=== PATIENT | female | born 1975 | race Caucasian/White ===

== ENCOUNTER → 2017-08-24 09:34 | Outpatient (REF) | payer MEDICARE, MEDICAID, SELFPAY ==
[2017-08-24 09:46] LABS: Add Manual Diff / Slide Review NO; Basophils Percent Auto 0.9 % (0-2); Eosinophils Percent Auto 2.1 % (2-4); Hematocrit 42.5 % (36-46); Lymphocytes Percent Auto 25.3 % (25-40); Mean Corpuscular HGB Conc 32.9 % (30-36); Mean Corpuscular Hemoglobin 27.2 PG (26-34); Mean Corpuscular Volume 82.6 fL (80-100); Monocytes Percent Auto 6.8 % (3-14); Neutrophils Absolute Auto 6900 /uL (3000-5900); Neutrophils Percent Auto 64.9 % (50-75); Platelet Count 290 X10^3/uL (150-400); Red Blood Cell Count 5.14 X10^6/uL (4.0-5.2); Red Cell Distribution Width 17.4 % (11.6-14.8); White Blood Cell Count 10.7 X10^3/uL (4.5-11.0)
[2017-08-24 10:01] LABS: Potassium 3.6 mmol/L (3.4-5.1)
[2017-08-24 10:02] LABS: Alanine Aminotransferase 43 IU/L (9-52); Albumin 4.2 g/dL (3.5-5.0); Albumin Globulin Ratio 1.2 (1.0-2.8); Alkaline Phosphatase 94 U/L (38-126); Aspartate Aminotransferase 28 IU/L (14-36); Bilirubin Total 0.7 mg/dL (0.2-1.3); Calcium 8.9 mg/dL (8.4-10.2); Estimated Glomerular Filt Rate > 60.0 mL/min (>60); Globulin 3.6 g/dL (1.7-4.1); Glucose 125 mg/dL (70-100); HEMOLYSIS 49 (0-50); Sodium 140 mmol/L (137-145); Total Protein 7.8 g/dL (6.3-8.2)
== END ==
LOC: LAB 09:34
PROVIDERS: PCP Family Medicine; Visit Provider Family Medicine
DX: R60.9 Edema, unspecified (principal)
CPT/HCPCS: 80053; 85025

== ENCOUNTER 2017-09-15 20:42 | Inpatient (IN) | payer MEDICARE, MEDICAID, SELFPAY ==
[2017-09-15 21:00] VITALS: BP 214/90; PULSE 98; RESP 34; TEMP 36.6; O2SAT 94
[2017-09-15 21:08] VITALS: BP 166/73; PULSE 98; RESP 34
--- NOTE | 2017-09-15 22:21 | DI.CT.S_ITS ---
PROCEDURE: CT ANGIO CHEST PE PROTOCOL INDICATIONS: shortness of breath TECHNIQUE: After the administration of intravenous contrast, 2 mm thick sections acquired from the pulmonary apices to the posterior costophrenic angles. 3-dimensional maximum intensity projection (MIP) coronal and sagittal reformats were then acquired through the thorax. For radiation dose reduction, the following was used: automated exposure control, adjustment of mA and/or kV according to patient size. COMPARISON: [facility], CT, PE STUDY (CTA CHEST), 01/12/2017, 20:01. [facility], CT, PE STUDY (CTA CHEST), 06/02/2016, 13:25. FINDINGS: Image quality: Suboptimal related to moderate motion artifact from breathing. There is also suboptimal opacification of the pulmonary arteries. Pulmonary arteries: Pulmonary arteries are normal in size, and demonstrate no large intraluminal filling defects to suggest central pulmonary embolism. The pulmonary arteries are only adequately opacified to the lobar branches. Lungs and pleura: Patchy areas of groundglass attenuation are identified diffusely throughout the lungs with areas of sparing. Mild consolidation is evident within the region of the lingula, likely representing atelectasis. No lobar consolidation or pleural effusion, or pneumothorax is identified. Mediastinum: Heart size is normal, without pericardial effusion. No mediastinal or hilar adenopathy. However, there are numerous subcentimeter mediastinal lymph nodes identified which are similar to the previous exam. Thoracic aorta is normal in caliber and enhancement. Esophagus is normal in caliber, without hiatal hernia. Bones and chest wall: No suspicious bony lesions. Ribs and thoracic spine appear intact throughout. Thyroid gland appears to be slightly prominent in size and contains inferior thyroid nodules. No axillary or supraclavicular adenopathy. Abdomen: The liver is hypodense when compared to the spleen and may be mildly enlarged. Otherwise, the included portions of the upper abdomen are unremarkable. IMPRESSION: 1. Suboptimal evaluation for pulmonary emboli. No large pulmonary emboli are evident. 2. Patchy areas of groundglass attenuation likely is exaggerated by expiratory technique. However, pulmonary edema, hypersensitivity pneumonitis or atypical infection may also have this appearance and clinical correlation is recommended. 3. Numerous small mediastinal lymph nodes are similar to the prior examination. 4. Probable hepatic steatosis. Note: The preliminary report provided by [facility] is concordant with the final report. Dictated by: Sebastian Silveira M.D. on 09/16/2017 at 8:06 Approved by: Sebastian Silveira M.D. on 09/16/2017 at 8:10
[2017-09-15 22:30] VITALS: BP 156/89; PULSE 94; RESP 23; O2SAT 98
[2017-09-15 22:31] LABS: Add Manual Diff / Slide Review NO; Basophils Percent Auto 0.9 % (0-2); Eosinophils Percent Auto 1.3 % (2-4); Hematocrit 39.7 % (36-46); Hemoglobin 12.6 g/dL (12.0-16.0); Lymphocytes Percent Auto 12.8 % (25-40); Mean Corpuscular HGB Conc 31.6 % (30-36); Mean Corpuscular Hemoglobin 26.7 PG (26-34); Mean Corpuscular Volume 84.4 fL (80-100); Monocytes Percent Auto 5.4 % (3-14); Neutrophils Absolute Auto 10800 /uL (3000-5900); Neutrophils Percent Auto 79.6 % (50-75); Platelet Count 369 X10^3/uL (150-400); Red Blood Cell Count 4.71 X10^6/uL (4.0-5.2); Red Cell Distribution Width 17.1 % (11.6-14.8); White Blood Cell Count 13.6 X10^3/uL (4.5-11.0)
[2017-09-15 22:32] LABS: Blood Urea Nitrogen 14 mg/dL (7-17); Calcium 9.3 mg/dL (8.4-10.2); Carbon Dioxide 36 mmol/L (22-32); Chloride 95 mmol/L (98-107); Estimated Glomerular Filt Rate > 60.0 mL/min (>60); Glucose 206 mg/dL (70-100); HEMOLYSIS < 15 (0-50); Potassium 4.6 mmol/L (3.4-5.1); Sodium 140 mmol/L (137-145)
[2017-09-15 22:44] LABS: Troponin I 0.045 ng/mL (0.01-0.034)
[2017-09-15] MEDS: LORazepam 2 MG/ML SYRINGE 1 MG IV (22:45)
[2017-09-15 23:10] VITALS: BP 156/78; PULSE 91; RESP 26; O2SAT 96
[2017-09-15 23:20] LABS: Procalcitonin < 0.05 ng/mL (<0.5)
[2017-09-15] MEDS: HALOPERIDOL 5 MG/ML VIAL 2 MG IV (23:31)
--- NOTE | 2017-09-15 23:57 | PC.NURSE ---
Pt went for CT angio via wheelchair. [address] scanner. Premedicated with 1mg lorazepam IV per provider order. Pt unable to lie flat without extreme shortness of breath and anxiety related to inability to breath, per pt. Medicated pt with 2mg Haldol per provider order and NRB on 12L. Respiratory therapist at pt's side to assist with breathing. Continuous pulse ox was used. Pt was at 99% throughout entire procedure and tolerated well. Back in room now and comfortable sitting up on 6L nasal cannula.
[2017-09-16] VITALS (15 sets, daily range): BP systolic 141–184; BP diastolic 68–109; PULSE 85–117; RESP 15–22; TEMP 36.4–37.4; O2SAT 90–96; BMI 62.8
[2017-09-16 01:23] LABS: Troponin I 0.043 ng/mL (0.01-0.034)
--- NOTE | 2017-09-16 01:25 | PC.NURSE ---
Turned O2 flow rate from 6L to 3L to see how pt tolerated. Desatted from 99% down to 92% at rest. Got her up to bedside commode and she became short of breath and desatted to 79%. Turned pt back up to 6L nasal cannula and after approx 4-5 min, she was at 90%. Encouraged pt to deep breath thru nose and blow out through mouth. Pt states 6L feels much better. She does say that at home, she will usually get short of breath with exertion, but not as bad as this. She monitors her oxygen at home and is usually about 96-98% on 3L.
[2017-09-16] MEDS: DEXAMETHASONE 10 MG/ML VIAL 12 MG IV (03:08)
[2017-09-16] MEDS: levoFLOXacin 750 MG/150 ML PIGGYBACK 100 MG IV (03:13)
--- NOTE | 2017-09-16 03:35 | PC.NURSE ---
Meds administered per order. Pt. sleeping in chair with IV infusing without evidence of infiltration. responds appropriately to verbal stimuli, remaind on monitor
[2017-09-16] MEDS: ACETAMINOPHEN 325 MG TABLET 975 MG PO (04:35)
--- NOTE | 2017-09-16 04:46 | ED.SOB ---
HPI - SOB/Dyspnea General Chief Complaint: Shortness of Breath/Dyspnea Stated Complaint: SOB WITH MOVEMENT History of Present Illness HPI 42-year-old morbidly obese female with history of recurrent pneumonia is now with 2-3 LPM home O2 requirement via NC presents with new hypoxemia (SaO2 low to mid 80s on 5 LPM). Symptoms have been apparently developing over 1-2 days. Patient denies chest pain, fevers, chills, or cough. Patient denies a history of PE, DVT, or smoking. M/S/F/SocHx notable for: please see HPI; remainder reviewed with patient and in chart. ROS: Negative constitutional, eye, cardiovascular, pulmonary, GI, , MSK, skin, neurologic, psychiatric, endocrine unless noted in the HPI. Exam Gen: Pleasant, non-toxic appearing, resting comfortably. HEENT: NC, AT, PEERL, EOMI, trachea midline. Resp: Clear to auscultation bilaterally, normal work of breathing. However exam is limited by habitus. Card: RRR with no M/R/G, no crackles in lung bases, no pedal edema, no JVD appreciated. GI: NT/ND Vascular: Both ankles, calves, and thighs of equal size, no calf tenderness to palpation bilaterally. MSK: No chest wall TTP. No visible deformities, strength and tone WNL. Skin: Normal color with no visible lesions. Neuro: AO x 3, no facial asymmetry, vision and hearing WNL. Psych: Mood and affect appropriate. Labs / Imaging (pertinent): WBC 13.6, HB 12.6 sodium 140, potassium 4.6, troponin 0.045, Procalcitonin <0.05, troponin (repeat) 0.043 EKG: SR at 92 bpm, no IA segment depressions, no new ST segment changes, new LBBB, or T-wave changes that would suggest acute ischemia. CTA Chest: limited study. No evidence of large central pulmonary emboli. Smaller pulmonary emboli cannot be excluded. Bilateral ground glass opacities nonspecific may be due to ulnar edema, infiltrates. Or focal left basilar atelectasis versus infiltrate. Cardiomegaly. Small thyroid nodule. MDM Previous chart, nursing note, and vitals reviewed. A: 42-year-old morbidly obese female with history of recurrent pneumonia is now with 2-3 LPM home O2 requirement via NC presents with new hypoxemia (SaO2 low to mid 80s on 5 LPM). DDx: pneumonia, reactive airway disease / COPD / Asthma, bronchitis, pneumothorax, anxiety, PE, CHF, pleural effusion, pericardial effusion, ACS. Evaluation: * Pneumonia - doubt but cannot fully exclude a bacterial pneumonia given the absence of Pro calcitonin elevation, absence of cough, or fevers, as well as an absence of a focal infiltrate and the patient's CTA. * Reactive airway disease / COPD / Asthma - patient with good air movement and an absence of wheezing. * Bronchitis - doubt given the lack of productive cough or systemic symptoms. * Pneumothorax - no evidence by CT. * Anxiety - patient clinically without evidence of appreciable anxiety on exam. * PE - patient felt to be moderate to high risk by clinical Gestalt, given the recognition that the chest x-ray would have sub optimal imaging with respect to pneumonia or pneumonitis a CTA was ordered to evaluate for both PE and pneumonia. CT without evidence of large pulmonary emboli. Given the patient's overall tenuous respiratory function it is possible that small pulmonary emboli could be causing the patient's symptoms. * CHF - no evidence by auscultation, CT, and absence of pedal edema. * Pleural effusion - CT without evidence of effusions. * Pericardial effusion - no evidence by imaging. * ACS - doubt ACS given a non-ischemic EKG and effectively negative serial troponins. ED Course: on 3 L per minute (home oxygen level) patient desaturates to 79% when attempting to urinate. 12 mg Decadron and 750 mg Levaquin given for treatment of possible pneumonia and/or pneumonitis. Blood cultures drawn. Disposition: patient admitted for observation supportive care. Impression: hypoxemia (please reference below for remainder of encounter information) Related Data Home Medications Medication Instructions Recorded Confirmed lorazepam 1 - 2 mg PO Q8HP PRN #0 06/02/16 etanercept [Enbrel] 50 mg SQ QWEEK #0 08/12/16 hydrocodone-acetaminophen 0 tab PO Q4HP PRN #0 01/12/17 metoprolol tartrate 50 mg PO BID #0 01/12/17 ondansetron HCl [Zofran] 4 mg PO Q8HP PRN #0 01/12/17 Previous Rx's Medication Instructions Recorded levofloxacin [Levaquin] 750 mg PO 2100 #10 01/19/17 prednisone 40 mg PO AMCC #20 tab 01/19/17 Allergies Allergy/AdvReac Type Severity Reaction Status Date / Time infliximab Allergy Unknown Verified 09/15/17 21:40 PFS Social History Smoking Status: Former smoker Exam Initial Vital Signs Initial Vital Signs: Vital Signs Temperature 97.8 F 09/15/17 21:00 Pulse Rate 98 H 09/15/17 21:00 Respiratory Rate 34 H 09/15/17 21:00 Blood Pressure 214/90 H 09/15/17 21:00 Pulse Oximetry 94 09/15/17 21:00 Course Orders Ordered: ED Orders 09/15/17 21:15 Basic Metabolic Panel Stat Complete Blood Count AUTO DIFF Stat Procalcitonin Stat Troponin I Stat 09/15/17 22:21 CT angio chest PE protocol Stat 09/15/17 23:25 BiPAP Ventilatory Support Asse RT PROTOCOL 09/16/17 00:37 Troponin I Stat 09/16/17 02:24 Blood Culture Stat 09/16/17 03:48 Consult to Physician Routine Lorazepam (Ativan) 1 mg IV NOW PRN PRN Reason: anxiety Last Admin: 09/15/17 22:45 Dose: 1 mg Discontinued Medications Acetaminophen (Tylenol) 975 mg PO NOW ONE Stop: 09/16/17 04:17 Last Admin: 09/16/17 04:35 Dose: 975 mg Dexamethasone (Decadron) 12 mg IV NOW ONE Stop: 09/16/17 01:55 Last Admin: 09/16/17 03:08 Dose: 12 mg Haloperidol (Haldol) 2 mg IV NOW ONE Stop: 09/15/17 23:26 Last Admin: 09/15/17 23:31 Dose: 2 mg Levofloxacin (Levaquin) 750 mg in 150 mls @ 100 mls/hr IV NOW ONE Stop: 09/16/17 03:23 Last Admin: 09/16/17 03:13 Dose: 100 mls/hr Vital Signs - 8 hr 09/15/17 21:00 09/15/17 21:08 09/15/17 22:30 Temperature 97.8 F Pulse Rate 98 H 98 H 94 H Respiratory Rate 34 H 34 H 23 Blood Pressure 214/90 H Blood Pressure [Left Wrist] 166/73 H 156/89 H Pulse Oximetry 94 98 09/15/17 23:10 Temperature Pulse Rate 91 H Respiratory Rate 26 H Blood Pressure Blood Pressure [Left Wrist] 156/78 H Pulse Oximetry 96 MDM - SOB/Dyspnea Lab Data Result diagrams: 09/15/17 21:15 09/15/17 21:15 Lab Results 09/15/17 09/15/17 09/15/17 Range/Units 21:15 21:15 21:15 WBC 13.6 H (4.5-11.0) X10^3/uL RBC 4.71 (4.0-5.2) X10^6/uL Hgb 12.6 (12.0-16.0) g/dL Hct 39.7 (36-46) % MCV 84.4 (80-100) fL MCH 26.7 (26-34) PG MCHC 31.6 (30-36) % RDW 17.1 H (11.6-14.8) % Plt Count 369 (150-400) X10^3/uL Neut % (Auto) 79.6 H (50-75) % Lymph % (Auto) 12.8 L (25-40) % [place] % (Auto) 5.4 (3-14) % Eos % (Auto) 1.3 L (2-4) % Baso % (Auto) 0.9 (0-2) % Neut # (Auto) 75188 H (1181-3371) /uL Sodium 140 (137-145) mmol/L Potassium 4.6 (3.4-5.1) mmol/L Chloride 95 L (98-107) mmol/L Carbon Dioxide 36 H (22-32) mmol/L BUN 14 (7-17) mg/dL Creatinine 0.40 L (0.52-1.04) mg/dL Estimated GFR > 60.0 (>60) mL/min BUN/Creatinine Ratio 35.0 H (6-22) Glucose 206 H (70-100) mg/dL Calcium 9.3 (8.4-10.2) mg/dL Troponin I 0.045 H (0.01-0.034) ng/mL Procalcitonin < 0.05 (<0.5) ng/mL 09/16/17 Range/Units 00:37 WBC (4.5-11.0) X10^3/uL RBC (4.0-5.2) X10^6/uL Hgb (12.0-16.0) g/dL Hct (36-46) % MCV (80-100) fL MCH (26-34) PG MCHC (30-36) % RDW (11.6-14.8) % Plt Count (150-400) X10^3/uL Neut % (Auto) (50-75) % Lymph % (Auto) (25-40) % [place] % (Auto) (3-14) % Eos % (Auto) (2-4) % Baso % (Auto) (0-2) % Neut # (Auto) (1213-7717) /uL Sodium (137-145) mmol/L Potassium (3.4-5.1) mmol/L Chloride (98-107) mmol/L Carbon Dioxide (22-32) mmol/L BUN (7-17) mg/dL Creatinine (0.52-1.04) mg/dL Estimated GFR (>60) mL/min BUN/Creatinine Ratio (6-22) Glucose (70-100) mg/dL Calcium (8.4-10.2) mg/dL Troponin I 0.043 H (0.01-0.034) ng/mL Procalcitonin (<0.5) ng/mL Discharge Plan Departure Patient Disposition: Admitted As Inpatient Clinical Impression: Hypoxia Admit Date/Time: 09/16/17 04:04 Admit Provider: Jesus Manuel
--- NOTE | 2017-09-16 05:02 | PC.NURSE ---
attempted to call patient report (held for at least 30 minutes due to last patient going upstairs to same RN) patient report attempted nurse still not available.
--- NOTE | 2017-09-16 07:52 | PC.NURSE ---
Received report from VALENTIN Sales in ED at 0535. Pt arrived to unit at 0600 via wheelchair into room 211. Pt assisted to sitting in bed using walker. Then helped to BSC, pt voided qs, small clot noted , pt stated she is starting her menses. Assisted back to bed to perform a bed dangle. Pt needs frequent and long rest periods after movement. On 4L NC O2. BP and HR elevated on admit, O2 sat 68% on 4L. RT paged at 0705 to assess. Pt placed in high fowlers position , bed alarm on. Call light within reach. Pt placed on Telemetry monitoring per order. Denies chest pain. Pt very anxious, no available orders, was unable to leave bedside for 1 hour. PIV S/L'd to left upper arm.
[2017-09-16] MEDS: LISINOPRIL 10 MG TABLET PO (10:16)
[2017-09-16] MEDS: AMLODIPINE 5 MG TABLET 10 MG PO (10:16)
[2017-09-16] MEDS: FOLIC ACID 0.4 MG TABLET PO (10:16)
[2017-09-16] MEDS: FUROSEMIDE 20 MG/2 ML VIAL IV (10:16)
[2017-09-16] MEDS: predniSONE 5 MG TABLET 15 MG PO (10:17)
[2017-09-16] MEDS: METFORMIN HCL 500 MG TABLET 1000 MG PO ×2 (10:17→21:27)
[2017-09-16] MEDS: METOPROLOL 50 MG TABLET 100 MG PO ×2 (10:17→21:27)
--- NOTE | 2017-09-16 11:49 | PC.NURSE ---
PT DECLINES TO HAVE HOME MEDICATIONS STORED IN PHARMACY. PT STATES SHE WILL HAVE HER FAMILY TAKE MEDICATIONS HOME. STEPHANIE USED TO TRANS TO BSC FOR FREQUENT VOIDS THIS AM. PT C/O DISCOMFORT WITH STEPHANIE SLING. MARIN INSERTED PER VVO BY DR. PAULSON. PT TOLERATED WELL.
--- NOTE | 2017-09-16 12:55 | PM.HP.1 ---
History of Present Illness Date Patient Seen: 09/16/17 Time Patient Seen: 09:01 Chief complaint: SOB WITH MOVEMENT,o2 dependency Patient History Medical History Anxiety (Acute) Asthma (Acute) CHF (congestive heart failure) (Acute) COPD (chronic obstructive pulmonary disease) (Acute) Diabetes mellitus type 2 in obese (Acute) Morbid obesity (Acute) Pericardial effusion (Acute) Pleural effusion (Acute) Reactive airway disease (Acute) Recurrent pneumonia (Acute) Requires continuous at home supplemental oxygen (Acute) Family & Social History Social History: household members family Prior Living Arrangements Apartment/Condo Safety & Behavioral: Feels Safe in Current Yes Environment Been Physically Hurt or No Threatened By a Person Suicidal Ideation Description None Suicide Plan Description No Plan Tobacco & Substance use: Smoking Status Former smoker alcohol intake never Substance Use Type does not use Meds Home Medications Medication Instructions Recorded Confirmed Type lorazepam 1 - 2 mg PO Q8HP PRN #0 06/02/16 09/16/17 History etanercept [Enbrel] 50 mg SQ QWEEK #0 08/12/16 09/16/17 History hydrocodone-acetaminophen 1 tab PO Q4HP PRN #0 01/12/17 09/16/17 History metoprolol tartrate 100 mg PO BID #0 01/12/17 09/16/17 History ondansetron HCl [Zofran] 4 mg PO Q8HP PRN #0 01/12/17 09/16/17 History amlodipine 10 mg PO DAILY 09/16/17 09/16/17 History folic acid 400 mcg PO DAILY 09/16/17 09/16/17 History lisinopril 10 mg PO DAILY 09/16/17 09/16/17 History metformin 1,000 mg PO BID 09/16/17 09/16/17 History multivitamin with minerals 1 tab PO DAILY 09/16/17 09/16/17 History prednisone 15 mg PO AMCC 09/16/17 09/16/17 History Allergies Allergy/AdvReac Type Severity Reaction Status Date / Time infliximab Allergy Unknown Verified 09/15/17 21:40 Review of Systems Review of Systems Patient with severe dyspnea requiring increased oxygen supplementation. His on certain if she has had fever. Denies chest pain. Some skin outbreak. PERRLA EOMs intact Cardiovascular no chest pain palpitations sounds. Slight increased edema which is difficult for patient to tell Gastrointestinal some mild abdominal discomfort but not severe nausea or diarrhea or CVA area pain Musculoskeletal patient has complaints of chronic discomfort and pain positional and that is not significantly changed Skin related redness could be mechanical irritation over fungal but also is a part of her underlying autoimmune syndrome. Neurologic intact patient is alert oriented and neuro is symmetrical to sensory and motor. Psychiatric: Patient mood seems good although she battles depression chronically Hematologic no bleeding if her a and large lymph nodes. Exam Vital Signs (past 8 hours): Vital Signs - 8 hr 09/16/17 06:53 09/16/17 07:16 09/16/17 07:28 Temperature 97.9 F Pulse Rate 88 117 H Respiratory Rate 15 17 Blood Pressure 184/105 H Blood Pressure [Left Wrist] 146/88 H Pulse Oximetry 96 93 09/16/17 07:30 09/16/17 07:40 Temperature 97.6 F Pulse Rate 116 H 116 H Respiratory Rate 22 22 Blood Pressure 164/109 H Blood Pressure [Left Wrist] Pulse Oximetry 95 Pulse Oximetry 95 Fraction of Inspired Oxygen 40 Oxygen Delivery Method Venturi Mask Oxygen Flow Rate 12 Narrative Exam Narrative: Patient sitting in bed oxygen mask on with adequate saturations speaking comfortably and clear cognition PERRLA EOMs intact Neck without thyromegaly or mass Chest godinez in the back up to mid back Cardiac there is 1+ edema diffusely Abdomen is slightly distended and mildly tender and no rebound or guarding or hepatosplenomegaly appreciable Back shows no CVA area pain spinal or pelvic pain Skin shows evidence of inflammation and the hip and low back area and behind the left knee. Will try nystatin Neuro motor Natalie is symmetrical and speech is clear extremities with Objective Labs Result Diagrams: 09/15/17 21:15 09/15/17 21:15 Labs: Laboratory Results - last 24 hr 09/15/17 09/15/17 09/15/17 21:15 21:15 21:15 WBC 13.6 H RBC 4.71 Hgb 12.6 Hct 39.7 MCV 84.4 MCH 26.7 MCHC 31.6 RDW 17.1 H Plt Count 369 Neut % (Auto) 79.6 H Lymph % (Auto) 12.8 L [place] % (Auto) 5.4 Eos % (Auto) 1.3 L Baso % (Auto) 0.9 Neut # (Auto) 89745 H Sodium 140 Potassium 4.6 Chloride 95 L Carbon Dioxide 36 H BUN 14 Creatinine 0.40 L Estimated GFR > 60.0 BUN/Creatinine Ratio 35.0 H Glucose 206 H Calcium 9.3 Troponin I 0.045 H Procalcitonin < 0.05 09/16/17 00:37 WBC RBC Hgb Hct MCV MCH MCHC RDW Plt Count Neut % (Auto) Lymph % (Auto) [place] % (Auto) Eos % (Auto) Baso % (Auto) Neut # (Auto) Sodium Potassium Chloride Carbon Dioxide BUN Creatinine Estimated GFR BUN/Creatinine Ratio Glucose Calcium Troponin I 0.043 H Procalcitonin Assessment & Plan Plan: Assessment/Plan Narrative: Assessment 1. Severe hypoxia. Patient has a variety of factors that could contribute to this recently she has been having recurrent pneumonias over the last 2-3 years secondary to immune suppression from her Enbrel. I suspect that this will worsen again . Patient has history of recurrent pneumonias over the last several years. The we think this is secondary to immune suppression from Enbrel for her autoimmune disorder. Patient has been trying to treat this with combination of prednisone and diuretics at home and failed outpatient therapy. Assessment 2. 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 Patient requires immune modulation with Enbrel due to the severity of this and and had will probably require that permanently. This immune modulation is making her susceptible to other issues and may have some primary pulmonary toxicity. Assessment 3. Morbid obesity. Patient with severe limitations on care mobility access to health care secondary to size. I think that this also may be exerting a restrictive component to her respiratory function. Assessment 4. Hypertension currently appropriate will monitor. Will continue patient's current antihypertensive medications here Assessment 5 diabetes this is course aggravated by her weight and also aggravated by her steroid use for pulmonary issues. Will have patient admitted to ADA diet insulin on regular basis and continue her oral medication which is metformin. Assessment 6. Anxiety and depression this is been difficult for this patient and will continue with her current medication regimen. Quality VTE Deep Vein Thrombosis/Pulmonary Embolism Present on Admission: No
--- NOTE | 2017-09-16 14:20 | CM.DANOTE ---
DCP Assessment: Pt is a 42 yo female, resident of [place]. Pt admitted for SOB. Pt's PCP is Dr Chavez; Insurance is Medicare/Medicaid. 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 Pt has been on disability benefits sec to her autoimmune disorder,she is on BRYAN, CM Lida De La Cruz. Pt is approx 5'7 weighs 401 pounds and requires full care from her mom. 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 RODOLFO Sawyer
[2017-09-16] MEDS: predniSONE 20 MG TABLET 40 MG PO (14:55)
[2017-09-16] MEDS: ENOXAPARIN 40 MG/0.4 ML SYRINGE SUBCUT (14:55)
[2017-09-16] MEDS: NYSTATIN CREAM 30 GM 1 APPLIC TOP (17:01)
[2017-09-16] MEDS: INSULIN 70-30 KwikPen 100 UNIT/ML INSULN.PEN 10 UNIT SUBCUT (17:03)
[2017-09-16] MEDS: SODIUM CHLORIDE 0.9% FLUSH 10 ML IV (21:28)
[2017-09-17] VITALS (12 sets, daily range): BP systolic 138–173; BP diastolic 66–105; PULSE 71–92; RESP 16–20; TEMP 36.3–37.1; O2SAT 88–99
[2017-09-17] MEDS: levoFLOXacin 750 MG/150 ML PIGGYBACK 100 MG IV (03:38)
[2017-09-17] MEDS: SODIUM CHLORIDE 0.9% 250 ML 21 ML IV (03:39)
[2017-09-17 06:13] LABS: Add Manual Diff / Slide Review NO; Basophils Percent Auto 1.2 % (0-2); Eosinophils Percent Auto 0.1 % (2-4); Hematocrit 37.8 % (36-46); Hemoglobin 11.9 g/dL (12.0-16.0); Lymphocytes Percent Auto 10.9 % (25-40); Mean Corpuscular HGB Conc 31.5 % (30-36); Mean Corpuscular Hemoglobin 26.5 PG (26-34); Monocytes Percent Auto 6.9 % (3-14); Neutrophils Absolute Auto 9800 /uL (3000-5900); Neutrophils Percent Auto 80.9 % (50-75); Platelet Count 331 X10^3/uL (150-400); Red Cell Distribution Width 17.4 % (11.6-14.8); White Blood Cell Count 12.1 X10^3/uL (4.5-11.0)
[2017-09-17 06:23] LABS: Alanine Aminotransferase 34 IU/L (9-52); Albumin 3.6 g/dL (3.5-5.0); Albumin Globulin Ratio 1.1 (1.0-2.8); Alkaline Phosphatase 90 U/L (38-126); Aspartate Aminotransferase 18 IU/L (14-36); Bilirubin Total 0.5 mg/dL (0.2-1.3); Blood Urea Nitrogen 16 mg/dL (7-17); Carbon Dioxide 37 mmol/L (22-32); Chloride 94 mmol/L (98-107); Estimated Glomerular Filt Rate > 60.0 mL/min (>60); Globulin 3.4 g/dL (1.7-4.1); Glucose 258 mg/dL (70-100); HEMOLYSIS < 15 (0-50); Potassium 4.1 mmol/L (3.4-5.1); Sodium 136 mmol/L (137-145)
--- NOTE | 2017-09-17 06:43 | PC.NURSE ---
SOB when we transferred her to the [facility] [place] via jodie lift. She had 1 med soft BM last night. no complaint of pain or n/v. 94-96% 12L, 40%FiO2 venti mask. call light in reach.
[2017-09-17] MEDS: INSULIN 70-30 KwikPen 100 UNIT/ML INSULN.PEN 10 UNIT SUBCUT (08:09)
[2017-09-17] MEDS: NYSTATIN CREAM 30 GM 1 APPLIC TOP ×2 (08:10→20:46)
[2017-09-17] MEDS: SODIUM CHLORIDE 0.9% FLUSH 10 ML IV ×2 (08:10→20:56)
[2017-09-17] MEDS: AMLODIPINE 5 MG TABLET 10 MG PO (08:10)
[2017-09-17] MEDS: ENOXAPARIN 40 MG/0.4 ML SYRINGE SUBCUT (08:11)
[2017-09-17] MEDS: FOLIC ACID 0.4 MG TABLET PO (08:11)
[2017-09-17] MEDS: LISINOPRIL 10 MG TABLET PO (08:11)
[2017-09-17] MEDS: predniSONE 20 MG TABLET 40 MG PO (08:12)
[2017-09-17] MEDS: METFORMIN HCL 500 MG TABLET 1000 MG PO ×2 (08:12→20:46)
[2017-09-17] MEDS: METOPROLOL 50 MG TABLET 100 MG PO ×2 (08:12→20:47)
--- NOTE | 2017-09-17 08:16 | PM.PN.1 ---
Subjective Date Patient Seen: 09/17/17 Time Patient Seen: 07:27 Interval history: Patient continues dyspneic and which has been a issue periodically secondary to pneumonias. Her Enbrel will hold at this time during this she is in on shins supplementation and IV antibiotics along with high-dose steroids. She is doing little bit better today white count is down just touch vital signs are good blood pressure is tolerable glucose is elevated but be managed with insulin along with her metformin. All-in-all progress today. Exam Vital Signs (past 8 hours): Vital Signs - 8 hr 09/17/17 00:22 09/17/17 06:47 Temperature 97.9 F 97.9 F Pulse Rate 87 89 Respiratory Rate 16 16 Blood Pressure 161/98 H 156/96 H Pulse Oximetry 96 94 Pulse Oximetry 94 Fraction of Inspired Oxygen 40 Oxygen Delivery Method Venturi Mask Oxygen Flow Rate 12 Narrative Exam Narrative: Obese female sitting in bed breathing a little briskly with stable O2 sats and mildly elevated blood pressure. PERRLA EOMs intact. Neck without mass or thyromegaly. Lungs rales in bases without dullness or wheeze. Cardiovascular exam shows regular rate and rhythm without murmur there is dependent edema. Abdomen nontender no hepatosplenomegaly bowel sounds present. Neuro intact symmetrical nonfocal speech clear. Objective Labs Result Diagrams: 09/17/17 05:39 09/17/17 05:39 Labs: Laboratory Results - last 24 hr 09/17/17 09/17/17 05:39 05:39 WBC 12.1 H RBC 4.50 Hgb 11.9 L Hct 37.8 MCV 84.0 MCH 26.5 MCHC 31.5 RDW 17.4 H Plt Count 331 Neut % (Auto) 80.9 H Lymph % (Auto) 10.9 L [place] % (Auto) 6.9 Eos % (Auto) 0.1 L Baso % (Auto) 1.2 Neut # (Auto) 9800 H Sodium 136 L Potassium 4.1 Chloride 94 L Carbon Dioxide 37 H BUN 16 Creatinine 0.40 L Estimated GFR > 60.0 BUN/Creatinine Ratio 40.0 H Glucose 258 H Calcium 9.0 Total Bilirubin 0.5 AST 18 ALT 34 Alkaline Phosphatase 90 Total Protein 7.0 Albumin 3.6 Globulin 3.4 Albumin/Globulin Ratio 1.1 Assessment & Plan Plan: Assessment/Plan Narrative: Assessment 1. Pneumonia. Will continue antibiotics. Think this is patient is recurring problem been aggravated in part by her Enbrel as an immune suppression. Seems like this been caught in time and is stabilizing a little bit earlier any more easily than other episodes. Chest 2. Autoimmune disorder. 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 Assessment 3. Diabetes patient's sugars up probably in response to infection also in response to increased steroids which she also requires for her immune disorder. Is on insulin b.i.d. as well as her metformin and will monitor closely. Assessment for hypertension will continue patient's usual antihypertensive medicines of that but would prefer not settling down her little bit over the course of today I might increase but her antihypertensive therapy. We will get the serial labs to monitor as well Assessment 5 depression will continue with her regular medication for that at this point her spirits seem pretty good Assessment 6 significant and quite morbid obesity. Difficult for patient because of size to work and outdoor exercise anyway very limited essentially almost a prisoner in her home secondary to this. Will continue with proper appropriate diet as she is here may consider PT consult. Quality VTE Deep Vein Thrombosis/Pulmonary Embolism Present on Admission: No
[2017-09-17] MEDS: INSULIN 70-30 KwikPen 100 UNIT/ML INSULN.PEN 15 UNIT SUBCUT ×2 (08:55→16:59)
--- NOTE | 2017-09-17 09:25 | PT.IIE ---
Current Diagnoses Pneumonia, unspecified organism (09/16/17) Medical History (Last Updated 09/16/17 @ 07:51 by Radha Pham RN) Anxiety (Acute) Asthma (Acute) CHF (congestive heart failure) (Acute) COPD (chronic obstructive pulmonary disease) (Acute) Diabetes mellitus type 2 in obese (Acute) Morbid obesity (Acute) Pericardial effusion (Acute) Pleural effusion (Acute) Reactive airway disease (Acute) Recurrent pneumonia (Acute) Requires continuous at home supplemental oxygen (Acute) Physical Therapy Inpatient Evaluation/Re-Eval M1 PT/OT-IP Prior Functional Status Start: 09/17/17 13:57 Freq: NEEDED Status: Active Protocol: Document 09/17/17 11:50 AB (Rec: 09/17/17 14:05 AB [id number]) Medical Review Prior Functional Status Diet/Fluid Consistency Regular Mobility and Gait pt stated that she is modified independent with all mobilities and ambulation using FWW Activities of Daily Living and IADL's does sponge bathing only and her mom assists her with washing her hair Social History Household Members family Living Arrangements Apartment/Condo Number of Floors (Floors) Two Floors Number of Stairs To Enter/Railing? no steps to enter pt stays on 1st level of the house. Home Equipment Front Wheel Walker Raised Toilet Seat w/Armrests Additional Social History Comment pt sleeps on her recliner at home M2 PT-IP Current Condition Start: 09/17/17 13:57 Freq: NEEDED Status: Active Protocol: Document 09/17/17 11:50 AB (Rec: 09/17/17 14:05 AB [id number]) Physical Therapy Current Condition Current Condition Evaluation Date 09/17/17 Treatment Diagnosis hypoxia; difficulty in walking Onset Date 09/16/17 Precautions Other Precautions O2 sat M3 PT-IP Subjective Start: 09/17/17 13:57 Freq: NEEDED Status: Active Protocol: Document 09/17/17 11:50 AB (Rec: 09/17/17 14:05 AB [id number]) Subjective Physical Therapy Visit Type Type Initial Evaluation Visit Start Time 11:50 Visit Stop Time 14:00 Total Visit Minutes 30 Notes pt seen this morning and f/u in afternoon for PT eval Number of [employer] SUPERVISOR Visits 0 Physical Therapy Visit Comments Patient Comments pt agreed to do therapy; can get anxious easily M4 PT-IP Mobility and Gait Start: 09/17/17 13:57 Freq: NEEDED Status: Active Protocol: Document 09/17/17 11:50 AB (Rec: 09/17/17 14:05 AB [id number]) PT-Bed Mobility Assessment Sit to Supine Sit to Supine Maximum Assistance 1 Person Assistance PT-Transfer Assessment Sit to and From Stand Sit to and from Stand Contact Guard Assistance Equipment Transfer Assistive Device Gait Belt Front Wheeled Walker Orthotic/Prosthetic Devices or Brace: No Transfers Transfer Destination Bed Gait Assessment Gait Gait Assistance Required: Contact Guard Assist Distance (Feet) (feet) 10 Able to Maintain Weight Bearing Status Yes During Gait Assistive Devices Assistive Device Gait Belt Front Wheeled Walker Orthotic/Prosthetic Devices or Brace: No Gait Deviations General Gait Pattern Decreased Stride Length Decreased Feet Clearance Factors Limiting Gait Function Factors Limiting Gait Function Decreased Activity Tolerance Decreased Strength Respiratory Distress Comments Gait Comments (+) SOB after ambulation: O2 sat 89% but not initial reading since oximeter did not register any reading and has to be changed; pt has rested ~ 2 min already when reading was obtained. PT-Balance Assessment Sitting Balance and Reactions Static Sitting Balance Ability Good Dynamic Sitting Balance Ability Good Standing Balance and Reactions Static Standing Balance Ability Fair Dynamic Standing Balance Ability Fair M5 PT-IP Objective Assessments Start: 09/17/17 13:57 Freq: NEEDED Status: Active Protocol: Document 09/17/17 11:50 AB (Rec: 09/17/17 14:05 AB [id number]) Orientation Orientation/Cognition Level of Alertness Alert Orientation Name Age Birthday Month Date Year Day of Week Place Situation Strength Lower Extremity Strength Assessment Within Functional Limits M6 PT-IP Treatment Start: 09/17/17 13:57 Freq: NEEDED Status: Active Protocol: Document 09/17/17 11:50 AB (Rec: 09/17/17 14:05 AB [id number]) Physical Therapy Treatment Education Education Provided Safety M7 PT-IP Assessment and Plan Start: 09/17/17 13:57 Freq: NEEDED Status: Active Protocol: Document 09/17/17 11:50 AB (Rec: 09/17/17 14:05 AB [id number]) PT Summary Assessment and Plan Potential Rehabilitation Potential Fair Status of Condition at Evaluation Evolving Summary Impairments Balance Bed Mobility Transfers Gait Activity Tolerance Assessment Summary pt requiring CGA with mobility and presnts with decrease activity tolerance affecting function. Goals Bed Mobility Goal Minimal Assistance Transfer Goal Independent Gait Goal Independent Gait Distance 150 Days to Meet Goals 3 Frequency of Treatment Frequency Of Treatment Once a Day Treatment Plan Physical Therapy Treatment Plan Bed Mobility Training Transfer Training Gait Training Therapeutic Exercise Balance Retraining Discharge Planning Neuromuscular Re-ed Coordination Retraining Manual Therapy Other Recommendations and Next Treatment ambulation Focus Recommendations To Nursing Amount of Assist Needed 1 Person Assist Discharge Recommendations PT Discharge Recommendations Home with Assistance Home Health Provider Visit Care Team Role Provider Type Raman Chavez MD Family Provider Physician Primary Care Provider Specialty: Family Practice Lux Gibson MD Emergency Provider Physician Specialty: Emergency Medicine Jesus Manuel MD Admit Provider Physician Attending Provider Other Providers Specialty: Family Practice
--- NOTE | 2017-09-17 10:27 | CM.DPC ---
Addendum entered by RODOLFO Sawyer 09/17/17 10:42: Placed order for PT eval/assess Original Note: DCP Cont: Spoke w/Dr Chavez this morning; he expects that pt will remain here at least another 48-72 hours. Asked about PT eval ? Dr Chavez feels this would be beneficial. F2F signed in case pt needs a new order for [facility] PT/OT etc. Met w/pt this morning, she has improved and looks well today, sitting up in bed. Pt confirms she lives at home w/her mom and 21 yo son Fara. Fara is not working at this time. Mom Tori provides full care and is reimbursed for some of her time by the [employer] program, BRYAN CM is Lida Johnson (Clinicals faxed to Lida by admin [facility] today). Pt would like her [facility] to be resumed; she would also like PT here in the hospital. She explains her HH PT was recently DC because she was doing very well; pt concerned that since a michaud has been placed here, she will decondition. Asked pt how she has been doing in regards to her h/o depression/anxiety and panic attacks? Pt does not see a counselor, although, she is able to cope w/medication and the assist of her family when a panic attack strikes. Pt denies the need for further MH f/u or resources. Pt explains transportation has been an issue since she has a hard time getting in and out of her mother's car. She wants to discuss this barrier closer to her DC. Following along for coordination of safe DCP. This BRAILLE TRANSCRIBER will plan to f/u w/[facility] Thursday. RODOLFO Sawyer
[2017-09-17] MEDS: ACIDOPHILUS/L.BULG/BIF.B/S.THERMOP TABLET 1 EACH PO ×2 (12:35→16:58)
[2017-09-17] MEDS: LOPERAMIDE 2 MG CAPSULE 4 MG PO (13:52)
--- NOTE | 2017-09-17 14:30 | PC.NURSE ---
PT NOTED TO HAVE OPEN BLEEDING AREA TO SUPERIOR GLUTEAL CLEFT DURING CLEANING AFTER BM. ENC PT TO TURN SIDE TO SIDE TO OFF-LOAD PRESSURE. PT DECLINED OFFER OF BED BATH OR FULL SHOWER. PT STATES SHE WILL NOTIFY STAFF IF SHE FEEL LIKE HAVING ONE THIS EVENING.
[2017-09-17] MEDS: INSULIN ASPART 100 UNIT/ML INSULN PEN SUBCUT ×2 (16:59→20:47)
--- NOTE | 2017-09-17 21:18 | PC.NURSE ---
Addendum entered by Janiya Mott R.N. 09/17/17 21:54: Original Note: Elsie shift note: Patient awake and alert, continue on O2 via Venturi Mask at 41% FIO2, sat 94-97%. Sob noted with mild exertion. Sitting up in bed, shifting positions. Limited ROM to LE due to edema L > R. 4+ strength to BUE, performs basic ADLs. No new active bleeding to gluteal folds. No loose stools this shift. States breathing effort is improved. Mother at bedside providing supportive care.
[2017-09-18] VITALS (12 sets, daily range): BP systolic 157–173; BP diastolic 89–101; PULSE 71–100; RESP 18–20; TEMP 36.1–36.8; O2SAT 95–99
[2017-09-18] MEDS: levoFLOXacin 750 MG/150 ML PIGGYBACK 100 MG IV (03:49)
[2017-09-18] MEDS: SODIUM CHLORIDE 0.9% FLUSH 10 ML IV ×4 (03:49→21:29)
[2017-09-18 06:33] LABS: Add Manual Diff / Slide Review NO; Basophils Percent Auto 0.7 % (0-2); Eosinophils Percent Auto 2.2 % (2-4); Hematocrit 37.8 % (36-46); Hemoglobin 12.2 g/dL (12.0-16.0); Lymphocytes Percent Auto 24.9 % (25-40); Mean Corpuscular HGB Conc 32.2 % (30-36); Mean Corpuscular Hemoglobin 26.8 PG (26-34); Mean Corpuscular Volume 83.2 fL (80-100); Monocytes Percent Auto 5.6 % (3-14); Neutrophils Absolute Auto 7100 /uL (3000-5900); Neutrophils Percent Auto 66.6 % (50-75); Platelet Count 342 X10^3/uL (150-400); Red Blood Cell Count 4.54 X10^6/uL (4.0-5.2); Red Cell Distribution Width 17.2 % (11.6-14.8); White Blood Cell Count 10.7 X10^3/uL (4.5-11.0)
[2017-09-18 06:36] LABS: Alanine Aminotransferase 38 IU/L (9-52); Albumin 3.7 g/dL (3.5-5.0); Albumin Globulin Ratio 1.1 (1.0-2.8); Alkaline Phosphatase 86 U/L (38-126); Aspartate Aminotransferase 23 IU/L (14-36); Bilirubin Total 0.6 mg/dL (0.2-1.3); Blood Urea Nitrogen 16 mg/dL (7-17); Calcium 8.8 mg/dL (8.4-10.2); Carbon Dioxide 38 mmol/L (22-32); Chloride 94 mmol/L (98-107); Estimated Glomerular Filt Rate > 60.0 mL/min (>60); Globulin 3.5 g/dL (1.7-4.1); Glucose 121 mg/dL (70-100); HEMOLYSIS 16 (0-50); Potassium 3.5 mmol/L (3.4-5.1); Sodium 141 mmol/L (137-145); Total Protein 7.2 g/dL (6.3-8.2)
--- NOTE | 2017-09-18 08:26 | P.PN_ITS ---
Subjective Date Patient Seen: 09/18/17 Time Patient Seen: 08:00 Interval history: Patient improving today. Less short of breath requiring less oxygen definite improvement in speech speaking comfortably sats improved. Also seen improvement in her blood pressure with regulation of her medications. I have added insulin to her regimen yesterday and no definite improvement in blood sugars today running in the 120 range. She has anticipate that she will need continued steroid use an antibiotic use may be able to switch to oral in a day or 2. Exam Vital Signs (past 8 hours): Vital Signs - 8 hr 3 09/18/17 01:00 09/18/17 04:20 Temperature 98.2 F 97.7 F Pulse Rate 100 H 71 Respiratory Rate 18 18 Blood Pressure 158/101 H 157/93 H Pulse Oximetry 95 95 Pulse Oximetry 95 Fraction of Inspired Oxygen 40 Oxygen Delivery Method Venturi Mask Oxygen Flow Rate 15 Narrative Exam Narrative: Patient is sitting comfortably in bed much better mood today speaking comfortably. PERRLA EOMs intact. Neck without mass. Lungs improved today better breath sounds decreased crackles and decreased wheezing. Heart shows regular rate and rhythm without murmur. Abdomen very obese but nontender bowel sounds present no pedal splenomegaly. Legs were extremely obese but there is definite component of edema there as well. Skin shows some areas of break out inflammatory change which have been historically a part of her immune problem. This could also be used for fungal infected areas being treated currently Objective Labs Result Diagrams: 09/18/17 06:00 09/18/17 06:00 Labs: Laboratory Results - last 24 hr 09/18/17 09/18/17 06:00 06:00 WBC 10.7 RBC 4.54 Hgb 12.2 Hct 37.8 MCV 83.2 MCH 26.8 MCHC 32.2 RDW 17.2 H Plt Count 342 Neut % (Auto) 66.6 Lymph % (Auto) 24.9 L [place] % (Auto) 5.6 Eos % (Auto) 2.2 Baso % (Auto) 0.7 Neut # (Auto) 7100 H Sodium 141 Potassium 3.5 Chloride 94 L Carbon Dioxide 38 H BUN 16 Creatinine 0.40 L Estimated GFR > 60.0 BUN/Creatinine Ratio 40.0 H Glucose 121 H D Calcium 8.8 Total Bilirubin 0.6 AST 23 ALT 38 Alkaline Phosphatase 86 Total Protein 7.2 Albumin 3.7 Globulin 3.5 Albumin/Globulin Ratio 1.1 Assessment & Plan Plan: Assessment/Plan Narrative: Assessment 1. Pneumonia definitely improving. Will continue on high-dose steroids and IV antibiotics at this point because of the severity of her underlying health issues and prior history of this being a slow process to resolve. Assessment 2. Autoimmune disorder staff O syndrome. This requiring long-term utilization of immune suppression with Enbrel and I think that is a major causative factor for this recurrence of her pneumonia is. Hold Enbrel at this time and continue with other current steroid and monitor for outbreaks. Assessment 3. Diabetes patient's sugars elevated well into the mid 200s with the utilization of steroids down in the 100 now with combination of her usual oral meds plus baseline insulin and sliding scale. Will continue Assessment 4. Hypertension patient's blood pressure little bit high this morning but overall is improving as her respiratory symptoms improve. I think her blood pressure also been aggravated in part by steroids. Assessment 5. Depression looks stable and her mood is pretty good with her improvement in symptoms. Quality VTE Deep Vein Thrombosis/Pulmonary Embolism Present on Admission: No
[2017-09-18] MEDS: INSULIN 70-30 KwikPen 100 UNIT/ML INSULN.PEN 15 UNIT SUBCUT ×2 (08:35→17:08)
[2017-09-18] MEDS: ACIDOPHILUS/L.BULG/BIF.B/S.THERMOP TABLET 1 EACH PO ×3 (08:37→17:07)
[2017-09-18] MEDS: ENOXAPARIN 40 MG/0.4 ML SYRINGE SUBCUT (08:37)
[2017-09-18] MEDS: AMLODIPINE 5 MG TABLET 10 MG PO (08:37)
[2017-09-18] MEDS: METOPROLOL 50 MG TABLET 100 MG PO ×2 (08:38→21:28)
[2017-09-18] MEDS: METFORMIN HCL 500 MG TABLET 1000 MG PO ×2 (08:38→17:07)
[2017-09-18] MEDS: FOLIC ACID 0.4 MG TABLET PO (08:38)
[2017-09-18] MEDS: LISINOPRIL 10 MG TABLET PO (08:38)
[2017-09-18] MEDS: predniSONE 20 MG TABLET 40 MG PO (08:39)
[2017-09-18] MEDS: NYSTATIN CREAM 30 GM 1 APPLIC TOP ×2 (08:40→21:28)
--- NOTE | 2017-09-18 11:31 | PT.IPTN ---
Current Diagnoses Pneumonia, unspecified organism (09/16/17) Physical Therapy Treatment Note M2 PT-IP Current Condition Start: 09/17/17 13:57 Freq: NEEDED Status: Active Protocol: Document 09/17/17 11:50 AB (Rec: 09/17/17 14:05 AB [id number]) Physical Therapy Current Condition Current Condition Evaluation Date 09/17/17 Treatment Diagnosis hypoxia; difficulty in walking Onset Date 09/16/17 Precautions Other Precautions O2 sat M3 PT-IP Subjective Start: 09/17/17 13:57 Freq: NEEDED Status: Active Protocol: Document 09/18/17 11:30 DLM (Rec: 09/18/17 11:31 DLM [id number]) Subjective Physical Therapy Visit Type Type Patient Unavailable Notes Pt is on bedside commode and in the middle of bed bath with nursing. Planned PT visit for after lunch with ptDory M
[2017-09-18] MEDS: INSULIN ASPART 100 UNIT/ML INSULN PEN SUBCUT ×2 (12:11→17:08)
[2017-09-18] MEDS: ACETAMINOPHEN 325 MG TABLET 650 MG PO (12:12)
--- NOTE | 2017-09-18 12:14 | CM.DPNOTE ---
Faxed signed F2F and resume HH order for RN/PT/OT to [facility] per their request. They will need notification when pt is DC and DC summary faxed. JARED
[2017-09-18] MEDS: LORazepam 2 MG/ML SYRINGE 1 MG IV (12:20)
--- NOTE | 2017-09-18 14:26 | PC.NURSE ---
AT APPROX 1230 PT REPORTS ANXIETY AND HEADACHE. MEDICATED PER EMAR. UP TO BSC 1-2 PA W/FWW. STEPHANIE NOT USED TODAY.
--- NOTE | 2017-09-18 15:11 | PT.IPTN ---
Current Diagnoses Pneumonia, unspecified organism (09/16/17) Physical Therapy Treatment Note M2 PT-IP Current Condition Start: 09/17/17 13:57 Freq: NEEDED Status: Active Protocol: Document 09/17/17 11:50 AB (Rec: 09/17/17 14:05 AB [id number]) Physical Therapy Current Condition Current Condition Evaluation Date 09/17/17 Treatment Diagnosis hypoxia; difficulty in walking Onset Date 09/16/17 Precautions Other Precautions O2 sat M3 PT-IP Subjective Start: 09/17/17 13:57 Freq: NEEDED Status: Active Protocol: Document 09/18/17 15:02 DLM (Rec: 09/18/17 15:11 DLM [id number]) Subjective Physical Therapy Visit Type Type Treatment Note Visit Start Time 14:35 Visit Stop Time 15:02 Total Visit Minutes 27 Physical Therapy Visit Comments Patient Comments She agrees to try the recliner after walking Therapy Pain Assessment Location Back Intensity 0 M4 PT-IP Mobility and Gait Start: 09/17/17 13:57 Freq: NEEDED Status: Active Protocol: Document 09/18/17 15:02 DLM (Rec: 09/18/17 15:11 DLM [id number]) PT-Bed Mobility Assessment Supine to Sit Supine to Sit Independent Sit to Supine Sit to Supine Independent Scooting Scooting to Edge of Bed Independent PT-Transfer Assessment Sit to and From Stand Sit to and from Stand Independent Equipment Transfer Assistive Device Front Wheeled Walker Gait Assessment Gait Gait Assistance Required: Standby Assistance Distance (Feet) (feet) 20 Assistive Devices Assistive Device Front Wheeled Walker Factors Limiting Gait Function Factors Limiting Gait Function Decreased Activity Tolerance Respiratory Distress Comments Gait Comments she gets short of breath with gait, needs seated resting break to recover, additional trial of gait performed x 10 feet with fWW and SBA. Pt left up in bariatric recliner and positioned for comfort. Call light is close. Pt using 12 LPM O2 at 40% with mask. M5 PT-IP Objective Assessments Start: 09/17/17 13:57 Freq: NEEDED Status: Active Protocol: Document 09/17/17 11:50 AB (Rec: 09/17/17 14:05 AB [id number]) Orientation Orientation/Cognition Level of Alertness Alert Orientation Name Age Birthday Month Date Year Day of Week Place Situation Strength Lower Extremity Strength Assessment Within Functional Limits M6 PT-IP Treatment Start: 09/17/17 13:57 Freq: NEEDED Status: Active Protocol: Document 09/17/17 11:50 AB (Rec: 09/17/17 14:05 AB [id number]) Physical Therapy Treatment Education Education Provided Safety M7 PT-IP Assessment and Plan Start: 09/17/17 13:57 Freq: NEEDED Status: Active Protocol: Document 09/18/17 15:02 DLM (Rec: 09/18/17 15:11 DLM [id number]) PT Summary Assessment and Plan Potential Rehabilitation Potential Good Summary Impairments Strength Gait Activity Tolerance Progress Towards Goals Progressing Toward Goals Assessment Summary She continues to progress today. She has been up doing transfers to bedside commode with nursing. She tolerated short distances of gait in the room with fWW and SBA. She needs seated rest breaks to manage her shortness of breath but recovered well. She continues to need more supplemental oxygen than baseline. Pt left sitting up in recliner with good tolerance. Goals Gait Goal Independent Front Wheel Walker Gait Distance 150 Days to Meet Goals 2 Frequency of Treatment Frequency Of Treatment Once a Day Treatment Plan Physical Therapy Treatment Plan Gait Training Therapeutic Exercise Other Recommendations and Next Treatment progress distance of gait as Focus tolerated Recommendations To Nursing Amount of Assist Needed 1 Person Assist Discharge Recommendations PT Discharge Recommendations Home with Assistance Home Health
[2017-09-19] VITALS (11 sets, daily range): BP systolic 151–158; BP diastolic 80–92; PULSE 71–86; RESP 16–20; TEMP 35.8–36.8; O2SAT 87–99
[2017-09-19] MEDS: levoFLOXacin 750 MG/150 ML PIGGYBACK 100 MG IV (04:16)
[2017-09-19] MEDS: SODIUM CHLORIDE 0.9% 250 ML 21 ML IV (04:16)
[2017-09-19 05:37] LABS: Add Manual Diff / Slide Review NO; Eosinophils Percent Auto 1.5 % (2-4); Hematocrit 39.1 % (36-46); Hemoglobin 12.5 g/dL (12.0-16.0); Lymphocytes Percent Auto 22.2 % (25-40); Mean Corpuscular HGB Conc 31.9 % (30-36); Mean Corpuscular Hemoglobin 26.9 PG (26-34); Mean Corpuscular Volume 84.2 fL (80-100); Monocytes Percent Auto 6.8 % (3-14); Neutrophils Absolute Auto 7400 /uL (3000-5900); Neutrophils Percent Auto 68.5 % (50-75); Platelet Count 327 X10^3/uL (150-400); Red Blood Cell Count 4.65 X10^6/uL (4.0-5.2); Red Cell Distribution Width 17.2 % (11.6-14.8); White Blood Cell Count 10.9 X10^3/uL (4.5-11.0)
[2017-09-19 05:41] LABS: Alanine Aminotransferase 39 IU/L (9-52); Albumin 3.5 g/dL (3.5-5.0); Alkaline Phosphatase 80 U/L (38-126); Aspartate Aminotransferase 22 IU/L (14-36); BUN Creatinine Ratio 37.5 (6-22); Bilirubin Total 0.5 mg/dL (0.2-1.3); Blood Urea Nitrogen 15 mg/dL (7-17); Calcium 8.9 mg/dL (8.4-10.2); Carbon Dioxide 37 mmol/L (22-32); Chloride 95 mmol/L (98-107); Estimated Glomerular Filt Rate > 60.0 mL/min (>60); Globulin 3.4 g/dL (1.7-4.1); Glucose 136 mg/dL (70-100); HEMOLYSIS 16 (0-50); Potassium 3.7 mmol/L (3.4-5.1); Sodium 140 mmol/L (137-145); Total Protein 6.9 g/dL (6.3-8.2)
[2017-09-19] MEDS: INSULIN ASPART 100 UNIT/ML INSULN PEN SUBCUT ×4 (08:47→21:13)
[2017-09-19] MEDS: INSULIN 70-30 KwikPen 100 UNIT/ML INSULN.PEN 15 UNIT SUBCUT ×2 (08:48→17:27)
[2017-09-19] MEDS: ACETAMINOPHEN 325 MG TABLET 650 MG PO (08:51)
[2017-09-19] MEDS: predniSONE 20 MG TABLET 40 MG PO (08:52)
[2017-09-19] MEDS: METFORMIN HCL 500 MG TABLET 1000 MG PO ×2 (08:52→21:13)
[2017-09-19] MEDS: LOPERAMIDE 2 MG CAPSULE PO ×2 (08:52→19:01)
[2017-09-19] MEDS: ENOXAPARIN 40 MG/0.4 ML SYRINGE SUBCUT (08:52)
[2017-09-19] MEDS: FOLIC ACID 0.4 MG TABLET PO (08:53)
[2017-09-19] MEDS: ACIDOPHILUS/L.BULG/BIF.B/S.THERMOP TABLET 1 EACH PO ×3 (08:53→17:29)
[2017-09-19] MEDS: METOPROLOL 50 MG TABLET 100 MG PO ×2 (08:53→21:13)
[2017-09-19] MEDS: LISINOPRIL 10 MG TABLET PO (08:53)
[2017-09-19] MEDS: AMLODIPINE 5 MG TABLET 10 MG PO (08:53)
[2017-09-19] MEDS: SODIUM CHLORIDE 0.9% FLUSH 10 ML IV ×2 (08:54→21:14)
[2017-09-19] MEDS: NYSTATIN CREAM 30 GM 1 APPLIC TOP ×2 (08:54→21:13)
--- NOTE | 2017-09-19 09:35 | PM.PN.1 ---
Subjective Date Patient Seen: 09/19/17 Time Patient Seen: 09:36 Interval history: Patient feeling a little bit stronger today. She did not have her pulse ox on when she was ambulating yesterday but felt stronger. Did need to use the Aarti lift once. Less short of breath. No chest pain. Skin is been good. No other changes. Blood sugars have been significantly elevated. No other changes. Exam Vital Signs (past 8 hours): 09/19/17 04:15 Temperature 97.4 F L Pulse Rate 75 Respiratory Rate 19 Pulse Oximetry 94 Narrative Exam Narrative: Alert obese female no acute distress. HEENT exam mucous membranes moist. Neck supple without adenopathy. Lungs are clear. Heart regular rate rhythm without murmurs clicks rubs or gallops. Abdomen is soft positive bowel sounds obese extremities without cyanosis clubbing edema. Skin shows no lesions or rashes. Objective Labs Result Diagrams: 09/19/17 05:20 09/19/17 05:20 Labs: Laboratory Results - last 24 hr 09/19/17 09/19/17 05:20 05:20 WBC 10.9 RBC 4.65 Hgb 12.5 Hct 39.1 MCV 84.2 MCH 26.9 MCHC 31.9 RDW 17.2 H Plt Count 327 Neut % (Auto) 68.5 Lymph % (Auto) 22.2 L [place] % (Auto) 6.8 Eos % (Auto) 1.5 L Baso % (Auto) 1.0 Neut # (Auto) 7400 H Sodium 140 Potassium 3.7 Chloride 95 L Carbon Dioxide 37 H BUN 15 Creatinine 0.40 L Estimated GFR > 60.0 BUN/Creatinine Ratio 37.5 H Glucose 136 H Calcium 8.9 Total Bilirubin 0.5 AST 22 ALT 39 Alkaline Phosphatase 80 Total Protein 6.9 Albumin 3.5 Globulin 3.4 Albumin/Globulin Ratio 1.0 Assessment & Plan Plan: Assessment/Plan Narrative: Respiratory failure acute on chronic. Combination of hypoventilation and pneumonia. Some reactive airway disease. Responding to steroids and respiratory interventions. No other changes. Slow improvement. Continue current medicines. Pneumonia. Probable bilateral from CT scan. Chronic recurrent issue secondary to her immune modulation for her skin disease. Will switch to p.o. medications today. Cultures are negative to date. Hopefully will be improved in the next 48 hr. Type 2 diabetes. Poorly controlled. History is not been good with last hemoglobin A1c in the 10s. Expecting her to go home so adjustments and likely going to make a difference right now. Will need to be adjusted by Dr. Chavez as an outpatient. High risk for multiple problems Hypertension. Continues to be elevated. Will look at medications and make some adjustments. Re-evaluate a.m.. Depression. Stable. Weakness. Multifactorial. Secondary to illness obesity and lack of movement on a daily basis long-term. We will see if we get her mobilized a little better today and tomorrow expect hopefully back to baseline on Thursday DVT prophylaxis. On Lovenox. Disposition. Hoping will be able to go home in the next 48 hr. Probably Mondays realistic with decreased strength and need for physical therapy. We will see how things go. Quality VTE Deep Vein Thrombosis/Pulmonary Embolism Present on Admission: No
--- NOTE | 2017-09-19 09:56 | CM.DPNOTE ---
Medicare Message SW met bedside with pt and mom and provided Medicare Rights and they acknowledged understanding and pt signed her Medicare Message. RODOLFO Hutchinson
--- NOTE | 2017-09-19 10:08 | CM.DPC ---
DCP Cont: Per MD, reducing pt's oxygen and eventual switch to see how pt tolerates P.O. meds before d/c in possibly 1-2 days. SW met bedside with pt and mother and both confirmed that they are still agreeable with d/c home with [facility]. Pt inquired about transportation home and to/from appointments due to the difficulty in getting into her mother's vehicle and SW discussed the possibility of Medicaid transportation or private pay taxi/wheelchair van. Pt unsure if she qualifies for Medicaid transportation and unfortunately Medicaid is closed today and tomorrow for the weekend and pt aware that she can follow up with Medicaid after d/c if she goes home tomorrow. Otherwise SW can help to contact Medicaid on Thursday to determine if pt has transportation benefits (pt did arrive via stretcher this admit). Pt and mom also agreeable to calling [employer] if needed to utilize their minivan at d/c if Medicaid is not an option and private paying. Plan: SW to follow for pt d/c home with [facility] (F2F and Resume orders already faxed) and faxing d/c summary to [facility] when available. SW to follow up with Medicaid Transport on Thursday if pt is still here, otherwise pt will follow up on her own for future Medicaid transport to medical appointments. RODOLFO Hutchinson
--- NOTE | 2017-09-19 10:45 | PT.IPTN ---
Current Diagnoses Pneumonia, unspecified organism (09/16/17) Physical Therapy Treatment Note M2 PT-IP Current Condition Start: 09/17/17 13:57 Freq: NEEDED Status: Active Protocol: Document 09/17/17 11:50 AB (Rec: 09/17/17 14:05 AB [id number]) Physical Therapy Current Condition Current Condition Evaluation Date 09/17/17 Treatment Diagnosis hypoxia; difficulty in walking Onset Date 09/16/17 Precautions Other Precautions O2 sat M3 PT-IP Subjective Start: 09/17/17 13:57 Freq: NEEDED Status: Active Protocol: Document 09/19/17 10:45 AB (Rec: 09/19/17 11:28 AB [email or web address]) Subjective Physical Therapy Visit Type Type Treatment Note Visit Start Time 10:45 Visit Stop Time 11:11 Total Visit Minutes 26 Number of ORDER DESK CALLER Visits 0 Physical Therapy Visit Comments Patient Comments pt agreeable to do therapy M4 PT-IP Mobility and Gait Start: 09/17/17 13:57 Freq: NEEDED Status: Active Protocol: Document 09/19/17 10:45 AB (Rec: 09/19/17 11:28 AB [email or web address]) PT-Bed Mobility Assessment Supine to Sit Supine to Sit Standby Assistance Head of Bed Elevated Sit to Supine Sit to Supine Standby Assistance Head of Bed Elevated PT-Transfer Assessment Sit to and From Stand Sit to and from Stand Standby Assistance Gait Assessment Gait Gait Assistance Required: Standby Assistance Distance (Feet) (feet) 15 Able to Maintain Weight Bearing Status Yes During Gait Assistive Devices Assistive Device Gait Belt Front Wheeled Walker Gait Deviations General Gait Pattern Decreased Stride Length Decreased Feet Clearance Factors Limiting Gait Function Factors Limiting Gait Function Decreased Activity Tolerance Decreased Strength Comments Gait Comments pt on 3L/min O2 sat. O2 sat prior to tx: 96%. completed supine to sit. O2 sat 88%. asked nurse Katey if O2 can be increased during ambulation and stated that it can be increase to 4-5L/min. Pt with 4L/min of O2 with ambulation using FWW ~15 ft SBA. O2 sat decreased to 81%. pt doing deep breathing and O2 increased to 5L/min. O2 sat increased to 95% in ~ 1min. pt completed another walk with 5L/min O2 ~ 12 ft using FWW SBA. O2 sat decreased to 86%. O2 sat increased to 92% in ~ 30 sec of rest. informed nurse. M5 PT-IP Objective Assessments Start: 09/17/17 13:57 Freq: NEEDED Status: Active Protocol: Document 09/17/17 11:50 AB (Rec: 09/17/17 14:05 AB [id number]) Orientation Orientation/Cognition Level of Alertness Alert Orientation Name Age Birthday Month Date Year Day of Week Place Situation Strength Lower Extremity Strength Assessment Within Functional Limits M6 PT-IP Treatment Start: 09/17/17 13:57 Freq: NEEDED Status: Active Protocol: Document 09/17/17 11:50 AB (Rec: 09/17/17 14:05 AB [id number]) Physical Therapy Treatment Education Education Provided Safety M7 PT-IP Assessment and Plan Start: 09/17/17 13:57 Freq: NEEDED Status: Active Protocol: Document 09/19/17 10:45 AB (Rec: 09/19/17 11:28 AB [email or web address]) PT Summary Assessment and Plan Potential Rehabilitation Potential Fair Summary Impairments Strength Balance Bed Mobility Transfers Gait Activity Tolerance Progress Towards Goals Slow Progress due to Medical Issues Assessment Summary pt continues to have decrease activity tolerance with decrease in O2 sat with ambulation. pt will have her mom and son assist her at home . Goals Gait Goal Independent Front Wheel Walker Gait Distance 150 Days to Meet Goals 2 Frequency of Treatment Frequency Of Treatment Once a Day Treatment Plan Physical Therapy Treatment Plan Gait Training Therapeutic Exercise Other Recommendations and Next Treatment progress distance of gait as Focus tolerated Recommendations To Nursing Amount of Assist Needed 1 Person Assist Discharge Recommendations PT Discharge Recommendations Home with Assistance Home Health
[2017-09-19] MEDS: LISINOPRIL 20 MG TABLET PO (13:46)
--- NOTE | 2017-09-19 16:49 | PC.NURSE ---
Resp: Pt on a venti mask this am. Weaned to O2 by cannula per RT. They placed pt on O2 at 2L NC. However pt trialed at rest and in bed, amb sats dropped to 81% on 3L and then 86% on 4-5L, at rest 3L 90%, 4L 91-92% and then increased to 5L and has been on 5L consistently since she was unable to maintain sats at rest or walking on a lower setting. Pt has also reported this off and on chest tightness when O2 has been at the lower setting. Pt denies it is chest pain. Reports she has been congested in the morning and has felt all stuffed up, later she has some nasal drainage and thinks she has been starting to get a cold. Lungs still seemed diminished at bases but clear in the [place]. Visiting with her family now. Cont w/poc.
[2017-09-19] MEDS: levoFLOXacin 250 MG TABLET 750 MG PO (17:29)
[2017-09-19] MEDS: LORazepam 2 MG/ML SYRINGE 1 MG IV (21:21)
[2017-09-20] VITALS (13 sets, daily range): BP systolic 142–161; BP diastolic 83–93; PULSE 73–96; RESP 16–18; TEMP 36.1–36.8; O2SAT 88–99
[2017-09-20] MEDS: levoFLOXacin 250 MG TABLET 750 MG PO (05:41)
[2017-09-20] MEDS: ACETAMINOPHEN 325 MG TABLET 650 MG PO ×2 (05:43→18:47)
[2017-09-20] MEDS: ENOXAPARIN 40 MG/0.4 ML SYRINGE SUBCUT (08:23)
[2017-09-20] MEDS: SODIUM CHLORIDE 0.9% FLUSH 10 ML IV ×2 (08:24→21:07)
[2017-09-20] MEDS: NYSTATIN CREAM 30 GM 1 APPLIC TOP ×2 (08:24→21:08)
[2017-09-20] MEDS: predniSONE 20 MG TABLET 40 MG PO (08:24)
[2017-09-20] MEDS: INSULIN 70-30 KwikPen 100 UNIT/ML INSULN.PEN 15 UNIT SUBCUT ×2 (08:24→17:15)
[2017-09-20] MEDS: METFORMIN HCL 500 MG TABLET 1000 MG PO ×2 (08:24→21:07)
[2017-09-20] MEDS: METOPROLOL 50 MG TABLET 100 MG PO ×2 (08:24→21:07)
[2017-09-20] MEDS: FOLIC ACID 0.4 MG TABLET PO (08:24)
[2017-09-20] MEDS: ACIDOPHILUS/L.BULG/BIF.B/S.THERMOP TABLET 1 EACH PO ×3 (08:24→17:16)
[2017-09-20] MEDS: AMLODIPINE 5 MG TABLET 10 MG PO (08:24)
--- NOTE | 2017-09-20 10:04 | RT ---
Addendum entered by Kailee Licona, RT 09/20/17 15:59: Original Note: INCENTIVE SPIROMETRY INSTRUCTED. REMINDED PT. TO USE BREATH HOLD. PT. USES IS REGULARLY AT HOME
--- NOTE | 2017-09-20 11:09 | PM.PN.1 ---
Subjective Date Patient Seen: 09/20/17 Time Patient Seen: 11:10 Interval history: Overall feeling well. Has noted that her O2 status has declined a little bit. Drops off when she is up moving around. No chest pain. No other changes. Mildly fatigued. Otherwise feeling well. No new complaints or problems. Exam Vital Signs (past 8 hours): - 09/20/17 03:26 09/20/17 06:28 09/20/17 07:12 Temperature 97.4 F L Pulse Rate 73 Respiratory Rate 18 Blood Pressure 155/88 H Pulse Oximetry 94 94 09/20/17 08:15 09/20/17 08:20 Temperature 97.9 F Pulse Rate 77 Respiratory Rate 17 Blood Pressure 142/86 H Pulse Oximetry 99 99 Fraction of Inspired Oxygen 40 Oxygen Delivery Method Nasal Cannula Oxygen Flow Rate 5 Narrative Exam Narrative: Alert female no acute distress. Lungs are clear. Heart regular rate and rhythm. Abdomen is obese. Extremities without cyanosis clubbing edema. Objective Labs Result Diagrams: 09/19/17 05:20 09/19/17 05:20 Assessment & Plan Plan: Assessment/Plan Narrative: Respiratory failure acute on chronic. Difficult patient secondary to body habitus. May need to have junior engineer evaluate her although will be difficult since she has a hard time getting out of the home. I think the biggest issue was her hypoventilation syndrome. Although it is certainly worse we need to mobilize more and see how he can get her going. At this point we are going to see if we can figure out on O2 status that works with her ambulating. Hopefully will send her home tomorrow depending on how things go. Pneumonia. Afebrile. Recheck labs in the morning to make sure stable. Cultures are negative to date. Follow up with me in a.m.. Type 2 diabetes. Poorly controlled with limited ability to control it. Really probably as an outpatient should be on insulin. Dr. Chavez will adjust this as outpatient. Patient overall numbers look better this morning. But tends to be worse in the afternoon. Hypertension. Blood pressure is improving not quite at goal but 1st dose of increased medicine yesterday. Will follow. Weakness. Multifactorial. Seems to be slowly improving certainly mobilize better yesterday. Will need home health but will follow. DVT prophylaxis on Lovenox. Disposition. Hoping for discharge home tomorrow. If not able to will need to work toward residential. She understands questions answered. Quality VTE Deep Vein Thrombosis/Pulmonary Embolism Present on Admission: No
--- NOTE | 2017-09-20 11:14 | P.PN_ITS ---
Subjective Date Patient Seen: 09/20/17 Time Patient Seen: 11:10 Interval history: Overall feeling well. Has noted that her O2 status has declined a little bit. Drops off when she is up moving around. No chest pain. No other changes. Mildly fatigued. Otherwise feeling well. No new complaints or problems. Exam Vital Signs (past 8 hours): - 09/20/17 03:26 09/20/17 06:28 09/20/17 07:12 Temperature 97.4 F L Pulse Rate 73 Respiratory Rate 18 Blood Pressure 155/88 H Pulse Oximetry 94 94 09/20/17 08:15 09/20/17 08:20 Temperature 97.9 F Pulse Rate 77 Respiratory Rate 17 Blood Pressure 142/86 H Pulse Oximetry 99 99 Fraction of Inspired Oxygen 40 Oxygen Delivery Method Nasal Cannula Oxygen Flow Rate 5 Narrative Exam Narrative: Alert female no acute distress. Lungs are clear. Heart regular rate and rhythm. Abdomen is obese. Extremities without cyanosis clubbing edema. Objective Labs Result Diagrams: 09/19/17 05:20 09/19/17 05:20 Assessment & Plan Plan: Assessment/Plan Narrative: Respiratory failure acute on chronic. Difficult patient secondary to body habitus. May need to have cause analyst evaluate her although will be difficult since she has a hard time getting out of the home. I think the biggest issue was her hypoventilation syndrome. Although it is certainly worse we need to mobilize more and see how he can get her going. At this point we are going to see if we can figure out on O2 status that works with her ambulating. Hopefully will send her home tomorrow depending on how things go. Pneumonia. Afebrile. Recheck labs in the morning to make sure stable. Cultures are negative to date. Follow up with me in a.m.. Type 2 diabetes. Poorly controlled with limited ability to control it. Really probably as an outpatient should be on insulin. Dr. Chavez will adjust this as outpatient. Patient overall numbers look better this morning. But tends to be worse in the afternoon. Hypertension. Blood pressure is improving not quite at goal but 1st dose of increased medicine yesterday. Will follow. Weakness. Multifactorial. Seems to be slowly improving certainly mobilize better yesterday. Will need home health but will follow. DVT prophylaxis on Lovenox. Disposition. Hoping for discharge home tomorrow. If not able to will need to work toward half-way. She understands questions answered. Quality VTE Deep Vein Thrombosis/Pulmonary Embolism Present on Admission: No
--- NOTE | 2017-09-20 13:02 | CM.DPNOTE ---
DCP/continued: Reviewed chart. Received verbal referral from Dr. Manuel that patient may need SNF at time of d/c. Current plan is for patient to d/c home with resume HH through [facility]. Met with patient and Mom/Tori at bedside explained CM/SW role. Patient reports that she would like to go home at time of d/c. Dr. Manuel and patient briefly discussed short SNF stay if patient shows no improvement over the night. Patient feels that she will show improvement and prefers to go home. Patient provided with contracted SNF list just in case. Patient's first SNF choice is [facility]. Patient agreeable for [facility] to provide referral to [facility] for review. Placed call to [facility] and requested that they review. Patient and Mother also inquiring about transport when patient medically stable. Patient requesting that CM team check to see if Medicaid can provide w/c van transport vs. private transport from her Mother. Patient weighs approximately 400lbs. and it is difficult for her to get in/out of private vehicle. [facility] notified patient and Mother that once d/c plan determined will assist with coordination of transport through Medicaid. Other options include patient's Mother arranging [facility] [employer]'s Van and they pay privately. P: Pending. Patient hopeful she will be able to d/c home with HH resumed through [facility]. [facility] reviewing in case home not an safe option. RODOLFO Chavez
[2017-09-20] MEDS: INSULIN ASPART 100 UNIT/ML INSULN PEN SUBCUT ×3 (13:11→21:04)
--- NOTE | 2017-09-20 14:19 | PT.IPTN ---
Current Diagnoses Pneumonia, unspecified organism (09/16/17) Physical Therapy Treatment Note M2 PT-IP Current Condition Start: 09/17/17 13:57 Freq: NEEDED Status: Active Protocol: Document 09/17/17 11:50 AB (Rec: 09/17/17 14:05 AB [id number]) Physical Therapy Current Condition Current Condition Evaluation Date 09/17/17 Treatment Diagnosis hypoxia; difficulty in walking Onset Date 09/16/17 Precautions Other Precautions O2 sat M3 PT-IP Subjective Start: 09/17/17 13:57 Freq: NEEDED Status: Active Protocol: Document 09/20/17 12:57 CLB (Rec: 09/20/17 14:19 CLB [id number]) Subjective Physical Therapy Visit Type Type Treatment Note Visit Start Time 12:57 Visit Stop Time 13:20 Total Visit Minutes 23 Number of INFRASTRUCTURE TECH Visits 1 Physical Therapy Visit Comments Patient Comments Pt had refused therapy this morning but pt agreeable to do therapy this afternoon. M4 PT-IP Mobility and Gait Start: 09/17/17 13:57 Freq: NEEDED Status: Active Protocol: Document 09/20/17 12:57 CLB (Rec: 09/20/17 14:19 CLB [id number]) PT-Bed Mobility Assessment Supine to Sit Supine to Sit Standby Assistance Head of Bed Elevated Sit to Supine Sit to Supine Standby Assistance Head of Bed Elevated Scooting Scooting to Edge of Bed Standby Assistance PT-Transfer Assessment Sit to and From Stand Sit to and from Stand Standby Assistance Equipment Transfer Assistive Device Front Wheeled Walker Transfer Ability Level of Assist Standby Assistance Gait Assessment Gait Gait Assistance Required: Standby Assistance Distance (Feet) (feet) 80 Able to Maintain Weight Bearing Status Yes During Gait Assistive Devices Assistive Device Front Wheeled Walker Gait Deviations General Gait Pattern Decreased Stride Length Decreased Feet Clearance Factors Limiting Gait Function Factors Limiting Gait Function Decreased Activity Tolerance Decreased Strength Comments Gait Comments Pt on 5L/min O2, O2 sat after first 40ft 88%, pt sat and performed pursed lip breathing , O2 sat john to 92%, after second time ambulating 40ft O2 sat was 89% and john to 93% within 1 minute with pursed lip breathing. M5 PT-IP Objective Assessments Start: 09/17/17 13:57 Freq: NEEDED Status: Active Protocol: Document 09/17/17 11:50 AB (Rec: 09/17/17 14:05 AB [id number]) Orientation Orientation/Cognition Level of Alertness Alert Orientation Name Age Birthday Month Date Year Day of Week Place Situation Strength Lower Extremity Strength Assessment Within Functional Limits M6 PT-IP Treatment Start: 09/17/17 13:57 Freq: NEEDED Status: Active Protocol: Document 09/17/17 11:50 AB (Rec: 09/17/17 14:05 AB [id number]) Physical Therapy Treatment Education Education Provided Safety M7 PT-IP Assessment and Plan Start: 09/17/17 13:57 Freq: NEEDED Status: Active Protocol: Document 09/20/17 12:57 CLB (Rec: 09/20/17 14:19 CLB [id number]) PT Summary Assessment and Plan Potential Rehabilitation Potential Fair Summary Impairments Strength Balance Bed Mobility Transfers Gait Activity Tolerance Progress Towards Goals Slow Progress due to Medical Issues Assessment Summary Pt has decrease in O2 sat during ambulation in room on 5L O2. Pt able to recover well with seated break between laps and pursed lip breathing. Pt doing well with bed mobility and transfers. Goals Gait Goal Independent Front Wheel Walker Gait Distance 150 Days to Meet Goals 2 Frequency of Treatment Frequency Of Treatment Once a Day Treatment Plan Physical Therapy Treatment Plan Gait Training Therapeutic Exercise Other Recommendations and Next Treatment progress distance of gait as Focus tolerated Recommendations To Nursing Amount of Assist Needed 1 Person Assist Discharge Recommendations PT Discharge Recommendations Home with Assistance Home Health
--- NOTE | 2017-09-20 15:33 | PC.NURSE ---
day shift. pt sats on 3L O2 at rest 92-94%. with any activity down to low 80's on 3L. bumped O2 up to 5L for activity and she maintains sats around 92-94% then able to turn O2 back down to 3L. She is SOB with exertion. Pt conitnues to have her menses. hourly rounding provided, call light within reach.
[2017-09-20] MEDS: LOPERAMIDE 2 MG CAPSULE PO (18:48)
[2017-09-21] VITALS (9 sets, daily range): BP systolic 157–175; BP diastolic 91–97; PULSE 73–82; RESP 16; TEMP 36.2–36.6; O2SAT 88–97
--- NOTE | 2017-09-21 02:29 | PC.NURSE ---
Addendum entered by Amarilis Macario R.N. 09/21/17 04:09: O2 monitor alarming and found patient sats down to 84%. States she believes she is a mouth breather and fell asleep. Switched out to mask for sleep and currently sat at 95% Original Note: Patient is alert and oriented. Breath sounds diminished but CTA with RA sat of 94%. Does state she still is SOB with activity and evening RN reports patient requires 5L oxygen with activity. HRR; on telemetry and was SR at 0000 reading. Denies nausea. BT present and abdomen is soft. Currently has indwelling catheter which is patent and urine is clear, dark, yahir. Moisture/pink skin under breasts, abdominal folds and behind left knee. Also some redness noted at coccyx area. Bilateral LE non-pitting edema noted; patient states chronic and unchanged. Able to turn self and is out of bed with 1 assist. Fall risk score is high and bed alarm is activated. Denies pain.
[2017-09-21 06:07] LABS: Add Manual Diff / Slide Review NO; Basophils Percent Auto 0.7 % (0-2); Eosinophils Percent Auto 2.4 % (2-4); Hematocrit 42.4 % (36-46); Hemoglobin 13.6 g/dL (12.0-16.0); Lymphocytes Percent Auto 23.7 % (25-40); Mean Corpuscular Hemoglobin 26.8 PG (26-34); Mean Corpuscular Volume 83.8 fL (80-100); Monocytes Percent Auto 6.7 % (3-14); Neutrophils Absolute Auto 8000 /uL (3000-5900); Neutrophils Percent Auto 66.5 % (50-75); Platelet Count 364 X10^3/uL (150-400); Red Blood Cell Count 5.06 X10^6/uL (4.0-5.2); Red Cell Distribution Width 16.9 % (11.6-14.8); White Blood Cell Count 12.1 X10^3/uL (4.5-11.0)
[2017-09-21 06:41] LABS: Blood Urea Nitrogen 18 mg/dL (7-17); Calcium 9.2 mg/dL (8.4-10.2); Carbon Dioxide 33 mmol/L (22-32); Chloride 96 mmol/L (98-107); Estimated Glomerular Filt Rate > 60.0 mL/min (>60); Glucose 113 mg/dL (70-100); Sodium 140 mmol/L (137-145)
[2017-09-21 06:43] LABS: HEMOLYSIS 100 (0-50); Potassium 3.8 mmol/L (3.4-5.1)
--- NOTE | 2017-09-21 08:43 | PM.PN.1 ---
Exam Vital Signs (past 8 hours): - 09/21/17 02:20 09/21/17 05:08 09/21/17 06:53 Temperature 97.9 F 97.7 F Pulse Rate 74 73 Respiratory Rate 16 16 Blood Pressure 157/95 H 161/97 H Pulse Oximetry 94 92 94 Fraction of Inspired Oxygen 40 Oxygen Delivery Method Simple Mask Oxygen Flow Rate 3 Objective Labs Result Diagrams: 09/21/17 05:42 09/21/17 05:42 Labs: Laboratory Results - last 24 hr 09/21/17 09/21/17 05:42 05:42 WBC 12.1 H RBC 5.06 Hgb 13.6 Hct 42.4 MCV 83.8 MCH 26.8 MCHC 32.0 RDW 16.9 H Plt Count 364 Neut % (Auto) 66.5 Lymph % (Auto) 23.7 L [place] % (Auto) 6.7 Eos % (Auto) 2.4 Baso % (Auto) 0.7 Neut # (Auto) 8000 H Sodium 140 Potassium 3.8 Chloride 96 L Carbon Dioxide 33 H BUN 18 H Creatinine 0.50 L Estimated GFR > 60.0 BUN/Creatinine Ratio 36.0 H Glucose 113 H Calcium 9.2 Assessment & Plan (1) Acute and chronic respiratory failure with hypoxia: Current visit: No Status: Acute (2) Hypoxia: Current visit: No Status: Acute (3) Pneumonia: Current visit: No Status: Acute (4) Obesities, morbid: Current visit: Yes Status: Acute (5) SAPHO syndrome: Current visit: Yes Status: Acute (6) COPD (chronic obstructive pulmonary disease): Current visit: Yes Status: Acute (7) CHF (congestive heart failure): Current visit: Yes Status: Acute (8) Hx: recurrent pneumonia: Current visit: Yes Status: Acute (9) Diabetes mellitus type 2 in obese: Current visit: Yes Status: Acute Quality VTE Deep Vein Thrombosis/Pulmonary Embolism Present on Admission: No
--- NOTE | 2017-09-21 09:12 | P.DS_ITS ---
History of Present Illness Date Patient Seen: 09/21/17 Time Patient Seen: 09:11 Chief complaint: SOB WITH MOVEMENT,o2 dependency Narrative: See H&P Discharge Providers Date of admission: 09/16/17 04:04 Primary care physician: Raman Chavez MD Consults: 09/16/17 03:48 Consult to Physician Routine Comment: Consulting Provider: Jesus Manuel Reason for consultation: hypoxia Has provider been notified: Yes 09/16/17 07:38 Consult to Dietitian, Adult Routine Comment: Reason For Exam: diabetes, morbid obesity 09/17/17 08:45 Consult to Physical Therapy Evaluate & Treat Comment: Physician Instructions: Evaluate and Treat 09/18/17 12:11 Consult to Home Health Routine Comment: Reason For Exam: Resume Home Health Services RN/PT/OT Upon DC Discharge provider: William Felipe MD Summary Discharge Diagnosis: Pneumonia Hypoxia Diabetes 2 History of COPD History of CHF Obesity Hospital Course: Admitted after failed home therapy with persistent hypoxia evidence of pneumonia with history of recurrence. Placed on IV antibiotics or aggressive pulmonary therapy and other measures as needed improved steadily with time by the time of discharge patient felt that she was at baseline. Status at Discharge Functional status at discharge: uses cane/walker Time Spent with Patient Greater than 30 minutes Exam Vital Signs (past 8 hours): - 09/21/17 02:20 09/21/17 05:08 09/21/17 06:53 Temperature 97.9 F 97.7 F Pulse Rate 74 73 Respiratory Rate 16 16 Blood Pressure 157/95 H 161/97 H Pulse Oximetry 94 92 94 Fraction of Inspired Oxygen 40 Oxygen Delivery Method Simple Mask Oxygen Flow Rate 3 Narrative Exam Narrative: Morbidly obese alert awake appropriate. HEENT unremarkable chest is clear heart regular without murmur abdomen soft nontender nondistended normoactive bowel tones extremities benign neurologically benign Objective Labs Result Diagrams: 09/21/17 05:42 09/21/17 05:42 Labs: Laboratory Results - last 24 hr 09/21/17 09/21/17 05:42 05:42 WBC 12.1 H RBC 5.06 Hgb 13.6 Hct 42.4 MCV 83.8 MCH 26.8 MCHC 32.0 RDW 16.9 H Plt Count 364 Neut % (Auto) 66.5 Lymph % (Auto) 23.7 L [place] % (Auto) 6.7 Eos % (Auto) 2.4 Baso % (Auto) 0.7 Neut # (Auto) 8000 H Sodium 140 Potassium 3.8 Chloride 96 L Carbon Dioxide 33 H BUN 18 H Creatinine 0.50 L Estimated GFR > 60.0 BUN/Creatinine Ratio 36.0 H Glucose 113 H Calcium 9.2 Discharge Plan Discharge Plan Patient Disposition: Home, Self-Care Discharge comment: roughly to [facility] Provider Discharge Instructions Diet: Diet as Tolerated Activity: aS tolerated Oxygen: 3 L at rest 5 L and activity Discharge Data Primary Care Provider: Raman Chavez Attending Provider: Jesus Manuel Admit Date/Time: 09/16/17 04:04 Quality VTE Deep Vein Thrombosis/Pulmonary Embolism Present on Admission: No
[2017-09-21] MEDS: FOLIC ACID 0.4 MG TABLET PO (09:44)
[2017-09-21] MEDS: METOPROLOL 50 MG TABLET 100 MG PO (09:44)
[2017-09-21] MEDS: AMLODIPINE 5 MG TABLET 10 MG PO (09:44)
[2017-09-21] MEDS: METFORMIN HCL 500 MG TABLET 1000 MG PO (09:44)
[2017-09-21] MEDS: predniSONE 20 MG TABLET 40 MG PO (09:44)
[2017-09-21] MEDS: ENOXAPARIN 40 MG/0.4 ML SYRINGE SUBCUT (09:45)
[2017-09-21] MEDS: LOPERAMIDE 2 MG CAPSULE PO (09:45)
[2017-09-21] MEDS: NYSTATIN CREAM 30 GM 1 APPLIC TOP (09:46)
[2017-09-21] MEDS: SODIUM CHLORIDE 0.9% FLUSH 10 ML IV (09:46)
[2017-09-21] MEDS: INSULIN 70-30 KwikPen 100 UNIT/ML INSULN.PEN 15 UNIT SUBCUT (09:46)
[2017-09-21] MEDS: ACIDOPHILUS/L.BULG/BIF.B/S.THERMOP TABLET 1 EACH PO ×2 (09:53→12:19)
--- NOTE | 2017-09-21 10:21 | CM.DPC ---
DCP/continued: Reviewed chart. Received notification that patient most likely will discharge home today. Met with patient and she confirms that she would like to go home. Placed call to [facility] and confirmed that they will be resuming services. They are requesting that d/c summary be faxed to them when it becomes available. Spoke with RN whom reports that patient most likely will not d/c till after lunch. Patient still needs michaud removed and to void. Patient requesting transport be arranged through Medicaid transport. Patient requiring bariatric wheelchair, patient weighs approximately 400lbs. [employer] spoke with end trimmer/Александр and he reports that [facility] can lend patient w/c to return home. Patient reports that her Mother will return. Patient also requiring 02 and has portable tanks. P: Home today. Will coordinate d/c time with nursing. Medicaid form will need to be completed and faxed to [facility] for bean picker machine operator. RODOLFO Chavez
[2017-09-21] MEDS: LORazepam 1 MG TABLET 2 MG PO (10:36)
[2017-09-21] MEDS: INSULIN ASPART 100 UNIT/ML INSULN PEN SUBCUT (12:19)
--- NOTE | 2017-09-21 14:44 | PC.NURSE ---
day shift pt denied pain. on 3L O2 at rest and up to 5L with activity. michaud removed this AM. able to urinate without issue. d/c instructions provided to pt. notified to contact MD on thursday for f/u. Per conversation with Dr Felipe, pt to take 30 mg prednisone at home until thursday, 09/28, when she discusses her status with Dr Chavez. pt states she took all belongings with her. hourly rounding provided, call light within reach.
--- NOTE | 2017-09-21 14:45 | CM.DPC ---
DCP/continued: Received notification patient okay to d/c home today. Met with patient and she is aware and agreeable. Placed call to [facility] and spoke with Julia. They have all needed information and will plan to see patient in the home tomorrow 09-22-17. Faxed d/c summary to [facility] per Julia's request. COMMERCIAL MARKETING SPECIALIST requested CARITO/Denise complete Medicaid transportation request and faxto [facility]. COMMERCIAL MARKETING SPECIALIST received call from Medicaid transport and patient scheduled to be picked up at approximately 3:30pm by [facility] transport # [phone]. P: Home today. Transport to be provided by Medicaid. Patient has 02 and [facility] will lend w/c for transport. Patient's Mother plans to return. RN/Charge authorized. RODOLFO Chavez
--- NOTE | 2017-09-21 15:25 | PT.IPTN ---
Current Diagnoses Pneumonia, unspecified organism (09/16/17) Physical Therapy Treatment Note M2 PT-IP Current Condition Start: 09/17/17 13:57 Freq: NEEDED Status: Active Protocol: Document 09/17/17 11:50 AB (Rec: 09/17/17 14:05 AB [id number]) Physical Therapy Current Condition Current Condition Evaluation Date 09/17/17 Treatment Diagnosis hypoxia; difficulty in walking Onset Date 09/16/17 Precautions Other Precautions O2 sat M3 PT-IP Subjective Start: 09/17/17 13:57 Freq: NEEDED Status: Active Protocol: Document 09/21/17 10:00 DLM (Rec: 09/21/17 15:25 DLM [id number]) Subjective Physical Therapy Visit Type Type Cancellation Physical Therapy Visit Comments Patient Comments Pt plans to go home today, feels she is doing well, prefers not to do therapy today and save energy for getting home
--- NOTE | 2017-09-21 17:26 | PC.NURSE ---
[facility] came to apple picker patient at 1600, but said the patient would not be able to get in the van that they brought. Patient's Mother then came to apple picker Radha. @ 1620 assisted out to private car via wheelchair, using her own portable O2 tank. All belongings & paperwork sent with patient.
== END 2017-09-21 04:20 | disposition home or self-care (01) | DRG 193 ==
LOC: ED 09-16 03:52 → AC 09-16 04:05
PROVIDERS: Admitting Provider Family Medicine; Emergency Provider Emergency Medicine; Family Provider Family Medicine; PCP Family Medicine; Visit Provider Family Medicine
DX: J18.9 Pneumonia, unspecified organism (principal); J96.20 Acute and chronic respiratory failure, unspecified whether with hypoxia or hypercapnia; Z68.44 Body mass index [BMI] 60.0-69.9, adult; J44.9 Chronic obstructive pulmonary disease, unspecified; Z99.81 Dependence on supplemental oxygen; E66.01 Morbid (severe) obesity due to excess calories; D89.89 Other specified disorders involving the immune mechanism, not elsewhere classified; I10 Essential (primary) hypertension; Z79.84 Long term (current) use of oral hypoglycemic drugs; F41.9 Anxiety disorder, unspecified; F32.9 Major depressive disorder, single episode, unspecified; E11.65 Type 2 diabetes mellitus with hyperglycemia; Z79.52 Long term (current) use of systemic steroids
CPT/HCPCS: 36415; 36592; 71275; 80048; 80053; 82962; 84145; 84484; 85025; 87040; 93005; 93010; 94760; 96365; 96366; 96375; 97116; 97162; 97530; 99283; 99285; 99291; J1100; J1630; J1650; J1815; J1940; J1956; J2060; Q9967

== ENCOUNTER 2017-11-25 15:08 | Inpatient (IN) | payer MEDICARE, MEDICAID, SELFPAY ==
[2017-09-16 06:30] VITALS: BMI 62.8
[2017-11-25] VITALS (8 sets, daily range): BP systolic 112–142; BP diastolic 41–80; PULSE 72–105; RESP 16–23; TEMP 36.7–37; O2SAT 91–98; BMI 66.5
[2017-11-25] MEDS: ALBUTEROL/IPRATROPIUM 3 ML AMPUL INH (15:20)
--- NOTE | 2017-11-25 15:25 | DI.RAD.S_ITS ---
PROCEDURE: XR CHEST 1V INDICATIONS: short of breath TECHNIQUE: One view of the chest was acquired. COMPARISON: [facility], , CHEST 1 VIEW, 06/19/2017, 9:11. FINDINGS: Surgical changes and devices: None. Lungs and pleura: Mixed interstitial and alveolar markings are predominantly centered within the perihilar regions and are grossly similar to the previous study. No large effusion or pneumothorax is evident. Mediastinum: Mediastinal contours appear normal. The heart is enlarged. Bones and chest wall: No suspicious bony lesions. Overlying soft tissues appear unremarkable. IMPRESSION: Cardiomegaly and prominent perihilar lung markings this raises suspicion for developing pulmonary edema/congestive heart failure and clinical correlation is recommended. Dictated by: Sebastian Silveira M.D. on 11/25/2017 at 14:52 Approved by: Sebastian Silveira M.D. on 11/25/2017 at 14:52
[2017-11-25 16:49] LABS: HCO3 ABG 33 mmol/L (23-27); Oxygen Saturation ABG 86 % (95-100); PCO2 ABG 62.8 mmHg (35-45); PO2 ABG 57 mmHg (80-105); TCO2 ABG 35 mmol/L (23-27); pH ABG 7.33 (7.35-7.45)
[2017-11-25 16:50] LABS: Fractionated Inspired Oxygen 0.42
[2017-11-25 17:27] LABS: Alanine Aminotransferase 32 IU/L (9-52); Albumin Globulin Ratio 1.3 (1.0-2.8); Alkaline Phosphatase 87 U/L (38-126); Aspartate Aminotransferase 22 IU/L (14-36); BUN Creatinine Ratio 25.7 (6-22); Bilirubin Total 0.7 mg/dL (0.2-1.3); Blood Urea Nitrogen 18 mg/dL (7-17); Calcium 9.6 mg/dL (8.4-10.2); Carbon Dioxide 34 mmol/L (22-32); Chloride 97 mmol/L (98-107); Creatine Kinase < 20 U/L (30-135); Estimated Glomerular Filt Rate > 60.0 mL/min (>60); Globulin 3.2 g/dL (1.7-4.1); Glucose 294 mg/dL (70-100); HEMOLYSIS < 15 (0-50); Potassium 4.5 mmol/L (3.4-5.1); Sodium 144 mmol/L (137-145); Total Protein 7.2 g/dL (6.3-8.2)
[2017-11-25 17:28] LABS: Lactate (Lactic Acid) 2.6 mmol/L (0.7-2.1)
[2017-11-25 17:35] LABS: Add Manual Diff / Slide Review YES; Hematocrit 37.2 % (36-46); Hemoglobin 11.6 g/dL (12.0-16.0); Mean Corpuscular HGB Conc 31.3 % (30-36); Mean Corpuscular Hemoglobin 26.5 PG (26-34); Mean Corpuscular Volume 84.8 fL (80-100); Platelet Count 335 X10^3/uL (150-400); Red Blood Cell Count 4.39 X10^6/uL (4.0-5.2); Red Cell Distribution Width 16.3 % (11.6-14.8)
[2017-11-25 17:38] LABS: Troponin I 0.042 ng/mL (0.01-0.034)
[2017-11-25 17:39] LABS: B Type Natriuretic Peptide 60.3 (<100)
[2017-11-25 17:44] LABS: Procalcitonin 1.15 ng/mL (<0.5)
[2017-11-25 17:48] LABS: Neutrophils Absolute Manual 24300 /uL (3000-5900); Total Cells Counted 100
--- NOTE | 2017-11-25 17:48 | ED_ITS ---
HPI - SOB/Dyspnea General Chief Complaint: Shortness of Breath/Dyspnea Stated Complaint: SOB/General weakness Time Seen by Provider: 11/25/17 15:16 Source: patient and EMS Mode of arrival: EMS Limitations: no limitations History of Present Illness Patient is a 42-year-old female who has chronic respiratory failure and on home oxygen. She has needed increased oxygen up to 5 and 6 L today. She said she had a low-grade temperature of 98.8? 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 She has a history of recurrent pneumonia she is actually discharged 09/21/2017 for something similar. She denies any cough but she says this is how it starts. She has no painful or frequent urination. She notices dyspnea on exertion especially today. She always has orthopnea MD Complaint: shortness of breath Related Data Home Medications Medication Instructions Recorded Confirmed lorazepam 1 - 2 mg PO Q8HP PRN #0 06/02/16 09/16/17 etanercept [Enbrel] 50 mg SQ QWEEK #0 08/12/16 09/16/17 hydrocodone-acetaminophen 1 tab PO Q4HP PRN #0 01/12/17 09/16/17 metoprolol tartrate 100 mg PO BID #0 01/12/17 09/16/17 ondansetron HCl [Zofran] 4 mg PO Q8HP PRN #0 01/12/17 09/16/17 amlodipine 10 mg PO DAILY 09/16/17 09/16/17 folic acid 400 mcg PO DAILY 09/16/17 09/16/17 lisinopril 10 mg PO DAILY 09/16/17 09/16/17 metformin 1,000 mg PO BID 09/16/17 09/16/17 multivitamin with minerals 1 tab PO DAILY 09/16/17 09/16/17 prednisone 15 mg PO AMCC 09/16/17 09/16/17 Allergies Allergy/AdvReac Type Severity Reaction Status Date / Time infliximab Allergy Unknown Verified 09/15/17 21:40 Review of Systems Review of Systems GENERAL: Subjective fever, denies all travel or immobilization HEENT: Denies sinus pain, ear pain, sore throat, difficulty swallowing, neck pain RESPIRATORY: See HPI CARDIOVASCULAR: Denies chest pain, palpitations, orthopnea, edema GASTROINTESTINAL: Denies nausea, vomiting, abdominal pain, diarrhea, constipation, melena. : Denies dysuria, frequency, incontinence, hematuria, urinary retention, flank pain. MUSCULOSKELETAL: Denies weakness, joint pain, or bony pain SKIN: No rash, no erythema, no pruritus NEUROLOGIC: Denies weakness, dizziness, headache, numbness, change in speech, confusion PSYCHIATRIC: No concerning psychosocial issues. 12 point review of systems is negative except for those stated above and HPI [facility] Medical History Anxiety (Acute) Asthma (Acute) CHF (congestive heart failure) (Acute) COPD (chronic obstructive pulmonary disease) (Acute) Diabetes mellitus type 2 in obese (Acute) Morbid obesity (Acute) Pericardial effusion (Acute) Pleural effusion (Acute) Reactive airway disease (Acute) Recurrent pneumonia (Acute) Requires continuous at home supplemental oxygen (Acute) Social History household members: family Smoking Status: Former smoker alcohol intake: never Exam Initial Vital Signs Initial Vital Signs: Vital Signs Pulse Rate 97 H 11/25/17 15:22 Respiratory Rate 20 11/25/17 15:22 Pulse Oximetry 94 11/25/17 15:22 GENERAL: Morbidly obese female in no acute respiratory distress HEENT: Head atraumatic,EOMI, pupils reactive NECK: Supple, no JVD CARDIOVASCULAR: Regular rate and rhythm without murmurs, rubs or gallops. RESPIRATORY: Breath sounds equal bilaterally, no wheezes rales or rhonchi. ABDOMEN: Soft, nontender. Normoactive bowel sounds all 4 quadrants. No guarding or rebound. EXTREMITIES: Normal range of motion, no clubbing or edema. Neurovascularly intact NEUROLOGICAL: Alert and oriented x4.Normal gait and speech. Cranial nerves II through XII grossly intact. SKIN: Warm, dry, no laceration, no petechiae, no rashes or lesions. Course Orders Ordered: ED Orders 11/25/17 15:24 Consult to Respiratory Therapy Evaluate & Treat Comprehensive Metabolic Panel Stat Troponin & CK Cardiac Panel Stat EKG-12 Lead Stat 11/25/17 15:25 XR chest 1V Stat 11/25/17 16:11 Arterial Blood Gas Stat 11/25/17 16:57 B Type Natriuretic Peptide Stat Blood Culture Stat Complete Blood Count AUTO DIFF Stat Lactate (Lactic Acid) Stat Procalcitonin Stat Sodium Chloride (Normal Saline 0.9%) 1,000 mls @ 150 mls/hr IV CONT SERGO Discontinued Medications Albuterol/Ipratropium (Duoneb) 3 ml INH NOW ONE Stop: 11/25/17 15:19 Last Admin: 11/25/17 15:20 Dose: 3 ml Albuterol/Ipratropium (Duoneb) 3 ml INH NOW ONE Stop: 11/25/17 15:25 Vital Signs - 8 hr 11/25/17 15:22 11/25/17 15:23 11/25/17 16:30 Temperature 98.1 F Pulse Rate 97 H 105 H 96 H Respiratory Rate 20 23 21 Blood Pressure 141/80 H Blood Pressure [Left Wrist] 119/68 Pulse Oximetry 94 91 94 11/25/17 16:51 Temperature Pulse Rate Respiratory Rate Blood Pressure Blood Pressure [Left Wrist] Pulse Oximetry 94 MDM - SOB/Dyspnea Medical Records Attestation: I reviewed the patient's medical records. Lab Data Attestation: I reviewed the patient's lab results. Result diagrams: 11/25/17 16:57 11/25/17 16:57 Lab Results 11/25/17 11/25/17 11/25/17 Range/Units 15:24 16:11 16:57 WBC 27.0 H (4.5-11.0) X10^3/uL RBC 4.39 (4.0-5.2) X10^6/uL Hgb 11.6 L (12.0-16.0) g/dL Hct 37.2 (36-46) % MCV 84.8 (80-100) fL MCH 26.5 (26-34) PG MCHC 31.3 (30-36) % RDW 16.3 H (11.6-14.8) % Plt Count 335 (150-400) X10^3/uL Neut % (Auto) Not Reportable Lymph % (Auto) Not Reportable [place] % (Auto) Not Reportable Eos % (Auto) Not Reportable Baso % (Auto) Not Reportable Total Counted 100 Seg Neutrophils % 74.0 H (38-70) % Band Neutrophils % 16.0 H (3-7) % Lymphocytes % (Manual) 6.0 L (25-45) % Monocytes % (Manual) 2.0 (2-11) % Eosinophils % (Manual) 2.0 (2-4) % Neutrophils # (Manual) 19050 H (8211-5244) /uL RBC Morphology Not Reportable Anisocytosis 1+ H ABG pH 7.33 L (7.35-7.45) ABG pCO2 62.8 H* (35-45) mmHg ABG pO2 57 L (80-105) mmHg ABG HCO3 33 H (23-27) mmol/L ABG Total CO2 35 H (23-27) mmol/L ABG O2 Saturation 86 L (95-100) % ABG Base Excess 7.0 H (-2-3) mmol/L FiO2 0.42 Sodium 144 (137-145) mmol/L Potassium 4.5 (3.4-5.1) mmol/L Chloride 97 L (98-107) mmol/L Carbon Dioxide 34 H (22-32) mmol/L BUN 18 H (7-17) mg/dL Creatinine 0.70 (0.52-1.04) mg/dL Estimated GFR > 60.0 (>60) mL/min BUN/Creatinine Ratio 25.7 H (6-22) Glucose 294 H (70-100) mg/dL Lactate (0.7-2.1) mmol/L Calcium 9.6 (8.4-10.2) mg/dL Total Bilirubin 0.7 (0.2-1.3) mg/dL AST 22 (14-36) IU/L ALT 32 (9-52) IU/L Alkaline Phosphatase 87 (38-126) U/L Total Creatine Kinase < 20 L (30-135) U/L CK-MB (CK-2) TNP Troponin I 0.042 H (0.01-0.034) ng/mL B-Natriuretic Peptide 60.3 (<100) Total Protein 7.2 (6.3-8.2) g/dL Albumin 4.0 (3.5-5.0) g/dL Globulin 3.2 (1.7-4.1) g/dL Albumin/Globulin Ratio 1.3 (1.0-2.8) Procalcitonin (<0.5) ng/mL Specimen Hemolysis 11/25/17 11/25/17 11/25/17 Range/Units 16:57 16:57 16:57 WBC (4.5-11.0) X10^3/uL RBC (4.0-5.2) X10^6/uL Hgb (12.0-16.0) g/dL Hct (36-46) % MCV (80-100) fL MCH (26-34) PG MCHC (30-36) % RDW (11.6-14.8) % Plt Count (150-400) X10^3/uL Neut % (Auto) Lymph % (Auto) [place] % (Auto) Eos % (Auto) Baso % (Auto) Total Counted Seg Neutrophils % (38-70) % Band Neutrophils % (3-7) % Lymphocytes % (Manual) (25-45) % Monocytes % (Manual) (2-11) % Eosinophils % (Manual) (2-4) % Neutrophils # (Manual) (2910-2046) /uL RBC Morphology Anisocytosis ABG pH (7.35-7.45) ABG pCO2 (35-45) mmHg ABG pO2 (80-105) mmHg ABG HCO3 (23-27) mmol/L ABG Total CO2 (23-27) mmol/L ABG O2 Saturation (95-100) % ABG Base Excess (-2-3) mmol/L FiO2 Sodium Cancelled (137-145) mmol/L Potassium Cancelled (3.4-5.1) mmol/L Chloride Cancelled (98-107) mmol/L Carbon Dioxide Cancelled (22-32) mmol/L BUN Cancelled (7-17) mg/dL Creatinine Cancelled (0.52-1.04) mg/dL Estimated GFR Cancelled (>60) mL/min BUN/Creatinine Ratio Cancelled (6-22) Glucose Cancelled (70-100) mg/dL Lactate 2.6 H (0.7-2.1) mmol/L Calcium Cancelled (8.4-10.2) mg/dL Total Bilirubin Cancelled (0.2-1.3) mg/dL AST Cancelled (14-36) IU/L ALT Cancelled (9-52) IU/L Alkaline Phosphatase Cancelled (38-126) U/L Total Creatine Kinase (30-135) U/L CK-MB (CK-2) Troponin I (0.01-0.034) ng/mL B-Natriuretic Peptide (<100) Total Protein Cancelled (6.3-8.2) g/dL Albumin Cancelled (3.5-5.0) g/dL Globulin Cancelled (1.7-4.1) g/dL Albumin/Globulin Ratio Cancelled (1.0-2.8) Procalcitonin 1.15 H (<0.5) ng/mL Specimen Hemolysis Cancelled Imaging Data Chest x-ray: Radiologist's impression: PROCEDURE: XR CHEST 1V INDICATIONS: short of breath TECHNIQUE: One view of the chest was acquired. COMPARISON: [facility], CHEST 1 VIEW, 06/19/2017, 9:11. FINDINGS: Surgical changes and devices: None. Lungs and pleura: Mixed interstitial and alveolar markings are predominantly centered within the perihilar regions and are grossly similar to the previous study. No large effusion or pneumothorax is evident. Mediastinum: Mediastinal contours appear normal. The heart is enlarged. Bones and chest wall: No suspicious bony lesions. Overlying soft tissues appear unremarkable. IMPRESSION: Cardiomegaly and prominent perihilar lung markings this raises suspicion for developing pulmonary edema/congestive heart failure and clinical correlation is recommended. Dictated by: Sebatsian Silveira M.D. on 11/25/2017 at 14:52 ECG Data Attestation: I personally reviewed and interpreted this ECG as follows: Interpretation: Sinus tachycardia rate [address] changes, similar to previous EKG no changes MDM Narrative Medical decision making narrative: Patient has of a significant leukocytosis of 27,000. Previous it was 12,000. She does admit to taking prednisone daily she has been on a prednisone taper since the end of August currently on 10 mg. She is also noted to have elevated procalcitonin. She has congestion on x-ray and low-grade fevers and weakness. At this time clinical presentation consistent with recurrent pneumonia likely healthcare pneumonia. Although PE is a consideration. She is placed on high-flow nasal cannula on. Which she seems to be tolerating well. I have discussed case with Dr. Manuel who agrees at this time no PE study. Treated for pneumonia. Discharge Plan Departure Patient Disposition: Admitted As Inpatient Clinical Impression: Pneumonia Interventions: ED Discharge Assessment Last Done: 11/25/17 18:44 Admit Date/Time: 11/25/17 19:16 Admit Provider: Jesus Manuel
[2017-11-25 17:49] LABS: Anisocytosis 1+
--- NOTE | 2017-11-25 20:36 | PC.NURSE ---
PT with difficult IV start. DI nurse tried to get midline started without success. DI Nurse had transferred patient via jodie to a floor bed. And tried any time to get midline. Precision called to start picc line will be here at 2300. 22 gauge officially started in left hand. This process took approximately 2 hrs.
[2017-11-25] MEDS: PIPERACILLIN-TAZO 3.375 GM/50 ML FROZ.PIGGY IV (20:52)
[2017-11-25] MEDS: SODIUM CHLORIDE 0.9% 1,000 ML 125 ML IV (20:52)
[2017-11-25] MEDS: ACETAMINOPHEN 325 MG TABLET 650 MG PO (21:00)
[2017-11-25 21:11] LABS: Reflexed Lactate in 2 Hours Y
[2017-11-25 21:44] LABS: Lactate 2HR (Lactic Acid Rflx) 1.8 mmol/L (0.7-2.1)
--- NOTE | 2017-11-25 22:53 | DI.RAD.S_ITS ---
PROCEDURE: XR CHEST FOR PICC 1V INDICATIONS: check PICC placement. COMPARISON: [facility], CR, XR CHEST 1V, 11/25/2017, 15:29. FINDINGS: There is a left upper extremity PICC line with the tip at the junction of the left innominate vein and superior vena cava. There is persistent pulmonary edema which appears similar to slightly increased compared to the prior study. Left perihilar retrocardiac opacities are also noted suggestive of consolidation. No definite pleural effusions, with the left costophrenic angle incompletely included on the current study. No pneumothorax. Mediastinal contours appear unchanged. There is cardiomegaly. Visualized osseous structures demonstrate no suspicious lesions. IMPRESSION: 1. New left PICC line extends to the junction of the left innominate vein and superior vena cava. 2. Slightly increased pulmonary edema. 3. Left retrocardiac perihilar opacities suggestive of consolidation. Dictated by: Marco Sanders M.D. on 11/26/2017 at 9:09 Approved by: Marco Sanders M.D. on 11/26/2017 at 9:26
[2017-11-26] VITALS (11 sets, daily range): BP systolic 135–146; BP diastolic 75–82; PULSE 85–115; RESP 14–24; TEMP 36.7–37.3; O2SAT 91–98
--- NOTE | 2017-11-26 00:12 | PC.NURSE ---
Addendum entered by Amarilis Macario R.N. 11/26/17 06:26: Assisted to BSC with walker and 1 SBA; gets SOB with exertion and needs lots of time for transfer and assistance to get legs back into bed. Has menses resulting in hematuria; did void 250cc. Original Note: Addendum entered by Amarilis Macario R.N. 11/26/17 05:23: Complains of generalized stiffness/discomfort; medicated with Tylenol per her request. Feels as though she would be able to urinate but wants to wait until Tylenol working to reduce pain. Original Note: Patient is alert and oriented. Breath sounds diminished but CTA with sat of 93% on HHFNC; denies SOB. HRR. Denies nausea. BT present and abdomen is soft. Has not voided since prior to admit to floor but denies feeling need to void but will try in short while; believes she was dehydrated on admission. Is able to sit up in bed and at home was walking around with walker but states she has been feeling weaker. Redness under abdominal folds and behind left knee with scar like appearance around medial left knee. Lesions present on right LE. Denies pain. Fall risk score is high and bed alarm activated. PICC placed at end of previous shift so IVF not infusing through PICC. Noted to have dx of DM so CBG checked and was 203.
[2017-11-26] MEDS: PIPERACILLIN-TAZO 3.375 GM/50 ML FROZ.PIGGY IV ×3 (04:33→20:51)
[2017-11-26] MEDS: ACETAMINOPHEN 325 MG TABLET 650 MG PO (05:20)
[2017-11-26] MEDS: SODIUM CHLORIDE 0.9% 1,000 ML 125 ML IV ×2 (05:23→13:09)
[2017-11-26] MEDS: ALBUTEROL 2.5 MG/3 ML NEB (ADULT) INH ×2 (05:54→17:41)
--- NOTE | 2017-11-26 10:55 | ST.IPSCREEN ---
Swallow screening performed to identify risk for aspiration as possible cause of patient's recurrent pneumonia. Patient reports she had an episode of coughing/choking on lemonade ~1 month ago. She denied any other difficulty with swallowing or history of dysphagia. Patient passed 3 oz water swallow test with no signs of aspiration. Education provided to patient regarding options for further assessment in the future. She expressed understanding and politely declined.
[2017-11-26] MEDS: INSULIN ASPART 100 UNIT/ML INSULN PEN SUBCUT ×3 (14:40→20:51)
--- NOTE | 2017-11-26 15:03 | PC.NURSE ---
Pt is on her mense's. Up to bathroom with 1 person sba. Pt has some skin issues that can be seen under body image under pts physical assessment. Blood sugars 170s and 223, 3u of insulin given. Pt is resting comfortably. On heated hf oxygen at 10l and FI02 is at 50%
--- NOTE | 2017-11-26 15:15 | PT.IPTN ---
Physical Therapy Treatment Note M3 PT-IP Subjective Start: 11/26/17 16:18 Freq: NEEDED Status: Active Protocol: Document 11/26/17 15:15 MDD (Rec: 11/26/17 16:19 MDD [id number]) Subjective Physical Therapy Visit Type Type Patient Refusal Visit Start Time 15:15 Notes Pt refused PT evaluation this day. Reports she is very fatigued and did not sleep very well last night. She requests to wait for tomorrow. Will f/u tomorrow am.
--- NOTE | 2017-11-26 15:38 | CM.IDA ---
Discharge Planning/Care Management CM Discharge Assessment Start: 11/26/17 15:28 Freq: Status: Active Protocol: Document 11/26/17 15:28 NIHARIKA (Rec: 11/26/17 15:38 NIHARIKA [id number]) Discharge Planning Assessment Assigned Racebook Writer Rhoda Diamond, [employer] DPOA/Assigned Designee Name Tori Peter mom Contact Information [phone] or [phone] Advance Directives? Yes History Provided By Patient Medical Record Comment Last admit; August 2017, pt familiar to this [employer] Prior Living Arrangements Apartment/Condo Household Members family Comment Lives w/mom Tori and 21 yo son Fara Type of transportation used prior to Relies on Others admit Comment H/o Medicaid transport, bariatric w/c Independent with ADL's No: 5'7 425 pounds Is patient alert and oriented? Yes Needs Assistance With Bathing Grooming Meal Prep Toileting Managing Medications Home Chores / Shopping Comment Bariatric DME Name of Agency [facility] Clinicals Faxed No Comment [facility] Lida De La [facility] Comment Pending medical POC, pt hopes to return home w/family and resumption of [facility] Barriers to Discharge Yes Comment Pt is compromised medically and is very large making self care difficult. Pt hopes to return home, family in agreement.Pt asks if [facility] offers something other than face mask? Face mask gave pt anxiety, could not get the correct fit or setting for sustained use. Discharge Plan Home Transportation Arrangement Family Additional Comment Resume [facility] and [facility] PT /OT/RN If patient plan is home with home health No : Has signed face to face form been completed? Inpatient Status as of 11/25/17 SNF/HH Preference [facility] Whiteboard Updated in Patient Room with Yes name and ext. # of Racebook Writer Review Status In Process Please Provide Date Initial DC 11/26/17 Assessment Was Performed
[2017-11-26] MEDS: ENOXAPARIN 30 MG/0.3 ML SYRINGE SUBCUT (17:43)
[2017-11-26] MEDS: METOPROLOL 50 MG TABLET 100 MG PO (20:50)
[2017-11-26] MEDS: METFORMIN HCL 500 MG TABLET 1000 MG PO (20:50)
[2017-11-27] VITALS (12 sets, daily range): BP systolic 147–160; BP diastolic 83–109; PULSE 87–106; RESP 18–22; TEMP 36.3–36.9; O2SAT 85–99
[2017-11-27] MEDS: ACETAMINOPHEN 325 MG TABLET 650 MG PO ×2 (01:02→21:57)
[2017-11-27] MEDS: LORazepam 1 MG TABLET PO (01:02)
--- NOTE | 2017-11-27 01:19 | PC.NURSE ---
Addendum entered by Amarilis Macario R.N. 11/27/17 06:36: O2 sat this morning is 96% on 8L/min. Slept at intervals after receiving Ativan for anxiety/sleep. Original Note: Patient is alert and oriented. Breath sounds diminished with inspiratory crackles at bases. On oxygen at 7L/min per NC with sat of 88% so increased to 8L/min and sat now at 92%. States she is still SOB with exertion but not at rest; cannot lie flat. Has begun coughing but has been non productive. HRR. Denies nausea. BT present and abdomen is soft. Denies dysuria, frequency, urgency or incontinence; does have her menses so urine is blood tinged. Able to move self in bed. Can transfer to BSC with walker and SBA but does need staff assist to get legs back into bed. Complains of generalized pain; medicated with Tylenol. Fall risk score is high so bed alarm is activated.
[2017-11-27] MEDS: PIPERACILLIN-TAZO 3.375 GM/50 ML FROZ.PIGGY IV ×2 (04:23→13:03)
[2017-11-27] MEDS: SODIUM CHLORIDE 0.9% 1,000 ML 125 ML IV ×2 (05:49→15:20)
[2017-11-27 06:21] LABS: Alanine Aminotransferase 36 IU/L (9-52); Albumin 3.5 g/dL (3.5-5.0); Albumin Globulin Ratio 1.1 (1.0-2.8); Alkaline Phosphatase 91 U/L (38-126); Aspartate Aminotransferase 25 IU/L (14-36); Bilirubin Total 0.7 mg/dL (0.2-1.3); Blood Urea Nitrogen 13 mg/dL (7-17); Calcium 8.7 mg/dL (8.4-10.2); Carbon Dioxide 38 mmol/L (22-32); Chloride 101 mmol/L (98-107); Estimated Glomerular Filt Rate > 60.0 mL/min (>60); Globulin 3.3 g/dL (1.7-4.1); Glucose 189 mg/dL (70-100); HEMOLYSIS < 15 (0-50); Sodium 145 mmol/L (137-145); Total Protein 6.8 g/dL (6.3-8.2)
[2017-11-27 06:26] LABS: Add Manual Diff / Slide Review NO; Basophils Percent Auto 0.4 % (0-2); Eosinophils Percent Auto 2.2 % (2-4); Hematocrit 34.5 % (36-46); Hemoglobin 10.7 g/dL (12.0-16.0); Lymphocytes Percent Auto 11.3 % (25-40); Mean Corpuscular HGB Conc 31.1 % (30-36); Mean Corpuscular Hemoglobin 26.3 PG (26-34); Mean Corpuscular Volume 84.4 fL (80-100); Monocytes Percent Auto 5.5 % (3-14); Neutrophils Absolute Auto 9800 /uL (3000-5900); Neutrophils Percent Auto 80.6 % (50-75); Platelet Count 283 X10^3/uL (150-400); Red Blood Cell Count 4.08 X10^6/uL (4.0-5.2); Red Cell Distribution Width 16.3 % (11.6-14.8); White Blood Cell Count 12.2 X10^3/uL (4.5-11.0)
[2017-11-27 06:30] LABS: Troponin I 0.036 ng/mL (0.01-0.034)
[2017-11-27] MEDS: predniSONE 10 MG TABLET PO (08:08)
[2017-11-27] MEDS: INSULIN ASPART 100 UNIT/ML INSULN PEN SUBCUT ×3 (08:08→16:48)
[2017-11-27] MEDS: ALBUTEROL 2.5 MG/3 ML NEB (ADULT) INH (08:13)
[2017-11-27] MEDS: AMLODIPINE 5 MG TABLET 10 MG PO (09:20)
[2017-11-27] MEDS: LISINOPRIL 10 MG TABLET PO (09:21)
[2017-11-27] MEDS: METOPROLOL 50 MG TABLET 100 MG PO ×2 (09:22→21:56)
[2017-11-27] MEDS: METFORMIN HCL 500 MG TABLET 1000 MG PO ×2 (09:22→21:56)
[2017-11-27 10:18] LABS: pH ABG 7.38 (7.35-7.45)
[2017-11-27 10:19] LABS: PCO2 ABG 59.3 mmHg (35-45); PO2 ABG 68 mmHg (80-105)
[2017-11-27 10:20] LABS: HCO3 ABG 35 mmol/L (23-27); Oxygen Saturation ABG 92 % (95-100); TCO2 ABG 37 mmol/L (23-27)
[2017-11-27 10:21] LABS: Fractionated Inspired Oxygen 0.21
[2017-11-27] MEDS: ENOXAPARIN 30 MG/0.3 ML SYRINGE SUBCUT ×2 (11:45→21:55)
--- NOTE | 2017-11-27 13:28 | P.HP_ITS ---
History of Present Illness Date Patient Seen: 11/26/17 Time Patient Seen: 08:20 Chief complaint: SOB/General weakness Narrative: Patient is a 42-year-old female with long chronic history of autoimmune disorder and severe obesity. She is on immune suppression and gluteus steroids and has history of diabetes presents acutely with worsening shortness of breath feeling feverish and has had a history of recurrent pneumonia which we have felt most likely represents her immune suppression with Enbrel seems like about every 3-6 months she gets an acute worsening. Presented to the emergency room had hypoxic this make not having chest pain no nausea or vomiting but quite hypoxic required a treatments without much improvement and high levels of oxygen. Evaluation felt primarily to be most consistent with pneumonia which fits her overall clinical picture. Her BNP was only 60. Troponin was borderline but had CKs negative and she had no symptoms of chest pain as a part of this and no EKG changes. Determined in the night to require admission and was admitted placed on respiratory therapy and IV antibiotics. Will continue her steroids antihypertensives and respiratory treatment Patient History Medical History Anxiety (Acute) Asthma (Acute) CHF (congestive heart failure) (Acute) COPD (chronic obstructive pulmonary disease) (Acute) Diabetes mellitus type 2 in obese (Acute) Morbid obesity (Acute) Pericardial effusion (Acute) Pleural effusion (Acute) Reactive airway disease (Acute) Recurrent pneumonia (Acute) Requires continuous at home supplemental oxygen (Acute) Family & Social History Social History: household members family Prior Living Arrangements Apartment/Condo Safety & Behavioral: Feels Safe in Current Yes Environment Been Physically Hurt or No Threatened By a Person Suicidal Ideation Description None Suicide Plan Description No Plan Tobacco & Substance use: Smoking Status Former smoker alcohol intake never Substance Use Type does not use Meds Home Medications Medication Instructions Recorded Confirmed Type lorazepam 1 - 2 mg PO Q8HP PRN #0 06/02/16 11/26/17 History etanercept [Enbrel] 50 mg SQ QWEEK #0 08/12/16 11/25/17 History hydrocodone-acetaminophen 1 tab PO Q4HP PRN #0 01/12/17 11/26/17 History metoprolol tartrate 100 mg PO BID #0 01/12/17 11/26/17 History ondansetron HCl [Zofran] 4 mg PO Q8HP PRN #0 01/12/17 11/26/17 History amlodipine 10 mg PO DAILY 09/16/17 11/26/17 History folic acid 400 mcg PO DAILY 09/16/17 11/26/17 History lisinopril 10 mg PO DAILY 09/16/17 11/26/17 History metformin 1,000 mg PO BID 09/16/17 11/26/17 History multivitamin with minerals 1 tab PO DAILY 09/16/17 11/25/17 History prednisone 10 mg PO AMCC 09/16/17 11/26/17 History Allergies Allergy/AdvReac Type Severity Reaction Status Date / Time infliximab Allergy Unknown Verified 09/15/17 21:40 Review of Systems Review of Systems All systems reviewed & are unremarkable except as noted in HPI and below Constitutional Constitutional: Reports as per HPI, Reports excessive sweating, Reports fatigue , Reports fever(s), Reports headache(s), Reports night sweats, Reports snoring and Reports weight gain Eyes Eyes: Reports as per HPI ENT Ears, Nose, Mouth, and Throat: Yes headache(s) Cardiovascular Cardiovascular: Reports as per HPI, Reports fast heart rate, Reports generalize swelling, Reports shortness of breath, Reports shortness of breath with activity and Reports shortness of breath when lying down Respiratory Respiratory: Reports as per HPI, Reports chest congestion, Reports cough, Reports dyspnea, Reports dyspnea on exertion and Reports snoring Gastrointestinal Gastrointestinal: Reports as per HPI and Reports system reviewed and no additional complaints, except as documented Musculoskeletal Musculoskeletal: Reports as per HPI, Reports system reviewed; no additional complaints, except as documented, Reports back pain, Reports limited range of motion and Reports muscle weakness Neurologic Neurologic: Reports as per HPI, Reports system reviewed and no additional complaints, except as documented, Reports headache(s) and Reports restless legs Psychiatric Psychiatric: Reports anxiety, Reports depression, Reports mood swings and Reports panic attacks Endocrine Endocrine: Reports as per HPI, Reports excessive sweating and Reports fatigue Hematologic/Lymphatic Hematologic/Lymphatic: Reports as per HPI and Reports system reviewed and no additional complaints, except as documented Exam Vital Signs (past 8 hours): - 11/27/17 05:40 11/27/17 06:00 11/27/17 07:15 Temperature 97.6 F Pulse Rate 94 H Respiratory Rate 18 Blood Pressure 160/85 H Pulse Oximetry 94 96 92 11/27/17 08:00 11/27/17 09:21 11/27/17 09:24 Temperature 97.3 F L Pulse Rate 91 H 91 H Respiratory Rate 20 Blood Pressure 150/87 H 150/87 H Pulse Oximetry 99 96 Fraction of Inspired Oxygen 50 Oxygen Delivery Method Room Air Oxygen Flow Rate 6 Narrative Exam Narrative: Patient severely obese and distress Respiratory early breathing rapidly no pain clear cognition. PRLA 80 0 mCi intact Neck obese but no discernible mass Pulmonary is shows crackles and decreased breath sounds throughout although difficult exam because of patient's size Cardiovascular shows regular rate rhythm without murmur S3 patient does have a significant dependent edema chronically because of her size GI shows abdomen obese but no rigidity guarding or rebound no hepatosplenomegaly or mass noted Back nontender she has some chronic discomfort at the low back area which I think is mechanical B skin shows no acute inflammatory changes, as a part of her underlying autoimmune disorder Neuro patient is alert oriented sensory motor are intact and symmetrical speech is clear Psych shows patient to do not have significant complaints of depression Objective Labs Result Diagrams: 11/27/17 05:40 11/27/17 05:40 Labs: Laboratory Results - last 24 hr 11/27/17 11/27/17 11/27/17 05:40 05:40 09:55 WBC 12.2 H D RBC 4.08 Hgb 10.7 L Hct 34.5 L MCV 84.4 MCH 26.3 MCHC 31.1 RDW 16.3 H Plt Count 283 Neut % (Auto) 80.6 H Lymph % (Auto) 11.3 L [place] % (Auto) 5.5 Eos % (Auto) 2.2 Baso % (Auto) 0.4 Neut # (Auto) 9800 H ABG pH 7.38 ABG pCO2 59.3 H ABG pO2 68 L ABG HCO3 35 H ABG Total CO2 37 H ABG O2 Saturation 92 L ABG Base Excess 10.0 H FiO2 0.21 Sodium 145 Potassium 4.0 Chloride 101 Carbon Dioxide 38 H BUN 13 Creatinine 0.50 L Estimated GFR > 60.0 BUN/Creatinine Ratio 26.0 H Glucose 189 H D Calcium 8.7 Total Bilirubin 0.7 AST 25 ALT 36 Alkaline Phosphatase 91 Troponin I 0.036 H Total Protein 6.8 Albumin 3.5 Globulin 3.3 Albumin/Globulin Ratio 1.1 Assessment & Plan Plan: Assessment/Plan Narrative: Assessment 1. Pneumonia and think this is multifactorial and including patient' s immune suppression from Enbrel. Also her size and hypoventilation. Chronic respiratory issues which could be a component of her autoimmune disorder or the medicine she takes for it or significant restrictive respiratory function. Patient is on IV therapy for selling cultures pending x-ray showed some fluid could be pulmonary edema initiating or early pneumonia but BNP was negative. Assessment 2. Chronic pulmonary disease based on the above factors will continue respiratory therapy evaluation follow-up blood gas titrate oxygenation and appropriate hydration. Diuresis if needed will continue steroid anti- inflammatory 3. Diabetes patient with obesity type 2 diabetes recent steroid requirements for pulmonary function all conspiring to have her in fairly poor control of her diabetes. A1c is at 10. Will initiate a high level at and swollen sliding scale and titrate doses as required for sugar control. Place patient on ADA diet as well Assessment 4. Hypertension will continue patient's usual medications for hypertension starting tomorrow after we see improvement in her hydration. Assessment 5. Component of dehydration. IV fluids administered will monitor to make sure we do not over hydrate Assessment 6. Obesity. This is fairly morbid patient currently over 400 lb severe limitations on activity and ability to move I think it is compromising her respiratory function as well and may be playing a component in her repeated pneumonias Assessment number 7 anxiety and depression O we will keep patient on current medication regimen for that and monitor closely. Patient not suicidal
--- NOTE | 2017-11-27 13:37 | P.PN_ITS ---
Subjective Date Patient Seen: 11/27/17 Time Patient Seen: 08:29 Interval history: Patient rested poorly last night tired this morning. Feels better than she did on admission yesterday. Oxygen levels down a little bit. Will recheck blood gases and see if she is still retaining. Was unable to tolerate higher pressure mask or adverse to increase ventilation rate. Inc she has a significant component of restriction because of size of the chest wall. No chest pain had did have some appetite today feels a little better overall. Labs this morning show white count down from 20 7-12 hematocrit is okay metabolic function stable glucose down to 180 from well up into the 200s yesterday get the majority of her medications from home going with respect to depression anxiety of hypertension. Diabetes be managed by insulin currently along with her home metformin. Patient's care home utilization requirement of prednisone for respiratory function will continue as she is here. Also have patient on DVT prophylaxis with enoxaparin Exam Vital Signs (past 8 hours): - 11/27/17 05:40 11/27/17 06:00 11/27/17 07:15 Temperature 97.6 F Pulse Rate 94 H Respiratory Rate 18 Blood Pressure 160/85 H Pulse Oximetry 94 96 92 11/27/17 08:00 11/27/17 09:21 11/27/17 09:24 Temperature 97.3 F L Pulse Rate 91 H 91 H Respiratory Rate 20 Blood Pressure 150/87 H 150/87 H Pulse Oximetry 99 96 Fraction of Inspired Oxygen 50 Oxygen Delivery Method Room Air Oxygen Flow Rate 6 Narrative Exam Narrative: Patient is sitting comfortably although looks fatigued nasal cannula in place answering questions clearly comfortably in complete sentences. Poor sleep last night reason she can have something for that for tonight no fevers no chest pain and improved shortness of breath eyes show PERRLA EOMs intact HEENT shows throat without evidence of inflammation no nodes Neck shows no mass Chest a quite obese Pulmonary decreased breath sounds with some slight crackles and spots Cardio shows regular rate and rhythm without murmur S3 At the GI shows extremely obese abdomen with a difficult exam but no discernible hepatosplenomegaly or mass rebound or guarding bowel sounds are noted Back without any significant tenderness except right at the very lumbar lower area which is chronic low back pain that she always has Skin shows no inflammatory outbreaks with her autoimmune disorder Neuro shows patient to be alert oriented speech clear intact sensory and motor Extremities quite edematous but symmetrical Psych shows patient to be in fairly good mood chronic depression anxiety adequately managed at this point Objective Labs Result Diagrams: 11/27/17 05:40 11/27/17 05:40 Labs: Laboratory Results - last 24 hr 11/27/17 11/27/17 11/27/17 05:40 05:40 09:55 WBC 12.2 H D RBC 4.08 Hgb 10.7 L Hct 34.5 L MCV 84.4 MCH 26.3 MCHC 31.1 RDW 16.3 H Plt Count 283 Neut % (Auto) 80.6 H Lymph % (Auto) 11.3 L [place] % (Auto) 5.5 Eos % (Auto) 2.2 Baso % (Auto) 0.4 Neut # (Auto) 9800 H ABG pH 7.38 ABG pCO2 59.3 H ABG pO2 68 L ABG HCO3 35 H ABG Total CO2 37 H ABG O2 Saturation 92 L ABG Base Excess 10.0 H FiO2 0.21 Sodium 145 Potassium 4.0 Chloride 101 Carbon Dioxide 38 H BUN 13 Creatinine 0.50 L Estimated GFR > 60.0 BUN/Creatinine Ratio 26.0 H Glucose 189 H D Calcium 8.7 Total Bilirubin 0.7 AST 25 ALT 36 Alkaline Phosphatase 91 Troponin I 0.036 H Total Protein 6.8 Albumin 3.5 Globulin 3.3 Albumin/Globulin Ratio 1.1 Assessment & Plan Plan: Assessment/Plan Narrative: Assessment 1. Pneumonia will continue patient on respiratory care oxygen supplementation and IV antibiotics and her prednisone. We will get blood gas again today to see if she continues to retain CO2 S 2. SA pH 0 syndrome autoimmune disorder which patient takes Enbrel for as well as some component of her prednisone as well. Will hold Enbrel for now continue her prednisone Assessment 3. Diabetes patient on high protocol level for diabetes management with insulin sliding scales as sugars significantly improved today Assessment 4. Hypertension the patient on current medications and IV hydration at this point. Assessment 5. Insomnia will have Ambien available for patient for tonight. Is assessment 6. Anxiety and depression. Will continue current medications for this patient's spirits seem to be tolerable at this point.
--- NOTE | 2017-11-27 15:03 | PT.IIE ---
Medical History (Last Reviewed 11/25/17 @ 19:17 by Jaquelin Armijo DO) Anxiety (Acute) Asthma (Acute) CHF (congestive heart failure) (Acute) COPD (chronic obstructive pulmonary disease) (Acute) Diabetes mellitus type 2 in obese (Acute) Morbid obesity (Acute) Pericardial effusion (Acute) Pleural effusion (Acute) Reactive airway disease (Acute) Recurrent pneumonia (Acute) Requires continuous at home supplemental oxygen (Acute) Physical Therapy Inpatient Evaluation/Re-Eval M1 PT/OT-IP Prior Functional Status Start: 11/26/17 16:18 Freq: NEEDED Status: Active Protocol: Document 11/27/17 15:03 MDD (Rec: 11/27/17 16:43 MDD [email or web address]) Medical Review Prior Functional Status Medical History Reviewed Yes Communication normal Mobility and Gait Independent for short distances in the home with FWW . Activities of Daily Living and IADL's Needs assist for LE dressing, showering, toileting Social History Household Members family Living Arrangements Apartment/Condo Number of Floors (Floors) Two Floors Number of Stairs To Enter/Railing? No stairs to enter. Pt lives on main floor so does not need to go down steps. Home Environment Standard Height Toilet Walk in Shower Home Equipment Front Wheel Walker Four Wheel Walker Employment Status Unemployed Additional Social History Comment Pt lives with her mother, Tori and her 21 year old son , Fara. M2 PT-IP Current Condition Start: 11/26/17 16:18 Freq: NEEDED Status: Active Protocol: Document 11/27/17 15:03 MDD (Rec: 11/27/17 16:43 MDD [email or web address]) Physical Therapy Current Condition Current Condition Evaluation Date 11/27/17 Treatment Diagnosis SOB Onset Date 11/26/17 Precautions Other Precautions O2 sat Pt on 6 L/min at rest, increased to 8 L/min with activity today (desatted to 86 %). M3 PT-IP Subjective Start: 11/26/17 16:18 Freq: NEEDED Status: Active Protocol: Document 11/27/17 15:03 MDD (Rec: 11/27/17 16:43 MDD [email or web address]) Subjective Physical Therapy Visit Type Type Initial Evaluation Visit Start Time 14:30 Visit Stop Time 15:03 Total Visit Minutes 33 Number of LEGAL CONSULTANT Visits 0 Physical Therapy Visit Comments Patient Comments Pt agreeable to participate in PT evaluation this day. Reports she did not get much sleep last night. Therapy Pain Assessment Pain Present Pain Present Denied Pain M4 PT-IP Mobility and Gait Start: 11/26/17 16:18 Freq: NEEDED Status: Active Protocol: Document 11/27/17 15:03 MDD (Rec: 11/27/17 16:43 MDD [email or web address]) PT-Bed Mobility Assessment Rolling Type of Rolling Roll to Left Level of Assist Independent Supine to Sit Supine to Sit Independent Sit to Supine Sit to Supine Minimal Assistance 1 Person Assistance Scooting Scooting to Edge of Bed Independent Scooting Up and Down in Bed Independent PT-Transfer Assessment Sit to and From Stand Sit to and from Stand Contact Guard Assistance Equipment Transfer Assistive Device Gait Belt Front Wheeled Walker Gait Assessment Gait Gait Assistance Required: Contact Guard Assist Distance (Feet) (feet) 20 Able to Maintain Weight Bearing Status Yes During Gait Assistive Devices Assistive Device Gait Belt Front Wheeled Walker Gait Deviations General Gait Pattern Flexed Trunk Factors Limiting Gait Function Factors Limiting Gait Function Decreased Strength Comments Gait Comments Pt very slow with gait, but steady using FWW. O2 sats dropped to 86% on 6L/min and did not immediately return with rest. Bumped up to 8L/ min for recovery (~1 minute) and returned back to 6L/min at rest. PT-Balance Assessment Sitting Balance and Reactions Static Sitting Balance Ability Normal Dynamic Sitting Balance Ability Normal Standing Balance and Reactions Static Standing Balance Ability Good Dynamic Standing Balance Ability Good M5 PT-IP Objective Assessments Start: 11/26/17 16:18 Freq: NEEDED Status: Active Protocol: Document 11/27/17 15:03 MDD (Rec: 11/27/17 16:43 MDD [email or web address]) Orientation Orientation/Cognition Level of Alertness Alert Orientation Name Age Birthday Month Date Year Day of Week Place Situation Language Function Ability No Deficits Noted Safety Awareness Understands Safety Issues Memory Description No Deficits Noted Gross Range of Motion Lower Extremity ROM Impairments LE ROM limited B due to body habitus. B knee and hip flexion limited. Strength Lower Extremity Strength Assessment Within Functional Limits Sensation Assessment Sensation Gross Sensation WNL Light Touch Intact M6 PT-IP Treatment Start: 11/26/17 16:18 Freq: NEEDED Status: Active Protocol: Document 11/27/17 15:03 MDD (Rec: 11/27/17 16:43 MDD [email or web address]) Physical Therapy Treatment Education Education Provided Precautions Safety M7 PT-IP Assessment and Plan Start: 11/26/17 16:18 Freq: NEEDED Status: Active Protocol: Document 11/27/17 15:03 MDD (Rec: 11/27/17 16:43 MDD [email or web address]) PT Summary Assessment and Plan Potential Rehabilitation Potential Good Status of Condition at Evaluation Evolving Summary Impairments ROM Transfers Gait Activity Tolerance Progress Towards Goals Progressing Toward Goals Assessment Summary Pt demonstrates independent bed mobility today but does require assist for moving L LE from sit to supine. She is able to ambulate with CGA to SBA, but demonstrates decreased activity tolerance. She presents well below her previous functional baseline, but should be able to return home safely when medically appropriate as she has good support in the home. Goals Bed Mobility Goal Independent Transfer Goal Independent Gait Goal Independent Front Wheel Walker Gait Distance 30 Days to Meet Goals 3 Frequency of Treatment Frequency Of Treatment Once a Day Treatment Plan Physical Therapy Treatment Plan Bed Mobility Training Transfer Training Gait Training Therapeutic Exercise Other Recommendations and Next Treatment Improve activity tolerance and Focus endurance. Recommendations To Nursing Amount of Assist Needed 1 Person Assist Discharge Recommendations PT Discharge Recommendations Home with Assistance
[2017-11-27] MEDS: PIPERACILLIN-TAZO 4.5 GM/100 ML FROZ.PIGGY IV (21:57)
[2017-11-28] VITALS (11 sets, daily range): BP systolic 134–155; BP diastolic 82–97; PULSE 75–96; RESP 16–20; TEMP 36.4–37; O2SAT 90–94
[2017-11-28] MEDS: SODIUM CHLORIDE 0.9% 1,000 ML 125 ML IV ×2 (00:03→08:24)
--- NOTE | 2017-11-28 02:15 | PC.NURSE ---
Addendum entered by Jai Grijalva R.N. 11/28/17 04:54: 0455: Having a severe headache. Medicated with Hydrocodone and Tylenol. Original Note: [employer] Service Technician Note: 0015: Awake, sitting up in bed. Alert, oriented X3. Remains on O2 at 6L/HFNC. PICC intact in lt upper arm. Pt states she is having her period. Supplies provided for her. Pt denies pain or discomfort at this time.
[2017-11-28] MEDS: ACETAMINOPHEN 325 MG TABLET 650 MG PO (04:50)
[2017-11-28] MEDS: HYDROCODONE/ACET 5/325 TABLET 1 TAB PO ×2 (04:50→14:27)
[2017-11-28] MEDS: PIPERACILLIN-TAZO 4.5 GM/100 ML FROZ.PIGGY IV ×3 (04:58→20:46)
[2017-11-28] MEDS: ONDANSETRON 4 MG/2 ML INJ IV ×2 (06:50→11:11)
[2017-11-28 07:49] LABS: Add Manual Diff / Slide Review NO; Basophils Percent Auto 0.5 % (0-2); Eosinophils Percent Auto 2.8 % (2-4); Hematocrit 33.4 % (36-46); Hemoglobin 10.5 g/dL (12.0-16.0); Lymphocytes Percent Auto 12.2 % (25-40); Mean Corpuscular HGB Conc 31.4 % (30-36); Mean Corpuscular Hemoglobin 26.6 PG (26-34); Mean Corpuscular Volume 84.8 fL (80-100); Monocytes Percent Auto 6.5 % (3-14); Neutrophils Absolute Auto 9000 /uL (3000-5900); Platelet Count 284 X10^3/uL (150-400); Red Blood Cell Count 3.94 X10^6/uL (4.0-5.2); Red Cell Distribution Width 16.4 % (11.6-14.8); White Blood Cell Count 11.6 X10^3/uL (4.5-11.0)
[2017-11-28 08:01] LABS: Alanine Aminotransferase 40 IU/L (9-52); Albumin 3.6 g/dL (3.5-5.0); Albumin Globulin Ratio 1.1 (1.0-2.8); Alkaline Phosphatase 94 U/L (38-126); Aspartate Aminotransferase 21 IU/L (14-36); Bilirubin Total 0.6 mg/dL (0.2-1.3); Blood Urea Nitrogen 8 mg/dL (7-17); Calcium 8.4 mg/dL (8.4-10.2); Carbon Dioxide 38 mmol/L (22-32); Chloride 99 mmol/L (98-107); Estimated Glomerular Filt Rate > 60.0 mL/min (>60); Globulin 3.2 g/dL (1.7-4.1); Glucose 215 mg/dL (70-100); HEMOLYSIS < 15 (0-50); Potassium 3.9 mmol/L (3.4-5.1); Sodium 143 mmol/L (137-145); Total Protein 6.8 g/dL (6.3-8.2)
[2017-11-28] MEDS: ENOXAPARIN 30 MG/0.3 ML SYRINGE SUBCUT ×2 (08:21→21:34)
[2017-11-28] MEDS: METOPROLOL 50 MG TABLET 100 MG PO ×2 (08:21→20:43)
[2017-11-28] MEDS: AMLODIPINE 5 MG TABLET 10 MG PO (08:21)
[2017-11-28] MEDS: predniSONE 10 MG TABLET PO ×2 (08:23→14:28)
[2017-11-28] MEDS: LISINOPRIL 10 MG TABLET PO (08:23)
[2017-11-28] MEDS: INSULIN ASPART 100 UNIT/ML INSULN PEN SUBCUT ×4 (08:28→20:45)
[2017-11-28] MEDS: ALBUTEROL 2.5 MG/3 ML NEB (ADULT) INH ×2 (09:50→19:58)
--- NOTE | 2017-11-28 10:20 | PC.NURSE ---
Pt alert, tearful, having had headache throughout the night. some nausea and dry heaves. Meds of some help. will readminister per prn schedule. Pt up to [facility] with assistance. held metformin as Pt didn't want to eat.
--- NOTE | 2017-11-28 11:27 | PC.NURSE ---
Pt up to [facility] with 2person assistance. ilene for nausea. resting in bed.
--- NOTE | 2017-11-28 13:49 | PM.PN.1 ---
Subjective Date Patient Seen: 11/28/17 Time Patient Seen: 13:49 Interval history: Patient states that she is feeling better in terms of her breathing however has been dealing with a migraine headache since last night. Usually she is able to treat these with Tylenol and sleeping and a cold compress. However she did this last night but had persistent pain and nausea and was treated with Zofran and then subsequently treated with Vicodin. She describes her pain as being a 4/10 and now rising to 8/10. She has a history of migraine headaches and they have been better controlled of recent. Her blood sugars have been in the 200s. She did not take her metformin this morning because she did not eat and she did eat some lunch and was able to keep this down. She denies any chest pain. Twelve point review of systems is negative No blood in her stool or diarrhea. No constipation No chest pain No current skin lesions Exam Vital Signs (past 8 hours): - 11/28/17 07:55 11/28/17 08:23 11/28/17 10:00 Temperature 97.7 F Pulse Rate 87 87 Respiratory Rate 20 Blood Pressure 143/96 H 143/96 H Pulse Oximetry 91 91 11/28/17 10:25 11/28/17 12:00 Temperature 98.0 F Pulse Rate 75 Respiratory Rate 18 Blood Pressure 139/92 H Pulse Oximetry 91 92 Fraction of Inspired Oxygen 50 Oxygen Delivery Method High Flow Nasal Cannula Oxygen Flow Rate 6 Narrative Exam Narrative: Alert and oriented x3 in no apparent distress resting comfortably in hospital bed with nasal cannula oxygen at 6 L. This is decreased from 8 L HEENT: Mucous membranes moist and pink Neck: Supple without adenopathy or thyromegaly Chest: Clear to auscultation without significant wheezing but she does have decreased breath sounds in the bases and crackles. No egophony. No increased work of breathing Cor: Regular rate and rhythm without murmur Abdomen: Positive bowel sounds, soft, nontender, nondistended Extremities: No edema, pulses intact Skin: Scarring no acute ulcerations or evidence of cellulitis Neurologic exam nonfocal Objective Labs Result Diagrams: 11/28/17 06:45 11/28/17 06:45 Labs: Laboratory Results - last 24 hr 11/28/17 11/28/17 06:45 06:45 WBC 11.6 H RBC 3.94 L Hgb 10.5 L Hct 33.4 L MCV 84.8 MCH 26.6 MCHC 31.4 RDW 16.4 H Plt Count 284 Neut % (Auto) 78.0 H Lymph % (Auto) 12.2 L [place] % (Auto) 6.5 Eos % (Auto) 2.8 Baso % (Auto) 0.5 Neut # (Auto) 9000 H Sodium 143 Potassium 3.9 Chloride 99 Carbon Dioxide 38 H BUN 8 Creatinine 0.50 L Estimated GFR > 60.0 BUN/Creatinine Ratio 16.0 Glucose 215 H Calcium 8.4 Total Bilirubin 0.6 AST 21 ALT 40 Alkaline Phosphatase 94 Total Protein 6.8 Albumin 3.6 Globulin 3.2 Albumin/Globulin Ratio 1.1 Assessment & Plan Plan: Assessment/Plan Narrative: 42-year-old female Assessment 1. Acute respiratory failure on chronic respiratory failure improving with treatment of pneumonia but still requiring higher level of nasal cannula oxygen. Plan: Will increase prednisone from 10 mg to 20 mg in part for stress dosing and secondarily because patient's respiratory condition declined 1 day after she decreased her prednisone from 15 mg to 10 mg. We will watch her blood sugars closely. We will continue IV Zosyn. We will continue with supplemental oxygen. We will stop IV fluids. Assessment 2. Migraine headache disorder Plan: Will continue Zofran, Tylenol and Vicodin as needed Assessment 3. Autoimmune disorder. No acute issues but certainly increasing risk for infection Plan: Will hold Enbrel on Thursday. Assessment 4. Type 2 diabetes Plan: Continue metformin and sliding scale insulin. Assessment 5. Hypertension stable Plan: Continue on lisinopril and amlodipine and metoprolol
--- NOTE | 2017-11-28 14:15 | PT.IPTN ---
Current Diagnoses Pneumonia, unspecified organism (11/25/17) Physical Therapy Treatment Note M2 PT-IP Current Condition Start: 11/26/17 16:18 Freq: NEEDED Status: Active Protocol: Document 11/27/17 15:03 MDD (Rec: 11/27/17 16:43 MDD [email or web address]) Physical Therapy Current Condition Current Condition Evaluation Date 11/27/17 Treatment Diagnosis SOB Onset Date 11/26/17 Precautions Other Precautions O2 sat Pt on 6 L/min at rest, increased to 8 L/min with activity today (desatted to 86 %). M3 PT-IP Subjective Start: 11/26/17 16:18 Freq: NEEDED Status: Active Protocol: Document 11/28/17 14:15 GGD (Rec: 11/28/17 15:30 GGD [id number]) Subjective Physical Therapy Visit Type Type Patient Refusal Notes Pt refused x 2 states that she has a migraine and nauseous. Will see in AM. Frequency of Treatment Frequency Of Treatment Once a Day Treatment Plan Physical Therapy Treatment Plan Bed Mobility Training Transfer Training Gait Training Therapeutic Exercise Other Recommendations and Next Treatment Improve activity tolerance and Focus endurance. Recommendations To Nursing Amount of Assist Needed 1 Person Assist Discharge Recommendations PT Discharge Recommendations Home with Assistance
[2017-11-28] MEDS: predniSONE 20 MG TABLET 10 MG PO (14:50)
[2017-11-28] MEDS: NYSTATIN CREAM 30 GM 1 APPLIC TOP ×2 (16:30→20:44)
--- NOTE | 2017-11-28 17:17 | PC.NURSE ---
Addendum entered by Virgen Aparicio R.N. 11/28/17 22:16: Patient oxygen increased to humidified high-flow due to patient oxygen saturation on 6L NC. Patient states some relief with this. Will continue to monitor. Original Note: SUYAPA SHIFT NOTE: Care assumed of patient. Patient sitting up in bed upon this health assessment and treatment teacher. Patient reports that headache is much better and pain is 2/10. Some irritation and breakdown on skin under abdominal folds, donten reports she normally uses nystatin cream, Dr. Weathers called and new orders received and implemented. No acute distress, will continue to monitor.
[2017-11-28] MEDS: NYSTATIN POWDER 30 GM 1 APPLIC TOP (20:42)
[2017-11-28] MEDS: METFORMIN HCL 500 MG TABLET 1000 MG PO (20:43)
[2017-11-28] MEDS: LORazepam 1 MG TABLET PO (21:35)
[2017-11-29] VITALS (15 sets, daily range): BP systolic 133–165; BP diastolic 74–96; PULSE 73–92; RESP 16–22; TEMP 36–37; O2SAT 84–98
--- NOTE | 2017-11-29 01:08 | PC.NURSE ---
Pt. requested to wear a mask while she's sleeping, instead of a high flow cannula. RT notified RT. changed mj flow cannula to a mask 50 % & SPO2 @ 98%. Will monitor.
[2017-11-29] MEDS: SODIUM CHLORIDE 0.9% FLUSH 10 ML IV ×2 (05:15→08:48)
[2017-11-29] MEDS: PIPERACILLIN-TAZO 4.5 GM/100 ML FROZ.PIGGY IV ×3 (05:15→20:48)
[2017-11-29 05:30] LABS: Add Manual Diff / Slide Review NO; Basophils Percent Auto 0.8 % (0-2); Eosinophils Percent Auto 1.9 % (2-4); Hematocrit 32.7 % (36-46); Hemoglobin 10.4 g/dL (12.0-16.0); Lymphocytes Percent Auto 15.9 % (25-40); Mean Corpuscular HGB Conc 31.7 % (30-36); Mean Corpuscular Hemoglobin 26.8 PG (26-34); Mean Corpuscular Volume 84.6 fL (80-100); Monocytes Percent Auto 5.8 % (3-14); Neutrophils Absolute Auto 8200 /uL (3000-5900); Neutrophils Percent Auto 75.6 % (50-75); Platelet Count 292 X10^3/uL (150-400); Red Blood Cell Count 3.87 X10^6/uL (4.0-5.2); Red Cell Distribution Width 15.7 % (11.6-14.8); White Blood Cell Count 10.9 X10^3/uL (4.5-11.0)
[2017-11-29 05:45] LABS: Alanine Aminotransferase 34 IU/L (9-52); Albumin 3.6 g/dL (3.5-5.0); Albumin Globulin Ratio 1.1 (1.0-2.8); Alkaline Phosphatase 93 U/L (38-126); Aspartate Aminotransferase 19 IU/L (14-36); BUN Creatinine Ratio 13.3 (6-22); Bilirubin Total 0.4 mg/dL (0.2-1.3); Blood Urea Nitrogen 8 mg/dL (7-17); Calcium 8.3 mg/dL (8.4-10.2); Chloride 98 mmol/L (98-107); Estimated Glomerular Filt Rate > 60.0 mL/min (>60); Globulin 3.4 g/dL (1.7-4.1); Glucose 171 mg/dL (70-100); HEMOLYSIS < 15 (0-50); Potassium 3.9 mmol/L (3.4-5.1); Sodium 143 mmol/L (137-145)
[2017-11-29] MEDS: ALBUTEROL 2.5 MG/3 ML NEB (ADULT) INH ×2 (05:50→16:53)
[2017-11-29] MEDS: HYDROCODONE/ACET 5/325 TABLET 1 TAB PO (06:04)
[2017-11-29 06:05] LABS: Carbon Dioxide 38 mmol/L (22-32)
[2017-11-29] MEDS: INSULIN ASPART 100 UNIT/ML INSULN PEN SUBCUT ×4 (08:42→20:47)
[2017-11-29] MEDS: METFORMIN HCL 500 MG TABLET 1000 MG PO ×2 (08:42→20:49)
[2017-11-29] MEDS: LISINOPRIL 10 MG TABLET PO (08:43)
[2017-11-29] MEDS: METOPROLOL 50 MG TABLET 100 MG PO ×2 (08:43→20:49)
[2017-11-29] MEDS: ENOXAPARIN 30 MG/0.3 ML SYRINGE SUBCUT ×2 (08:43→20:48)
[2017-11-29] MEDS: AMLODIPINE 5 MG TABLET 10 MG PO (08:43)
[2017-11-29] MEDS: ACETAMINOPHEN 325 MG TABLET 650 MG PO ×2 (08:43→16:43)
[2017-11-29] MEDS: predniSONE 20 MG TABLET PO (08:47)
[2017-11-29] MEDS: NYSTATIN CREAM 30 GM 1 APPLIC TOP ×3 (08:48→20:51)
[2017-11-29] MEDS: ONDANSETRON 4 MG/2 ML INJ IV (10:55)
--- NOTE | 2017-11-29 14:29 | P.PN_ITS ---
Subjective Date Patient Seen: 11/29/17 Time Patient Seen: 14:28 Interval history: Patient feeling better today. Primarily feeling better because she is not having a migraine. She was able to eat a little bit more both breakfast and lunch today. She slept well last night. They did have to increase her oxygen last night and she is now on 10 L. she uses 3 L nasal cannula oxygen on a regular basis at home and increases it to 5 L when she does PT and OT and increases it to 4 L at night. She has obstructive sleep apnea though she is not currently treating it. This is 1 reason that she increases her oxygen at night. She feels that her swelling is less in the hospital than it is at home. She feels that her breathing is about the same. She is very short of breath with exertion. Twelve point review of systems is negative Specifically no migraine headache No depression Non productive cough No chest pain No urine symptoms Exam Vital Signs (past 8 hours): - 11/29/17 07:00 11/29/17 08:00 11/29/17 12:15 Temperature 97.9 F Pulse Rate 92 H Respiratory Rate 18 Blood Pressure 133/74 Pulse Oximetry 94 91 94 Fraction of Inspired Oxygen 0.50 Oxygen Delivery Method High Flow Nasal Cannula Oxygen Flow Rate 10 Narrative Exam Narrative: Alert and oriented in no apparent distress O2 sat 91% on 6 L so she has increased back up to 8 L and O2 sat 93-94% Vital signs stable, afebrile HEENT: No pharyngeal or mucosal abnormalities Neck: Supple without adenopathy or thyromegaly or bruits Chest: Clear to auscultation with no significant wheeze but poor air exchange and bibasilar crackles and decreased breath sounds at bases Cor: Regular rate and rhythm with distant S1 and S2 Abdomen: Positive bowel sounds, soft, nontender, nondistended Extremity: Improved nonpitting edema Skin: No acute lesions and white discharge in folds and under pannus Objective Labs Result Diagrams: 11/29/17 04:50 11/29/17 04:50 Labs: Laboratory Results - last 24 hr 11/29/17 11/29/17 04:50 04:50 WBC 10.9 RBC 3.87 L Hgb 10.4 L Hct 32.7 L MCV 84.6 MCH 26.8 MCHC 31.7 RDW 15.7 H Plt Count 292 Neut % (Auto) 75.6 H Lymph % (Auto) 15.9 L [place] % (Auto) 5.8 Eos % (Auto) 1.9 L Baso % (Auto) 0.8 Neut # (Auto) 8200 H Sodium 143 Potassium 3.9 Chloride 98 Carbon Dioxide 38 H BUN 8 Creatinine 0.60 Estimated GFR > 60.0 BUN/Creatinine Ratio 13.3 Glucose 171 H Calcium 8.3 L Total Bilirubin 0.4 AST 19 ALT 34 Alkaline Phosphatase 93 Total Protein 7.0 Albumin 3.6 Globulin 3.4 Albumin/Globulin Ratio 1.1 Assessment & Plan Plan: Assessment/Plan Narrative: 42-year-old female Assessment 1. Acute on chronic respiratory failure stable, improved since hospitalization Plan: Continue on higher dose of prednisone at 20 mg. Continue with supplemental oxygen. Continue with respiratory therapy. Continue with IV antibiotics to treat pneumonia. Discussed the importance of seeing a hat forming machine operator and treating sleep apnea as outpatient. Assessment 2. Pneumonia in immunosuppressed patient due to immune modulator that she takes for her autoimmune disorder. Improved but slow improvement due to underlying chronic lung problem which is in part restrictive lung disease. Plan: Will continue IV and a is Zosyn for 1 more day and then will switch to oral antibiotics if she maintains with a normal white blood cell count and afebrile. Will repeat chest x-ray in the morning. Will continue with respiratory therapy and supplemental oxygen and prednisone at 20 mg daily. Assessment 3. Type 2 diabetes with slight increases in blood sugars due to not receiving metformin yesterday and being on prednisone. Plan: Continue metformin. Increase sliding scale to high algorithm. Continue to monitor Assessment 4. Intertrigo Plan: Probiotics and nystatin Assessment 5. Anemia suspect of chronic disease and dilutional Plan: Continue to monitor Assessment 6. Migraine headache disorder Improved plan: Continue symptomatic treatment Assessment 7. DVT prophylaxis Plan: Continue Lovenox Assessment 8. GI prophylaxis Plan: Continue pantoprazole Assessment 9. Hypertension stable Plan: Continue on same medications Assessment 10. Autoimmune disorder currently stable Plan: Hold Enbrel tomorrow. Continue to monitor. Continue on higher dose of prednisone at 20 mg daily
--- NOTE | 2017-11-29 14:31 | PC.NURSE ---
PICC LINE; RED PORT DOES NOT FLUSH OR DRAW. CLEAR PORT FLUSHES BUT IS POSITIONAL. PICC LINE DRSG CHANGED. ASYMPTOMATIC, SITE CLEAR. SUTURE IN PLACE. TOLERATED WELL. ATTEMPT TO TITRATE O2 DOWN PER DR. PERAZA. 6L HFNC 91%. C/O MILD SOB SEMI-RECUMBANT AND W/ EXERTION.
--- NOTE | 2017-11-29 16:22 | PT.IPTN ---
Current Diagnoses Pneumonia, unspecified organism (11/25/17) Physical Therapy Treatment Note M2 PT-IP Current Condition Start: 11/26/17 16:18 Freq: NEEDED Status: Active Protocol: Document 11/27/17 15:03 MDD (Rec: 11/27/17 16:43 MDD [email or web address]) Physical Therapy Current Condition Current Condition Evaluation Date 11/27/17 Treatment Diagnosis SOB Onset Date 11/26/17 Precautions Other Precautions O2 sat Pt on 6 L/min at rest, increased to 8 L/min with activity today (desatted to 86 %). M3 PT-IP Subjective Start: 11/26/17 16:18 Freq: NEEDED Status: Active Protocol: Document 11/29/17 15:37 CLB (Rec: 11/29/17 16:22 CLB [id number]) Subjective Physical Therapy Visit Type Type Treatment Note Visit Start Time 15:37 Visit Stop Time 16:00 Total Visit Minutes 23 Number of MANAGER TRANSIT Visits 1 Physical Therapy Visit Comments Patient Comments Pt agreeable to do therapy. M4 PT-IP Mobility and Gait Start: 11/26/17 16:18 Freq: NEEDED Status: Active Protocol: Document 11/29/17 15:37 CLB (Rec: 11/29/17 16:22 CLB [id number]) PT-Bed Mobility Assessment Rolling Type of Rolling Roll to Left Level of Assist Independent Supine to Sit Supine to Sit Independent Sit to Supine Sit to Supine Minimal Assistance Scooting Scooting to Edge of Bed Independent Scooting Up and Down in Bed Independent PT-Transfer Assessment Sit to and From Stand Sit to and from Stand Standby Assistance Equipment Transfer Assistive Device Front Wheeled Walker Transfers Transfer Destination Bed Transfer Technique after ambulation Transfer Ability Level of Assist Contact Guard Assistance Comments Mobility Comments Pt O2 dropped to 77% on 8L with effert of getting into bed. O2 was increased to 10L until O2 sats increased to 90% . Gait Assessment Gait Gait Assistance Required: Standby Assistance Distance (Feet) (feet) 20 Able to Maintain Weight Bearing Status Yes During Gait Assistive Devices Assistive Device Front Wheeled Walker Gait Deviations General Gait Pattern Flexed Trunk Factors Limiting Gait Function Factors Limiting Gait Function Decreased Strength Comments Gait Comments Pt ambulated ~20ft in room. O2 sats dropped to 77% on 8L but did not increase with pursed lip breathing , O2 was increased to 10L until pt O2 sats returned to 90. M5 PT-IP Objective Assessments Start: 11/26/17 16:18 Freq: NEEDED Status: Active Protocol: Document 11/27/17 15:03 MDD (Rec: 11/27/17 16:43 MDD [email or web address]) Orientation Orientation/Cognition Level of Alertness Alert Orientation Name Age Birthday Month Date Year Day of Week Place Situation Language Function Ability No Deficits Noted Safety Awareness Understands Safety Issues Memory Description No Deficits Noted Gross Range of Motion Lower Extremity ROM Impairments LE ROM limited B due to body habitus. B knee and hip flexion limited. Strength Lower Extremity Strength Assessment Within Functional Limits Sensation Assessment Sensation Gross Sensation WNL Light Touch Intact M6 PT-IP Treatment Start: 11/26/17 16:18 Freq: NEEDED Status: Active Protocol: Document 11/27/17 15:03 MDD (Rec: 11/27/17 16:43 MDD [email or web address]) Physical Therapy Treatment Education Education Provided Precautions Safety M7 PT-IP Assessment and Plan Start: 11/26/17 16:18 Freq: NEEDED Status: Active Protocol: Document 11/29/17 15:37 CLB (Rec: 11/29/17 16:22 CLB [id number]) PT Summary Assessment and Plan Summary Impairments ROM Transfers Gait Activity Tolerance Progress Towards Goals Progressing Toward Goals Assessment Summary Pt continues to have O2 drop with activity. Pt requires Min A of LE into bed but is SBA for sit-stand and gait. Goals Bed Mobility Goal Independent Transfer Goal Independent Gait Goal Independent Front Wheel Walker Gait Distance 30 Days to Meet Goals 3 Frequency of Treatment Frequency Of Treatment Once a Day Treatment Plan Physical Therapy Treatment Plan Bed Mobility Training Transfer Training Gait Training Therapeutic Exercise Other Recommendations and Next Treatment Improve activity tolerance and Focus endurance. Recommendations To Nursing Amount of Assist Needed 1 Person Assist Discharge Recommendations PT Discharge Recommendations Home with Assistance
[2017-11-30] VITALS (14 sets, daily range): BP systolic 138–178; BP diastolic 75–96; PULSE 70–99; RESP 20–24; TEMP 35.8–36.8; O2SAT 86–96
--- NOTE | 2017-11-30 00:36 | PC.NURSE ---
Addendum entered by Amarilis Macario R.N. 11/30/17 06:37: Again states her headache is back up to 8/10 and has been fluctuating up/down. Also feeling nauseated again but is too early for either Vicodin or Zofran so medicated with Tylenol + Ativan. Original Note: Addendum entered by Amarilis Macario R.N. 11/30/17 03:31: Complains of nausea and 7/10 headache; medicated with Zofran + Vicodin and ice pack provided for additional comfort. Original Note: Patient is alert and oriented. Breath sounds diminished throughout with sat of 92% on 8L/min oxygen per HFNC. States she is still SOB with exertion and cannot lie flat but also states this is improving. Has intermittent but non productive cough. Breathes through her mouth when asleep so then does desat so switched to mask for night. BT hypoactive. Denies dysuria, frequency, urgency or incontinence; still having menses. Independent with bed mobility but requires walker and 1 assist to get in/out of bed. Denies pain. Fall risk score is high and bed alarm activated.
[2017-11-30] MEDS: ONDANSETRON 4 MG/2 ML INJ IV ×4 (03:26→22:22)
[2017-11-30] MEDS: SODIUM CHLORIDE 0.9% FLUSH 10 ML IV ×2 (03:26→05:16)
[2017-11-30] MEDS: HYDROCODONE/ACET 5/325 TABLET 1 TAB PO ×3 (03:29→20:52)
[2017-11-30] MEDS: PIPERACILLIN-TAZO 4.5 GM/100 ML FROZ.PIGGY IV ×3 (05:16→20:54)
[2017-11-30] MEDS: ALBUTEROL 2.5 MG/3 ML NEB (ADULT) INH ×2 (05:21→20:18)
[2017-11-30] MEDS: LORazepam 1 MG TABLET PO ×2 (06:34→16:30)
[2017-11-30] MEDS: ACETAMINOPHEN 325 MG TABLET 650 MG PO (06:35)
--- NOTE | 2017-11-30 08:00 | DI.RAD.S_ITS ---
PROCEDURE: XR CHEST 1V INDICATIONS: pneumonia; hypoxemia TECHNIQUE: One view of the chest was acquired. COMPARISON: [facility], CR, XR CHEST FOR PICC 1V, 11/25/2017, 23:04. FINDINGS: Surgical changes and devices: Left-sided PICC line tip is now projecting in the region of left brachiocephalic vein. Lungs and pleura: There is pulmonary vascular congestion and suggestion of pulmonary edema. Underlying bilateral lower lobe patchy infiltrate/atelectasis cannot be excluded. No significant pleural effusion is seen. Mediastinum: Mediastinal contours appear normal. Heart size is enlarged. Bones and chest wall: No suspicious bony lesions. Overlying soft tissues appear unremarkable. IMPRESSION: Congestive changes and pulmonary edema, cannot rule out underlying bilateral lower lobe patchy infiltrate/atelectasis. No gross pneumothorax. Dictated by: Harrison Danielson M.D. on 11/30/2017 at 9:50 Approved by: Harrison Danielson M.D. on 11/30/2017 at 9:53
--- NOTE | 2017-11-30 08:30 | PC.NURSE ---
Am shift Pt reporting RAMSAY/migraine at start of shift, had rec'd Corona and Zofran with minimal effectiveness. On return Pt sitting up in bed retching, reports nausea much worse and tearful from pain. Call into Dr Real for update/meds.
[2017-11-30] MEDS: HYDROMORPHONE 0.5 MG INJ IV (08:56)
[2017-11-30] MEDS: AMLODIPINE 5 MG TABLET 10 MG PO (10:28)
[2017-11-30] MEDS: INSULIN ASPART 100 UNIT/ML INSULN PEN SUBCUT ×3 (10:29→16:31)
[2017-11-30] MEDS: METOPROLOL 50 MG TABLET 100 MG PO ×2 (10:29→20:45)
[2017-11-30] MEDS: LISINOPRIL 10 MG TABLET PO (10:30)
[2017-11-30] MEDS: ENOXAPARIN 30 MG/0.3 ML SYRINGE SUBCUT ×2 (10:31→20:45)
[2017-11-30] MEDS: NYSTATIN CREAM 30 GM 1 APPLIC TOP ×2 (10:32→21:00)
[2017-11-30] MEDS: HYDROMORPHONE 1 MG INJ 0.5 MG IV ×4 (11:02→20:51)
--- NOTE | 2017-11-30 11:33 | PT.IPTN ---
Current Diagnoses Pneumonia, unspecified organism (11/25/17) Physical Therapy Treatment Note M2 PT-IP Current Condition Start: 11/26/17 16:18 Freq: NEEDED Status: Active Protocol: Document 11/27/17 15:03 MDD (Rec: 11/27/17 16:43 MDD [email or web address]) Physical Therapy Current Condition Current Condition Evaluation Date 11/27/17 Treatment Diagnosis SOB Onset Date 11/26/17 Precautions Other Precautions O2 sat Pt on 6 L/min at rest, increased to 8 L/min with activity today (desatted to 86 %). M3 PT-IP Subjective Start: 11/26/17 16:18 Freq: NEEDED Status: Active Protocol: Document 11/30/17 11:32 CLB (Rec: 11/30/17 11:32 CLB [id number]) Subjective Physical Therapy Visit Type Type Patient Unavailable Notes Pt having migraine and not feeling well enough to ambulate. Will check back in afternoon.
[2017-11-30] MEDS: METOCLOPRAMIDE 10 MG/2 ML INJ IV (12:39)
--- NOTE | 2017-11-30 12:42 | PM.PN.1 ---
Subjective Date Patient Seen: 11/30/17 Time Patient Seen: 12:42 Interval history: patient had a very difficult last 12 hr. She has been struggling with migraine headache and nausea secondary to that. She has not vomited but she has had dry heaves. She only ate a few bites of yogurt this morning and a few sips of Sprite. She is having a hard time keeping anything down. She did not sleep last night. Previously when she had significant migraine headaches they did MRI and the thought she had inflammation of her sinuses. She did was put on Flonase and her symptoms subsided. She takes Flonase at home but has not been taking it here. She still can't head and is to have shortness of breath with exertion and difficulty with mobility due to that and her morbid obesity as well as current illness. Review of systems, 12 point negative other than above and below no diarrhea, no chest pain, no rashes no visual changes. No blurred vision or double vision she is a little frustrated that she is not improving faster but denies depression or anxiety Exam Vital Signs (past 8 hours): - 11/30/17 05:21 11/30/17 07:00 11/30/17 07:50 Temperature 97.6 F Pulse Rate 90 99 H Respiratory Rate 20 20 Blood Pressure 150/96 H Pulse Oximetry 94 90 L 86 L 11/30/17 09:20 11/30/17 11:00 Temperature 97.8 F Pulse Rate 70 Respiratory Rate 20 Blood Pressure 138/75 Pulse Oximetry 95 90 L Fraction of Inspired Oxygen 50 Oxygen Delivery Method Venturi Mask Oxygen Flow Rate 8 Narrative Exam Narrative: alert and oriented x3. No apparent distress. Sitting comfortably in hospital bed with 8 L nasal cannula oxygen and no increased work of breathing HEENT: Boggy nasal mucosa. Oropharynx without erythema or exudate neck: Supple without adenopathy, thyromegaly or jugular venous distention chest: Clear to auscultation without wheezes rhonchi. Bilateral crackles in the bases with decreased breath sounds in the bases but no tachypnea or increased work of breathing cor: Regular rate and rhythm without murmurs abdomen: Positive bowel sounds, soft, nontender, nondistended extremities: Unchanged edema. Nonpitting. Pulses intact skin: Erythema under the pannus but this is improved. No skin lesions acutely Objective Labs Result Diagrams: 11/29/17 04:50 11/29/17 04:50 Assessment & Plan Plan: Assessment/Plan Narrative: 42-year-old female assessment 1. acute on chronic respiratory failure stable but not improving. Suspect component of fluid overload. Plan: 20 mg IV Lasix continue with no IV fluids continue on same Zosyn antibiotic due to nausea and dry heaves. Hope to be able to switch this to oral Augmentin in a.m.. Continue with supplemental oxygen continue with Respiratory therapy continue 20 mg of prednisone assessment 2. migraine headache plan: Continue Zofran and will add Reglan for nausea. Will use IV Dilaudid for pain. Will use Imitrex a headache reappears. Will restart Flonase. Assessment 3. Type 2 diabetes plan: Continue on metformin and sliding scale insulin assessment 4. Hypertension with some elevation likely related to nausea and headache plan: Continue same amlodipine and lisinopril and metoprolol Assessment 5. SAPPHO Plan: no active disease. hold enbrel today
[2017-11-30] MEDS: FUROSEMIDE 20 MG/2 ML VIAL IV (13:35)
[2017-11-30 13:48] LABS: Hematocrit 33.1 % (36-46); Hemoglobin 10.5 g/dL (12.0-16.0); Mean Corpuscular HGB Conc 31.7 % (30-36); Mean Corpuscular Hemoglobin 26.9 PG (26-34); Mean Corpuscular Volume 84.8 fL (80-100); Platelet Count 310 X10^3/uL (150-400); Red Cell Distribution Width 16.2 % (11.6-14.8); White Blood Cell Count 10.3 X10^3/uL (4.5-11.0)
[2017-11-30 13:50] LABS: Add Manual Diff / Slide Review YES
[2017-11-30 14:06] LABS: Alanine Aminotransferase 45 IU/L (9-52); Albumin 3.8 g/dL (3.5-5.0); Albumin Globulin Ratio 1.1 (1.0-2.8); Alkaline Phosphatase 118 U/L (38-126); Aspartate Aminotransferase 27 IU/L (14-36); BUN Creatinine Ratio 16.7 (6-22); Bilirubin Total 0.6 mg/dL (0.2-1.3); Blood Urea Nitrogen 10 mg/dL (7-17); Calcium 8.5 mg/dL (8.4-10.2); Chloride 97 mmol/L (98-107); Estimated Glomerular Filt Rate > 60.0 mL/min (>60); Globulin 3.4 g/dL (1.7-4.1); Glucose 201 mg/dL (70-100); HEMOLYSIS < 15 (0-50); Potassium 4.2 mmol/L (3.4-5.1); Sodium 143 mmol/L (137-145); Total Protein 7.2 g/dL (6.3-8.2)
[2017-11-30 14:10] LABS: B Type Natriuretic Peptide 89.4 (<100)
[2017-11-30 14:12] LABS: Carbon Dioxide 39 mmol/L (22-32)
[2017-11-30 14:14] LABS: Neutrophils Absolute Manual 7622 /uL (3000-5900); Total Cells Counted 100
[2017-11-30 14:15] LABS: RBC Morphology Normal Morphology
[2017-11-30] MEDS: SODIUM CHLORIDE 0.9% 250 ML 21 ML IV (14:27)
--- NOTE | 2017-11-30 14:52 | CM.DPC ---
DCP/continued: Reviewed chart. Spoke with Dr. Real and no discharge anticipated over holiday weekend. In addition, spoke with respiratory in AM rounds re: [facility]. Per previous notes patient with questions pertaining to if she has to wear mask? Respiratory indicates that they will discuss with patient today. At this time, [facility] only offers mask for home ventilation support. Current plan is for patient to return home with [facility] and family support. CM team following closely if d/c needs change. P: CM team to update [facility] during weekday hours. Also h&p and/or d/c summary faxed to [facility]OVEA/Lida Murcia Note left for PAINTING TECHNICIAN in hand off. RODOLFO Chavez
--- NOTE | 2017-11-30 15:24 | PT.IPTN ---
Current Diagnoses Pneumonia, unspecified organism (11/25/17) Physical Therapy Treatment Note M2 PT-IP Current Condition Start: 11/26/17 16:18 Freq: NEEDED Status: Active Protocol: Document 11/27/17 15:03 MDD (Rec: 11/27/17 16:43 MDD [email or web address]) Physical Therapy Current Condition Current Condition Evaluation Date 11/27/17 Treatment Diagnosis SOB Onset Date 11/26/17 Precautions Other Precautions O2 sat Pt on 6 L/min at rest, increased to 8 L/min with activity today (desatted to 86 %). M3 PT-IP Subjective Start: 11/26/17 16:18 Freq: NEEDED Status: Active Protocol: Document 11/30/17 14:50 CLB (Rec: 11/30/17 15:24 CLB [id number]) Subjective Physical Therapy Visit Type Type Patient Unavailable Notes RN stated pt has had a bad day , please check back on pt in morning.
--- NOTE | 2017-11-30 20:40 | PC.NURSE ---
Addendum entered by Jane Rodriguez R.N. 11/30/17 22:54: Pt having hard time moving from BSC back to bed, placed jodie under pt during BSC void, now under pt in bed. Pt remains with headache post dilaudid 0.5mg and vicodin 5/325 1 tab PO. C/O nausea, medicated with zofran 4mg IVP. Pt reports don't know if nausea is causing RAMSAY, or RAMSAY is causing nausea. Original Note: 2030- Pt desated to 82%, placed on heated hi flow nc 40L for 60% FiO2. rates pain at a 5-6/10, medicated with vicodin 1 tab PO and dilaudid 0.5mg IVP, which was effective previously.
[2017-11-30] MEDS: METFORMIN HCL 500 MG TABLET 1000 MG PO (20:45)
[2017-11-30] MEDS: NYSTATIN POWDER 30 GM 1 APPLIC TOP (20:46)
[2017-12-01] VITALS (21 sets, daily range): BP systolic 131–170; BP diastolic 77–102; PULSE 73–95; RESP 12–24; TEMP 36.4–38; O2SAT 90–97
[2017-12-01] MEDS: SODIUM CHLORIDE 0.9% FLUSH 10 ML IV ×2 (01:38→04:43)
[2017-12-01] MEDS: METOCLOPRAMIDE 10 MG/2 ML INJ IV ×2 (01:38→09:46)
[2017-12-01] MEDS: HYDROCODONE/ACET 5/325 TABLET 2 TAB PO (01:41)
--- NOTE | 2017-12-01 02:08 | PC.NURSE ---
Patient noted to have sats in low 80's consistently so contacted RT who increased Fi02 to 70% and is now on 45L oxygen
--- NOTE | 2017-12-01 02:34 | PC.NURSE ---
Addendum entered by Amarilis Macario R.N. 12/01/17 05:34: Patient requests/medicated with Tylenol for continued headache. Still complains of nausea but states it's better. O2 sat currently at 90% after being up to BSC; will continue to monitor and adjust O2 as needed. Original Note: Addendum entered by Amarilis Macario R.N. 12/01/17 04:57: 0400 RT provided treatment and increased oxygen to 50L for FiO2 of 80% and now sat is at 97%. Dr Real informed of increasing O2 requirements. See new order for IV Lasix. Original Note: Addendum entered by Amarilis Macario R.N. 12/01/17 03:19: Oximeter alarming again and sats down to 79% while asleep. Aroused easily and with deep breathing sat back to 90%. RT contacted and here to assess. Original Note: 0140 Patient is alert and oriented. Breath sounds diminished throughout with inspiratory crackles in bilateral bases. Currently on HFNC with Fi02 of 40% and sat of 94%. Still complains of SOB with exertion and has intermittent non productive cough. HRR. Complains of nausea so medicated with Reglan. Still complaining of 7/10 headache so medicated with Vicodin. BT present and abdomen is soft. Assisted to BSC with Aarti and 2 assist. Urine is blood tinged related to menses; denies dysuria, frequency, urgency or incontinence. No new skin issues. Fall risk score is high and bed alarm is activated.
[2017-12-01] MEDS: ALBUTEROL 2.5 MG/3 ML NEB (ADULT) INH ×3 (03:24→23:04)
[2017-12-01] MEDS: PIPERACILLIN-TAZO 4.5 GM/100 ML FROZ.PIGGY IV ×3 (04:40→20:25)
[2017-12-01] MEDS: ONDANSETRON 4 MG/2 ML INJ IV ×2 (04:41→08:34)
[2017-12-01] MEDS: FUROSEMIDE 40 MG/4 ML VIAL 20 MG IV (04:53)
[2017-12-01] MEDS: ACETAMINOPHEN 325 MG TABLET 650 MG PO (05:32)
[2017-12-01] MEDS: HYDROMORPHONE 1 MG INJ 0.5 MG IV ×4 (06:28→14:51)
[2017-12-01 06:47] LABS: Hematocrit 33.5 % (36-46); Hemoglobin 10.7 g/dL (12.0-16.0); Mean Corpuscular HGB Conc 31.9 % (30-36); Mean Corpuscular Hemoglobin 27.1 PG (26-34); Platelet Count 325 X10^3/uL (150-400); Red Blood Cell Count 3.94 X10^6/uL (4.0-5.2); Red Cell Distribution Width 15.9 % (11.6-14.8); White Blood Cell Count 10.5 X10^3/uL (4.5-11.0)
[2017-12-01 06:48] LABS: Add Manual Diff / Slide Review YES
[2017-12-01 06:54] LABS: Blood Urea Nitrogen 9 mg/dL (7-17); Calcium 8.5 mg/dL (8.4-10.2); Chloride 94 mmol/L (98-107); Estimated Glomerular Filt Rate > 60.0 mL/min (>60); Glucose 199 mg/dL (70-100); HEMOLYSIS < 15 (0-50); Potassium 4.1 mmol/L (3.4-5.1); Sodium 143 mmol/L (137-145)
[2017-12-01 07:06] LABS: Carbon Dioxide 39 mmol/L (22-32)
[2017-12-01 07:12] LABS: Neutrophils Absolute Manual 8085 /uL (3000-5900); Nucleated Red Blood Cells 1 #/Diff; Total Cells Counted 100
[2017-12-01 07:13] LABS: Morphology Comment Normal Morphology
[2017-12-01 09:11] LABS: HCO3 ABG 41 mmol/L (23-27); Oxygen Saturation ABG 86 % (95-100); PCO2 ABG 92.6 mmHg (35-45); PO2 ABG 64 mmHg (80-105); TCO2 ABG 43 mmol/L (23-27); pH ABG 7.25 (7.35-7.45)
--- NOTE | 2017-12-01 09:35 | PT.IPTN ---
Current Diagnoses Pneumonia, unspecified organism (11/25/17) Physical Therapy Treatment Note Physical Therapy Visit Type Type Patient Unavailable Notes Pt transferred down to ICU from the acute floor, RN requesting therapies hold today. Will check back in tomorrow.
[2017-12-01] MEDS: methylPREDNISolone 125 MG/2 ML VIAL IV (09:43)
[2017-12-01] MEDS: INSULIN ASPART 100 UNIT/ML INSULN PEN SUBCUT ×4 (09:43→20:26)
[2017-12-01] MEDS: ENOXAPARIN 30 MG/0.3 ML SYRINGE SUBCUT ×2 (09:44→20:24)
--- NOTE | 2017-12-01 09:54 | PC.NURSE ---
Day Shift AC-Pt Alert & Oriented X4, able to make needs known using call light. Reports 11/06 headache/migraine. prn Dilaudid 0.5mg IV given at 0835 and Zofran 4mg IV prn given at 0835 for mild to moderate nausea. Pt did not want to eat off breakfast tray. Wanted toast instead which was not given at this time due to patients respiratory status. O2 sat 93-95% on 70L HF upon rest. On continuous O2 monitoring. Spoke with Dr. Real on unit at 0810 regarding pt's medication changes and plan for today. New order of ABG's drawn by RT and critical result called to Order to transfer pt to ICU received at 0910. Plan this morning was to discontinue Prednisone and give 125mg Solu-mederol now and 60mg Q[address]hr thereafter[address] Place urinary catheter for mobility issues and SOBOE, ABG's and change imitrex order to 50mg for first dose then 2 hours later another 50mg for a total of 100mg per day. Patient transferred to ICU via bed at 0925 with sba underwriter and RN coordinator with all belongings.
--- NOTE | 2017-12-01 09:54 | PC.NURSE ---
Day Shift/Transfer Received patient from Acute Care via bed to room 104 at about 0930. Pt on nonrebreather for transfer, placed on biPAP by RT once in room, FiO2 50%. Oxygen sats 90-92%. Reports feeling better once on biPAP. Reports migraine is still there but declines any further medications. Nausea persisting, medicated with Reglan IV. Solu-Medrol IV administered. SR/ST on monitor. Oriented to ICU room and call light controls. Mother at bedside. Report received from Radha HANSON at bedside.
--- NOTE | 2017-12-01 10:26 | CM.DPC ---
DCP Cont: Per comfort station attendant, pt was having critical CO2 last night and was transferred to ICU today and currently on bipap with a bad headache. Plan: SW to follow closely to determine if pt will still be safe for d/c home with [facility] and mother as her caregiver when medically stable. SW to follow for further identified discharge planning needs pending her progress in ICU. RODOLFO Hutchinson
[2017-12-01] MEDS: LORazepam 2 MG/ML SYRINGE 0.5 MG IV (11:16)
[2017-12-01 11:40] LABS: HCO3 ABG 45 mmol/L (23-27); PCO2 ABG 85.8 mmHg (35-45); PO2 ABG 59 mmHg (80-105); TCO2 ABG 48 mmol/L (23-27); pH ABG 7.33 (7.35-7.45)
[2017-12-01 11:41] LABS: Fractionated Inspired Oxygen 0.55; Oxygen Saturation ABG 86 % (95-100)
[2017-12-01] MEDS: LISINOPRIL 10 MG TABLET PO (12:11)
[2017-12-01] MEDS: AMLODIPINE 5 MG TABLET 10 MG PO (12:11)
[2017-12-01] MEDS: METOPROLOL 50 MG TABLET 100 MG PO ×2 (12:11→20:23)
[2017-12-01] MEDS: NYSTATIN CREAM 30 GM 1 APPLIC TOP ×2 (13:02→20:24)
[2017-12-01] MEDS: SODIUM CHLORIDE 0.9% 250 ML 21 ML IV (13:02)
[2017-12-01 15:38] LABS: pH VBG 7.25 (7.31-7.41)
[2017-12-01] MEDS: methylPREDNISolone 125 MG/2 ML VIAL 60 MG IV (15:50)
[2017-12-01 16:20] LABS: Fractionated Inspired Oxygen 0.65; HCO3 ABG 41 mmol/L (23-27); Oxygen Saturation ABG 86 % (95-100); PCO2 ABG 90.1 mmHg (35-45); PO2 ABG 62 mmHg (80-105); TCO2 ABG 44 mmol/L (23-27); pH ABG 7.27 (7.35-7.45)
[2017-12-01] MEDS: FUROSEMIDE 40 MG/4 ML VIAL IV (16:45)
[2017-12-01] MEDS: metOLazone 2.5 MG TABLET 5 MG PO (16:52)
[2017-12-01 17:44] LABS: Procalcitonin < 0.05 ng/mL (<0.5)
--- NOTE | 2017-12-01 18:32 | PC.NURSE ---
Addendum entered by Tara Hamilton R.N. 12/01/17 22:16: 2030 - Pt set up for hs meds. Placed on 4L NC, Sats decreased to 79% even while deep breathing. Large amount so urine following diuretic administration. Pt denies pain, denies nausea. Call light in reach. Original Note: 1600 - Dr. Bolden notified of ABG results. Reviewed pt assessment, vs and current lab results. MD to put in orders. Dr. Real called to check pt status. Reviewed new orders received from hospitalist. 1700 - Lasix given as ordered. BG 252, covered with 7units SS. Lab draw from PICC. 1800 - Dr. Real in to see pt. Reviewed code status. Notified of urine output following lasix. RT reports decrease in FIO2 60%. Sats 96%.
--- NOTE | 2017-12-01 18:39 | PM.PN.1 ---
Subjective Date Patient Seen: 12/01/17 Time Patient Seen: 08:02 Interval history: Met with patient on 2 separate occasions today due to deterioration in condition and spent greater than 30 min in critical care time. I was called at 4:00 a.m. this morning with complaints of increasing oxygen requirement. Patient was given 20 mg of IV Lasix in on evaluation this morning patient continued to required mask oxygen at 80% FiO2. She was not feeling any worse than she has felt and overall she feels better than she did on admission. Over the last 24 hr she has had difficulty dealing with a migraine headache and has had nausea and dry heaves and has not been able to eat much. We then an arterial blood gas was drawn showing a pH of 7.2 with a pCO2 in the 80s and a PO2 64. Patient was therefore transferred to the ICU for BiPAP. She was started on Solu-Medrol 125 mg IV in the a.m. and 60 mg q.8 hours. She was given a total of 40 mg of IV Lasix yesterday with good diuresis this morning and an additional 40 mg of Lasix was given this afternoon. During my evaluation at 6:30 a.m. this evening the patient was resting comfortably in hospital bed. She stated that her headache and the nausea has gone away. She was feeling normal other than the and orient of the mask. She has been having some bowel movements Twelve point review of systems is negative other than above and below She denies chest pain. She denies any skin lesions. A Andrews catheter was placed at her request due to shortness of breath with motion. She denies any abdominal pain Exam Vital Signs (past 8 hours): - 12/01/17 11:25 12/01/17 12:40 12/01/17 15:28 Temperature 98.4 F 100.4 F H Pulse Rate 89 79 Respiratory Rate 19 20 Blood Pressure 160/93 H 158/92 H Pulse Oximetry 91 92 90 L 12/01/17 16:00 12/01/17 16:40 12/01/17 18:06 Temperature Pulse Rate Respiratory Rate Blood Pressure 163/102 H 163/92 H Pulse Oximetry 91 Fraction of Inspired Oxygen 0.6 Oxygen Delivery Method BiPAP Oxygen Flow Rate 65 Narrative Exam Narrative: Patient is morbidly obese lying in hospital bed in no apparent distress with a BiPAP face mask and FiO2 of 60% with oxygen saturations 95%. Blood pressure is 150 over 80s. HEENT: Unremarkable Neck: Obese and supple without masses Chest: Decreased breath sounds bibasilar with crackles Cor: Regular rate and rhythm with distant S1 and S2 Abdomen: Positive bowel sounds, soft, nontender, nondistended, no hepatosplenomegaly Extremities: Nonpitting edema but unchanged from yesterday. Lower extremity pulses intact Skin: Shows scarring but no acute lesions Neurologic exam nonfocal Objective Labs Result Diagrams: 12/01/17 06:20 12/01/17 06:20 Labs: Laboratory Results - last 24 hr 12/01/17 12/01/17 12/01/17 06:20 06:20 08:58 WBC 10.5 RBC 3.94 L Hgb 10.7 L Hct 33.5 L MCV 85.0 MCH 27.1 MCHC 31.9 RDW 15.9 H Plt Count 325 Neut % (Auto) Not Reportable Lymph % (Auto) Not Reportable [place] % (Auto) Not Reportable Eos % (Auto) Not Reportable Baso % (Auto) Not Reportable Total Counted 100 Seg Neutrophils % 74.0 H Band Neutrophils % 3.0 Lymphocytes % (Manual) 12.0 L Atypical Lymphs % 7.0 H Monocytes % (Manual) 2.0 Eosinophils % (Manual) 2.0 Neutrophils # (Manual) 8085 H Nucleated RBCs 1 H Differential Comment Normal morphology RBC Morphology Not Reportable ABG pH 7.25 L* ABG pCO2 92.6 H* ABG pO2 64 L ABG HCO3 41 H ABG Total CO2 43 H ABG O2 Saturation 86 L ABG Base Excess 13.0 H VBG pH FiO2 0.70 Sodium 143 Potassium 4.1 Chloride 94 L Carbon Dioxide 39 H BUN 9 Creatinine 0.60 Estimated GFR > 60.0 BUN/Creatinine Ratio 15.0 Glucose 199 H Calcium 8.5 Procalcitonin Nasal Screen MRSA (PCR) 12/01/17 12/01/17 12/01/17 11:10 13:00 15:13 WBC RBC Hgb Hct MCV MCH MCHC RDW Plt Count Neut % (Auto) Lymph % (Auto) [place] % (Auto) Eos % (Auto) Baso % (Auto) Total Counted Seg Neutrophils % Band Neutrophils % Lymphocytes % (Manual) Atypical Lymphs % Monocytes % (Manual) Eosinophils % (Manual) Neutrophils # (Manual) Nucleated RBCs Differential Comment RBC Morphology ABG pH 7.33 L ABG pCO2 85.8 H* ABG pO2 59 L ABG HCO3 45 H ABG Total CO2 48 H ABG O2 Saturation 86 L ABG Base Excess 19.0 H VBG pH 7.25 L FiO2 0.55 Sodium Potassium Chloride Carbon Dioxide BUN Creatinine Estimated GFR BUN/Creatinine Ratio Glucose Calcium Procalcitonin Nasal Screen MRSA (PCR) Negative for mrsa 12/01/17 12/01/17 15:50 16:40 WBC RBC Hgb Hct MCV MCH MCHC RDW Plt Count Neut % (Auto) Lymph % (Auto) [place] % (Auto) Eos % (Auto) Baso % (Auto) Total Counted Seg Neutrophils % Band Neutrophils % Lymphocytes % (Manual) Atypical Lymphs % Monocytes % (Manual) Eosinophils % (Manual) Neutrophils # (Manual) Nucleated RBCs Differential Comment RBC Morphology ABG pH 7.27 L* ABG pCO2 90.1 H* ABG pO2 62 L ABG HCO3 41 H ABG Total CO2 44 H ABG O2 Saturation 86 L ABG Base Excess 15.0 H VBG pH FiO2 0.65 Sodium Potassium Chloride Carbon Dioxide BUN Creatinine Estimated GFR BUN/Creatinine Ratio Glucose Calcium Procalcitonin < 0.05 Nasal Screen MRSA (PCR) Assessment & Plan Plan: Assessment/Plan Narrative: 42-year-old female Acute on chronic respiratory failure with deterioration in her condition assess sedating transferred to the ICU and BiPAP with increasing oxygen requirements. Suspect etiology is multifactorial including untreated obstructive sleep apnea, restrictive lung disease secondary to morbid obesity, possible pneumonia and possible autoimmune disorder affecting her lungs. Plan: Continue with current BiPAP. Continue with higher dose of furosemide and oral diuretic. Continue with respiratory therapy treatments. Solu-Medrol started today. Continue with IV Zosyn. Will do echo to look for right heart failure tomorrow. We will do repeat chest x-ray tomorrow as well. Patient is full code if her condition does deteriorate and she requires intubation she wishes to be intubated. Assessment 2. Normocytic anemia suspect multifactorial related to chronic disease. No acute blood loss Plan: Continue to monitor Assessment 3. Type 2 diabetes anticipate worsening with starting IV steroids Plan: Continue on same metformin and sliding scale insulin and pending on blood sugars may need to add Lantus Assessment 4. Probable congestive heart failure contributing to respiratory failure Plan: Echo in a.m.. Continue with Lasix Assessment 5. Sappho syndrome Plan: Enbrel as held this week. Her disease has been well controlled with the Enbrel. Will treat with IV steroids for her respiratory failure now. Assessment 6. DVT prophylaxis Plan: Continue With Lovenox Assessment 7. GI prophylaxis Plan: Continue with proton pump inhibitor Assessment 8. Hypertension Plan: Continue metoprolol, lisinopril, amlodipine
[2017-12-01] MEDS: METFORMIN HCL 500 MG TABLET 1000 MG PO (20:24)
[2017-12-02] VITALS (27 sets, daily range): BP systolic 99–169; BP diastolic 53–95; PULSE 69–96; RESP 12–22; TEMP 30.7–36.6; O2SAT 90–98
[2017-12-02] MEDS: methylPREDNISolone 125 MG/2 ML VIAL 60 MG IV ×3 (00:37→17:12)
[2017-12-02] MEDS: SODIUM CHLORIDE 0.9% FLUSH 10 ML IV (00:38)
[2017-12-02] MEDS: ONDANSETRON 4 MG/2 ML INJ IV (02:16)
[2017-12-02] MEDS: HYDROCODONE/ACET 5/325 TABLET 2 TAB PO (02:20)
[2017-12-02] MEDS: ALBUTEROL 2.5 MG/3 ML NEB (ADULT) INH ×6 (04:50→22:35)
[2017-12-02] MEDS: PIPERACILLIN-TAZO 4.5 GM/100 ML FROZ.PIGGY IV ×3 (04:56→20:18)
[2017-12-02 05:13] LABS: pH ABG 7.35 (7.35-7.45)
[2017-12-02 05:14] LABS: HCO3 ABG 45 mmol/L (23-27); Oxygen Saturation ABG 88 % (95-100); PO2 ABG 62 mmHg (80-105); TCO2 ABG 47 mmol/L (23-27)
[2017-12-02 05:18] LABS: Add Manual Diff / Slide Review NO; Basophils Percent Auto 0.2 % (0-2); Hematocrit 32.4 % (36-46); Hemoglobin 10.3 g/dL (12.0-16.0); Lymphocytes Percent Auto 9.7 % (25-40); Mean Corpuscular HGB Conc 31.6 % (30-36); Mean Corpuscular Hemoglobin 26.8 PG (26-34); Mean Corpuscular Volume 84.6 fL (80-100); Monocytes Percent Auto 2.4 % (3-14); Neutrophils Absolute Auto 6700 /uL (3000-5900); Neutrophils Percent Auto 87.7 % (50-75); Platelet Count 306 X10^3/uL (150-400); Red Blood Cell Count 3.83 X10^6/uL (4.0-5.2); Red Cell Distribution Width 15.4 % (11.6-14.8); White Blood Cell Count 7.6 X10^3/uL (4.5-11.0)
[2017-12-02 05:28] LABS: Alanine Aminotransferase 36 IU/L (9-52); Albumin 3.6 g/dL (3.5-5.0); Albumin Globulin Ratio 1.1 (1.0-2.8); Alkaline Phosphatase 111 U/L (38-126); Aspartate Aminotransferase 19 IU/L (14-36); Bilirubin Total 0.5 mg/dL (0.2-1.3); Blood Urea Nitrogen 12 mg/dL (7-17); Calcium 8.8 mg/dL (8.4-10.2); Chloride 89 mmol/L (98-107); Estimated Glomerular Filt Rate > 60.0 mL/min (>60); Globulin 3.4 g/dL (1.7-4.1); Glucose 239 mg/dL (70-100); HEMOLYSIS < 15 (0-50); Potassium 4.3 mmol/L (3.4-5.1); Sodium 142 mmol/L (137-145)
[2017-12-02 05:52] LABS: Carbon Dioxide 45 mmol/L (22-32)
--- NOTE | 2017-12-02 06:50 | PC.NURSE ---
NOC Shift: Pt on Bipap 60%, 18/10 for SOB, resp. failure. Pt tolerating and sleeping quietly. Sats stable low. ABG values are poor MD aware continue to monitor in AM. Pt on fluid restritction per Dr. Thompson, also receiving IV Lasix. Pt very obese, large body habitus refuses to reposition at this time, is ambulatory at home. Using a lit to transfer. Juliana. NSR on tele, VSS. Will have Echo this AM. ICU care.
--- NOTE | 2017-12-02 07:00 | DI.RAD.S_ITS ---
PROCEDURE: XR CHEST 1V INDICATIONS: hypoxemia TECHNIQUE: One view of the chest was acquired. COMPARISON: [facility], CR, CHEST 1 VIEW, 06/04/2016, 9:40. [facility], CR, CHEST 2 VIEW, 09/08/2016, 8:57. [facility], CR, XR CHEST 1V, 11/30/2017, 7:49. [facility], CR, XR CHEST FOR PICC 1V, 11/25/2017, 23:04. [facility], CR, XR CHEST 1V, 11/25/2017, 15:29. FINDINGS: Surgical changes and devices: PICC line from a left-sided approach extends to the left margin of the spine, not crossing in a normal fashion into the superior vena cava. This may represent ectopic positioning or possibly bilateral superior vena cava morphology.. Lungs and pleura: No pleural effusions or pneumothorax. Lungs are mildly edematous with a superimposed chronic interstitial prominence. Mediastinum: Mediastinal contours appear normal. Heart size is mildly enlarged. Bones and chest wall: No suspicious bony lesions. Overlying soft tissues appear unremarkable. IMPRESSION: Chronic interstitial prominence, with superimposed mild pulmonary edema. PICC line from left-sided approach does not cross the midline normally and the exact positioning is indeterminate. Ectopic position into a branch vein of the left brachiocephalic vein may be present but anatomic variant of dual superior vena cava can also produce exactly this appearance. Dictated by: Lavelle Ospina M.D. on 12/02/2017 at 8:35 Approved by: Lavelle Ospina M.D. on 12/02/2017 at 8:38
--- NOTE | 2017-12-02 08:46 | PM.PN.1 ---
Subjective Date Patient Seen: 12/02/17 Time Patient Seen: 08:53 Interval history: Patient seen in ICU this morning secondary to a respiratory failure. Required mask and BiPAP initiation diuresis and increased steroid treatment hopefully improving what was definitely heading in the wrong direction with respect to respiratory function. PH gotten down to 7.2 and O2 sat was very low and CO2 was very high. Those numbers are little bit better although CO2 still being retained at 80. Patient awakes and denies headache or chest pain significant shortness of breath. Biggest complaint is about pressure from her BiPAP mask. Labs review showed improved white blood count stable hematocrit and renal function good. ABG very early this morning showed again CO2 of 80 will recheck 1 now that it is 9 o'clock in C4 making better progress with improving ventilation. If patient decompensates or increases her CO2 retention probably will need to be transferred to a facility with the full pulmonology and I would suggest that they involve Rheumatology and possibly Dermatology because of her complex immune dysfunction and chronic Enbrel use which seems to have been the precipitant for these episodes. Patient also with her weight and inactivity I think as she has severe restrictive component to her ventilation at. Exam Vital Signs (past 8 hours): - 12/02/17 01:27 12/02/17 02:08 12/02/17 04:19 Temperature Pulse Rate 81 Respiratory Rate 16 Blood Pressure Pulse Oximetry 93 92 92 12/02/17 04:37 12/02/17 05:30 12/02/17 06:36 Temperature 96.4 F L Pulse Rate 80 76 Respiratory Rate 16 16 Blood Pressure 146/71 H 156/88 H Pulse Oximetry 91 90 L 95 12/02/17 07:31 12/02/17 08:21 12/02/17 08:26 Temperature 97.9 F Pulse Rate 69 78 Respiratory Rate 16 16 Blood Pressure 162/95 H Pulse Oximetry 96 94 Fraction of Inspired Oxygen 60 Oxygen Delivery Method BiPAP Oxygen Flow Rate 60 Narrative Exam Narrative: Patient a little bit sleepy this morning but wakes and answers questions appropriately speaks very clearly and is clearly explains that she had her mask is uncomfortable pushing on her lip. No fever vital signs are stable heart rate is in good control. PERRLA EOM is intact. Neck without discernible mass Chest shows decreased breath sounds with crackles in bases. Cardiovascular exam shows regular rate and rhythm without murmur S3. Abdomen is significantly obese and difficult exam to tell for sure but no tenderness discernible mass or hepatosplenomegaly. 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 but no acute inflammation at this time Neuro patient is alert answers clearly speaks clearly able to take fluids well though diffusely and symmetrically weak Site shows patient to be of multiple flat of affect but again she is a little groggy this morning Objective Labs Result Diagrams: 12/02/17 05:00 12/02/17 05:00 Labs: Laboratory Results - last 24 hr 12/01/17 12/01/17 12/01/17 08:58 11:10 13:00 WBC RBC Hgb Hct MCV MCH MCHC RDW Plt Count Neut % (Auto) Lymph % (Auto) [place] % (Auto) Eos % (Auto) Baso % (Auto) Neut # (Auto) ABG pH 7.25 L* 7.33 L ABG pCO2 92.6 H* 85.8 H* ABG pO2 64 L 59 L ABG HCO3 41 H 45 H ABG Total CO2 43 H 48 H ABG O2 Saturation 86 L 86 L ABG Base Excess 13.0 H 19.0 H VBG pH FiO2 0.70 0.55 Sodium Potassium Chloride Carbon Dioxide BUN Creatinine Estimated GFR BUN/Creatinine Ratio Glucose Calcium Total Bilirubin AST ALT Alkaline Phosphatase Total Protein Albumin Globulin Albumin/Globulin Ratio Procalcitonin Nasal Screen MRSA (PCR) Negative for mrsa 12/01/17 12/01/17 12/01/17 15:13 15:50 16:40 WBC RBC Hgb Hct MCV MCH MCHC RDW Plt Count Neut % (Auto) Lymph % (Auto) [place] % (Auto) Eos % (Auto) Baso % (Auto) Neut # (Auto) ABG pH 7.27 L* ABG pCO2 90.1 H* ABG pO2 62 L ABG HCO3 41 H ABG Total CO2 44 H ABG O2 Saturation 86 L ABG Base Excess 15.0 H VBG pH 7.25 L FiO2 0.65 Sodium Potassium Chloride Carbon Dioxide BUN Creatinine Estimated GFR BUN/Creatinine Ratio Glucose Calcium Total Bilirubin AST ALT Alkaline Phosphatase Total Protein Albumin Globulin Albumin/Globulin Ratio Procalcitonin < 0.05 Nasal Screen MRSA (PCR) 12/02/17 12/02/17 12/02/17 04:56 05:00 05:00 WBC 7.6 RBC 3.83 L Hgb 10.3 L Hct 32.4 L MCV 84.6 MCH 26.8 MCHC 31.6 RDW 15.4 H Plt Count 306 Neut % (Auto) 87.7 H Lymph % (Auto) 9.7 L [place] % (Auto) 2.4 L Eos % (Auto) 0.0 L Baso % (Auto) 0.2 Neut # (Auto) 6700 H ABG pH 7.35 ABG pCO2 80.3 H* ABG pO2 62 L ABG HCO3 45 H ABG Total CO2 47 H ABG O2 Saturation 88 L ABG Base Excess 19.0 H VBG pH FiO2 0.60 Sodium 142 Potassium 4.3 Chloride 89 L Carbon Dioxide 45 H* BUN 12 Creatinine 0.60 Estimated GFR > 60.0 BUN/Creatinine Ratio 20.0 Glucose 239 H Calcium 8.8 Total Bilirubin 0.5 AST 19 ALT 36 Alkaline Phosphatase 111 Total Protein 7.0 Albumin 3.6 Globulin 3.4 Albumin/Globulin Ratio 1.1 Procalcitonin Nasal Screen MRSA (PCR) Assessment & Plan Plan: Assessment/Plan Narrative: Assessment 1. Progressive respiratory failure. Think this is multifactorial. Initially seemed as though might be an infectious exacerbation compounded by her immune suppression with Enbrel. She had an elevated white blood count and fairly acute onset with some fever. Initially BNP was low so seem less likely to be acute congestive failure issues. I think there is a significant restrictive component for ventilation which is unable SIRS to be a chronic CO2 retainer but on admission she was fairly well-compensated by blood gas for that. Definitely worsened subsequently is on BiPAP now if not improving and heads in the direction of needing ventilator status will suggest that we transfer to [place] where she would have access to pulmonology Rheumatology immunology and see if they could do improve things so that she is not having repetitive events like this Assessment 2. Diabetes definitely jumped up in setting of IV steroids required for her pulmonary status will increase her insulin doses Assessment 3. Obesity think that this is her weight over 400 lb babies contributing factor to her pulmonary issues at this point Assessment 4. Retention blood pressure adequate at this point and will continue with current meds Assessment 6. DVT prophylaxis will continue Assessment 7.
--- NOTE | 2017-12-02 09:00 | DI.ECHO.S_ITS ---
[facility] +---------+ : : [address] [place] : : : : [id number] : : : : Phone: [phone]+ Echocardiogram Report + + :Name: SUMEET MILLER Study Date: 12/02/2017 Height: 67 in : :[facility] Exam Location: [facility] Weight: 459 lb : : Gender: Female BSA: 2.9 m2 : :: 1975 Age: 42 yrs BP: 169/90 mmHg: :Reason For Study: HYPOXEMIA, UNTREATED KARSON : :Ordering Physician: : :Jen Real Performed By: Gladys Sampson : :Referring: JEN REAL : + + Interpretation Summary There is mild concentric left ventricular hypertrophy. The left ventricle is mild-moderately dilated. The left ventricular ejection fraction is normal. The ejection fraction is estimated to be 55-60%. LVEF has not changed. There are no obvious focal wall motion abnormalities noted but poor endocardial definition reduces the sensitivity for the detection of such. The right ventricle is not well visualized. The right ventricular systolic pressure is estimated at least 57 mmHg assuming a right atrial pressure of 15 mm Hg. Comparison with the previous study is not possible because this was unable to be assessed on the previous study. Procedure: A two-dimensional transthoracic echocardiogram with color flow and Doppler was performed in limited views only. The study quality was technically difficult. Comparison is made with the echocardiogram of 06/03/16. A contrast injection of Definity was performed to improve assessment of LV function. The patient was in normal sinus rhythm during the exam. Left Ventricle: There is mild concentric left ventricular hypertrophy. The left ventricle is mild-moderately dilated. The left ventricular ejection fraction is normal. The ejection fraction is estimated to be 55-60%. There are no obvious focal wall motion abnormalities noted but poor endocardial definition reduces the sensitivity for the detection of such. Right Ventricle: The right ventricle is not well visualized. Mitral Valve: The mitral valve is normal. There is trace mitral regurgitation. Tricuspid Valve: The tricuspid valve is normal. At least trace TR. The right ventricular systolic pressure is estimated at least 57 mmHg assuming a right atrial pressure of 15 mm Hg. Comparison with the previous study is not possible because this was unable to be assessed on the previous study. Pulmonic Valve: The pulmonic valve is not well seen, but is grossly normal. There is a trace or physiologic amount of pulmonic regurgitation. Great Vessels: The IVC is dilated (diameter is greater than 2.1 cm) and it collapses less than 50% with a sniff. This suggests a high right atrial pressure of 15 mm Hg. Pericardium/ Pleura There is no pericardial effusion. There is a small left- sided pleural effusion. MMode/2D Measurements & Calculations LVIDd: 6.0 cm IVC diam: 3.4 cm LVIDs: 4.2 cm FS: 29.0 % IVSd: 1.0 cm LVPWd: 1.3 cm LV lyon. diameter/BSA (cm/m^2): 2.1 LV sys. diameter/BSA (cm/m^2): 1.5 Doppler Measurements & Calculations TR max bandar: 324.7 cm/sec TR max P.2 mmHg PA V2 max: 94.8 cm/sec PA V2 mean: 72.3 cm/sec PA mean P.2 mmHg PA pr(Accel): 31.6 mmHg Reading Physician:JESUS
[2017-12-02] MEDS: INSULIN ASPART 100 UNIT/ML INSULN PEN SUBCUT ×4 (09:28→20:28)
[2017-12-02] MEDS: metOLazone 2.5 MG TABLET 5 MG PO (09:29)
[2017-12-02] MEDS: AMLODIPINE 5 MG TABLET 10 MG PO (09:33)
[2017-12-02] MEDS: NYSTATIN CREAM 30 GM 1 APPLIC TOP ×3 (09:35→20:22)
[2017-12-02] MEDS: NYSTATIN POWDER 30 GM 1 APPLIC TOP (09:35)
[2017-12-02] MEDS: ENOXAPARIN 30 MG/0.3 ML SYRINGE SUBCUT ×2 (09:36→20:17)
[2017-12-02] MEDS: METFORMIN HCL 500 MG TABLET 1000 MG PO ×2 (09:36→20:17)
[2017-12-02] MEDS: METOPROLOL 50 MG TABLET 100 MG PO ×2 (09:36→20:17)
[2017-12-02] MEDS: FUROSEMIDE 40 MG/4 ML VIAL IV ×2 (09:36→20:17)
[2017-12-02] MEDS: LISINOPRIL 10 MG TABLET PO (09:36)
[2017-12-02 10:38] LABS: pH ABG 7.38 (7.35-7.45)
[2017-12-02 10:39] LABS: HCO3 ABG 45 mmol/L (23-27); PCO2 ABG 76.7 mmHg (35-45); PO2 ABG 76 mmHg (80-105); TCO2 ABG 47 mmol/L (23-27)
[2017-12-02 10:40] LABS: Oxygen Saturation ABG 94 % (95-100)
--- NOTE | 2017-12-02 11:42 | PT.IPTN ---
Current Diagnoses Pneumonia, unspecified organism (11/25/17) Physical Therapy Treatment Note M2 PT-IP Current Condition Start: 11/26/17 16:18 Freq: NEEDED Status: Active Protocol: Document 11/27/17 15:03 MDD (Rec: 11/27/17 16:43 MDD [email or web address]) Physical Therapy Current Condition Current Condition Evaluation Date 11/27/17 Treatment Diagnosis SOB Onset Date 11/26/17 Precautions Other Precautions O2 sat Pt on 6 L/min at rest, increased to 8 L/min with activity today (desatted to 86 %). M3 PT-IP Subjective Start: 11/26/17 16:18 Freq: NEEDED Status: Active Protocol: Document 12/02/17 11:38 AB (Rec: 12/02/17 11:42 AB [id number]) Subjective Physical Therapy Visit Type Notes per nurse, pt on hold for therapy. pt is not appropriate to do PT today.
[2017-12-02] MEDS: HYDROMORPHONE 1 MG INJ 0.5 MG IV ×2 (13:07→17:56)
--- NOTE | 2017-12-02 15:31 | PT.IPTN ---
Current Diagnoses Pneumonia, unspecified organism (11/25/17) Physical Therapy Treatment Note M2 PT-IP Current Condition Start: 11/26/17 16:18 Freq: NEEDED Status: Active Protocol: Document 11/27/17 15:03 MDD (Rec: 11/27/17 16:43 MDD [email or web address]) Physical Therapy Current Condition Current Condition Evaluation Date 11/27/17 Treatment Diagnosis SOB Onset Date 11/26/17 Precautions Other Precautions O2 sat Pt on 6 L/min at rest, increased to 8 L/min with activity today (desatted to 86 %). M3 PT-IP Subjective Start: 11/26/17 16:18 Freq: NEEDED Status: Active Protocol: Document 12/02/17 15:30 AB (Rec: 12/02/17 15:31 AB [id number]) Subjective Physical Therapy Visit Type Notes checked with nursing and stated that pt is still not ready for PT at this time. pt still on bipap machine. M4 PT-IP Mobility and Gait Start: 11/26/17 16:18 Freq: NEEDED Status: Active Protocol: Document 11/29/17 15:37 CLB (Rec: 11/29/17 16:22 CLB [id number]) PT-Bed Mobility Assessment Rolling Type of Rolling Roll to Left Level of Assist Independent Supine to Sit Supine to Sit Independent Sit to Supine Sit to Supine Minimal Assistance Scooting Scooting to Edge of Bed Independent Scooting Up and Down in Bed Independent PT-Transfer Assessment Sit to and From Stand Sit to and from Stand Standby Assistance Equipment Transfer Assistive Device Front Wheeled Walker Transfers Transfer Destination Bed Transfer Technique after ambulation Transfer Ability Level of Assist Contact Guard Assistance Comments Mobility Comments Pt O2 dropped to 77% on 8L with effert of getting into bed. O2 was increased to 10L until O2 sats increased to 90% . Gait Assessment Gait Gait Assistance Required: Standby Assistance Distance (Feet) (feet) 20 Able to Maintain Weight Bearing Status Yes During Gait Assistive Devices Assistive Device Front Wheeled Walker Gait Deviations General Gait Pattern Flexed Trunk Factors Limiting Gait Function Factors Limiting Gait Function Decreased Strength Comments Gait Comments Pt ambulated ~20ft in room. O2 sats dropped to 77% on 8L but did not increase with pursed lip breathing , O2 was increased to 10L until pt O2 sats returned to 90. M5 PT-IP Objective Assessments Start: 11/26/17 16:18 Freq: NEEDED Status: Active Protocol: Document 11/27/17 15:03 MDD (Rec: 11/27/17 16:43 MDD [id number]) Orientation Orientation/Cognition Level of Alertness Alert Orientation Name Age Birthday Month Date Year Day of Week Place Situation Language Function Ability No Deficits Noted Safety Awareness Understands Safety Issues Memory Description No Deficits Noted Gross Range of Motion Lower Extremity ROM Impairments LE ROM limited B due to body habitus. B knee and hip flexion limited. Strength Lower Extremity Strength Assessment Within Functional Limits Sensation Assessment Sensation Gross Sensation WNL Light Touch Intact M6 PT-IP Treatment Start: 11/26/17 16:18 Freq: NEEDED Status: Active Protocol: Document 11/27/17 15:03 MDD (Rec: 11/27/17 16:43 MDD [email or web address]) Physical Therapy Treatment Education Education Provided Precautions Safety M7 PT-IP Assessment and Plan Start: 11/26/17 16:18 Freq: NEEDED Status: Active Protocol: Document 11/29/17 15:37 CLB (Rec: 11/29/17 16:22 CLB [id number]) PT Summary Assessment and Plan Summary Impairments ROM Transfers Gait Activity Tolerance Progress Towards Goals Progressing Toward Goals Assessment Summary Pt continues to have O2 drop with activity. Pt requires Min A of LE into bed but is SBA for sit-stand and gait. Goals Bed Mobility Goal Independent Transfer Goal Independent Gait Goal Independent Front Wheel Walker Gait Distance 30 Days to Meet Goals 3 Frequency of Treatment Frequency Of Treatment Once a Day Treatment Plan Physical Therapy Treatment Plan Bed Mobility Training Transfer Training Gait Training Therapeutic Exercise Other Recommendations and Next Treatment Improve activity tolerance and Focus endurance. Recommendations To Nursing Amount of Assist Needed 1 Person Assist Discharge Recommendations PT Discharge Recommendations Home with Assistance
[2017-12-02] MEDS: LORazepam 2 MG/ML SYRINGE 1 MG IV (17:50)
--- NOTE | 2017-12-02 20:55 | PC.NURSE ---
Addendum entered by Tara Hamilton R.N. 12/02/17 22:12: Pt able to tolerate 1 hour and 20 minutes off bi-pap on 7L HFNC, sats maintaining approximately 87%. Pt reports increasing fatigue. Bi-pap replaced. Settings 18/10 Fio2 60%. Call light in reach. Original Note: Pt set up for HS meds. Skin care, nystatin, chary- and catheter care. Pt placed on 10L HFNC, Snack provided. O2 sats 90% with PO intake, however at rest sats began increasing to 95%. Able to titrate O2 down to 6L HFNC, sats 90%. Pt able to have a break from bi-pap mask. Discussed home trilogy use. Pt very receptive, expressing feelings of encouragement with proper mask fitting. ABX infusing.
[2017-12-03] VITALS (20 sets, daily range): BP systolic 149–166; BP diastolic 80–94; PULSE 63–91; RESP 12–23; TEMP 0–37.2; O2SAT 91–95
[2017-12-03] MEDS: methylPREDNISolone 125 MG/2 ML VIAL 60 MG IV ×3 (00:59→17:11)
[2017-12-03] MEDS: HYDROCODONE/ACET 5/325 TABLET 2 TAB PO ×3 (01:00→22:05)
[2017-12-03] MEDS: ONDANSETRON 4 MG/2 ML INJ IV (01:01)
[2017-12-03] MEDS: ALBUTEROL 2.5 MG/3 ML NEB (ADULT) INH ×5 (02:10→23:26)
[2017-12-03] MEDS: PIPERACILLIN-TAZO 4.5 GM/100 ML FROZ.PIGGY IV ×3 (05:19→22:04)
[2017-12-03 05:41] LABS: Add Manual Diff / Slide Review NO; Basophils Percent Auto 0.8 % (0-2); Hemoglobin 10.5 g/dL (12.0-16.0); Lymphocytes Percent Auto 7.8 % (25-40); Mean Corpuscular HGB Conc 31.8 % (30-36); Mean Corpuscular Hemoglobin 26.7 PG (26-34); Mean Corpuscular Volume 83.8 fL (80-100); Monocytes Percent Auto 3.5 % (3-14); Neutrophils Absolute Auto 8300 /uL (3000-5900); Neutrophils Percent Auto 87.9 % (50-75); Platelet Count 348 X10^3/uL (150-400); Red Blood Cell Count 3.93 X10^6/uL (4.0-5.2); Red Cell Distribution Width 15.5 % (11.6-14.8); White Blood Cell Count 9.5 X10^3/uL (4.5-11.0)
[2017-12-03 05:47] LABS: Alanine Aminotransferase 35 IU/L (9-52); Albumin 3.6 g/dL (3.5-5.0); Albumin Globulin Ratio 1.1 (1.0-2.8); Alkaline Phosphatase 104 U/L (38-126); Aspartate Aminotransferase 24 IU/L (14-36); BUN Creatinine Ratio 34.3 (6-22); Bilirubin Total 0.4 mg/dL (0.2-1.3); Blood Urea Nitrogen 24 mg/dL (7-17); Calcium 8.8 mg/dL (8.4-10.2); Chloride 80 mmol/L (98-107); Estimated Glomerular Filt Rate > 60.0 mL/min (>60); Globulin 3.3 g/dL (1.7-4.1); Glucose 370 mg/dL (70-100); HEMOLYSIS < 15 (0-50); Potassium 3.7 mmol/L (3.4-5.1); Sodium 139 mmol/L (137-145); Total Protein 6.9 g/dL (6.3-8.2)
[2017-12-03 06:13] LABS: Carbon Dioxide 51 mmol/L (22-32)
--- NOTE | 2017-12-03 07:06 | PC.NURSE ---
NOC Shift: Pt more awake, pleasant. Remains on Bipap able to wean O2 to 45% tolerating well. Desats very quickly with mask off, using 10L [place] NC so pt can eat tolerates for about 15 minutes. VSS, NSR on tele. HL, fluid restriction continues. Andrews. Waiting Trilogy consult. ICU care.
--- NOTE | 2017-12-03 08:52 | PM.PN.1 ---
Subjective Date Patient Seen: 12/03/17 Time Patient Seen: 08:53 Interval history: Patient continues on BiPAP but with improved pressures and slightly corrections this. Was able to tolerate being without the mass for an hour yesterday. Continues to mobilize large amounts of fluid looking more like a big part of her respiratory fluid management. Continues on steroids and antibiotics because of presence of an infectious appearing symptoms on presentation. Patient is a more clear and comfortable this morning vital signs looked well. Blood glucose elevated because of initiation of high-dose steroids will try to increase insulin dose. Patient denies pain abdomen is nontender decreased edema in extremities heart rate looks regular sats are in the 93% patient seems to be so slowly improving and the renal function continues to be adequate and electrolytes as well. Exam Vital Signs (past 8 hours): - 12/03/17 04:00 12/03/17 04:47 12/03/17 07:15 Temperature 97.1 F L 97.2 F L Pulse Rate 63 63 Respiratory Rate 15 18 Blood Pressure 149/88 H 166/84 H Pulse Oximetry 94 94 95 12/03/17 08:22 Temperature Pulse Rate Respiratory Rate Blood Pressure 166/84 H Pulse Oximetry Fraction of Inspired Oxygen 0.45 Oxygen Delivery Method BiPAP Oxygen Flow Rate 45 Narrative Exam Narrative: Patient is alert oriented mask in place tolerating it well. Asking and answering questions clearly. PERRLA and EOMs intact Neck without mass although quite obese Lungs with improved breath sounds decreased crackles with still some in bases Cardiovascular exam shows regular rate and rhythm without murmur S3 and a decreased edema Abdomen nontender no hepatosplenomegaly or pain med. Bowel sounds are present Her back nontender no extremity tenderness Skin without any acute inflammatory changes Neuro intact symmetrical speech clear and sensory motor intact Psych patient seems to be in pretty good spirits although resting when I see her this morning she responds easily and seems to be in a more cheerful frame of mind Objective Labs Result Diagrams: 12/03/17 05:25 12/03/17 05:25 Labs: Laboratory Results - last 24 hr 12/02/17 12/03/17 12/03/17 09:50 05:25 05:25 WBC 9.5 RBC 3.93 L Hgb 10.5 L Hct 33.0 L MCV 83.8 MCH 26.7 MCHC 31.8 RDW 15.5 H Plt Count 348 Neut % (Auto) 87.9 H Lymph % (Auto) 7.8 L [place] % (Auto) 3.5 Eos % (Auto) 0.0 L Baso % (Auto) 0.8 Neut # (Auto) 8300 H ABG pH 7.38 ABG pCO2 76.7 H* ABG pO2 76 L ABG HCO3 45 H ABG Total CO2 47 H ABG O2 Saturation 94 L ABG Base Excess 20.0 H FiO2 0.60 Sodium 139 Potassium 3.7 Chloride 80 L Carbon Dioxide 51 H* BUN 24 H Creatinine 0.70 Estimated GFR > 60.0 BUN/Creatinine Ratio 34.3 H Glucose 370 H D Calcium 8.8 Total Bilirubin 0.4 AST 24 ALT 35 Alkaline Phosphatase 104 Total Protein 6.9 Albumin 3.6 Globulin 3.3 Albumin/Globulin Ratio 1.1 Assessment & Plan Plan: Assessment/Plan Narrative: Assessment 1. Improving respiratory function based on combination of fluid overload probable infection and restrictive limitations on ventilation secondary to size and weight. Seems to be improving a little bit at this point continue to mobilize large amounts of fluid appreciate Dr. Bolden is CC Assessment 2. Diabetes this is elevated because the patient is of steroid initiation and increase. Will increase insulin and hope to decrease and her speech steroid treatment and the next 24 hr or so Is assessment 3. Morbid obesity I think this is a big restrictive component of affecting her ventilation. Continue monitor Hypertension is patient is returning to baseline blood pressure up a little bit this morning will continue her current meds and continue to monitor Assessment 4. Of fluid overload with signs of congestive heart failure echo pending continue with diuretics since she is still mobilizing and showing good renal function Assessment 5. Anemia stable no evidence of bleeding suspect this is reflection of a chronic disease Assessment 6. Depression and anxiety seems to be doing okay at this point will continue to monitor.
[2017-12-03] MEDS: metOLazone 2.5 MG TABLET 5 MG PO (09:58)
[2017-12-03] MEDS: INSULIN ASPART 100 UNIT/ML INSULN PEN SUBCUT ×4 (09:58→21:58)
[2017-12-03] MEDS: AMLODIPINE 5 MG TABLET 10 MG PO (10:02)
[2017-12-03] MEDS: ENOXAPARIN 30 MG/0.3 ML SYRINGE SUBCUT ×2 (10:02→21:58)
[2017-12-03] MEDS: FUROSEMIDE 40 MG/4 ML VIAL IV (10:03)
[2017-12-03] MEDS: METFORMIN HCL 500 MG TABLET 1000 MG PO ×2 (10:04→22:00)
[2017-12-03] MEDS: LISINOPRIL 10 MG TABLET PO (10:04)
[2017-12-03] MEDS: NYSTATIN CREAM 30 GM 1 APPLIC TOP ×2 (10:05→22:02)
[2017-12-03] MEDS: METOPROLOL 50 MG TABLET 100 MG PO ×2 (10:05→22:01)
--- NOTE | 2017-12-03 10:47 | PT.IPTN ---
Current Diagnoses Pneumonia, unspecified organism (11/25/17) Physical Therapy Treatment Note M2 PT-IP Current Condition Start: 11/26/17 16:18 Freq: NEEDED Status: Active Protocol: Document 11/27/17 15:03 MDD (Rec: 11/27/17 16:43 MDD [id number]) Physical Therapy Current Condition Current Condition Evaluation Date 11/27/17 Treatment Diagnosis SOB Onset Date 11/26/17 Precautions Other Precautions O2 sat Pt on 6 L/min at rest, increased to 8 L/min with activity today (desatted to 86 %). M3 PT-IP Subjective Start: 11/26/17 16:18 Freq: NEEDED Status: Active Protocol: Document 12/03/17 10:45 AB (Rec: 12/03/17 10:47 AB [id number]) Subjective Physical Therapy Visit Type Notes per nursing: pt is still not ready for PT at this time. pt still on bipap. informed nurse that pt will be d/c'd from PT at this time and will evaluate again if pt is appropriate for PT and to obtain another doctor's order. nurse agreed. M7 PT-IP Assessment and Plan Start: 11/26/17 16:18 Freq: NEEDED Status: Active Protocol: Document 12/03/17 10:45 AB (Rec: 12/03/17 10:47 AB [id number]) PT Summary Assessment and Plan Frequency of Treatment Frequency Of Treatment Discharge
[2017-12-03 11:12] LABS: pH ABG 7.49 (7.35-7.45)
[2017-12-03 11:13] LABS: PCO2 ABG 71.9 mmHg (35-45)
[2017-12-03 11:14] LABS: Base Excess ABG > 30.0 mmol/L (-2-3); HCO3 ABG 55 mmol/L (23-27); Oxygen Saturation ABG 93 % (95-100); PO2 ABG 67 mmHg (80-105); TCO2 ABG > 50 mmol/L (23-27)
[2017-12-03 11:15] LABS: Fractionated Inspired Oxygen 0.45
[2017-12-03 11:26] LABS: Hemoglobin A1C% w Est Avg Glu 8.3 % (4.0-6.0)
[2017-12-03] MEDS: SODIUM CHLORIDE 0.9% 250 ML 21 ML IV (13:00)
[2017-12-03] MEDS: INSULIN DETEMIR 100 UNIT/ML INSULN.PEN 8 UNIT SUBCUT ×2 (13:01→21:59)
--- NOTE | 2017-12-03 14:49 | PC.NURSE ---
Day Shift Note Alert and oriented. Placed on 10L HFNC at 1030 and has tolerated since then. Oxygen sats 92-96%. RR 18 bpm. NSR in the 70s. Does get short of breath when HOB flat (position changes) with sats decreasing to 80s, recovers within a minute when HOB up. CBGs steadily increasing - recent check 400, order to call MD if additional detemir (added today) not effective in CBG control. Call to Dr. Bolden - stated he would call back shortly. Awaiting call back at this time.
[2017-12-03] MEDS: SODIUM CHLORIDE 0.9% FLUSH 10 ML IV (17:13)
--- NOTE | 2017-12-03 17:48 | PM.CN ---
History of Present Illness Date Patient Seen: 12/03/17 Time Patient Seen: 07:48 Chief complaint: SOB/General weakness Reason for consult: Requested to consult on anasarca and respiratory distress Requesting provider: Raman Chavez Narrative: Patient is a 42 years of age female and morbidly obese who presents to the hospital with shortness of breath at rest and certainly with any modest amount of increased activity. The anasarca is a contributing factor to her increasing respiratory distress. Over the last several days I introduced a more aggressive diuresis with IV Lasix 40 mg q.12 with metolazone 5 mg daily. Patient was fluid restricted to 1600 cc total fluid per day including IV. I requested no fluid containers around bedside between meals. Strict Is&Os requested. Patient had a fairly impressive diuresis from December 01 2 today. As of this morning she demonstrated a net fluid loss of 9 L. the serum creatinine this morning was 0.7. However, patient had an escalating serum bicarbonate level. I requested an ABG this morning to further evaluate the increased serum bicarb level. The ABG was reported with a pH is 7.45. At this juncture would be prudent to stop the IV Lasix since were showing evidence of a contraction alkalosis. Note the contraction alkalosis indicates the proximal tubular is reabsorbing too much bicarb from the urine in a state of too much fluid loss. In terms of the diuresis we have done very well. Patient has lost a net fluid of 11 L or equivalent to 31 lb of fluid in the past several days. Will stop IV diuretic therapy. It would be reasonable to resume oral Lasix b.i.d. after a day or so. Respiratory therapist notes patient is tolerating the noninvasive positive pressure ventilation much better these days. Patient notes she is breathing better. [facility] Medical History Anxiety (Acute) Asthma (Acute) CHF (congestive heart failure) (Acute) COPD (chronic obstructive pulmonary disease) (Acute) Diabetes mellitus type 2 in obese (Acute) Morbid obesity (Acute) Pericardial effusion (Acute) Pleural effusion (Acute) Reactive airway disease (Acute) Recurrent pneumonia (Acute) Requires continuous at home supplemental oxygen (Acute) Social History household members: family Smoking Status: Former smoker alcohol intake: never Comment: SOCIAL HISTORY PATIENT WAS WITH FAMILY. PREVIOUS SMOKER NOTED FAMILY HISTORY PATIENT NOTES MOTHER WITH DIABETES Meds Home Medications Medication Instructions Recorded Confirmed Type lorazepam 1 - 2 mg PO Q8HP PRN #0 06/02/16 11/26/17 History etanercept [Enbrel] 50 mg SQ QWEEK #0 08/12/16 11/25/17 History hydrocodone-acetaminophen 1 tab PO Q4HP PRN #0 01/12/17 11/26/17 History metoprolol tartrate 100 mg PO BID #0 01/12/17 11/26/17 History ondansetron HCl [Zofran] 4 mg PO Q8HP PRN #0 01/12/17 11/26/17 History amlodipine 10 mg PO DAILY 09/16/17 11/26/17 History folic acid 400 mcg PO DAILY 09/16/17 11/26/17 History lisinopril 10 mg PO DAILY 09/16/17 11/26/17 History metformin 1,000 mg PO BID 09/16/17 11/26/17 History multivitamin with minerals 1 tab PO DAILY 09/16/17 11/25/17 History prednisone 10 mg PO AMCC 09/16/17 11/26/17 History Allergies Allergy/AdvReac Type Severity Reaction Status Date / Time infliximab Allergy Unknown Verified 09/15/17 21:40 Review of Systems Review of Systems A 10 POINT SYSTEM REVIEW WITH PATIENT WAS NEGATIVE APART FROM THE SYMPTOMS SHE HAS BEEN EXPERIENCING PREVIOUSLY AND IMPROVING. PATIENT NOTES DECREASING DIFFICULTY IN BREATHING AND LESS RESPIRATORY DISTRESS. LESS WORK OF BREATHING NO CHEST PAIN NO NAUSEA Exam Vital Signs (past 8 hours): - 12/03/17 12:28 12/03/17 12:32 12/03/17 15:09 Temperature 98 F Pulse Rate 80 72 Respiratory Rate 16 Blood Pressure 159/94 H Pulse Oximetry 93 92 95 12/03/17 15:11 12/03/17 16:00 Temperature 98.9 F Pulse Rate 72 73 Respiratory Rate 13 Blood Pressure 151/85 H Pulse Oximetry 95 91 Fraction of Inspired Oxygen 0.45 Oxygen Delivery Method High Flow Nasal Cannula Oxygen Flow Rate 10 Narrative Exam Narrative: GENERAL APPEARANCE A MORBIDLY OBESE YOUNG LADY AWAKE AND ALERT ON THE BIPAP AT THE TIME OF MY EXAM PSYCHIATRIC WELL ORIENTED TO TIME PLACE PERSON MOOD IS PLEASANT AFFECT IS APPROPRIATE RESPIRATORY LIMITED AIRWAY SOUNDS ARE NOTED SOMEWHAT OBSCURED BY THE OBESITY. NO WHEEZING NO CRACKLES NOTED CARDIOVASCULAR REGULAR RATE RHYTHM NO MURMURS ARE NOTED SOMEWHAT DISTANT HEART SOUNDS THOUGH GASTROINTESTINAL OBESITY OBSCURES EXAM BUT ABDOMEN IS NOTED NONTENDER NO BRUITS ARE NOTED NO GUARDING EXTREMITIES ARE WARM NEUROLOGIC NO FOCAL NEUROLOGIC CHANGES CRANIAL NERVES 2-12 GROSSLY INTACT Objective Labs Result Diagrams: 12/03/17 05:25 12/03/17 05:25 Labs: Laboratory Results - last 24 hr 12/03/17 12/03/17 12/03/17 00:01 05:25 05:25 WBC 9.5 RBC 3.93 L Hgb 10.5 L Hct 33.0 L MCV 83.8 MCH 26.7 MCHC 31.8 RDW 15.5 H Plt Count 348 Neut % (Auto) 87.9 H Lymph % (Auto) 7.8 L [place] % (Auto) 3.5 Eos % (Auto) 0.0 L Baso % (Auto) 0.8 Neut # (Auto) 8300 H ABG pH ABG pCO2 ABG pO2 ABG HCO3 ABG Total CO2 ABG O2 Saturation ABG Base Excess FiO2 Sodium 139 Potassium 3.7 Chloride 80 L Carbon Dioxide 51 H* BUN 24 H Creatinine 0.70 Estimated GFR > 60.0 BUN/Creatinine Ratio 34.3 H Glucose 370 H D Hemoglobin A1c 8.3 H Calcium 8.8 Total Bilirubin 0.4 AST 24 ALT 35 Alkaline Phosphatase 104 Total Protein 6.9 Albumin 3.6 Globulin 3.3 Albumin/Globulin Ratio 1.1 12/03/17 10:20 WBC RBC Hgb Hct MCV MCH MCHC RDW Plt Count Neut % (Auto) Lymph % (Auto) [place] % (Auto) Eos % (Auto) Baso % (Auto) Neut # (Auto) ABG pH 7.49 H ABG pCO2 71.9 H* ABG pO2 67 L ABG HCO3 55 H ABG Total CO2 > 50 H ABG O2 Saturation 93 L ABG Base Excess > 30.0 H FiO2 0.45 Sodium Potassium Chloride Carbon Dioxide BUN Creatinine Estimated GFR BUN/Creatinine Ratio Glucose Hemoglobin A1c Calcium Total Bilirubin AST ALT Alkaline Phosphatase Total Protein Albumin Globulin Albumin/Globulin Ratio Assessment & Plan Plan: Assessment/Plan Narrative: 1. OBESITY HYPOVENTILATION SYNDROME. 2. ANASARCA NOTE 31 LB WEIGHT LOSS WITH FLUID WITH A NET FLUID LOSS OF 11 L OVER THE LAST 2-3 DAYS. 3. CO2 RETENTION WITH HYPERCAPNIA THAT THIS JUNCTURE WOULD BE PRUDENT OFFER THE PATIENT NONINVASIVE POSITIVE PRESSURE VENTILATION WHENEVER SHE SLEEPING. TRILOGY FOR HOME USE WOULD BE APPROPRIATE. 4. MORBID OBESITY DIETITIAN CONSULT 5. REACTIVE AIRWAY DISEASE CAUTIOUS USE OF STEROIDS NEEDED 6. OXYGEN DEPENDENT 7. CONTRACTION ALKALOSIS NOTE THE INCREASING SERUM BICARB REFLECTS THIS ALONG WITH ALKALOTIC PH ON ABG. IV LASIX AND METOLAZONE TO BE STOPPED TODAY Time Spent With Patient Time with patient: Greater than 35 minutes (55 MIN)
[2017-12-04] VITALS (16 sets, daily range): BP systolic 143–178; BP diastolic 76–90; PULSE 61–85; RESP 12–23; TEMP 35.7–36.3; O2SAT 92–100
[2017-12-04] MEDS: methylPREDNISolone 125 MG/2 ML VIAL 60 MG IV ×2 (00:17→07:54)
[2017-12-04] MEDS: PIPERACILLIN-TAZO 4.5 GM/100 ML FROZ.PIGGY IV ×3 (05:00→20:20)
[2017-12-04 06:09] LABS: Add Manual Diff / Slide Review NO; Alanine Aminotransferase 40 IU/L (9-52); Albumin 3.6 g/dL (3.5-5.0); Albumin Globulin Ratio 1.1 (1.0-2.8); Alkaline Phosphatase 97 U/L (38-126); Aspartate Aminotransferase 24 IU/L (14-36); BUN Creatinine Ratio 45.7 (6-22); Basophils Percent Auto 0.1 % (0-2); Bilirubin Total 0.5 mg/dL (0.2-1.3); Blood Urea Nitrogen 32 mg/dL (7-17); Calcium 8.8 mg/dL (8.4-10.2); Estimated Glomerular Filt Rate > 60.0 mL/min (>60); Globulin 3.3 g/dL (1.7-4.1); Glucose 397 mg/dL (70-100); HEMOLYSIS < 15 (0-50); Hematocrit 34.2 % (36-46); Hemoglobin 10.9 g/dL (12.0-16.0); Lymphocytes Percent Auto 8.2 % (25-40); Mean Corpuscular HGB Conc 31.7 % (30-36); Mean Corpuscular Hemoglobin 26.8 PG (26-34); Mean Corpuscular Volume 84.3 fL (80-100); Monocytes Percent Auto 4.1 % (3-14); Neutrophils Absolute Auto 7500 /uL (3000-5900); Neutrophils Percent Auto 87.6 % (50-75); Platelet Count 360 X10^3/uL (150-400); Potassium 3.4 mmol/L (3.4-5.1); Red Blood Cell Count 4.06 X10^6/uL (4.0-5.2); Red Cell Distribution Width 15.4 % (11.6-14.8); Sodium 136 mmol/L (137-145); Total Protein 6.9 g/dL (6.3-8.2); White Blood Cell Count 8.6 X10^3/uL (4.5-11.0)
[2017-12-04] MEDS: ALBUTEROL 2.5 MG/3 ML NEB (ADULT) INH ×5 (06:12→23:03)
[2017-12-04 06:26] LABS: Carbon Dioxide 52 mmol/L (22-32)
[2017-12-04 06:27] LABS: Chloride 76 mmol/L (98-107)
[2017-12-04] MEDS: INSULIN ASPART 100 UNIT/ML INSULN PEN SUBCUT ×3 (07:54→21:11)
[2017-12-04] MEDS: SODIUM CHLORIDE 0.9% FLUSH 10 ML IV ×2 (07:54→20:20)
[2017-12-04] MEDS: AMLODIPINE 5 MG TABLET 10 MG PO (08:39)
[2017-12-04] MEDS: METFORMIN HCL 500 MG TABLET 1000 MG PO ×2 (08:39→20:21)
[2017-12-04] MEDS: NYSTATIN CREAM 30 GM 1 APPLIC TOP ×3 (08:39→20:20)
[2017-12-04] MEDS: METOPROLOL 50 MG TABLET 100 MG PO ×2 (08:39→20:21)
[2017-12-04] MEDS: LISINOPRIL 10 MG TABLET PO (08:39)
[2017-12-04] MEDS: ENOXAPARIN 30 MG/0.3 ML SYRINGE SUBCUT ×2 (08:39→20:20)
[2017-12-04] MEDS: FOLIC ACID 0.4 MG TABLET PO (08:40)
[2017-12-04] MEDS: INSULIN DETEMIR 100 UNIT/ML INSULN.PEN 8 UNIT SUBCUT (08:40)
[2017-12-04] MEDS: MULTIVIT,CALC,MINS/IRON/FOLIC 1 TABLET 1 TAB PO (08:40)
--- NOTE | 2017-12-04 11:55 | PT.IPTN ---
Current Diagnoses Pneumonia, unspecified organism (11/25/17) Physical Therapy Treatment Note M2 PT-IP Current Condition Start: 11/26/17 16:18 Freq: NEEDED Status: Active Protocol: Document 11/27/17 15:03 MDD (Rec: 11/27/17 16:43 MDD [id number]) Physical Therapy Current Condition Current Condition Evaluation Date 11/27/17 Treatment Diagnosis SOB Onset Date 11/26/17 Precautions Other Precautions O2 sat Pt on 6 L/min at rest, increased to 8 L/min with activity today (desatted to 86 %). M3 PT-IP Subjective Start: 11/26/17 16:18 Freq: NEEDED Status: Active Protocol: Document 12/04/17 11:55 MDD (Rec: 12/04/17 11:55 MDD [id number]) Subjective Physical Therapy Visit Type Type Patient Refusal Notes Attempted to see pt x2 this am for PT evaluation. Upon first attempt, pt refused, stating she had just returned to bed. On second attempt, pt recieving bed bath and unavailable.
--- NOTE | 2017-12-04 12:34 | CM.DPC ---
Discharge Planning/Care Management Document 12/04/17 12:30 (Rec: 12/04/17 12:33 [id number]) Discharge Planning Assessment Assigned Coordinate Measuring Machine Technician RODOLFO Carr DPOA/Assigned Designee Name meron Welsh Contact Information [phone] or [phone] Advance Directives? Yes History Provided By Patient Parents Medical Record Comment Last admit; August 2017 Prior Living Arrangements Apartment/Condo Household Members family children Comment Lives w/mom Tori (who is real time operator caregiver) and 21 yo son Fara Type of transporation used prior to Relies on Others admit Comment H/o Medicaid transport, bariatric w/c Independent with ADL's No: 5'7 425 pounds Is patient alert and oriented? Yes Needs Assistance With Bathing Grooming Meal Prep Toileting Managing Medications Home Chores / Shopping Community Services used prior to Home Health Nurse admission: Comment Bariatric DME Name of Agency [facility] Clinicals Faxed No Comment [facility] [place] Patient/Family Preference Home with Home Health Comment [facility] Barriers to Discharge Yes Comment Pt is compromised medically and is very large making self care difficult. Pt hopes to return home, family in agreement. Discharge Plan Home with Home Health Community Services Oxygen Therapy Home Health Nurse Transportation Arrangement Medicaid transport with bariatric wheel chair transportation. Additional Comment Resume [facility] PT /OT/RN If patient plan is home with home health No : Has signed face to face form been completed? Inpatient Status as of 11/25/17 SNF[facility]HH [facility] Whiteboard Updated in Patient Room with Yes name and ext. # of Coordinate Measuring Machine Technician Review Status In Process Please Provide Date Initial DC 11/26/17 Assessment Was Performed Next Review Type Continued Stay Review Reviewed EMR: Patient remains in ICU on a high flow nasal cannula on 10lpm with a 96% sat with no resp distress. RT is setting up Tr[facility] for home. Patient continues to not work with PT. Met with patient and mom: remain agreeable to discharge home with [facility] of [facility] and [facility]. Patient stated she was not compliant the last time she had trilogy due to anxieties associated with the face mask. Patient is willing to try again. Mom would like to ensure at time of discharge a bariatric wheelchair and transportation options are secured with Medicaid. Mom stated at last discharge the transportation was secured with someone driving a prius which was an uncomfortable fit for patient. Patient states a wheelchair van is the only comfortable option. Plan: Patient to discharge home when medically stable with supportive caregiver/mom, [facility] CM, trilogy and medicaid to provide transportation. CM to secure transportation at time of discharge.
--- NOTE | 2017-12-04 12:36 | PC.NURSE ---
pt OOB to bedside to eat breakfast. up to BSC and then to chair. Steady on feet, using walker. mild REYES, sat decrease to 86% but recovers quickly. Bibasilar crackles.
[2017-12-04] MEDS: HYDROCODONE/ACET 5/325 TABLET 2 TAB PO (13:01)
[2017-12-04] MEDS: INSULIN ASPART 100 UNIT/ML INSULN PEN 10 UNIT SUBCUT (13:03)
--- NOTE | 2017-12-04 13:03 | P.PN_ITS ---
Subjective Date Patient Seen: 12/04/17 Time Patient Seen: 12:54 Interval history: Patient significantly improved today. No longer on BiPAP mask with pressure and sats are tolerating it. Patient speaking comfortably incomplete sense is not having to struggle for shortness of breath or to maintain her saturations. She is sitting up and starting to get strength back today as well. Has some appetite and is looking much more like her old self. Had a bath today and vitals and saturations continued to do well. Of note her sugar on BG is up in the high 300s. I think this is definitely due to her IV steroids will cut those back. Also will increase insulin for a.c. short-acting before meals. Monitor sugar closely again when we wean and DC her steroids I think will be able to back off of this and get on her usual regimen denies chest pain not feeling very short of breath definite improvement in terms of edema. Exam Vital Signs (past 8 hours): - 12/04/17 05:45 12/04/17 07:58 12/04/17 10:46 Temperature 97.0 F L Pulse Rate 63 Respiratory Rate 19 20 Blood Pressure 149/83 H 178/90 H Pulse Oximetry 92 97 Fraction of Inspired Oxygen 0.45 Oxygen Delivery Method Nasal Cannula Oxygen Flow Rate 10 Narrative Exam Narrative: Patient much more alert answering questions much more comfortably PERRLA EOMs intact Neck without mass next Lungs significantly improved. Decreased sounds at bases but much clearer above Cardiovascular exam shows regular rate rhythm without murmur definite decrease in edema Abdomen obese but no hepatosplenomegaly or tenderness Back without any significant lesions or signs of inflammation nontender to palpation Skin with scarring but no acute inflammatory changes Neuro intact symmetrical cranial nerves intact as sensory motor intact and symmetrical speech clear Extremities decreased edema but edema but still some Mostly seems much better and much better mood. Objective Labs Result Diagrams: 12/04/17 04:45 12/04/17 04:45 Labs: Laboratory Results - last 24 hr 12/04/17 12/04/17 04:45 04:45 WBC 8.6 RBC 4.06 Hgb 10.9 L Hct 34.2 L MCV 84.3 MCH 26.8 MCHC 31.7 RDW 15.4 H Plt Count 360 Neut % (Auto) 87.6 H Lymph % (Auto) 8.2 L [place] % (Auto) 4.1 Eos % (Auto) 0.0 L Baso % (Auto) 0.1 Neut # (Auto) 7500 H Sodium 136 L Potassium 3.4 Chloride 76 L* Carbon Dioxide 52 H* BUN 32 H Creatinine 0.70 Estimated GFR > 60.0 BUN/Creatinine Ratio 45.7 H Glucose 397 H Calcium 8.8 Total Bilirubin 0.5 AST 24 ALT 40 Alkaline Phosphatase 97 Total Protein 6.9 Albumin 3.6 Globulin 3.3 Albumin/Globulin Ratio 1.1 Assessment & Plan Plan: Assessment/Plan Narrative: Assessment 1. Fluid overload with significant risk Hooks distress resolving with aggressive diuresis. Will continue oxygen supplementation supplementation and titrate to her needs. Continue diuretics at this point. Continue blood pressure meds for infected for that that might affect as well. Assessment 2. Diabetes with the increase in her steroids to high-dose IV she has had a definite boost in her blood sugars. Will decrease her steroid level today continue to taper that. Will also increase her insulin to try to give her pre meal insulin which I thought was happening. Assessment 3. Hypertension will keep patient on her blood pressure medications at this point I think pressure improving as we diurese fluid off. 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 Assessment 5. Acute infectious trigger for this I believe that this was probably a component in her initial presentation seems better now at this point had elevated white count and fevers prior to admission. Will continue current antibiotics Assessment 6. Obesity patient has lost a fair bit of weight by fluid but still weighs in the neighborhood of 400 lb and I think this is real restrictive component on her ventilation and certainly affect her blood sugar and blood pressure.
--- NOTE | 2017-12-04 15:02 | PT.IIE ---
Current Diagnoses Pneumonia, unspecified organism (11/25/17) Medical History (Last Reviewed 11/25/17 @ 19:17 by Jaquelin Armijo DO) Anxiety (Acute) Asthma (Acute) CHF (congestive heart failure) (Acute) COPD (chronic obstructive pulmonary disease) (Acute) Diabetes mellitus type 2 in obese (Acute) Morbid obesity (Acute) Pericardial effusion (Acute) Pleural effusion (Acute) Reactive airway disease (Acute) Recurrent pneumonia (Acute) Requires continuous at home supplemental oxygen (Acute) Physical Therapy Inpatient Evaluation/Re-Eval M1 PT/OT-IP Prior Functional Status Start: 11/26/17 16:18 Freq: NEEDED Status: Active Protocol: Document 12/04/17 15:02 MDD (Rec: 12/04/17 16:34 MDD [id number]) Medical Review Prior Functional Status Medical History Reviewed Yes Communication normal Mobility and Gait Independent for short distances in the home with FWW . Activities of Daily Living and IADL's Needs assist for LE dressing, showering, toileting Social History Household Members family children Living Arrangements Apartment/Condo Number of Floors (Floors) Two Floors Number of Stairs To Enter/Railing? Pt lives on main floor, does not need to do any stairs. Home Environment Standard Height Toilet Walk in Shower Home Equipment Front Wheel Walker Four Wheel Walker Employment Status Unemployed Additional Social History Comment Pt lives with her mother, Tori and her 21 year old son , Fara. M2 PT-IP Current Condition Start: 11/26/17 16:18 Freq: NEEDED Status: Active Protocol: Document 12/04/17 15:02 MDD (Rec: 12/04/17 16:34 MDD [id number]) Physical Therapy Current Condition Current Condition Evaluation Date 12/04/17 Treatment Diagnosis SOB Onset Date 11/26/17 Precautions Other Precautions O2 sat: Pt on 10 L/min at rest 99%, with activity dropped to 83% and took >1 minute to increase above 88%. M3 PT-IP Subjective Start: 11/26/17 16:18 Freq: NEEDED Status: Active Protocol: Document 12/04/17 15:02 MDD (Rec: 12/04/17 16:34 MDD [id number]) Subjective Physical Therapy Visit Type Type Initial Evaluation Visit Start Time 14:31 Visit Stop Time 15:02 Total Visit Minutes 31 Number of DEEP SUBMERGENCE VEHICLE OPERATOR Visits 0 Physical Therapy Visit Comments Patient Comments Pt is motivated to participate with PT before returning to bed from her recliner. Therapy Pain Assessment Pain When Pain Assessed At Rest Location Sacrum Intensity 6 Scale Used Numeric (1 - 10) Description Aching Dull Pain Behaviors Restlessness M4 PT-IP Mobility and Gait Start: 11/26/17 16:18 Freq: NEEDED Status: Active Protocol: Document 12/04/17 15:02 MDD (Rec: 12/04/17 16:34 [facility] [id number]) PT-Bed Mobility Assessment Sit to Supine Sit to Supine Minimal Assistance Scooting Scooting to Edge of Bed Independent Scooting Up and Down in Bed Independent PT-Transfer Assessment Sit to and From Stand Sit to and from Stand Standby Assistance Equipment Transfer Assistive Device Front Wheeled Walker Transfers Transfer Destination Bed Transfer Technique after ambulation Transfer Ability Level of Assist Standby Assistance Gait Assessment Gait Gait Assistance Required: Standby Assistance Distance (Feet) (feet) 6 Assistive Devices Assistive Device Front Wheeled Walker Gait Deviations General Gait Pattern Flexed Trunk Wide Based Gait Factors Limiting Gait Function Factors Limiting Gait Function Decreased Strength Respiratory Distress Comments Gait Comments Pt with very flexed trunk with gait. She became lightheaded and O2 sats dropped to 83%, so returned to sitting EOB. PT-Balance Assessment Sitting Balance and Reactions Static Sitting Balance Ability Normal Dynamic Sitting Balance Ability Normal Standing Balance and Reactions Static Standing Balance Ability Good Dynamic Standing Balance Ability Fair Balance Tests Romberg 15 seconds feet apart Functional Assessments Functional Tests 30 Seconds Sit to Stand Test 5 times M5 PT-IP Objective Assessments Start: 11/26/17 16:18 Freq: NEEDED Status: Active Protocol: Document 12/04/17 15:02 MDD (Rec: 12/04/17 16:34 [facility] [id number]) Orientation Orientation/Cognition Level of Alertness Confusional State Orientation Name Age Birthday Month Date Year Day of Week Place Situation Language Function Ability No Deficits Noted Safety Awareness Understands Safety Issues Memory Description No Deficits Noted Gross Range of Motion Lower Extremity ROM Assessment Within Functional Limits Impairments LE ROM limited B due to body habitus. B knee and hip flexion limited. Strength Lower Extremity Strength Assessment Within Functional Limits Sensation Assessment Sensation Gross Sensation WNL M6 PT-IP Treatment Start: 11/26/17 16:18 Freq: NEEDED Status: Active Protocol: Document 12/04/17 15:02 MDD (Rec: 12/04/17 16:34 [facility] [id number]) Physical Therapy Treatment Education Education Provided Precautions Safety Other Treatments Other Treatment Performed Performed standing marching in place with UE support and standing heel raises x 10 reps each. O2 sats remained between 87-91% if taking seated rest breaks between each exercise. M7 PT-IP Assessment and Plan Start: 11/26/17 16:18 Freq: NEEDED Status: Active Protocol: Document 12/04/17 15:02 MDD (Rec: 12/04/17 16:34 [facility] [id number]) PT Summary Assessment and Plan Potential Rehabilitation Potential Fair Status of Condition at Evaluation Evolving Summary Impairments ROM Transfers Gait Activity Tolerance Progress Towards Goals Progressing Toward Goals Assessment Summary Pt continues to have O2 drop with activity. Pt requires Min A of LE into bed but is SBA for sit-stand and gait. Goals Bed Mobility Goal Independent Transfer Goal Independent Gait Goal Independent Front Wheel Walker Gait Distance 30 Other Goals Pt to tolerate static standing for up to 3 minutes maintaining oxygen saturation above 88%. Days to Meet Goals 3 Frequency of Treatment Frequency Of Treatment Once a Day Treatment Plan Physical Therapy Treatment Plan Bed Mobility Training Therapeutic Exercise Balance Retraining Other Recommendations and Next Treatment Focus on endurance with Focus functional activities. trial intervals of standing exercises. Recommendations To Nursing Amount of Assist Needed Standby Assistance Discharge Recommendations PT Discharge Recommendations Home with Assistance Home with 20/10 Assist Home Health
--- NOTE | 2017-12-04 15:56 | PM.PN.1 ---
Subjective Interval history: Patient states that she is feeling fine this morning. She denies problems with shortness of breath chest pain nausea vomiting abdominal pain. Exam Vital Signs (past 8 hours): - 12/04/17 07:58 12/04/17 10:46 12/04/17 13:24 Temperature 97.0 F L 97.1 F L Pulse Rate 63 68 Respiratory Rate 19 20 18 Blood Pressure 178/90 H 143/76 H Pulse Oximetry 92 97 100 12/04/17 13:47 12/04/17 15:37 Temperature Pulse Rate 79 Respiratory Rate 14 Blood Pressure Pulse Oximetry 97 99 Fraction of Inspired Oxygen 0.45 Oxygen Delivery Method High Flow Nasal Cannula Oxygen Flow Rate 10 Narrative Exam Narrative: General obese NAD HEENT normocephalic atraumatic extraocular movements intact fundi not viewed sclera nonicteric oropharynx clear Neck is supple without thyromegaly bruits or jugular venous distension Respiratory clear to auscultation Cardiovascular regular rhythm S1-S2 were somewhat decreased there was no lifts heaves rubs murmurs present Abdomen obese benign bowel sounds present Extremities left lower extremity with lymphedema in some nodularity present Neurologic grossly physiologic Psychiatric mood and affect were normal Objective Labs Result Diagrams: 12/04/17 04:45 12/04/17 04:45 Labs: Laboratory Results - last 24 hr 12/04/17 12/04/17 04:45 04:45 WBC 8.6 RBC 4.06 Hgb 10.9 L Hct 34.2 L MCV 84.3 MCH 26.8 MCHC 31.7 RDW 15.4 H Plt Count 360 Neut % (Auto) 87.6 H Lymph % (Auto) 8.2 L [place] % (Auto) 4.1 Eos % (Auto) 0.0 L Baso % (Auto) 0.1 Neut # (Auto) 7500 H Sodium 136 L Potassium 3.4 Chloride 76 L* Carbon Dioxide 52 H* BUN 32 H Creatinine 0.70 Estimated GFR > 60.0 BUN/Creatinine Ratio 45.7 H Glucose 397 H Calcium 8.8 Total Bilirubin 0.5 AST 24 ALT 40 Alkaline Phosphatase 97 Total Protein 6.9 Albumin 3.6 Globulin 3.3 Albumin/Globulin Ratio 1.1 Assessment & Plan Plan: Assessment/Plan Narrative: 1. OBESITY HYPOVENTILATION SYNDROME/OBSTRUCTIVE SLEEP APNEA. SHE WILL BE FITTED FOR TRILOGY FOR DISCHARGE PRESENTLY SHE IS ON BIPAP AND TOLERATING 2. ACUTE ON CHRONIC COMBINED HYPERCAPNIC AND HYPOXIC RESPIRATORY FAILURE WITH USE OF BIPAP THIS HAS IMPROVED. HER PH ON 12/01/2017 WAS 7.25 WITH A PCO2 OF 90.1 TO PH IS 7.49 AND A PCO2 OF 71.9 3. ANASARCA HER WEIGHT ON 11/07/17 WAS 204KG AND TODAY IT IS 197 KG. HER IV LASIX WAS DISCONTINUED BECAUSE OF HER DEVELOPING CONTRACTION ALKALOSIS WILL CONTINUE TO MONITOR HER WEIGHT AND HER BLOOD GASES 3. DIABETES MELLITUS TYPE 2 SHE HAS POOR GLUCOSE CONTROL BECAUSE OF THE IV STEROIDS FOR UNDERLYING LUNG DISEASE. SHE IS ON SOLU-MEDROL 60 MG IV Q.12 HOURS. SHE HAS HAD IMPROVEMENT WILL DISCONTINUE THE SOLU-MEDROL AND PLACE HER ON PREDNISONE 60 MG DAILY. HOPEFULLY THERE SHOULD BE SOME IMPROVEMENT IN HER GLYCEMIC CONTROL ADDITIONALLY WILL INCREASE HER LEVEMIR FROM 12 UNITS SUBCU B.I.D. TO 25 UNITS SUBCU B.I.D. AND ALSO CHANGE HER CORRECTION DOSE INSULIN TO HIGH INTENSITY SCALE 4. MORBID OBESITY DIETITIAN CONSULT 5. REACTIVE AIRWAY DISEASE SEE DISCUSSION REGARDING CHANGING SOLU-MEDROL TO PREDNISONE ABOVE 6. OXYGEN DEPENDENT 7. CONTRACTION ALKALOSIS NOTE HAS PREVIOUSLY BEEN MADE OF INCREASING SERUM BICARB REFLECTS THIS ALONG WITH ALKALOTIC PH ON ABG. IV LASIX AND METOLAZONE WAS STOPPED 12/03/2017
[2017-12-04] MEDS: ONDANSETRON 4 MG/2 ML INJ IV (16:37)
[2017-12-04] MEDS: INSULIN DETEMIR 100 UNIT/ML INSULN.PEN 25 UNIT SUBCUT (21:11)
[2017-12-05] VITALS (17 sets, daily range): BP systolic 145–167; BP diastolic 83–95; PULSE 61–84; RESP 12–22; TEMP 36.1–37; O2SAT 65–99
[2017-12-05] MEDS: PIPERACILLIN-TAZO 4.5 GM/100 ML FROZ.PIGGY IV ×3 (04:51→20:39)
[2017-12-05] MEDS: SODIUM CHLORIDE 0.9% FLUSH 10 ML IV ×2 (04:52→09:15)
[2017-12-05 05:33] LABS: Add Manual Diff / Slide Review NO; Basophils Percent Auto 0.1 % (0-2); Eosinophils Percent Auto 0.5 % (2-4); Hematocrit 34.8 % (36-46); Hemoglobin 11.2 g/dL (12.0-16.0); Lymphocytes Percent Auto 21.3 % (25-40); Mean Corpuscular HGB Conc 32.3 % (30-36); Mean Corpuscular Hemoglobin 26.8 PG (26-34); Mean Corpuscular Volume 83.2 fL (80-100); Monocytes Percent Auto 7.6 % (3-14); Neutrophils Absolute Auto 7600 /uL (3000-5900); Neutrophils Percent Auto 70.5 % (50-75); Platelet Count 381 X10^3/uL (150-400); Red Blood Cell Count 4.18 X10^6/uL (4.0-5.2); Red Cell Distribution Width 15.7 % (11.6-14.8); White Blood Cell Count 10.8 X10^3/uL (4.5-11.0)
[2017-12-05 05:36] LABS: Alanine Aminotransferase 37 IU/L (9-52); Albumin 3.7 g/dL (3.5-5.0); Albumin Globulin Ratio 1.2 (1.0-2.8); Alkaline Phosphatase 87 U/L (38-126); Aspartate Aminotransferase 22 IU/L (14-36); BUN Creatinine Ratio 42.5 (6-22); Bilirubin Total 0.4 mg/dL (0.2-1.3); Blood Urea Nitrogen 34 mg/dL (7-17); Chloride 78 mmol/L (98-107); Estimated Glomerular Filt Rate > 60.0 mL/min (>60); Globulin 3.1 g/dL (1.7-4.1); Glucose 199 mg/dL (70-100); HEMOLYSIS < 15 (0-50); Potassium 2.9 mmol/L (3.4-5.1); Sodium 138 mmol/L (137-145); Total Protein 6.8 g/dL (6.3-8.2)
[2017-12-05 05:44] LABS: Carbon Dioxide 52 mmol/L (22-32)
[2017-12-05] MEDS: ALBUTEROL 2.5 MG/3 ML NEB (ADULT) INH ×2 (07:20→10:29)
[2017-12-05] MEDS: INSULIN ASPART 100 UNIT/ML INSULN PEN SUBCUT ×4 (08:01→20:40)
[2017-12-05] MEDS: ONDANSETRON 4 MG/2 ML INJ IV (08:05)
[2017-12-05 08:55] LABS: HCO3 ABG 55 mmol/L (23-27); Oxygen Saturation ABG 92 % (95-100); PCO2 ABG 73.1 mmHg (35-45); PO2 ABG 62 mmHg (80-105); pH ABG 7.48 (7.35-7.45)
[2017-12-05 09:02] LABS: Fractionated Inspired Oxygen 60
[2017-12-05] MEDS: POTASSIUM CHLORIDE 20 MEQ TAB 40 MEQ PO ×4 (09:06→20:42)
[2017-12-05] MEDS: ENOXAPARIN 30 MG/0.3 ML SYRINGE SUBCUT ×2 (09:07→20:34)
[2017-12-05] MEDS: MULTIVIT,CALC,MINS/IRON/FOLIC 1 TABLET 1 TAB PO (09:07)
[2017-12-05] MEDS: METOPROLOL 50 MG TABLET 100 MG PO ×2 (09:07→20:37)
[2017-12-05] MEDS: LISINOPRIL 10 MG TABLET PO (09:08)
[2017-12-05] MEDS: INSULIN DETEMIR 100 UNIT/ML INSULN.PEN 25 UNIT SUBCUT ×2 (09:09→20:41)
[2017-12-05] MEDS: FOLIC ACID 0.4 MG TABLET PO (09:09)
[2017-12-05] MEDS: AMLODIPINE 5 MG TABLET 10 MG PO (09:09)
[2017-12-05] MEDS: METFORMIN HCL 500 MG TABLET 1000 MG PO ×2 (09:09→20:37)
[2017-12-05] MEDS: NYSTATIN CREAM 30 GM 1 APPLIC TOP ×3 (09:16→20:37)
--- NOTE | 2017-12-05 09:45 | PT.IPTN ---
Current Diagnoses Pneumonia, unspecified organism (11/25/17) Physical Therapy Treatment Note M2 PT-IP Current Condition Start: 11/26/17 16:18 Freq: NEEDED Status: Active Protocol: Document 12/04/17 15:02 MDD (Rec: 12/04/17 16:34 [facility] [id number]) Physical Therapy Current Condition Current Condition Evaluation Date 12/04/17 Treatment Diagnosis SOB Onset Date 11/26/17 Precautions Other Precautions O2 sat: Pt on 10 L/min at rest 99%, with activity dropped to 83% and took >1 minute to increase above 88%. M3 PT-IP Subjective Start: 11/26/17 16:18 Freq: NEEDED Status: Active Protocol: Document 12/05/17 09:55 MDD (Rec: 12/05/17 10:53 [facility] [id number]) Subjective Physical Therapy Visit Type Type Treatment Note Visit Start Time 09:41 Visit Stop Time 09:55 Total Visit Minutes 14 Notes Pt refused first attempt at PT at 8:50 am stating she was too nauseous and wasn't going to move. Agreeable at 09:55 as she needed to use the commode. Number of NUTRITION SERVICES AIDE Visits 0 Physical Therapy Visit Comments Patient Comments Pt reports she is feeling a bit better and would like to get up. Therapy Pain Assessment Pain Present Pain Present Denied Pain M4 PT-IP Mobility and Gait Start: 11/26/17 16:18 Freq: NEEDED Status: Active Protocol: Document 12/05/17 09:55 MDD (Rec: 12/05/17 10:53 [facility] [id number]) PT-Bed Mobility Assessment Supine to Sit Supine to Sit Independent Scooting Scooting to Edge of Bed Independent PT-Transfer Assessment Sit to and From Stand Sit to and from Stand Standby Assistance Equipment Transfer Assistive Device Front Wheeled Walker Transfers Transfer Destination Bedside Commode Transfer Technique Stand Step Pivot Transfer Ability Level of Assist Standby Assistance Comments Mobility Comments Pt on 10L/min supplemental oxygen. O2 sats 94% at rest. Decreased to 79% with transfer today, took 3+ minute to return to above 88%. M5 PT-IP Objective Assessments Start: 11/26/17 16:18 Freq: NEEDED Status: Active Protocol: Document 12/04/17 15:02 MDD (Rec: 12/04/17 16:34 [facility] [id number]) Orientation Orientation/Cognition Level of Alertness Confusional State Orientation Name Age Birthday Month Date Year Day of Week Place Situation Language Function Ability No Deficits Noted Safety Awareness Understands Safety Issues Memory Description No Deficits Noted Gross Range of Motion Lower Extremity ROM Assessment Within Functional Limits Impairments LE ROM limited B due to body habitus. B knee and hip flexion limited. Strength Lower Extremity Strength Assessment Within Functional Limits Sensation Assessment Sensation Gross Sensation WNL M6 PT-IP Treatment Start: 11/26/17 16:18 Freq: NEEDED Status: Active Protocol: Document 12/05/17 09:55 MDD (Rec: 12/05/17 10:53 [facility] [id number]) Physical Therapy Treatment Education Education Provided Safety M7 PT-IP Assessment and Plan Start: 11/26/17 16:18 Freq: NEEDED Status: Active Protocol: Document 12/05/17 09:55 MDD (Rec: 12/05/17 10:53 [facility] [id number]) PT Summary Assessment and Plan Potential Rehabilitation Potential Good Status of Condition at Evaluation Evolving Summary Impairments Activity Tolerance Progress Towards Goals Progressing Toward Goals Slow Progress due to Medical Issues Assessment Summary Pt appears to be close to her functional baseline with mobility but would benefit from continued inpatient PT focused on increasing her endurance with therex and standing balance training. Goals Bed Mobility Goal Independent Transfer Goal Independent Gait Goal Independent Front Wheel Walker Gait Distance 30 Other Goals Pt to tolerate static standing for up to 3 minutes maintaining oxygen saturation above 88%. Days to Meet Goals 3 Frequency of Treatment Frequency Of Treatment Once a Day Treatment Plan Physical Therapy Treatment Plan Bed Mobility Training Therapeutic Exercise Balance Retraining Other Recommendations and Next Treatment Focus on endurance with Focus functional activities. trial intervals of standing exercises. Recommendations To Nursing Amount of Assist Needed Standby Assistance Discharge Recommendations PT Discharge Recommendations Home with Assistance Home with 20/10 Assist Home Health
--- NOTE | 2017-12-05 10:40 | RT ---
When evaluating Ms. Hatch she was asked if she had any pulmonary hx, she stated that she did but it was smoking a pack a day for 10yrs. She states she had never had a PFT done before. She also states that she never had treatments at home only when she had pneumonia.
[2017-12-05] MEDS: predniSONE 20 MG TABLET 60 MG PO (11:40)
--- NOTE | 2017-12-05 11:45 | PM.PN.1 ---
Subjective Date Patient Seen: 12/05/17 Time Patient Seen: 11:46 Interval history: Feeling some better. Says breathing is pretty comfortable, no particular pain, appetite is okay. Apparently little nausea this morning but otherwise well. Noting some more gas. For this does note that at home they have been modifying her diet some trying to eat more healthy. Reviewing status including labs still some marked abnormalities. Reviewed with patient and discussed goals and potential for discharge. Exam Vital Signs (past 8 hours): - 12/05/17 04:00 12/05/17 07:30 12/05/17 07:58 Temperature 97.0 F L 98.2 F Pulse Rate 61 65 65 Respiratory Rate 18 16 15 Blood Pressure 156/85 H 145/83 H Pulse Oximetry 96 65 L 91 12/05/17 08:00 12/05/17 10:33 12/05/17 10:51 Temperature Pulse Rate Respiratory Rate Blood Pressure Pulse Oximetry 94 99 94 Fraction of Inspired Oxygen 50 Oxygen Delivery Method High Flow Nasal Cannula Oxygen Flow Rate 4 Narrative Exam Narrative: Morbidly obese sitting up in a chair no obvious distress with nasal cannula in place. HEENT unremarkable chest distant but fairly clear heart regular with low-grade systolic murmur abdomen soft nontender nondistended normal active bowel tones extremities with 1+ edema neurologically nonfocal Objective Labs Result Diagrams: 12/05/17 04:55 12/05/17 04:55 Labs: Laboratory Results - last 24 hr 12/05/17 12/05/17 12/05/17 04:55 04:55 08:39 WBC 10.8 RBC 4.18 Hgb 11.2 L Hct 34.8 L MCV 83.2 MCH 26.8 MCHC 32.3 RDW 15.7 H Plt Count 381 Neut % (Auto) 70.5 Lymph % (Auto) 21.3 L [place] % (Auto) 7.6 Eos % (Auto) 0.5 L Baso % (Auto) 0.1 Neut # (Auto) 7600 H ABG pH 7.48 H ABG pCO2 73.1 H* ABG pO2 62 L ABG HCO3 55 H ABG Total CO2 50 H ABG O2 Saturation 92 L ABG Base Excess 30.0 H FiO2 60 Sodium 138 Potassium 2.9 L Chloride 78 L Carbon Dioxide 52 H* BUN 34 H Creatinine 0.80 Estimated GFR > 60.0 BUN/Creatinine Ratio 42.5 H Glucose 199 H D Calcium 9.0 Total Bilirubin 0.4 AST 22 ALT 37 Alkaline Phosphatase 87 Total Protein 6.8 Albumin 3.7 Globulin 3.1 Albumin/Globulin Ratio 1.2 Assessment & Plan (1) Pneumonia: Problem details: Presenting complaint, showing steady improvement, continue same. Qualifiers: Aspiration pneumonia type: Laterality: unspecified laterality Lung location: unspecified part of lung Pneumonia type: due to unspecified organism Qualified Code(s): J18.9 - Pneumonia, unspecified organism Current visit: Yes Status: Acute (2) Acute and chronic respiratory failure with hypoxia: Current visit: Yes Status: Acute (3) Hypercapnia with mixed acid-base disorder: Problem details: Persistent despite better O2, likely more chronic problem, perhaps a trilogy device will be of some value for this. Current visit: Yes Status: Acute (4) Obesity hypoventilation syndrome: Problem details: This is a diagnosis proposed by trimmer machine certainly could be a primary factor for this and other admissions. Current visit: Yes Status: Acute (5) COPD (chronic obstructive pulmonary disease): Problem details: This is been considered the factor most contributing to her pulmonary issues I believe. Likely related to above item. Current visit: Yes Status: Chronic (6) CHF (congestive heart failure): Problem details: Has been a factor during this admission showed significant improvement with aggressive diuresis recently. Seems more stable at this time. Current visit: Yes Status: Chronic (7) Hypertension: Problem details: Chronic remaining stable. Current visit: Yes Status: Chronic (8) Diabetes mellitus type 2 in obese: Problem details: Kadeem in sugars with recent prednisone use has improved somewhat. Current visit: Yes Status: Chronic (9) Hypokalemia: Problem details: New problem today with the recent diuresis supplement has been provided Current visit: Yes Status: Acute (10) Anemia: Current visit: Yes Status: Acute (11) Dyspepsia: Problem details: Complaining today more gas wonder if this is an underlying issue, not currently on a PPI will correct that problem. Current visit: Yes Status: Chronic (12) Hx: recurrent pneumonia: Problem details: Suspect this is related to her or chronic pulmonary issues as above. 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 Tapering on cortisone, some discussion regarding need for change in more global treatments, will likely need visit with specialist in [place] at some point soon. Current visit: Yes Status: Chronic (14) Anxiety: Problem details: Remains fairly stable on an anti anxiety medication. Current visit: Yes Status: Acute (15) Obesities, morbid: Problem details: Has started some roberta work with diet but this may be contributing to some of her GI issues. Current visit: Yes Status: Chronic
[2017-12-05] MEDS: HYDROCODONE/ACET 5/325 TABLET 2 TAB PO (12:04)
[2017-12-05] MEDS: PANTOPRAZOLE 40 MG TABLET PO ×2 (12:09→20:38)
--- NOTE | 2017-12-05 13:10 | CM.DPC ---
DCP Cont: Per MD, pt making good progress and waiting for completion of Trilogy to be set up prior to pt d/c home. SW called Ariadne at [facility] to confirm that Trilogy was being set up through [facility] RT and left a vm requesting call back with update on status. Plan: SW to follow for return call from [facility] confirming Trilogy set up and timeline for pt d/c home with mother/CG via Medicaid w/c van when medically stable. RODOLFO Hutchinson
--- NOTE | 2017-12-05 14:58 | DI.RAD.S_ITS ---
PROCEDURE: XR CHEST 1V INDICATIONS: low sats TECHNIQUE: One view of the chest was acquired. COMPARISON: [facility], CR, XR CHEST 1V, 12/02/2017, 5:31. FINDINGS: Surgical changes and devices: Left-sided PICC line position is unchanged. The tip does not cross midline. Lungs and pleura: No pleural effusions or pneumothorax. Mild pulmonary vascular congestion is seen. No definite focal infiltrate. Mediastinum: Mediastinal contours appear normal. Heart size is enlarged. Bones and chest wall: No suspicious bony lesions. Overlying soft tissues appear unremarkable. IMPRESSION: Mild congestion and mild pulmonary edema. No definite focal infiltrate no gross pneumothorax. Dictated by: Harrison Danielson M.D. on 12/05/2017 at 15:20 Approved by: Harrison Danielson M.D. on 12/05/2017 at 15:21
--- NOTE | 2017-12-05 20:08 | PM.PN.1 ---
Subjective Interval history: There has been no new issues no new problems in the past 24 hr Exam Vital Signs (past 8 hours): - 12/05/17 12:31 12/05/17 14:53 12/05/17 15:42 Temperature 97.3 F L Pulse Rate 84 Respiratory Rate 20 Blood Pressure 167/89 H Pulse Oximetry 95 89 L 86 L 12/05/17 15:57 Temperature Pulse Rate Respiratory Rate Blood Pressure Pulse Oximetry 88 L Fraction of Inspired Oxygen 50 Oxygen Delivery Method High Flow Nasal Cannula Oxygen Flow Rate 6 Narrative Exam Narrative: Narrative: General obese NAD with BiPAP in place HEENT normocephalic atraumatic extraocular movements intact fundi not viewed sclera nonicteric oropharynx clear Neck is supple without thyromegaly bruits or jugular venous distension Respiratory clear to auscultation Cardiovascular regular rhythm S1-S2 were somewhat decreased there was no lifts heaves rubs murmurs present Abdomen obese benign bowel sounds present Extremities left lower extremity with lymphedema and areas of nodularity present. There is some mild patch of erythema of the lymphedematous area Neurologic grossly physiologic Psychiatric mood and affect were normal Objective Labs Result Diagrams: 12/05/17 04:55 12/05/17 04:55 Labs: Laboratory Results - last 24 hr 12/05/17 12/05/17 12/05/17 04:55 04:55 08:39 WBC 10.8 RBC 4.18 Hgb 11.2 L Hct 34.8 L MCV 83.2 MCH 26.8 MCHC 32.3 RDW 15.7 H Plt Count 381 Neut % (Auto) 70.5 Lymph % (Auto) 21.3 L [place] % (Auto) 7.6 Eos % (Auto) 0.5 L Baso % (Auto) 0.1 Neut # (Auto) 7600 H ABG pH 7.48 H ABG pCO2 73.1 H* ABG pO2 62 L ABG HCO3 55 H ABG Total CO2 50 H ABG O2 Saturation 92 L ABG Base Excess 30.0 H FiO2 60 Sodium 138 Potassium 2.9 L Chloride 78 L Carbon Dioxide 52 H* BUN 34 H Creatinine 0.80 Estimated GFR > 60.0 BUN/Creatinine Ratio 42.5 H Glucose 199 H D Calcium 9.0 Total Bilirubin 0.4 AST 22 ALT 37 Alkaline Phosphatase 87 Total Protein 6.8 Albumin 3.7 Globulin 3.1 Albumin/Globulin Ratio 1.2 Assessment & Plan Plan: Assessment/Plan Narrative: 1. OBESITY HYPOVENTILATION SYNDROME/OBSTRUCTIVE SLEEP APNEA. SHE WILL BE FITTED FOR TRILOGY FOR DISCHARGE PRESENTLY SHE IS ON BIPAP AND TOLERATING 2. ACUTE ON CHRONIC COMBINED HYPERCAPNIC AND HYPOXIC RESPIRATORY FAILURE WITH USE OF BIPAP THIS HAS IMPROVED. Today her arterial blood gases revealed a pH is 7.48 pCO2 73.1 PO2 of 62 bicarb of 55 O2 sat of 92%. 3. ANASARCA HER IV LASIX WAS DISCONTINUED BECAUSE OF HER DEVELOPING CONTRACTION ALKALOSIS. Because of her alkalosis will continue to hold Lasix and instead place her on Diamox 500 mg IV b.i.d. 3. DIABETES MELLITUS TYPE 2 Glucose control was slightly better today with a glucose of 161, 183. Her Solu-Medrol was discontinued yesterday and she has been placed on prednisone. Also she is now on high-intensity correctional dose insulin 4. MORBID OBESITY DIETITIAN CONSULT 5. REACTIVE AIRWAY DISEASE She is on neb treatments and also her prednisone was started this morning and her Solu-Medrol was discontinued yesterday. Reactive airways disease has improved 6. OXYGEN DEPENDENT 7. CONTRACTION ALKALOSIS NOTE HAS PREVIOUSLY BEEN MADE OF INCREASING SERUM BICARB REFLECTS THIS ALONG WITH ALKALOTIC PH ON ABG. IV LASIX AND METOLAZONE WAS STOPPED 12/03/2017. She is now being placed on Diamox which should help with her alkalosis and her lower extremity edema
[2017-12-05] MEDS: acetaZOLAMIDE 250 MG TABLET 500 MG PO (20:42)
[2017-12-06] VITALS (9 sets, daily range): BP systolic 146–159; BP diastolic 75–87; PULSE 63–104; RESP 16–22; TEMP 36.1–37; O2SAT 92–96
[2017-12-06 03:59] LABS: PCO2 ABG 80.3 mmHg (35-45)
[2017-12-06] MEDS: PIPERACILLIN-TAZO 4.5 GM/100 ML FROZ.PIGGY IV (04:52)
[2017-12-06] MEDS: SODIUM CHLORIDE 0.9% FLUSH 10 ML IV (05:00)
[2017-12-06 05:31] LABS: BUN Creatinine Ratio 28.9 (6-22); Blood Urea Nitrogen 26 mg/dL (7-17); Calcium 9.4 mg/dL (8.4-10.2); Chloride 86 mmol/L (98-107); Estimated Glomerular Filt Rate > 60.0 mL/min (>60); Glucose 183 mg/dL (70-100); HEMOLYSIS 23 (0-50); Magnesium 2.1 mg/dL (1.6-2.3); Potassium 3.8 mmol/L (3.4-5.1); Sodium 139 mmol/L (137-145)
[2017-12-06 05:39] LABS: Carbon Dioxide 43 mmol/L (22-32)
[2017-12-06 05:40] LABS: Add Manual Diff / Slide Review NO; Basophils Percent Auto 0.3 % (0-2); Eosinophils Percent Auto 0.5 % (2-4); Hematocrit 37.4 % (36-46); Lymphocytes Percent Auto 15.6 % (25-40); Mean Corpuscular Hemoglobin 26.6 PG (26-34); Monocytes Percent Auto 5.5 % (3-14); Neutrophils Absolute Auto 12100 /uL (3000-5900); Neutrophils Percent Auto 78.1 % (50-75); Platelet Count 424 X10^3/uL (150-400); Red Blood Cell Count 4.51 X10^6/uL (4.0-5.2); Red Cell Distribution Width 15.7 % (11.6-14.8); White Blood Cell Count 15.5 X10^3/uL (4.5-11.0)
--- NOTE | 2017-12-06 07:45 | P.PN_ITS ---
Subjective Interval history: Patient continues to improve. She states that she has no significant problems with shortness of breath at this time. She is on nasal cannula presently and doing well. She continues with BiPAP at night The only problem since seen yesterday is somewhat being gassy with foods other than that no problems Patient is said to be participating with care and ambulation Exam Vital Signs (past 8 hours): - 12/05/17 23:56 12/06/17 00:00 12/06/17 04:56 Temperature 97.0 F L 97.6 F Pulse Rate 64 63 Respiratory Rate 20 18 Blood Pressure 159/87 H 153/81 H Pulse Oximetry 92 93 93 Fraction of Inspired Oxygen 50 Oxygen Delivery Method High Flow Nasal Cannula Oxygen Flow Rate 6 Narrative Exam Narrative: General obese NAD with nasal cannula in place HEENT normocephalic atraumatic extraocular movements intact fundi not viewed sclera nonicteric oropharynx clear Neck is obese supple without thyromegaly bruits or jugular venous distension Respiratory clear to auscultation on anterior exam Cardiovascular regular rhythm S1-S2 were somewhat decreased there was no lifts heaves rubs murmurs present Abdomen obese benign bowel sounds present Extremities left lower extremity with lymphedema and areas of nodularity present. There is some patch of minimal erythema of the lymphedematous area Neurologic grossly physiologic Psychiatric mood and affect were normal Objective Labs Result Diagrams: 12/06/17 05:00 12/06/17 05:00 Labs: Laboratory Results - last 24 hr 12/02/17 12/05/17 12/06/17 04:56 08:39 05:00 WBC RBC Hgb Hct MCV MCH MCHC RDW Plt Count Neut % (Auto) Lymph % (Auto) [place] % (Auto) Eos % (Auto) Baso % (Auto) Neut # (Auto) ABG pH 7.48 H ABG pCO2 80.3 H* 73.1 H* ABG pO2 62 L ABG HCO3 55 H ABG Total CO2 50 H ABG O2 Saturation 92 L ABG Base Excess 30.0 H FiO2 60 Sodium 139 Potassium 3.8 Chloride 86 L Carbon Dioxide 43 H* BUN 26 H Creatinine 0.90 Estimated GFR > 60.0 BUN/Creatinine Ratio 28.9 H Glucose 183 H Calcium 9.4 Magnesium 2.1 12/06/17 05:00 WBC 15.5 H RBC 4.51 Hgb 12.0 Hct 37.4 MCV 83.0 MCH 26.6 MCHC 32.0 RDW 15.7 H Plt Count 424 H Neut % (Auto) 78.1 H Lymph % (Auto) 15.6 L [place] % (Auto) 5.5 Eos % (Auto) 0.5 L Baso % (Auto) 0.3 Neut # (Auto) 68438 H ABG pH ABG pCO2 ABG pO2 ABG HCO3 ABG Total CO2 ABG O2 Saturation ABG Base Excess FiO2 Sodium Potassium Chloride Carbon Dioxide BUN Creatinine Estimated GFR BUN/Creatinine Ratio Glucose Calcium Magnesium Assessment & Plan Plan: Assessment/Plan Narrative: NEW ISSUE 1. LEUKOCYTOSIS PATIENT'S WHITE COUNT HAS BUMPED IN THE LAST 24 HR. YESTERDAY WAS 10.8 AND TODAY IT IS 15.5. I SUSPECT THIS IS RELATED TO MARGINATION FROM HER PREDNISONE WAS STARTED YESTERDAY. PRIOR TO THE PREDNISONE SHE WAS ON SOLU-MEDROL. DOUBT INFECTION THERE IS NO COUGH, NAUSEA VOMITING, DIARRHEA, NEW SKIN RASHES. INFECTED ERYTHEMATOUS AREA FOR LEFT LEG HAS OF SIGNIFICANTLY IMPROVED OUT CELLULITIS OF THAT AREA. THERE IS NO RHINORRHEA, SORE THROAT, MYALGIAS OR ARTHRALGIAS. SHE IS AFEBRILE AND HER T-MAX IN THE PRIOR 24 HR WAS 98.2. DESPITE ALL THE NEGATIVE IS AGAINST INFECTION WILL NONETHELESS BE PRUDENT OBTAIN BLOOD CULTURES X2 URINE CULTURE AND CHEST X-RAY CHECK CBC IN A.M. PRIOR HOSPITAL PROBLEMS 1. OBESITY HYPOVENTILATION SYNDROME/OBSTRUCTIVE SLEEP APNEA. SHE WILL BE FITTED FOR TRILOGY FOR DISCHARGE PRESENTLY SHE IS ON BIPAP AND TOLERATING 2. ACUTE ON CHRONIC COMBINED HYPERCAPNIC AND HYPOXIC RESPIRATORY FAILURE WITH USE OF BIPAP THIS HAS IMPROVED. HOWEVER WITH HER SIGNIFICANT DIURESIS AND DEVELOPMENT OF CONTRACTION ALKALOSIS HER BICARB ON HER ARTERIAL BLOOD GASES THAT HER CO2 ON HER BMP SIGNIFICANTLY INCREASED. HER CO2 YESTERDAY WAS 52 AND HER BICARB WAS 55. HER PH ON HER ARTERIAL BLOOD GASES WAS 7.48. HAS RESOLVED PATIENT HAS BEEN PLACED ON DIAMOX. SHE HAS HAD AN ONGOING REASONABLE URINARY OUTPUT. WILL CONTINUE HER ON DIAMOX 500 MG P.O. T.I.D. AND CHECK ARTERIAL BLOOD GASES IN A.M. WELL BMP 3. ANASARCA HER IV LASIX WAS DISCONTINUED BECAUSE OF HER DEVELOPING CONTRACTION ALKALOSIS. BECAUSE OF HER SIGNIFICANT METABOLIC ALKALOSIS SHE HAS BEEN PLACED ON DIAMOX 500 MG P.O. T.I.D. TO CONTINUE HER DIURESIS 3. DIABETES MELLITUS TYPE 2 GLYCEMIC CONTROL IS STILL POOR. HER A.M. 20 CARE GLUCOSE IS NOT AVAILABLE BUT DEPENDING ON WHAT IT HAS RESOLVED IS WILL READJUST HER INSULIN THERAPY 4. MORBID OBESITY DIETITIAN CONSULT 5. REACTIVE AIRWAY DISEASE ACUTE PHASE HAS RESOLVED. HER IV SOLU-MEDROL HAS BEEN CHANGED TO P.O. PREDNISONE AND WILL BEGIN TAPERING 6. OXYGEN DEPENDENT 7. CONTRACTION ALKALOSIS APPEARS TO NOT BE IMPROVING WITH CHANGED TO DIAMOX. SEE DISCUSSION ABOVE REGARDING SERUM CO2
[2017-12-06] MEDS: PANTOPRAZOLE 40 MG TABLET PO ×2 (08:29→20:58)
[2017-12-06] MEDS: acetaZOLAMIDE 250 MG TABLET 500 MG PO ×3 (08:30→20:57)
[2017-12-06] MEDS: ENOXAPARIN 30 MG/0.3 ML SYRINGE SUBCUT ×2 (08:30→20:57)
[2017-12-06] MEDS: AMLODIPINE 5 MG TABLET 10 MG PO (08:30)
[2017-12-06] MEDS: LISINOPRIL 10 MG TABLET PO (08:31)
[2017-12-06] MEDS: FOLIC ACID 0.4 MG TABLET PO (08:31)
[2017-12-06] MEDS: METFORMIN HCL 500 MG TABLET 1000 MG PO ×2 (08:31→20:55)
[2017-12-06] MEDS: METOPROLOL 50 MG TABLET 100 MG PO ×2 (08:31→20:57)
[2017-12-06] MEDS: HYDROCODONE/ACET 5/325 TABLET 2 TAB PO ×2 (08:32→20:54)
[2017-12-06] MEDS: predniSONE 20 MG TABLET 60 MG PO (08:32)
[2017-12-06] MEDS: MULTIVIT,CALC,MINS/IRON/FOLIC 1 TABLET 1 TAB PO (08:32)
[2017-12-06] MEDS: INSULIN ASPART 100 UNIT/ML INSULN PEN SUBCUT ×4 (08:34→20:52)
[2017-12-06] MEDS: INSULIN DETEMIR 100 UNIT/ML INSULN.PEN 25 UNIT SUBCUT ×2 (08:34→20:52)
--- NOTE | 2017-12-06 10:20 | CM.DPC ---
Addendum entered by RODOLFO Carr 12/06/17 16:02: Another call from mom: mom stated she wanted to apologize to SW for acting like a b*itch. SW ensured mom that apology was not needed, but appreciated. Mom shared some personal information related to her son and granddaughter and why she is unable to be at home tomorrow. Mom again reiterated that patient cannot discharge tomorrow. SW ensured mom that those details would be discussed with MD tomorrow. Mom was appreciative. Original Note: Addendum entered by Renetta Croft, RODOLFO 12/06/17 14:48: Call from [employer]: approval for trilogy receive. [employer] RT to come to late afternoon or electronic intelligence officer. Met with patient and mom/Tori: Explained that patient will have trilogy tonight and we can reevaluate discharge tomorrow. Mom stated patient is unable to discharge since she remains on iv abx. SW explained that if MD would like patient to discharge home on iv abx there were options i.e. SNF, infusion service but that it was SW understanding that patient would be transitioned to oral abx at discharge. SW noticed patient becoming really teary and she told mom that every time it comes to discharge you always do this. SW was unsure of what patient was referencing. Mom that told SW that she has a prior engagement that is very important tomorrow and patient cannot discharge tomorrow. Patient then stated that her mom was going to ride with her brother to do something with her granddaughter? Patient stated just send me to a facility since i'm just a burden. Both mom and patient were obviously upset with some stessors relate to the caregiver/mother, patient/daughter role. Patient apologized for conversation with SW and was appreciative that trilogy was approved. SW updated RN with the currently emotional status of patient. After SW returned to office phone call from mom: Mom placed blame on SW for pitting us against each other. Mom stated that patient was only upset that everyone was making plans without her and that SW bedside manner could use improvement. SW apologized if she was the cause of any stress, but did understand that mom was frustrated due to the things patient had said. SW reiterated that no discharge orders were made and that all concerns would be expressed to MD and patient does have the right to appeal discharge. Mom then said that patient would not appeal discharge because she wants to go home and mom cannot be there since she will be in [place]. BONNIE stated if patient was to be discharge, a late discharge could be completed if need be. At this point mom became emotional and said that only Dr. Chavez is allowed to discharge patient and if anyone else does she will go over my head. Reminded mom that BONNIE is part of a team which ensures patient will have a safe discharge and if no one will be home tomorrow than that will have to considered prior to discharge. Mom again said you pitted us against each other and she will not go home tomorrow or I will go over your head and then disconnected call. CM resident care manager rn notified. Plan: Trilogy to be in place tonight. Will need to reevaluate discharge plan based on needs of patient tomorrow. Patient will not have any support at home tomorrow until after 1700. Original Note: Addendum entered by RODOLFO Carr 12/06/17 13:40: Working with [facility] in an attempt to get Trilogy set up tonight at with plans for patient to discharge home with Trilogy tomorrow. Original Note: Called [facility]/Ariadne: Ariadne reports they were waiting on updated progress notes in order to determine eligibility for trilogy. BONNIE faxed prog notes. Plan: BONNIE to follow up with [facility] for trilogy eligibility and delivery information.
[2017-12-06 10:22] LABS: HCO3 ABG 41 mmol/L (23-27); PO2 ABG 70 mmHg (80-105); TCO2 ABG 43 mmol/L (23-27); pH ABG 7.43 (7.35-7.45)
[2017-12-06 10:23] LABS: Oxygen Saturation ABG 94 % (95-100)
[2017-12-06 10:26] LABS: Fractionated Inspired Oxygen 44
[2017-12-06 10:27] LABS: PCO2 ABG 60.8 mmHg (35-45)
--- NOTE | 2017-12-06 10:58 | P.PN_ITS ---
Subjective Date Patient Seen: 12/06/17 Time Patient Seen: 10:50 Interval history: Continues some better. Breathing comfortably not much cough appetite okay no nausea no pain. Did have a big bowel movement this morning she said which may have improved her gas situation but her gas is better we also started a PPI yesterday. Has been up and around some with PT working pretty well with that feels that she is very close to baseline. Exam Vital Signs (past 8 hours): - 12/06/17 04:56 12/06/17 08:00 12/06/17 09:44 Temperature 97.6 F 98.6 F Pulse Rate 63 104 H Respiratory Rate 18 18 Blood Pressure 153/81 H 147/87 H Pulse Oximetry 93 94 94 Fraction of Inspired Oxygen 50 Oxygen Delivery Method High Flow Nasal Cannula Oxygen Flow Rate 5 Narrative Exam Narrative: Sitting up in chair in no acute distress appropriate interaction. HEENT unremarkable chest is quite clear heart regular without murmur abdomen is soft nontender nondistended normoactive bowel tones extremities with trace edema neurologically nonfocal. Objective Labs Result Diagrams: 12/06/17 05:00 12/06/17 05:00 Labs: Laboratory Results - last 24 hr 12/02/17 12/06/17 12/06/17 04:56 05:00 05:00 WBC 15.5 H RBC 4.51 Hgb 12.0 Hct 37.4 MCV 83.0 MCH 26.6 MCHC 32.0 RDW 15.7 H Plt Count 424 H Neut % (Auto) 78.1 H Lymph % (Auto) 15.6 L [place] % (Auto) 5.5 Eos % (Auto) 0.5 L Baso % (Auto) 0.3 Neut # (Auto) 50227 H ABG pH ABG pCO2 80.3 H* ABG pO2 ABG HCO3 ABG Total CO2 ABG O2 Saturation ABG Base Excess FiO2 Sodium 139 Potassium 3.8 Chloride 86 L Carbon Dioxide 43 H* BUN 26 H Creatinine 0.90 Estimated GFR > 60.0 BUN/Creatinine Ratio 28.9 H Glucose 183 H Calcium 9.4 Magnesium 2.1 12/06/17 10:13 WBC RBC Hgb Hct MCV MCH MCHC RDW Plt Count Neut % (Auto) Lymph % (Auto) [place] % (Auto) Eos % (Auto) Baso % (Auto) Neut # (Auto) ABG pH 7.43 ABG pCO2 60.8 H ABG pO2 70 L ABG HCO3 41 H ABG Total CO2 43 H ABG O2 Saturation 94 L ABG Base Excess 17.0 H FiO2 44 Sodium Potassium Chloride Carbon Dioxide BUN Creatinine Estimated GFR BUN/Creatinine Ratio Glucose Calcium Magnesium Assessment & Plan (1) Pneumonia: Problem details: Presenting complaint, showing steady improvement, now completed 9 days of IV antibiotics that appear definitive will DC that at this time, and see how things change. Her white blood count did spike this morning but that could be due to change in her cortisone treatment. No evidence of worsening disease, infectious workup is underway per hospitalist. Qualifiers: Aspiration pneumonia type: Laterality: unspecified laterality Lung location: unspecified part of lung Pneumonia type: due to unspecified organism Qualified Code(s): J18.9 - Pneumonia, unspecified organism Current visit: Yes Status: Acute (2) Acute and chronic respiratory failure with hypoxia: Problem details: Some improvement significantly with the blood gas today showing a rise in P O2 and dropped in pCO2 though still abnormal. On nasal cannula only during the day and BiPAP at night although pending trilogy device. Current visit: Yes Status: Acute (3) Hypercapnia with mixed acid-base disorder: Problem details: As above the level has dropped some, pH remains normal, and PO2 is improved as well. [place] signs. Current visit: Yes Status: Acute (4) Obesity hypoventilation syndrome: Problem details: Again likely contributed to above items.. Current visit: Yes Status: Acute (5) COPD (chronic obstructive pulmonary disease): Problem details: This is been considered the factor most contributing to her pulmonary issues I believe. Likely related to above item. Current visit: Yes Status: Chronic (6) CHF (congestive heart failure): Problem details: Has been a factor during this admission showed significant improvement with aggressive diuresis recently. Remained stable. Current visit: Yes Status: Chronic (7) Hypertension: Problem details: Chronic remaining stable. Current visit: Yes Status: Chronic (8) Diabetes mellitus type 2 in obese: Problem details: Kadeem in sugars with recent prednisone use has improved somewhat. Current visit: Yes Status: Chronic (9) Hypokalemia: Problem details: Resolved after supplement continue to follow Current visit: Yes Status: Acute (10) Anemia: Problem details: Resolved per labs today. Current visit: Yes Status: Acute (11) Dyspepsia: Problem details: For have some improvement with the gassy sensation with PPI and bowel movement. 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 Tapering on cortisone, some discussion regarding need for change in more global treatments, will likely need visit with specialist in [place] at some point soon. Current visit: Yes Status: Chronic (13) Anxiety: Problem details: Remains fairly stable on an anti anxiety medication. Current visit: Yes Status: Acute Plan: Assessment/Plan Narrative: Will stop IV antibiotics and follow continue to follow the labs.
[2017-12-06] MEDS: NYSTATIN CREAM 30 GM 1 APPLIC TOP ×2 (15:58→20:55)
--- NOTE | 2017-12-06 16:21 | PT.IPTN ---
Current Diagnoses Anemia, unspecified (11/25/17) Type 2 diabetes mellitus with other specified complication (11/25/17) Morbid (severe) obesity due to excess calories (11/25/17) Morbid (severe) obesity with alveolar hypoventilation (11/25/17) Obesity, unspecified (11/25/17) Mixed disorder of acid-base balance (11/25/17) Hypokalemia (11/25/17) Anxiety disorder, unspecified (11/25/17) Essential (primary) hypertension (11/25/17) Heart failure, unspecified (11/25/17) Pneumonia, unspecified organism (11/25/17) Chronic obstructive pulmonary disease, unspecified (11/25/17) Acute and chronic respiratory failure with hypoxia (11/25/17) 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) Acne, unspecified (11/25/17) Synovitis and tenosynovitis, unspecified (11/25/17) Other specified disorders of bone density and structure, unspecified site (11/25/17) Osteomyelitis, unspecified (11/25/17) Epigastric pain (11/25/17) Personal history of pneumonia (recurrent) (11/25/17) Physical Therapy Treatment Note M2 PT-IP Current Condition Start: 11/26/17 16:18 Freq: NEEDED Status: Active Protocol: Document 12/04/17 15:02 MDD (Rec: 12/04/17 16:34 MDD [id number]) Physical Therapy Current Condition Current Condition Evaluation Date 12/04/17 Treatment Diagnosis SOB Onset Date 11/26/17 Precautions Other Precautions O2 sat: Pt on 10 L/min at rest 99%, with activity dropped to 83% and took >1 minute to increase above 88%. M3 PT-IP Subjective Start: 11/26/17 16:18 Freq: NEEDED Status: Active Protocol: Document 12/06/17 14:50 CLB (Rec: 12/06/17 16:21 CLB [id number]) Subjective Physical Therapy Visit Type Type Treatment Note Visit Start Time 14:50 Visit Stop Time 15:13 Total Visit Minutes 23 Number of PICK PULLING MACHINE OPERATOR Visits 1 Physical Therapy Visit Comments Patient Comments Pt would like to use BSC and do some walking before getting back in bed. Therapy Pain Assessment Pain Present Pain Present Denied Pain M4 PT-IP Mobility and Gait Start: 11/26/17 16:18 Freq: NEEDED Status: Active Protocol: Document 12/06/17 14:50 CLB (Rec: 12/06/17 16:21 CLB [id number]) PT-Bed Mobility Assessment Sit to Supine Sit to Supine Independent Scooting Scooting Up and Down in Bed Independent PT-Transfer Assessment Sit to and From Stand Sit to and from Stand Standby Assistance Equipment Transfer Assistive Device Front Wheeled Walker Transfers Transfer Destination Bed Bedside Commode Transfer Technique Stand Step Pivot Transfer Ability Level of Assist Standby Assistance Comments Mobility Comments Pt able to transfer to [facility] with FWW RN performed pericare . Gait Assessment Gait Gait Assistance Required: Standby Assistance Distance (Feet) (feet) 30 Assistive Devices Assistive Device Front Wheeled Walker Gait Deviations General Gait Pattern Flexed Trunk Wide Based Gait Factors Limiting Gait Function Factors Limiting Gait Function Decreased Strength Respiratory Distress Comments Gait Comments Pt ambulated ~15ft before needing to stop due to respiratory distress. O2 sats dropped to 84% taking several minutes of focused breathing to increase O2 sats to 90%. Pt then wanted to walk another time with same results. PT-Balance Assessment Sitting Balance and Reactions Static Sitting Balance Ability Normal Standing Balance and Reactions Static Standing Balance Ability Good Dynamic Standing Balance Ability Fair M5 PT-IP Objective Assessments Start: 11/26/17 16:18 Freq: NEEDED Status: Active Protocol: Document 12/04/17 15:02 MDD (Rec: 12/04/17 16:34 MDD [id number]) Orientation Orientation/Cognition Level of Alertness Confusional State Orientation Name Age Birthday Month Date Year Day of Week Place Situation Language Function Ability No Deficits Noted Safety Awareness Understands Safety Issues Memory Description No Deficits Noted Gross Range of Motion Lower Extremity ROM Assessment Within Functional Limits Impairments LE ROM limited B due to body habitus. B knee and hip flexion limited. Strength Lower Extremity Strength Assessment Within Functional Limits Sensation Assessment Sensation Gross Sensation WNL M6 PT-IP Treatment Start: 11/26/17 16:18 Freq: NEEDED Status: Active Protocol: Document 12/05/17 09:55 MDD (Rec: 12/05/17 10:53 MDD [id number]) Physical Therapy Treatment Education Education Provided Safety M7 PT-IP Assessment and Plan Start: 11/26/17 16:18 Freq: NEEDED Status: Active Protocol: Document 12/06/17 14:50 CLB (Rec: 12/06/17 16:21 CLB [id number]) PT Summary Assessment and Plan Potential Rehabilitation Potential Good Status of Condition at Evaluation Evolving Summary Impairments Activity Tolerance Progress Towards Goals Progressing Toward Goals Slow Progress due to Medical Issues Assessment Summary Pt improving with bed mobility and is able to get her LE into bed Independently. PT continues to have decreased O2 sats with activity. Goals Bed Mobility Goal Independent Transfer Goal Independent Gait Goal Independent Front Wheel Walker Gait Distance 30 Other Goals Pt to tolerate static standing for up to 3 minutes maintaining oxygen saturation above 88%. Days to Meet Goals 3 Frequency of Treatment Frequency Of Treatment Once a Day Treatment Plan Physical Therapy Treatment Plan Bed Mobility Training Therapeutic Exercise Balance Retraining Other Recommendations and Next Treatment Focus on endurance with Focus functional activities. trial intervals of standing exercises. Recommendations To Nursing Amount of Assist Needed Standby Assistance Discharge Recommendations PT Discharge Recommendations Home with Assistance Home with 20/10 Assist Home Health
--- NOTE | 2017-12-06 22:11 | PC.NURSE ---
Assisted pt to set up Trilogy. Initiated with 4L bleed in of O2. Pt reports feeling significant pressure from nasal pillows and air flow. Adjusted straps for comfort. Discussed trial and RX available for anxiety if pt is having difficulty tolerating mask. Pt states hopefully I will be able to just fall asleep. Call light in reach. Monitor. (RT notified of trilogy initiation).
[2017-12-07] VITALS (15 sets, daily range): BP systolic 132–187; BP diastolic 65–99; PULSE 63–75; RESP 16–22; TEMP 35.7–36.4; O2SAT 90–96
[2017-12-07] MEDS: LORazepam 2 MG/ML SYRINGE 1 MG IV (01:50)
[2017-12-07 05:41] LABS: Hematocrit 38.6 % (36-46); Hemoglobin 12.1 g/dL (12.0-16.0); Mean Corpuscular HGB Conc 31.5 % (30-36); Mean Corpuscular Hemoglobin 26.5 PG (26-34); Mean Corpuscular Volume 84.1 fL (80-100); Platelet Count 467 X10^3/uL (150-400); Red Blood Cell Count 4.59 X10^6/uL (4.0-5.2); Red Cell Distribution Width 15.9 % (11.6-14.8); White Blood Cell Count 16.5 X10^3/uL (4.5-11.0)
[2017-12-07 05:44] LABS: Alanine Aminotransferase 42 IU/L (9-52); Albumin 3.8 g/dL (3.5-5.0); Albumin Globulin Ratio 1.2 (1.0-2.8); Alkaline Phosphatase 85 U/L (38-126); Aspartate Aminotransferase 20 IU/L (14-36); BUN Creatinine Ratio 32.2 (6-22); Bilirubin Total 0.5 mg/dL (0.2-1.3); Blood Urea Nitrogen 29 mg/dL (7-17); Calcium 9.5 mg/dL (8.4-10.2); Carbon Dioxide 39 mmol/L (22-32); Chloride 93 mmol/L (98-107); Estimated Glomerular Filt Rate > 60.0 mL/min (>60); Globulin 3.1 g/dL (1.7-4.1); Glucose 145 mg/dL (70-100); HEMOLYSIS 18 (0-50); Potassium 3.5 mmol/L (3.4-5.1); Sodium 140 mmol/L (137-145); Total Protein 6.9 g/dL (6.3-8.2)
[2017-12-07 05:54] LABS: Neutrophils Absolute Manual 13200 /uL (3000-5900); Total Cells Counted 100
[2017-12-07 05:55] LABS: RBC Morphology Normal Morphology
--- NOTE | 2017-12-07 06:36 | PC.NURSE ---
Patient slept with Trilogy on throughout the night, tolerated well, SpO2 89-92% while asleep. She did desat to 84% and sustained there, into rouse her and encourage deep breathing, recovered quickly. 5L HFNC on while up to BS, mild shortness of breath with exertion. 1mg IV Ativan given for sleep and anxiety per request.
[2017-12-07] MEDS: INSULIN ASPART 100 UNIT/ML INSULN PEN SUBCUT ×4 (08:18→20:22)
[2017-12-07] MEDS: PANTOPRAZOLE 40 MG TABLET PO ×2 (08:18→20:13)
[2017-12-07] MEDS: acetaZOLAMIDE 250 MG TABLET 500 MG PO ×3 (08:20→20:12)
[2017-12-07] MEDS: ENOXAPARIN 30 MG/0.3 ML SYRINGE SUBCUT ×2 (08:21→20:11)
[2017-12-07] MEDS: FOLIC ACID 0.4 MG TABLET PO (08:21)
[2017-12-07] MEDS: AMLODIPINE 5 MG TABLET 10 MG PO (08:21)
[2017-12-07] MEDS: LISINOPRIL 10 MG TABLET PO ×2 (08:22→08:58)
[2017-12-07] MEDS: METOPROLOL 50 MG TABLET 100 MG PO ×2 (08:22→20:12)
[2017-12-07] MEDS: INSULIN DETEMIR 100 UNIT/ML INSULN.PEN 25 UNIT SUBCUT ×2 (08:22→20:23)
[2017-12-07] MEDS: NYSTATIN CREAM 30 GM 1 APPLIC TOP ×2 (08:23→20:11)
[2017-12-07] MEDS: predniSONE 20 MG TABLET 60 MG PO (08:23)
[2017-12-07] MEDS: MULTIVIT,CALC,MINS/IRON/FOLIC 1 TABLET 1 TAB PO (08:23)
[2017-12-07] MEDS: METFORMIN HCL 500 MG TABLET 1000 MG PO ×2 (08:26→20:12)
[2017-12-07 08:29] LABS: Base Excess ABG > 30.0 mmol/L (-2-3); HCO3 ABG 59 mmol/L (23-27); Oxygen Saturation ABG 94 % (95-100); PCO2 ABG 75.6 mmHg (35-45); PO2 ABG 69 mmHg (80-105); TCO2 ABG > 50 mmol/L (23-27)
[2017-12-07 08:30] LABS: Fractionated Inspired Oxygen 0.4
--- NOTE | 2017-12-07 08:46 | PM.PN.1 ---
Subjective Date Patient Seen: 12/07/17 Time Patient Seen: 08:47 Interval history: Better today. Breathing comfortably, use the trilogy device last night for the 1st time says it took some getting used to but feels it is better than the BiPAP and hopefully that will make a difference for her in the long run. Appetite is okay bowel bladder normal has been up in her out of bed with PT. Reviewed current status in detail. Exam Vital Signs (past 8 hours): - 12/07/17 03:50 12/07/17 05:00 12/07/17 05:20 Temperature 97 F L Pulse Rate 63 Respiratory Rate 18 Blood Pressure 155/84 H Pulse Oximetry 90 L 90 L 94 12/07/17 08:16 Temperature 97.0 F L Pulse Rate 71 Respiratory Rate 16 Blood Pressure 187/99 H Pulse Oximetry 94 Fraction of Inspired Oxygen 50 Oxygen Delivery Method BiPAP Oxygen Flow Rate 6 Narrative Exam Narrative: Sitting up in bed no acute distress chest clear heart regular abdomen soft normal active bowel tones extremities trace edema neurologically nonfocal Objective Labs Result Diagrams: 12/07/17 05:30 12/07/17 05:30 Labs: Laboratory Results - last 24 hr 12/04/17 12/04/17 12/06/17 06:13 06:35 10:13 WBC RBC Hgb Hct MCV MCH MCHC RDW Plt Count Total Counted Seg Neutrophils % Band Neutrophils % Lymphocytes % (Manual) Monocytes % (Manual) Eosinophils % (Manual) Neutrophils # (Manual) RBC Morphology ABG pH 7.50 H Cancelled 7.43 ABG pCO2 75.6 H* Cancelled 60.8 H ABG pO2 69 L Cancelled 70 L ABG HCO3 59 H Cancelled 41 H ABG Total CO2 > 50 H Cancelled 43 H ABG O2 Saturation 94 L Cancelled 94 L ABG Base Excess > 30.0 H Cancelled 17.0 H FiO2 0.4 Cancelled 44 Sodium Potassium Chloride Carbon Dioxide BUN Creatinine Estimated GFR BUN/Creatinine Ratio Glucose Calcium Total Bilirubin AST ALT Alkaline Phosphatase Total Protein Albumin Globulin Albumin/Globulin Ratio 12/07/17 12/07/17 05:30 05:30 WBC 16.5 H RBC 4.59 Hgb 12.1 Hct 38.6 MCV 84.1 MCH 26.5 MCHC 31.5 RDW 15.9 H Plt Count 467 H Total Counted 100 Seg Neutrophils % 79.0 H Band Neutrophils % 1.0 L Lymphocytes % (Manual) 14.0 L Monocytes % (Manual) 4.0 Eosinophils % (Manual) 2.0 Neutrophils # (Manual) 73282 H RBC Morphology Normal morphology ABG pH ABG pCO2 ABG pO2 ABG HCO3 ABG Total CO2 ABG O2 Saturation ABG Base Excess FiO2 Sodium 140 Potassium 3.5 Chloride 93 L Carbon Dioxide 39 H BUN 29 H Creatinine 0.90 Estimated GFR > 60.0 BUN/Creatinine Ratio 32.2 H Glucose 145 H Calcium 9.5 Total Bilirubin 0.5 AST 20 ALT 42 Alkaline Phosphatase 85 Total Protein 6.9 Albumin 3.8 Globulin 3.1 Albumin/Globulin Ratio 1.2 Assessment & Plan (1) Pneumonia: Problem details: Might Presenting complaint, showing steady improvement, now completed 9 days of IV antibiotics that appear definitive will DC that at this time, and see how things change. Her white blood count did spike again this morning but that could be due to change in her cortisone treatment. No evidence of worsening disease, infectious workup is underway per hospitalist. And this morning still no evidence of infection, however little anxious about the rising levels. So will start Levaquin just in case. Also will drop the dose of prednisone hoping that also might help bring the white count down. Qualifiers: Aspiration pneumonia type: Laterality: unspecified laterality Lung location: unspecified part of lung Pneumonia type: due to unspecified organism Qualified Code(s): J18.9 - Pneumonia, unspecified organism Current visit: Yes Status: Acute (2) Acute and chronic respiratory failure with hypoxia: Problem details: Some improvement significantly with the blood gas today showing a rise in P O2 and dropped in pCO2 though still abnormal. On nasal cannula only during the day and BiPAP at night although pending trilogy device. Current visit: Yes Status: Acute (3) Hypercapnia with mixed acid-base disorder: Problem details: As above the level continues to drop, pH remains normal, and PO2 is improved as well. Current visit: Yes Status: Acute (4) Obesity hypoventilation syndrome: Problem details: Again likely contributed to above items.. Current visit: Yes Status: Acute (5) COPD (chronic obstructive pulmonary disease): Problem details: This is been considered the factor most contributing to her pulmonary issues I believe. Likely related to above item. Current visit: Yes Status: Chronic (6) CHF (congestive heart failure): Problem details: Has been a factor during this admission showed significant improvement with aggressive diuresis recently. Remained stable. Current visit: Yes Status: Chronic (7) Hypertension: Problem details: Has been rising better over time quite high today will bump the lisinopril dose a bit. Current visit: Yes Status: Chronic (8) Diabetes mellitus type 2 in obese: Problem details: Renaldo stable Current visit: Yes Status: Chronic (9) Hypokalemia: Problem details: Resolved after supplement continue to follow Current visit: Yes Status: Acute (10) Anemia: Problem details: Resolved per labs today. Current visit: Yes Status: Acute (11) Dyspepsia: Problem details: For have some improvement with the gassy sensation with PPI and bowel movement. Current visit: Yes Status: Chronic Plan: Assessment/Plan Narrative: Continue to follow labs, will end fluid restriction, and oral antibiotic, drop prednisone dose otherwise same. Nearly ready for home but will make some changes to address some concerns today and then likely home tomorrow if those numbers improved.
[2017-12-07] MEDS: levoFLOXacin 500 MG TABLET PO (08:58)
[2017-12-07] MEDS: HYDROCODONE/ACET 5/325 TABLET 2 TAB PO (12:16)
--- NOTE | 2017-12-07 14:48 | PT.IPTN ---
Current Diagnoses Anemia, unspecified (11/25/17) Type 2 diabetes mellitus with other specified complication (11/25/17) Morbid (severe) obesity due to excess calories (11/25/17) Morbid (severe) obesity with alveolar hypoventilation (11/25/17) Obesity, unspecified (11/25/17) Mixed disorder of acid-base balance (11/25/17) Hypokalemia (11/25/17) Anxiety disorder, unspecified (11/25/17) Essential (primary) hypertension (11/25/17) Heart failure, unspecified (11/25/17) Pneumonia, unspecified organism (11/25/17) Chronic obstructive pulmonary disease, unspecified (11/25/17) Acute and chronic respiratory failure with hypoxia (11/25/17) 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 Subjective Physical Therapy Visit Type Type Treatment Note Visit Start Time 14:50 Visit Stop Time 15:13 Total Visit Minutes 23 Number of [employer] Visits 1 Physical Therapy Visit Comments Patient Comments Pt would like to use BSC and do some walking before getting back in bed. Therapy Pain Assessment Pain Present Pain Present Denied Pain PT-Transfer Assessment Sit to and From Stand Sit to and from Stand Standby Assistance Equipment Transfer Assistive Device Front Wheeled Walker Gait Assessment Gait Gait Assistance Required: Standby Assistance Distance (Feet) (feet) 60 Assistive Devices Assistive Device Front Wheeled Walker Gait Deviations General Gait Pattern Flexed Trunk Wide Based Gait Factors Limiting Gait Function Factors Limiting Gait Function Decreased Strength Respiratory Distress Comments Gait Comments Pt able to walk all the way from her room to the ICU shower (~60ft) without needing to stop. PT-Balance Assessment Sitting Balance and Reactions Static Sitting Balance Ability Normal Dynamic Sitting Balance Ability Normal Standing Balance and Reactions Static Standing Balance Ability Good Dynamic Standing Balance Ability Good Device Used FWW Orientation Orientation/Cognition Level of Alertness Confusional State Orientation Name Age Birthday Month Date Year Day of Week Place Situation Language Function Ability No Deficits Noted Safety Awareness Understands Safety Issues Memory Description No Deficits Noted Gross Range of Motion Lower Extremity ROM Assessment Within Functional Limits Impairments LE ROM limited B due to body habitus. B knee and hip flexion limited. Strength Lower Extremity Strength Assessment Within Functional Limits Sensation Assessment Sensation Gross Sensation WNL Physical Therapy Treatment Education Education Provided Safety PT Summary Assessment and Plan Potential Rehabilitation Potential Good Status of Condition at Evaluation Evolving Summary Impairments Activity Tolerance Progress Towards Goals Progressing Toward Goals Slow Progress due to Medical Issues Assessment Summary Pt was able to walk twice without stopping as she has in several days. This was performed on 4L supplemental oxygen. Pt needed time to sit and catch her breath once in the shower, but was completely stable/steady the entire walk . This is a significant improvement in activity tolerance. Goals Bed Mobility Goal Independent Transfer Goal Independent Gait Goal Independent Front Wheel Walker Gait Distance 30 Other Goals Pt to tolerate static standing for up to 3 minutes maintaining oxygen saturation above 88%. Days to Meet Goals 3 Frequency of Treatment Frequency Of Treatment Once a Day Treatment Plan Physical Therapy Treatment Plan Bed Mobility Training Therapeutic Exercise Balance Retraining Other Recommendations and Next Treatment Focus on endurance with Focus functional activities. trial intervals of standing exercises. Recommendations To Nursing Amount of Assist Needed Standby Assistance Discharge Recommendations PT Discharge Recommendations Home with Assistance Home Health
[2017-12-07] MEDS: SODIUM CHLORIDE 0.9% FLUSH 10 ML IV (20:11)
[2017-12-08] VITALS (14 sets, daily range): BP systolic 132–151; BP diastolic 73–91; PULSE 64–90; RESP 16–20; TEMP 36.6–36.8; O2SAT 90–96
[2017-12-08] MEDS: LORazepam 1 MG TABLET PO (02:59)
[2017-12-08 05:16] LABS: Add Manual Diff / Slide Review NO; Basophils Percent Auto 0.4 % (0-2); Eosinophils Percent Auto 0.7 % (2-4); Hematocrit 38.9 % (36-46); Hemoglobin 12.2 g/dL (12.0-16.0); Lymphocytes Percent Auto 14.1 % (25-40); Mean Corpuscular HGB Conc 31.2 % (30-36); Mean Corpuscular Volume 83.1 fL (80-100); Monocytes Percent Auto 4.9 % (3-14); Neutrophils Absolute Auto 15400 /uL (3000-5900); Neutrophils Percent Auto 79.9 % (50-75); Platelet Count 454 X10^3/uL (150-400); Red Blood Cell Count 4.68 X10^6/uL (4.0-5.2); White Blood Cell Count 19.3 X10^3/uL (4.5-11.0)
[2017-12-08 05:23] LABS: Alanine Aminotransferase 40 IU/L (9-52); Albumin 3.8 g/dL (3.5-5.0); Albumin Globulin Ratio 1.2 (1.0-2.8); Alkaline Phosphatase 83 U/L (38-126); Aspartate Aminotransferase 21 IU/L (14-36); BUN Creatinine Ratio 37.5 (6-22); Bilirubin Total 0.5 mg/dL (0.2-1.3); Blood Urea Nitrogen 30 mg/dL (7-17); Calcium 9.5 mg/dL (8.4-10.2); Carbon Dioxide 34 mmol/L (22-32); Chloride 98 mmol/L (98-107); Estimated Glomerular Filt Rate > 60.0 mL/min (>60); Globulin 3.2 g/dL (1.7-4.1); Glucose 125 mg/dL (70-100); HEMOLYSIS < 15 (0-50); Potassium 3.4 mmol/L (3.4-5.1); Sodium 140 mmol/L (137-145)
--- NOTE | 2017-12-08 06:31 | PC.NURSE ---
NOC Shift: Pt rested well throughout shift w/o complaint. Using Trilogy bedside Bipap appropriately stable sats. VSS. No issues. Should discharge today.
--- NOTE | 2017-12-08 08:57 | PM.PN.1 ---
Subjective Date Patient Seen: 12/08/17 Time Patient Seen: 08:57 Interval history: Patient feels better this morning. Slept with a trilogy device which showed a pressure oxygen supplementation device. She finds that personally difficult but it seems to help her a lot in terms of her oxygen saturations and heart rate. Has overall diuresed a 22 lb off since admission. Oxygen demand is now down to 2 L. Patient feels much better. Has had elevation of white count up to 16,000 but I think this is a result of greenish eating her oral prednisone. Patient has had no fevers no increased heart rate no change in blood pressure and no infectious symptoms at all. We have held her Enbrel since her admission here and case there was infectious component of pneumonia. Patient did have fevers before admission. Had a full course of piperacillin which did not seem to make a a significant contribution except for the 1st few days. Patient has been ambulating in her room and feeling much stronger. Will watch lab work today continue with her oral medication and make sure she has not spiked temperatures anticipate possibility of discharging home tomorrow patient will need outpatient follow up with immunology Rheumatology and possible pulmonology. Exam Vital Signs (past 8 hours): - 12/08/17 01:45 12/08/17 03:10 12/08/17 05:12 Temperature 98.2 F Pulse Rate 70 Respiratory Rate 17 Blood Pressure 142/82 H Pulse Oximetry 94 95 94 12/08/17 08:23 Temperature 98.3 F Pulse Rate 82 Respiratory Rate 20 Blood Pressure 151/91 H Pulse Oximetry 94 Fraction of Inspired Oxygen 50 Oxygen Delivery Method Nasal Cannula,BiPAP Oxygen Flow Rate 4 Narrative Exam Narrative: Patient alert oriented x3 PERRLA EOMs intact Neck without mass Lungs with improved air movement and decreased crackles Cardiac shows regular rate and rhythm without murmur decreased edema weight diuresed down by 22 lb Abdomen a tremendously obese but nontender no hepatosplenomegaly perceivable no rebound bowel sounds are present Back without any significant lesions or pain Skin with scarring from old inflammatory issues from her SA PHEO a syndrome Neuro intact symmetrical speech clear motor and sensory symmetrical Extremities quite obese but decreased edema Psych mood seems good she is laughing this morning and excited about the possibility of going home Objective Labs Result Diagrams: 12/08/17 05:00 12/08/17 05:00 Labs: Laboratory Results - last 24 hr 12/08/17 12/08/17 05:00 05:00 WBC 19.3 H RBC 4.68 Hgb 12.2 Hct 38.9 MCV 83.1 MCH 26.0 MCHC 31.2 RDW 16.0 H Plt Count 454 H Neut % (Auto) 79.9 H Lymph % (Auto) 14.1 L Davison % (Auto) 4.9 Eos % (Auto) 0.7 L Baso % (Auto) 0.4 Neut # (Auto) 45938 H Sodium 140 Potassium 3.4 Chloride 98 Carbon Dioxide 34 H BUN 30 H Creatinine 0.80 Estimated GFR > 60.0 BUN/Creatinine Ratio 37.5 H Glucose 125 H Calcium 9.5 Total Bilirubin 0.5 AST 21 ALT 40 Alkaline Phosphatase 83 Total Protein 7.0 Albumin 3.8 Globulin 3.2 Albumin/Globulin Ratio 1.2 Assessment & Plan Plan: Assessment/Plan Narrative: Assessment 1. Respiratory failure patient doing much better requiring much less oxygen. Primarily seems to be a factor of diuresing fluid. Electrolytes and kidney function well and patient a call back close to baseline with the exception of increased white count. We will continue the current medications probably be able to decrease her diuresis at home S Assessment 2. 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 Assessment 3. Diabetes patient has had much improved blood sugars at that this point secondary to increasing insulin. I think her diabetes is type 2 and is aggravated when she requires steroids for her inflammatory process. Assessment 4. Probable sleep apnea and restrictive ventilation secondary to weight and deconditioning. Patient will need to have ongoing pressure assistance I believe of her night sleep. Assessment 5. Obesity patient weighs approximately 400 lb and while she has lost a fair amount of fluid weight that think this is a severely restrictive on her respiratory function. Will Assessment 6. Patient's hypertension is in good control blood pressure is up a little bit today but I think in part that is due to everything that is going on we will monitor and titrate doses to get blood pressure 1 or all of her other issues are stable range Assessment 7. Anxiety patient is certainly an anxious and depression is depression component to her health issues need to continue to work on that on consistent basis. Difficult to get her in for follow-up on these issues because this makes it impossible for her to transport into the office unable to get in vehicles etc.
[2017-12-08] MEDS: PANTOPRAZOLE 40 MG TABLET PO ×2 (09:10→20:31)
[2017-12-08] MEDS: INSULIN ASPART 100 UNIT/ML INSULN PEN SUBCUT ×4 (09:10→21:00)
[2017-12-08] MEDS: acetaZOLAMIDE 250 MG TABLET 500 MG PO ×3 (09:11→20:32)
[2017-12-08] MEDS: ENOXAPARIN 30 MG/0.3 ML SYRINGE SUBCUT ×2 (09:12→20:30)
[2017-12-08] MEDS: AMLODIPINE 5 MG TABLET 10 MG PO (09:12)
[2017-12-08] MEDS: FOLIC ACID 0.4 MG TABLET PO (09:12)
[2017-12-08] MEDS: INSULIN DETEMIR 100 UNIT/ML INSULN.PEN 25 UNIT SUBCUT ×2 (09:13→20:57)
[2017-12-08] MEDS: levoFLOXacin 500 MG TABLET PO (09:14)
[2017-12-08] MEDS: NYSTATIN CREAM 30 GM 1 APPLIC TOP ×2 (09:14→20:32)
[2017-12-08] MEDS: LISINOPRIL 20 MG TABLET PO (09:14)
[2017-12-08] MEDS: MULTIVIT,CALC,MINS/IRON/FOLIC 1 TABLET 1 TAB PO (09:14)
[2017-12-08] MEDS: METOPROLOL 50 MG TABLET 100 MG PO ×2 (09:14→20:31)
[2017-12-08] MEDS: METFORMIN HCL 500 MG TABLET 1000 MG PO ×2 (09:14→20:30)
[2017-12-08] MEDS: predniSONE 20 MG TABLET 40 MG PO (09:15)
--- NOTE | 2017-12-08 10:38 | PT.IPTN ---
Current Diagnoses Anemia, unspecified (11/25/17) Type 2 diabetes mellitus with other specified complication (11/25/17) Morbid (severe) obesity due to excess calories (11/25/17) Morbid (severe) obesity with alveolar hypoventilation (11/25/17) Obesity, unspecified (11/25/17) Mixed disorder of acid-base balance (11/25/17) Hypokalemia (11/25/17) Anxiety disorder, unspecified (11/25/17) Essential (primary) hypertension (11/25/17) Heart failure, unspecified (11/25/17) Pneumonia, unspecified organism (11/25/17) Chronic obstructive pulmonary disease, unspecified (11/25/17) Acute and chronic respiratory failure with hypoxia (11/25/17) 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) Acne, unspecified (11/25/17) Synovitis and tenosynovitis, unspecified (11/25/17) Other specified disorders of bone density and structure, unspecified site (11/25/17) Osteomyelitis, unspecified (11/25/17) Epigastric pain (11/25/17) Personal history of pneumonia (recurrent) (11/25/17) Physical Therapy Treatment Note M2 PT-IP Current Condition Start: 11/26/17 16:18 Freq: NEEDED Status: Active Protocol: Document 12/08/17 10:27 LRN (Rec: 12/08/17 10:38 LRN [id number]) Physical Therapy Current Condition Current Condition Evaluation Date 12/04/17 Treatment Diagnosis SOB Onset Date 11/26/17 Precautions Other Precautions O2 sat: Pt on 10 L/min at rest 99%, with activity dropped to 83% and took >1 minute to increase above 88%. M3 PT-IP Subjective Start: 11/26/17 16:18 Freq: NEEDED Status: Active Protocol: Document 12/08/17 10:27 LRN (Rec: 12/08/17 10:38 LRN [id number]) Subjective Physical Therapy Visit Type Type Treatment Note Visit Start Time 10:00 Visit Stop Time 10:25 Total Visit Minutes 25 Number of CUFF MATCHER Visits 0 Physical Therapy Visit Comments Patient Comments Pt feels she is at baseline. I've walked further than I normally do M4 PT-IP Mobility and Gait Start: 11/26/17 16:18 Freq: NEEDED Status: Active Protocol: Document 12/08/17 10:27 LRN (Rec: 12/08/17 10:38 LRN [id number]) PT-Transfer Assessment Sit to and From Stand Sit to and from Stand Independent Equipment Transfer Assistive Device Front Wheeled Walker Comments Mobility Comments Pt transferred sit to stand to sit independently. Gait Assessment Gait Gait Assistance Required: Standby Assistance Distance (Feet) (feet) 70 Assistive Devices Assistive Device Front Wheeled Walker Gait Deviations General Gait Pattern Flexed Trunk Wide Based Gait Factors Limiting Gait Function Factors Limiting Gait Function Respiratory Distress Comments Gait Comments Pt needed 2 standing rest stops due to SOB. PT-Balance Assessment Sitting Balance and Reactions Static Sitting Balance Ability Normal Dynamic Sitting Balance Ability Normal Standing Balance and Reactions Static Standing Balance Ability Good Dynamic Standing Balance Ability Good Device Used FWW M5 PT-IP Objective Assessments Start: 11/26/17 16:18 Freq: NEEDED Status: Active Protocol: Document 12/04/17 15:02 MDD (Rec: 12/04/17 16:34 MDD [id number]) Orientation Orientation/Cognition Level of Alertness Confusional State Orientation Name Age Birthday Month Date Year Day of Week Place Situation Language Function Ability No Deficits Noted Safety Awareness Understands Safety Issues Memory Description No Deficits Noted Gross Range of Motion Lower Extremity ROM Assessment Within Functional Limits Impairments LE ROM limited B due to body habitus. B knee and hip flexion limited. Strength Lower Extremity Strength Assessment Within Functional Limits Sensation Assessment Sensation Gross Sensation WNL M6 PT-IP Treatment Start: 11/26/17 16:18 Freq: NEEDED Status: Active Protocol: Document 12/08/17 10:27 LRN (Rec: 12/08/17 10:38 LRN [id number]) Physical Therapy Treatment Exercises Exercises Ankle Pumps Seated Knee Flexion/Extension Equipment Issued Equipment Type and Company Portable O2 Tank set at 4L for gait. M7 PT-IP Assessment and Plan Start: 11/26/17 16:18 Freq: NEEDED Status: Active Protocol: Document 12/08/17 10:27 LRN (Rec: 12/08/17 10:38 LRN [id number]) PT Summary Assessment and Plan Potential Rehabilitation Potential Good Status of Condition at Evaluation Evolving Summary Impairments Activity Tolerance Assessment Summary Pt apparently is at baseline per pt report. She is limited in mobility due to decreased respiratory support, but is able to manage her functional ability based on her symptoms. Pt needs supervision only for O2 needs. Pt is ready for DC to nursing care. Goals Bed Mobility Goal Independent Transfer Goal Independent Gait Goal Independent Front Wheel Walker Gait Distance 30 Other Goals Pt to tolerate static standing for up to 3 minutes maintaining oxygen saturation above 88%. Days to Meet Goals 0 Treatment Plan Physical Therapy Treatment Plan Discharge Planning Other Recommendations and Next Treatment Discharge from PT, nursing to Focus continue to walk with pt. Recommendations To Nursing Amount of Assist Needed Standby Assistance Discharge Recommendations PT Discharge Recommendations Home with Assistance Home Health
[2017-12-08] MEDS: ONDANSETRON 4 MG ODT PO (11:24)
[2017-12-08] MEDS: HYDROCODONE/ACET 5/325 TABLET 2 TAB PO (13:16)
[2017-12-08] MEDS: SODIUM CHLORIDE 0.9% FLUSH 10 ML IV (20:32)
--- NOTE | 2017-12-08 23:36 | PC.NURSE ---
Addendum entered by Amarilis Macario R.N. 12/09/17 06:44: On trilogy most of night. Back on HFNC this morning at 3L/min oxygen and sat is 94%, Original Note: Patient is alert and oriented. Breath sounds diminished but CTA with sat of 96% on oxygen at 3L/min per NC; denies SOB at rest or with activity. HRR. Denies nausea. BT hypoactive but abdomen is soft and had BM earlier today. Denies dysuria, frequency, urgency or incontinence. Gets out of bed with 1 assist + walker. Moves self in bed. Skin under breasts and in abdominal folds red/moist but without breakdown. Non pitting bilateral LE edema. Fall risk score is high and bed alarm activated. Denies pain.
[2017-12-09] VITALS (7 sets, daily range): BP systolic 140–152; BP diastolic 70–94; PULSE 68–74; RESP 16–17; TEMP 36.3–36.6; O2SAT 90–96
[2017-12-09] MEDS: PANTOPRAZOLE 40 MG TABLET PO (06:25)
[2017-12-09 06:56] LABS: Add Manual Diff / Slide Review NO; Basophils Percent Auto 1.2 % (0-2); Eosinophils Percent Auto 1.6 % (2-4); Hematocrit 38.2 % (36-46); Hemoglobin 12.1 g/dL (12.0-16.0); Lymphocytes Percent Auto 21.4 % (25-40); Mean Corpuscular HGB Conc 31.8 % (30-36); Mean Corpuscular Hemoglobin 26.5 PG (26-34); Mean Corpuscular Volume 83.4 fL (80-100); Monocytes Percent Auto 5.7 % (3-14); Neutrophils Absolute Auto 11200 /uL (3000-5900); Neutrophils Percent Auto 70.1 % (50-75); Platelet Count 429 X10^3/uL (150-400); Red Blood Cell Count 4.58 X10^6/uL (4.0-5.2); Red Cell Distribution Width 16.8 % (11.6-14.8)
[2017-12-09 07:08] LABS: Blood Urea Nitrogen 32 mg/dL (7-17); Calcium 9.4 mg/dL (8.4-10.2); Carbon Dioxide 32 mmol/L (22-32); Chloride 101 mmol/L (98-107); Estimated Glomerular Filt Rate > 60.0 mL/min (>60); Glucose 112 mg/dL (70-100); HEMOLYSIS < 15 (0-50); Potassium 3.5 mmol/L (3.4-5.1); Sodium 142 mmol/L (137-145)
[2017-12-09] MEDS: INSULIN DETEMIR 100 UNIT/ML INSULN.PEN 25 UNIT SUBCUT (09:11)
[2017-12-09] MEDS: MULTIVIT,CALC,MINS/IRON/FOLIC 1 TABLET 1 TAB PO (09:22)
[2017-12-09] MEDS: acetaZOLAMIDE 250 MG TABLET 500 MG PO (09:22)
[2017-12-09] MEDS: METOPROLOL 50 MG TABLET 100 MG PO (09:22)
[2017-12-09] MEDS: predniSONE 20 MG TABLET 40 MG PO (09:22)
[2017-12-09] MEDS: METFORMIN HCL 500 MG TABLET 1000 MG PO (09:23)
[2017-12-09] MEDS: FOLIC ACID 0.4 MG TABLET PO (09:23)
[2017-12-09] MEDS: levoFLOXacin 500 MG TABLET PO (09:24)
[2017-12-09] MEDS: AMLODIPINE 5 MG TABLET 10 MG PO (09:24)
[2017-12-09] MEDS: LISINOPRIL 20 MG TABLET PO (09:24)
[2017-12-09] MEDS: FLUTICASONE 120 SPRAY/16 GM SPRAY.SUSP NASAL (09:25)
[2017-12-09] MEDS: ENOXAPARIN 30 MG/0.3 ML SYRINGE SUBCUT (09:25)
--- NOTE | 2017-12-09 11:43 | P.DS_ITS ---
History of Present Illness Chief complaint: SOB/General weakness Narrative: Patient is a 42-year-old female with long chronic history of autoimmune disorder and severe obesity. She is on immune suppression and gluteus steroids and has history of diabetes presents acutely with worsening shortness of breath feeling feverish and has had a history of recurrent pneumonia which we have felt most likely represents her immune suppression with Enbrel seems like about every 3-6 months she gets an acute worsening. Presented to the emergency room had hypoxic this make not having chest pain no nausea or vomiting but quite hypoxic required a treatments without much improvement and high levels of oxygen. Evaluation felt primarily to be most consistent with pneumonia which fits her overall clinical picture. Her BNP was only 60. Troponin was borderline but had CKs negative and she had no symptoms of chest pain as a part of this and no EKG changes. Determined in the night to require admission and was admitted placed on respiratory therapy and IV antibiotics. Will continue her steroids antihypertensives and respiratory treatment Discharge Providers Date of admission: 11/25/17 19:16 Primary care physician: Raman Chavez MD Consults: 11/25/17 20:35 Consult to Physician Routine Comment: Consulting Provider: Jesus Manuel Reason for consultation: admission Has provider been notified: Yes 11/26/17 13:22 Consult to Physical Therapy Evaluate & Treat Comment: Physician Instructions: Evaluate and Treat 12/04/17 08:12 Consult to Physical Therapy Evaluate & Treat Comment: OOB to chair Physician Instructions: Evaluate and Treat Discharge provider: Raman Chavez MD Summary Discharge Diagnosis: 1. Respiratory failure secondary to restrictive issues for her respirations secondary to size and also with a component of congestive aguialr heart failure which is a combined systolic and diastolic nonischemic and acute superimposed over chronic 2. Obesity this is a large component and her pulmonary function I think because of severe restrictive issues both with the chest excursion as well as diaphragmatic excursion 3. All immune disorder with SAPHO syndrome this a Meeks disorder involved skin and skeletal issues or bleeding inflammatory and requires immune modulation we will have patient return to her regular immuno modulation meds. For diabetes patient usually with type 2 managed fairly well with oral meds and a small bit of a basal insulin requires greater doses when she is acutely ill and when she has initiation of steroids which has been in part due to her autoimmune disease will continue to taper steroids at this point and will have her return other sugars are in good control to her regular diabetic medications she uses at home 5. Hypertension have patient return to her regular medications at home with exception of probably increased presence of her diuretic 6. Probable component of pneumonia superimposed over her congestive failure restrictive lung disease and diabetes and obesity and that she had elevated white count and fevers prior to admission. Has seemed to improve in terms white count while on antibiotics 7. Sleep apnea patient will be using trilogy machine positive-pressure sleep and hands vent for obstructive sleep apnea hopefully we can maintain better ventilation and minimize her hypoxic driven fluid retention 8. Depression I will continue with the current antidepressant and anti anxiety medications. Time Spent with Patient Greater than 30 minutes Exam Vital Signs (past 8 hours): - 12/09/17 06:43 12/09/17 07:45 12/09/17 08:45 Temperature 97.9 F Pulse Rate 71 Respiratory Rate 17 Blood Pressure 152/94 H Pulse Oximetry 94 92 96 12/09/17 09:24 Temperature Pulse Rate 74 Respiratory Rate Blood Pressure 145/70 H Pulse Oximetry Fraction of Inspired Oxygen 32 Oxygen Delivery Method Nasal Cannula Oxygen Flow Rate 3 Narrative Exam Narrative: Patient much better at this point. Breathing easier back to her baseline oxygen requirement. Very good spirits PERRLA EOMs intact Neck without mass Lungs is improved aeration with decreased rales and no wheezing Cardiovascular shows regular rate and rhythm without murmur S3 and markedly diminished dependent edema Abdomen soft no hepatosplenomegaly no tenderness bowel sounds are present Back without significant lesions are complications Skin shows scarring from old inflammatory autoimmune disorder but no acute inflammation at this point Neuro sensory motor is intact and symmetrical and cranial nerves are intact speech is clear Objective Labs Result Diagrams: 12/09/17 06:35 12/09/17 06:35 Labs: Laboratory Results - last 24 hr 12/09/17 12/09/17 06:35 06:35 WBC 16.0 H RBC 4.58 Hgb 12.1 Hct 38.2 MCV 83.4 MCH 26.5 MCHC 31.8 RDW 16.8 H Plt Count 429 H Neut % (Auto) 70.1 Lymph % (Auto) 21.4 L [place] % (Auto) 5.7 Eos % (Auto) 1.6 L Baso % (Auto) 1.2 Neut # (Auto) 22978 H Sodium 142 Potassium 3.5 Chloride 101 Carbon Dioxide 32 BUN 32 H Creatinine 0.80 Estimated GFR > 60.0 BUN/Creatinine Ratio 40.0 H Glucose 112 H Calcium 9.4 Discharge Plan Discharge Plan Patient Disposition: Home Discharge Med Rec/Prescriptions Prescriptions: No Action lorazepam 1 MG tablet 1 - 2 mg PO Q8HP PRN (Reason: Anxiety) Qty: 0 RF: 0 etanercept [Enbrel] 50 MG/1 ML syringe 50 mg SQ QWEEK Qty: 0 RF: 0 hydrocodone-acetaminophen 5 MG/325 MG tablet 1 tab PO Q4HP PRN (Reason: for joint/back pain) Qty: 0 RF: 0 ondansetron HCl [Zofran] 4 MG tablet 4 mg PO Q8HP PRN (Reason: Nausea) Qty: 0 RF: 0 metoprolol tartrate 50 MG tablet 100 mg PO BID Qty: 0 RF: 0 prednisone 20 MG tablet 10 mg PO AMCC RF: 0 amlodipine 10 mg tablet 10 mg PO DAILY RF: 0 folic acid 400 mcg tablet 400 mcg PO DAILY RF: 0 lisinopril 10 mg tablet 10 mg PO DAILY RF: 0 metformin 1,000 mg tablet 1,000 mg PO BID RF: 0 multivitamin with minerals 1 tab PO DAILY RF: 0 Follow up/Referrals: Raman Chavez MD [Primary Care Provider] - (appt:12/15 @ 10:45 w/dr chavez ) Provider Discharge Instructions Diet: Carb-consistent/Diabetic Activity: as tolerated Oxygen: 2 liters Visit Report/Discharge Packet Visit Report Forms: Stroke Signs & Symptoms Discharge Data Primary Care Provider: Raman Chavez Attending Provider: Jesus Manuel Admit Date/Time: 11/25/17 19:16
--- NOTE | 2017-12-09 12:45 | CM.DPC ---
DCP Discharge Home Per MD, pt medically stable to d/c home today with oral medication, ongoing home oxygen and Trilogy, [facility] and no further identified discharge planning needs. SW met bedside with pt and RN and explained role again and pt confirms that she is agreeable with d/c home today and states her mom plans to transport her home and will bring her oxygen for transport and pt states she does not need Medicaid transport today. Pt's Trilogy is bedside and ready for her discharge today. Pt confirms again that she would like to [facility] and does not have any further concerns at this time. SW called [facility] and left message that pt will be discharging home today with [facility]. CC Denise kindly faxed d/c summ and [facility] to [facility] as well as to pt's BRYAN [place] Plan: Patient to d/c home today via mother's POV and [facility] and Trilogy. RODOLFO Hutchinson
[2017-12-09] MEDS: INSULIN ASPART 100 UNIT/ML INSULN PEN SUBCUT (13:46)
--- NOTE | 2017-12-09 14:20 | PT.IPTN ---
Current Diagnoses Anemia, unspecified (11/25/17) Type 2 diabetes mellitus with other specified complication (11/25/17) Morbid (severe) obesity due to excess calories (11/25/17) Morbid (severe) obesity with alveolar hypoventilation (11/25/17) Obesity, unspecified (11/25/17) Mixed disorder of acid-base balance (11/25/17) Hypokalemia (11/25/17) Anxiety disorder, unspecified (11/25/17) Essential (primary) hypertension (11/25/17) Heart failure, unspecified (11/25/17) Pneumonia, unspecified organism (11/25/17) Chronic obstructive pulmonary disease, unspecified (11/25/17) Acute and chronic respiratory failure with hypoxia (11/25/17) 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) Acne, unspecified (11/25/17) Synovitis and tenosynovitis, unspecified (11/25/17) Other specified disorders of bone density and structure, unspecified site (11/25/17) Osteomyelitis, unspecified (11/25/17) Epigastric pain (11/25/17) Personal history of pneumonia (recurrent) (11/25/17) Physical Therapy Treatment Note M2 PT-IP Current Condition Start: 11/26/17 16:18 Freq: NEEDED Status: Active Protocol: Document 12/08/17 10:27 LRN (Rec: 12/08/17 10:38 LRN [id number]) Physical Therapy Current Condition Current Condition Evaluation Date 12/04/17 Treatment Diagnosis SOB Onset Date 11/26/17 Precautions Other Precautions O2 sat: Pt on 10 L/min at rest 99%, with activity dropped to 83% and took >1 minute to increase above 88%. M3 PT-IP Subjective Start: 11/26/17 16:18 Freq: NEEDED Status: Active Protocol: Document 12/09/17 10:55 LJ (Rec: 12/09/17 14:18 LJ [id number]) Subjective Physical Therapy Visit Type Type Patient Refusal Physical Therapy Visit Comments Patient Comments Pt reported going home later today.
--- NOTE | 2017-12-09 15:24 | PC.NURSE ---
Day Shift- Pt Discharged home with [facility]. PICC removed by Education And Outreach Coordinator Александр at 1430. Gauze dressing CDI and secured with tegaderm, and wrapped with coban. Written and verbal discharge instructions given to pt from discharge summary packet on diet, mobility, S/S of infection, medications, measuring weight. Also DI given in packet, pt had no voiced concerns. Pt has Ogone machine to take home, and stated the company is to meet in her home tonight for further instructions. Pt's mother Tori brought in pt's own portable Oxygen tank from home for transport. Pt stated had all belongings. Pt left unit via wheelchair at 1520, pt's mother Tori present to drive pt home.
[2017-12-14 10:50] LABS: TCO2 ABG > 50 mmol/L (23-27)
[2017-12-14 10:51] LABS: Base Excess ABG > 30.0 mmol/L (-2-3)
== END 2017-12-09 15:20 | disposition home health service (06) | DRG 193 ==
LOC: ED 19:12 → AC 19:16 → ICU 12-03 11:54 → AC 12-08 17:30
PROVIDERS: Family Medicine; Internal Medicine; Admitting Provider Family Medicine; Emergency Provider Emergency Medicine; Family Provider Family Medicine; PCP Family Medicine; Visit Provider Family Medicine
DX: J18.9 Pneumonia, unspecified organism (principal); J96.22 Acute and chronic respiratory failure with hypercapnia; J96.20 Acute and chronic respiratory failure, unspecified whether with hypoxia or hypercapnia; I50.43 Acute on chronic combined systolic (congestive) and diastolic (congestive) heart failure; Z68.44 Body mass index [BMI] 60.0-69.9, adult; E66.2 Morbid (severe) obesity with alveolar hypoventilation; E87.3 Alkalosis; F41.9 Anxiety disorder, unspecified; E11.9 Type 2 diabetes mellitus without complications; Z99.81 Dependence on supplemental oxygen; Z79.84 Long term (current) use of oral hypoglycemic drugs; Z79.52 Long term (current) use of systemic steroids; D89.89 Other specified disorders involving the immune mechanism, not elsewhere classified; Z79.899 Other long term (current) drug therapy; I10 Essential (primary) hypertension; G47.00 Insomnia, unspecified; F32.9 Major depressive disorder, single episode, unspecified; G43.909 Migraine, unspecified, not intractable, without status migrainosus; L30.4 Erythema intertrigo; D63.8 Anemia in other chronic diseases classified elsewhere; E87.70 Fluid overload, unspecified; E86.0 Dehydration; J45.909 Unspecified asthma, uncomplicated; R60.9 Edema, unspecified; J44.9 Chronic obstructive pulmonary disease, unspecified; E87.6 Hypokalemia
CPT/HCPCS: 36415; 36591; 36592; 36600; 71045; 80048; 80053; 82550; 82805; 82962; 83036; 83605; 83735; 83880; 83986; 84145; 84484; 85025; 87040; 87086; 87797; 93005; 93010; 93307; 94640; 94660; 94760; 94762; 97116; 97161; 97530; 99283; 99285; J1170; J1642; J1650; J1940; J2060; J2405; J2543; J2765; J2930; J7613

== ENCOUNTER → 2017-12-28 13:07 | Outpatient (REF) | payer MEDICARE, MEDICAID, SELFPAY ==
[2017-11-25 20:42] VITALS: BMI 66.5
[2017-12-05 07:35] VITALS: PULSE 65; RESP 16; O2SAT 94
[2017-12-28 13:35] LABS: Hematocrit 39.7 % (36-46); Hemoglobin 12.6 g/dL (12.0-16.0); Mean Corpuscular HGB Conc 31.8 % (30-36); Mean Corpuscular Hemoglobin 26.6 PG (26-34); Mean Corpuscular Volume 83.8 fL (80-100); Platelet Count 287 X10^3/uL (150-400); Red Blood Cell Count 4.74 X10^6/uL (4.0-5.2); Red Cell Distribution Width 16.9 % (11.6-14.8); White Blood Cell Count 16.7 X10^3/uL (4.5-11.0)
[2017-12-28 13:58] LABS: Alanine Aminotransferase 43 IU/L (9-52); Albumin Globulin Ratio 1.4 (1.0-2.8); Alkaline Phosphatase 90 U/L (38-126); Aspartate Aminotransferase 28 IU/L (14-36); Bilirubin Total 0.5 mg/dL (0.2-1.3); Blood Urea Nitrogen 21 mg/dL (7-17); Calcium 9.2 mg/dL (8.4-10.2); Carbon Dioxide 34 mmol/L (22-32); Chloride 95 mmol/L (98-107); Estimated Glomerular Filt Rate > 60.0 mL/min (>60); Globulin 2.9 g/dL (1.7-4.1); Glucose 304 mg/dL (70-100); HEMOLYSIS 22 (0-50); Potassium 4.6 mmol/L (3.4-5.1); Sodium 139 mmol/L (137-145); Total Protein 6.9 g/dL (6.3-8.2)
[2017-12-28 14:11] LABS: Hemoglobin A1C% w Est Avg Glu 9.2 % (4.0-6.0)
== END ==
LOC: LAB 13:07
PROVIDERS: Family Provider Family Medicine; PCP Family Medicine; Visit Provider Family Medicine
DX: I50.32 Chronic diastolic (congestive) heart failure (principal); E11.9 Type 2 diabetes mellitus without complications
CPT/HCPCS: 80053; 83036; 85027

== ENCOUNTER → 2018-02-05 13:27 | Outpatient (REF) | payer MEDICARE, MEDICAID, SELFPAY ==
[2017-11-25 20:42] VITALS: BMI 66.5
[2017-12-05 07:35] VITALS: PULSE 65; RESP 16; O2SAT 94
[2018-02-05 14:12] LABS: Alanine Aminotransferase 42 IU/L (9-52); Albumin 4.1 g/dL (3.5-5.0); Albumin Globulin Ratio 1.1 (1.0-2.8); Alkaline Phosphatase 117 U/L (38-126); Aspartate Aminotransferase 41 IU/L (14-36); BUN Creatinine Ratio 27.1 (6-22); Bilirubin Total 0.3 mg/dL (0.2-1.3); Blood Urea Nitrogen 19 mg/dL (7-17); Carbon Dioxide 37 mmol/L (22-32); Chloride 95 mmol/L (98-107); Estimated Glomerular Filt Rate > 60.0 mL/min (>60); Globulin 3.9 g/dL (1.7-4.1); Glucose 212 mg/dL (70-100); HEMOLYSIS < 15 (0-50); Potassium 3.6 mmol/L (3.4-5.1); Sodium 143 mmol/L (137-145)
[2018-02-05 14:21] LABS: Hematocrit 35.4 % (36-46); Hemoglobin 10.9 g/dL (12.0-16.0); Mean Corpuscular HGB Conc 30.7 % (30-36); Mean Corpuscular Hemoglobin 25.7 PG (26-34); Mean Corpuscular Volume 83.7 fL (80-100); Platelet Count 449 X10^3/uL (150-400); Red Blood Cell Count 4.23 X10^6/uL (4.0-5.2); Red Cell Distribution Width 16.1 % (11.6-14.8); White Blood Cell Count 12.3 X10^3/uL (4.5-11.0)
== END ==
LOC: LAB 13:27
PROVIDERS: Family Provider Family Medicine; PCP Family Medicine; Visit Provider Family Medicine
DX: I50.32 Chronic diastolic (congestive) heart failure (principal)
CPT/HCPCS: 80053; 85027

== ENCOUNTER → 2018-02-11 12:20 | Outpatient (REF) | payer MEDICARE, MEDICAID, SELFPAY ==
[2017-11-25 20:42] VITALS: BMI 66.5
[2017-12-05 07:35] VITALS: PULSE 65; RESP 16; O2SAT 94
[2018-02-11 12:33] LABS: Hematocrit 38.2 % (36-46); Hemoglobin 11.8 g/dL (12.0-16.0); Mean Corpuscular HGB Conc 30.9 % (30-36); Mean Corpuscular Hemoglobin 25.5 PG (26-34); Mean Corpuscular Volume 82.3 fL (80-100); Platelet Count 567 X10^3/uL (150-400); Red Blood Cell Count 4.65 X10^6/uL (4.0-5.2); Red Cell Distribution Width 16.9 % (11.6-14.8); White Blood Cell Count 13.9 X10^3/uL (4.5-11.0)
[2018-02-11 12:39] LABS: Alanine Aminotransferase 36 IU/L (9-52); Albumin 4.3 g/dL (3.5-5.0); Albumin Globulin Ratio 1.2 (1.0-2.8); Alkaline Phosphatase 87 U/L (38-126); Aspartate Aminotransferase 52 IU/L (14-36); Bilirubin Total 0.6 mg/dL (0.2-1.3); Blood Urea Nitrogen 17 mg/dL (7-17); Calcium 9.2 mg/dL (8.4-10.2); Carbon Dioxide 35 mmol/L (22-32); Chloride 93 mmol/L (98-107); Estimated Glomerular Filt Rate > 60.0 mL/min (>60); Globulin 3.6 g/dL (1.7-4.1); Glucose 225 mg/dL (70-100); Sodium 142 mmol/L (137-145); Total Protein 7.9 g/dL (6.3-8.2)
[2018-02-11 12:41] LABS: HEMOLYSIS 77 (0-50)
[2018-02-11 12:42] LABS: Potassium 4.1 mmol/L (3.4-5.1)
== END ==
LOC: LAB 12:20
PROVIDERS: Family Provider Family Medicine; PCP Family Medicine; Visit Provider Family Medicine
DX: I50.32 Chronic diastolic (congestive) heart failure (principal)
CPT/HCPCS: 80053; 85027

== ENCOUNTER → 2018-02-22 12:00 | Outpatient (REF) | payer MEDICARE, MEDICAID, SELFPAY ==
[2017-11-25 20:42] VITALS: BMI 66.5
[2017-12-05 07:35] VITALS: PULSE 65; RESP 16; O2SAT 94
[2018-02-22 12:30] LABS: Hemoglobin A1C% w Est Avg Glu 9.7 % (4.0-6.0)
[2018-02-22 12:34] LABS: Alanine Aminotransferase 30 IU/L (9-52); Albumin 4.1 g/dL (3.5-5.0); Albumin Globulin Ratio 1.1 (1.0-2.8); Alkaline Phosphatase 110 U/L (38-126); Appearance Urine UA CLOUDY; Aspartate Aminotransferase 21 IU/L (14-36); BUN Creatinine Ratio 22.9 (6-22); Bilirubin Total 0.5 mg/dL (0.2-1.3); Bilirubin Urine UA NEGATIVE (NEGATIVE); Blood Urea Nitrogen 16 mg/dL (7-17); Calcium 8.8 mg/dL (8.4-10.2); Carbon Dioxide 35 mmol/L (22-32); Chloride 96 mmol/L (98-107); Cholesterol 143 mg/dL (140-199); Color Urine UA YELLOW; Estimated Glomerular Filt Rate > 60.0 mL/min (>60); Globulin 3.6 g/dL (1.7-4.1); Glucose 160 mg/dL (70-100); Glucose Urine UA NEGATIVE (Normal); HDL Cholesterol 32 mg/dL (40-60); HEMOLYSIS < 15 (0-50); Ketones Urine UA TRACE (NEGATIVE); LDL Cholesterol Calculated 78 mg/dL (<100); Leukocyte Esterase Urine UA 1+ (NEGATIVE); Nitrite Urine UA NEGATIVE (Negative); Occult Blood Urine UA 2+ (Negative); Potassium 4.2 mmol/L (3.4-5.1); Protein Urine UA 2+ (Negative); Sodium 142 mmol/L (137-145); Specific Gravity Urine UA >=1.030 (1.000-1.035); Total Protein 7.7 g/dL (6.3-8.2); Triglycerides 165 mg/dL (35-150); Urobilinogen Urine UA 0.2 E.U./dL (0.2)
[2018-02-22 12:44] LABS: Bacteria Urine Many (>30); RBC Urine 5-10/HPF (0-5/HPF); Squamous Epithelial Cell Urine 1-5 /HPF; Transitional Epi Cells Urine 5-10/HPF (0-5/HPF); WBC Urine 30-100/HPF (0-5/HPF)
[2018-02-22 12:45] LABS: LDL Cholesterol Direct 84 mg/dL (<100)
[2018-02-22 13:00] LABS: Microalbumi Creatinin Ratio Ur 118.4 ug/mg CR (<30); Microalbumin Urine Random 30.2 mg/dL (0-1.6)
== END ==
LOC: LAB 12:00
PROVIDERS: Family Provider Family Medicine; PCP Family Medicine; Visit Provider Family Medicine
DX: E11.9 Type 2 diabetes mellitus without complications (principal); E66.9 Obesity, unspecified; I50.32 Chronic diastolic (congestive) heart failure
CPT/HCPCS: 80053; 80061; 81001; 82043; 82570; 83036; 83721; 87077; 87086; 87186

== ENCOUNTER → 2018-03-16 11:31 | Outpatient (REF) | payer MEDICARE, MEDICAID, SELFPAY ==
[2017-11-25 20:42] VITALS: BMI 66.5
[2017-12-05 07:35] VITALS: PULSE 65; RESP 16; O2SAT 94
[2018-03-16 11:37] LABS: Appearance Urine UA CLEAR; Bilirubin Urine UA NEGATIVE (NEGATIVE); Color Urine UA YELLOW; Glucose Urine UA NEGATIVE (Normal); Ketones Urine UA NEGATIVE (NEGATIVE); Leukocyte Esterase Urine UA NEGATIVE (NEGATIVE); Nitrite Urine UA NEGATIVE (Negative); Occult Blood Urine UA TRACE-INTACT (Negative); Protein Urine UA NEGATIVE (Negative); Specific Gravity Urine UA 1.025 (1.000-1.035); Urobilinogen Urine UA 0.2 E.U./dL (0.2); pH Urine UA 5.5 (4.5-8.0)
[2018-03-16 11:40] LABS: Hematocrit 34.6 % (36-46); Hemoglobin 10.6 g/dL (12.0-16.0); Mean Corpuscular HGB Conc 30.8 % (30-36); Mean Corpuscular Hemoglobin 25.2 PG (26-34); Mean Corpuscular Volume 82.1 fL (80-100); Platelet Count 422 X10^3/uL (150-400); Red Blood Cell Count 4.22 X10^6/uL (4.0-5.2); Red Cell Distribution Width 18.2 % (11.6-14.8); White Blood Cell Count 10.7 X10^3/uL (4.5-11.0)
[2018-03-16 11:49] LABS: Squamous Epithelial Cell Urine 5-10 /HPF
[2018-03-16 11:52] LABS: BUN Creatinine Ratio 15.7 (6-22); Blood Urea Nitrogen 11 mg/dL (7-17); Carbon Dioxide 32 mmol/L (22-32); Chloride 98 mmol/L (98-107); Estimated Glomerular Filt Rate > 60.0 mL/min (>60); Glucose 175 mg/dL (70-100); HEMOLYSIS < 15 (0-50); Potassium 4.5 mmol/L (3.4-5.1); Sodium 143 mmol/L (137-145)
[2018-03-16 11:55] LABS: Amorphous Sediment Urine 4+
[2018-03-16 11:56] LABS: Bacteria Urine Many (>30)
[2018-03-16 11:57] LABS: RBC Urine None Seen (0-5/HPF); WBC Urine None Seen (0-5/HPF)
== END ==
LOC: LAB 11:31
PROVIDERS: Family Provider Family Medicine; PCP Family Medicine; Visit Provider Family Medicine
DX: E11.9 Type 2 diabetes mellitus without complications (principal); N39.0 Urinary tract infection, site not specified
CPT/HCPCS: 80048; 81001; 85027; 87086

== ENCOUNTER → 2018-05-28 15:15 | Outpatient (REF) | payer MEDICARE, MEDICAID, SELFPAY ==
[2017-11-25 20:42] VITALS: BMI 66.5
[2017-12-05 07:35] VITALS: PULSE 65; RESP 16; O2SAT 94
[2018-05-28 16:08] LABS: Alanine Aminotransferase 25 IU/L (9-52); Alkaline Phosphatase 94 U/L (38-126); Aspartate Aminotransferase 24 IU/L (14-36); Bilirubin Total 0.5 mg/dL (0.2-1.3); Blood Urea Nitrogen 15 mg/dL (7-17); Calcium 8.9 mg/dL (8.4-10.2); Carbon Dioxide 32 mmol/L (22-32); Chloride 94 mmol/L (98-107); Estimated Glomerular Filt Rate > 60.0 mL/min (>60); Glucose 242 mg/dL (70-100); HEMOLYSIS < 15 (0-50); Potassium 4.5 mmol/L (3.4-5.1); Sodium 137 mmol/L (137-145)
== END ==
LOC: LAB 15:15
PROVIDERS: Family Provider Family Medicine; PCP Family Medicine; Visit Provider Family Medicine
DX: L73.2 Hidradenitis suppurativa (principal); I50.32 Chronic diastolic (congestive) heart failure
CPT/HCPCS: 80053

== ENCOUNTER 2018-06-04 22:14 | Inpatient (IN) | payer MEDICARE, MEDICAID, SELFPAY ==
[2017-11-25 20:42] VITALS: BMI 66.5
[2017-12-05 07:35] VITALS: PULSE 65; RESP 16; O2SAT 94
[2018-06-04 22:20] VITALS: PULSE 148; RESP 40; O2SAT 90
--- NOTE | 2018-06-04 22:26 | DI.RAD.S_ITS ---
PROCEDURE: XR CHEST 1V INDICATIONS: Shortness of breath TECHNIQUE: One view of the chest was acquired. COMPARISON: None. FINDINGS: Surgical changes and devices: None. Lungs and pleura: No pneumothorax. Diffuse patchy ill-defined consolidations in the bilateral hemithoraces. Left greater than right bilateral pleural effusions. There is loss of vascular distinctness. Mediastinum: Cardiomediastinal contours are stable with enlargement of the cardiac silhouette. Bones and chest wall: No suspicious bony lesions. Overlying soft tissues appear unremarkable. IMPRESSION: Cardiomegaly with diffuse bilateral ill-defined consolidations and loss of vascular distinctness. There are also bilateral pleural effusions greater on the left. Findings are suggestive of pulmonary edema/CHF. Dictated by: Dennis Han M.D. on 06/05/2018 at 13:45 Approved by: Dennis Han M.D. on 06/05/2018 at 13:47
--- NOTE | 2018-06-04 22:27 | ED_ITS ---
HPI - General Adult General Chief complaint: Shortness of Breath/Dyspnea Stated complaint: SOB Time Seen by Provider: 06/04/18 22:25 Source: patient, family and EMS Mode of arrival: EMS Limitations: other (Respiratory distress) History of Present Illness HPI narrative: Majority of the HPI provided by EMS upon arrival and then by patient's mom after she arrived. She reported by EMS that the patient became acutely short of breath this afternoon. They stated that upon their arrival patient's oxygen saturations were in the 50s. She is placed on a non- rebreather. They attempted BiPAP however the patient did not tolerate secondary to anxiety. Oxygen saturations did improve to the mid 80s on the non-rebreather. After the mother arrived she stated that yesterday the patient was not feeling well. That worsened this morning. She did take a nap this afternoon. Mother states that when she woke up from the nap she seemed to be doing okay. There was sitting on the couch watching TV when the patient needed to get up and go to the bathroom. She was unable to get up. The mother states she became very anxious and then had problems breathing. Mother states that the last time this episode happened she was diagnosed with pneumonia. Mother states that she has been taking her medications. Related Data Home Medications Medication Instructions Recorded Confirmed lorazepam 1 - 2 mg PO Q8HP PRN #0 06/02/16 11/26/17 etanercept [Enbrel] 50 mg SQ QWEEK #0 08/12/16 11/25/17 hydrocodone-acetaminophen 1 tab PO Q4HP PRN #0 01/12/17 11/26/17 metoprolol tartrate 100 mg PO BID #0 01/12/17 11/26/17 ondansetron HCl [Zofran] 4 mg PO Q8HP PRN #0 01/12/17 11/26/17 amlodipine 10 mg PO DAILY 09/16/17 11/26/17 folic acid 400 mcg PO DAILY 09/16/17 11/26/17 lisinopril 10 mg PO DAILY 09/16/17 11/26/17 metformin 1,000 mg PO BID 09/16/17 11/26/17 multivitamin with minerals 1 tab PO DAILY 09/16/17 11/25/17 prednisone 10 mg PO AMCC 09/16/17 11/26/17 Allergies Allergy/AdvReac Type Severity Reaction Status Date / Time infliximab Allergy Unknown Verified 09/15/17 21:40 Review of Systems Review of Systems Very limited review of systems secondary to the patient's respiratory status ROS Unobtainable: Unobtainable due to medical condition Cardiovascular Reports dyspnea Respiratory Reports dyspnea PFSH Social History household members: family and children Smoking Status: Former smoker alcohol intake: never Exam Initial Vital Signs Initial Vital Signs: Vital Signs Pulse Rate 148 H 06/04/18 22:20 Respiratory Rate 40 H 06/04/18 22:20 Pulse Oximetry 90 L 06/04/18 22:20 Const General: in distress, anxious and ill appearing Orientation: alert and awake Limitations: other limitations (Respiratory distress) HENMT Head: normal to inspection and normocephalic Eyes EOM: EOM intact bilaterally Chest Chest: normal inspection of the chest Resp Effort & Inspection: not able to speak in complete sentences, labored, respiratory distress, no retractions, tachypneic, no tracheal deviation and uses accessory muscles Auscultation: other (Decreased breath sounds bilateral) Cardio Rate: tachycardic Rhythm: regular rhythm Pulses: radial pulses present GI Inspection: non-distended Skin Rashes: no rashes Neuro General: alert and awake Extrem General: capillary refill normal and edema Psych Speech and Movement: restless Mood: anxious mood Course Orders Ordered: ED Orders 06/04/18 22:26 XR chest 1V Stat EKG-12 Lead Stat RT Consult Eval and Treat Now 06/04/18 22:43 Complete Blood Count AUTO DIFF Stat Comprehensive Metabolic Panel Stat Lactate (Lactic Acid) Stat Partial Thromboplastin Time Stat Procalcitonin Stat Prothrombin Time INR Stat Troponin I Stat 06/04/18 22:58 Blood Culture Stat 06/04/18 23:46 Arterial Blood Gas Stat 06/05/18 00:01 B Type Natriuretic Peptide Stat 06/05/18 00:18 Consult to Physician Routine 06/05/18 01:31 Arterial Blood Gas Stat 06/05/18 01:52 Consult to PICC Line RN Stat 06/05/18 07:00 Troponin I Stat Dextrose (D50w) 25 gm IV PRN PRN; Protocol PRN Reason: Hypoglycemia Sodium Chloride (Normal Saline 0.9%) 1,000 mls @ 125 mls/hr IV CONT SERGO Last Infusion: 06/05/18 01:59 Dose: 0 mls/hr Admin: 06/04/18 23:08 Dose: 125 mls/hr Insulin Aspart (Novolog Flexpen) 0 unit SUBCUT ACHS [facility]; Protocol Ondansetron HCl (Zofran) 4 mg IV Q4HR PRN PRN Reason: Nausea And Vomiting Discontinued Medications Aspirin (Aspirin Supp) 600 mg OK NOW ONE Stop: 06/04/18 23:53 Last Admin: 06/05/18 00:00 Dose: 600 mg Furosemide (Lasix) 60 mg IV NOW ONE Stop: 06/04/18 23:03 Last Admin: 06/04/18 23:08 Dose: 60 mg Furosemide (Lasix) 60 mg IV NOW ONE Stop: 06/05/18 01:49 Last Admin: 06/05/18 01:59 Dose: 60 mg Levofloxacin (Levaquin) 750 mg in 150 mls @ 100 mls/hr IV NOW ONE Stop: 06/05/18 00:49 Last Infusion: 06/05/18 01:14 Dose: 0 mls/hr Admin: 06/04/18 23:43 Dose: 100 mls/hr Ceftriaxone Sodium/Dextrose (Rocephin) 1 gm in 50 mls @ 100 mls/hr IV NOW ONE Stop: 06/05/18 02:05 Lorazepam (Ativan) 1 mg IV NOW ONE Stop: 06/04/18 22:26 Last Admin: 06/04/18 22:37 Dose: 1 mg Methylprednisolone (Solu-Medrol 125 Mg Vial) 125 mg IV NOW ONE Stop: 06/05/18 00:05 Last Admin: 06/05/18 00:24 Dose: 125 mg Vital Signs - 8 hr 06/04/18 22:20 06/04/18 22:40 06/04/18 23:13 Temperature Pulse Rate 148 H 137 H Respiratory Rate 40 H Blood Pressure 178/156 H Blood Pressure [Left Arm] 148/55 H Pulse Oximetry 90 L 94 06/04/18 23:45 06/05/18 00:00 06/05/18 01:15 Temperature Pulse Rate 130 H 112 H Respiratory Rate 23 27 H Blood Pressure 148/55 H Blood Pressure [Left Arm] 112/50 L 112/52 L Pulse Oximetry 95 91 06/05/18 01:37 06/05/18 01:45 06/05/18 02:32 Temperature 97.9 F Pulse Rate 118 H 63 114 H Respiratory Rate 29 H 26 H Blood Pressure 124/48 L 121/64 Blood Pressure [Left Arm] 124/48 L Pulse Oximetry 91 93 Medical Decision Making Medical Records Medical records reviewed: Yes I reviewed the patient's medical records. Lab Data Lab results reviewed: Yes I reviewed the patient's lab results. Result diagrams: 06/04/18 22:43 06/04/18 22:43 Lab Results 06/04/18 06/04/18 06/04/18 Range/Units 22:43 22:43 22:43 WBC 27.1 H (4.5-11.0) X10^3/uL RBC 5.07 (4.0-5.2) X10^6/uL Hgb 11.8 L (12.0-16.0) g/dL Hct 40.1 (36-46) % MCV 79.1 L (80-100) fL MCH 23.4 L (26-34) PG MCHC 29.5 L (30-36) % RDW 20.8 H (11.6-14.8) % Plt Count 446 H (150-400) X10^3/uL Neut % (Auto) 88.4 H (50-75) % Lymph % (Auto) 6.4 L (25-40) % Louisa % (Auto) 3.6 (3-14) % Eos % (Auto) 0.8 L (2-4) % Baso % (Auto) 0.8 (0-2) % Neut # (Auto) 37524 H (2628-5951) /uL Lymph # (Auto) 1700 (4633-6988) /uL Louisa # (Auto) 1000 H (0-900) /uL Eos # (Auto) 200 (0-450) /uL Baso # (Auto) 200 H (0-100) /uL RBC Morphology See below Polychromasia 2+ H Anisocytosis 1+ H PT 12.7 (10.1-12.7) SECONDS INR 1.1 (0.9-1.3) APTT 30 (26.4-36.2) SECONDS ABG pH (7.35-7.45) ABG pCO2 (35-45) mmHg ABG pO2 (80-100) mmHg ABG HCO3 (22-26) mmol/L ABG Total CO2 (21-31) mmol/L ABG O2 Saturation (95-100) % ABG Base Excess (-2-2) mmol/L FiO2 Sodium 140 (137-145) mmol/L Potassium 4.7 (3.4-5.1) mmol/L Chloride 96 L (98-107) mmol/L Carbon Dioxide 34 H (22-32) mmol/L BUN 17 (7-17) mg/dL Creatinine 0.70 (0.52-1.04) mg/dL Estimated GFR > 60.0 (>60) mL/min BUN/Creatinine Ratio 24.3 H (6-22) Glucose 208 H (70-100) mg/dL Lactate (0.7-2.1) mmol/L Calcium 9.4 (8.4-10.2) mg/dL Total Bilirubin 0.7 (0.2-1.3) mg/dL AST 30 (14-36) IU/L ALT 39 (9-52) IU/L Alkaline Phosphatase 143 H D (38-126) U/L Troponin I 0.094 H (0.01-0.034) ng/mL B-Natriuretic Peptide (<100) Total Protein 8.9 H (6.3-8.2) g/dL Albumin 4.3 (3.5-5.0) g/dL Globulin 4.6 H (1.7-4.1) g/dL Albumin/Globulin Ratio 0.9 L (1.0-2.8) Procalcitonin (<0.5) ng/mL 06/04/18 06/04/18 06/04/18 Range/Units 22:43 22:43 22:43 WBC (4.5-11.0) X10^3/uL RBC (4.0-5.2) X10^6/uL Hgb (12.0-16.0) g/dL Hct (36-46) % MCV (80-100) fL MCH (26-34) PG MCHC (30-36) % RDW (11.6-14.8) % Plt Count (150-400) X10^3/uL Neut % (Auto) (50-75) % Lymph % (Auto) (25-40) % Louisa % (Auto) (3-14) % Eos % (Auto) (2-4) % Baso % (Auto) (0-2) % Neut # (Auto) (8146-1014) /uL Lymph # (Auto) (7491-3499) /uL Louisa # (Auto) (0-900) /uL Eos # (Auto) (0-450) /uL Baso # (Auto) (0-100) /uL RBC Morphology Polychromasia Anisocytosis PT (10.1-12.7) SECONDS INR (0.9-1.3) APTT (26.4-36.2) SECONDS ABG pH (7.35-7.45) ABG pCO2 (35-45) mmHg ABG pO2 (80-100) mmHg ABG HCO3 (22-26) mmol/L ABG Total CO2 (21-31) mmol/L ABG O2 Saturation (95-100) % ABG Base Excess (-2-2) mmol/L FiO2 Sodium (137-145) mmol/L Potassium (3.4-5.1) mmol/L Chloride (98-107) mmol/L Carbon Dioxide (22-32) mmol/L BUN (7-17) mg/dL Creatinine (0.52-1.04) mg/dL Estimated GFR (>60) mL/min BUN/Creatinine Ratio (6-22) Glucose (70-100) mg/dL Lactate 1.9 (0.7-2.1) mmol/L Calcium (8.4-10.2) mg/dL Total Bilirubin (0.2-1.3) mg/dL AST (14-36) IU/L ALT (9-52) IU/L Alkaline Phosphatase (38-126) U/L Troponin I (0.01-0.034) ng/mL B-Natriuretic Peptide 252 H (<100) Total Protein (6.3-8.2) g/dL Albumin (3.5-5.0) g/dL Globulin (1.7-4.1) g/dL Albumin/Globulin Ratio (1.0-2.8) Procalcitonin 0.24 (<0.5) ng/mL 06/04/18 06/05/18 Range/Units 23:46 01:31 WBC (4.5-11.0) X10^3/uL RBC (4.0-5.2) X10^6/uL Hgb (12.0-16.0) g/dL Hct (36-46) % MCV (80-100) fL MCH (26-34) PG MCHC (30-36) % RDW (11.6-14.8) % Plt Count (150-400) X10^3/uL Neut % (Auto) (50-75) % Lymph % (Auto) (25-40) % Louisa % (Auto) (3-14) % Eos % (Auto) (2-4) % Baso % (Auto) (0-2) % Neut # (Auto) (3518-2982) /uL Lymph # (Auto) (2297-9755) /uL Louisa # (Auto) (0-900) /uL Eos # (Auto) (0-450) /uL Baso # (Auto) (0-100) /uL RBC Morphology Polychromasia Anisocytosis PT (10.1-12.7) SECONDS INR (0.9-1.3) APTT (26.4-36.2) SECONDS ABG pH 7.31 L 7.31 L (7.35-7.45) ABG pCO2 64.0 H* 64.6 H* (35-45) mmHg ABG pO2 64 L 67 L (80-100) mmHg ABG HCO3 32 H 32 H (22-26) mmol/L ABG Total CO2 34 H 34 H (21-31) mmol/L ABG O2 Saturation 89 L 90 L (95-100) % ABG Base Excess 6.0 H 6.0 H (-2-2) mmol/L FiO2 80 90 Sodium (137-145) mmol/L Potassium (3.4-5.1) mmol/L Chloride (98-107) mmol/L Carbon Dioxide (22-32) mmol/L BUN (7-17) mg/dL Creatinine (0.52-1.04) mg/dL Estimated GFR (>60) mL/min BUN/Creatinine Ratio (6-22) Glucose (70-100) mg/dL Lactate (0.7-2.1) mmol/L Calcium (8.4-10.2) mg/dL Total Bilirubin (0.2-1.3) mg/dL AST (14-36) IU/L ALT (9-52) IU/L Alkaline Phosphatase (38-126) U/L Troponin I (0.01-0.034) ng/mL B-Natriuretic Peptide (<100) Total Protein (6.3-8.2) g/dL Albumin (3.5-5.0) g/dL Globulin (1.7-4.1) g/dL Albumin/Globulin Ratio (1.0-2.8) Procalcitonin (<0.5) ng/mL Point of Care Testing Glucose POC 196 Point of care testing: Point of Care Testing Glucose POC 196 Imaging Data Chest x-ray: Attestation: I personally reviewed and interpreted this imaging study as follows: My impression: No focal consolidations CHF pattern Normal-sized are in ECG Data Attestation: I personally reviewed and interpreted this ECG as follows: Prior ECG tracings: not available for review Interpretation: Sinus tachycardia Ventricular rate of 147 Normal axis Normal QRS Normal QTC Nonspecific ST T wave changes MDM Narrative Medical decision making narrative: Patient in significant respiratory distress upon arrival. Was satting in the high 80s on non-rebreather. She was given 1 mg of Ativan given reassurance and she did tolerate the BiPAP mask. Did have an elevated white blood cell count how ever this could very well be stress response and demargination. However given her poor chest x-ray appearance and the fact t hat the mother states that the last time this happened she was diagnosed with pneumonia and the fact that it was reported that she was not feeling well this morning will cover her with Levaquin. The Rocephin was given per the request of the admitting provider. Patient was given 60 mg of Lasix. She did produce some urine. This was repeated here in the ER. She was also given steroids given her history of COPD. Does have a the elevated troponin however not feel this is demand ischemia. Rectal aspirin was administered. The patient tolerated the BiPAP well. Initial ABG shortly after starting on the BiPAP showed a pH is 7.3. PCO2 64. PO2 60 for an oxygen saturation of 89%. FiO2 was increased from 80% to 90%. Repeat ABG showed a pH 7.3, pCO2 64, PO2 67, O2 sat 90%. I discussed the case with who is on-call for the patient's primary doctor. Holding orders were placed. Insulin sliding-scale was ordered per admitting providers recommendation. Patient's mother was informed of the decision to admit. She expressed understanding and agreement. Care was a transition to the admitting provider at time of admission. Critical Care Time Critical Care Time: Yes Total Critical Care Time: 35 Attestation: The high probability of a clinically significant, sudden or life threatening deterioration of the respiratory system(s) required my full and direct attention, intervention and personal management. The aggregate critical care time was 35 minutes. This time is in addition to time spent performing reported procedures but includes the following: [] Data Review and interpretation [] Patient assessment and monitoring of vital signs [] Documentation [] Medication orders and management Discharge Plan Departure Patient Disposition: Admitted As Inpatient Clinical Impression: Acute respiratory distress, Hypoxia CHF (congestive heart failure) Qualifiers: Heart failure type: unspecified Heart failure chronicity: unspecified Qualified Code(s): I50.9 - Heart failure, unspecified Pneumonia Qualifiers: Pneumonia type: due to unspecified organism Laterality: unspecified laterality Lung location: unspecified part of lung Qualified Code(s): J18.9 - Pneumonia, unspecified organism Discharge Date/Time: 06/05/18 01:59 Interventions: ED Discharge Assessment Last Done: 06/05/18 01:45 Admit Date/Time: 06/05/18 00:28 Admit Provider: Jen Real
[2018-06-04] MEDS: LORazepam 2 MG/ML SYRINGE 1 MG IV (22:37)
[2018-06-04 22:40] VITALS: BP 178/156; PULSE 148; RESP 10; RESP 38; O2SAT 95
--- NOTE | 2018-06-04 22:44 | RT ---
PT STARTED ON BIPAP PER DOCTOR'S VERBAL ORDER. PT APPEARS TO BE IMPROVING WITH BIPAP (GRADUAL DECREASE IN WORK OF BREATHING).
--- NOTE | 2018-06-04 22:58 | PC.NURSE ---
drawn by lab
[2018-06-04] MEDS: SODIUM CHLORIDE 0.9% 1,000 ML 125 ML IV (23:08)
[2018-06-04] MEDS: FUROSEMIDE 100 MG/10 ML VIAL 60 MG IV (23:08)
[2018-06-04 23:11] LABS: Basophils Absolute Auto 200 /uL (0-100); Basophils Percent Auto 0.8 % (0-2); Eosinophils Absolute Auto 200 /uL (0-450); Eosinophils Percent Auto 0.8 % (2-4); Hematocrit 40.1 % (36-46); Hemoglobin 11.8 g/dL (12.0-16.0); Lymphocytes Absolute Auto 1700 /uL (1100-4500); Lymphocytes Percent Auto 6.4 % (25-40); Mean Corpuscular HGB Conc 29.5 % (30-36); Mean Corpuscular Hemoglobin 23.4 PG (26-34); Mean Corpuscular Volume 79.1 fL (80-100); Monocytes Absolute Auto 1000 /uL (0-900); Monocytes Percent Auto 3.6 % (3-14); Neutrophils Absolute Auto 24000 /uL (1500-7000); Neutrophils Percent Auto 88.4 % (50-75); Platelet Count 446 X10^3/uL (150-400); Red Blood Cell Count 5.07 X10^6/uL (4.0-5.2); Red Cell Distribution Width 20.8 % (11.6-14.8); White Blood Cell Count 27.1 X10^3/uL (4.5-11.0)
[2018-06-04 23:13] VITALS: BP 148/55; PULSE 137; O2SAT 94
[2018-06-04 23:13] LABS: Add Manual Diff / Slide Review SLIDE REVIEW
[2018-06-04 23:18] LABS: INR 1.1 (0.9-1.3); Prothrombin Time 12.7 SECONDS (10.1-12.7)
[2018-06-04 23:21] LABS: PTT Partial Thromboplastin Tim 30 SECONDS (26.4-36.2)
[2018-06-04 23:23] LABS: Lactate (Lactic Acid) 1.9 mmol/L (0.7-2.1)
[2018-06-04 23:24] LABS: Alanine Aminotransferase 39 IU/L (9-52); Albumin 4.3 g/dL (3.5-5.0); Albumin Globulin Ratio 0.9 (1.0-2.8); Alkaline Phosphatase 143 U/L (38-126); Aspartate Aminotransferase 30 IU/L (14-36); BUN Creatinine Ratio 24.3 (6-22); Bilirubin Total 0.7 mg/dL (0.2-1.3); Blood Urea Nitrogen 17 mg/dL (7-17); Calcium 9.4 mg/dL (8.4-10.2); Carbon Dioxide 34 mmol/L (22-32); Chloride 96 mmol/L (98-107); Estimated Glomerular Filt Rate > 60.0 mL/min (>60); Globulin 4.6 g/dL (1.7-4.1); Glucose 208 mg/dL (70-100); HEMOLYSIS < 15 (0-50); Potassium 4.7 mmol/L (3.4-5.1); Sodium 140 mmol/L (137-145); Total Protein 8.9 g/dL (6.3-8.2)
[2018-06-04 23:36] LABS: Troponin I 0.094 ng/mL (0.01-0.034)
[2018-06-04 23:40] LABS: Anisocytosis 1+; Polychromasia 2+
[2018-06-04 23:43] LABS: Procalcitonin 0.24 ng/mL (<0.5)
[2018-06-04] MEDS: levoFLOXacin 750 MG/150 ML PIGGYBACK 100 MG IV (23:43)
[2018-06-04 23:45] VITALS: BP 148/55; PULSE 131; RESP 10; RESP 30; TEMP 32; O2SAT 94
--- NOTE | 2018-06-04 23:54 | PC.NURSE ---
field placement in left wrist by ems.
--- NOTE | 2018-06-04 23:55 | PC.NURSE ---
Ray HANSON attempted second line and was unsuccessful with 2 atttempts. Lab called for blood draw.
[2018-06-05] VITALS (23 sets, daily range): BP systolic 112–163; BP diastolic 48–88; PULSE 63–130; RESP 10–33; TEMP 36.3–37.7; O2SAT 91–96; BMI 66.2
[2018-06-05] MEDS: ASPIRIN SUPP 600 MG SUPP.RECT PR
--- NOTE | 2018-06-05 | PC.NURSE ---
asa pr given from floor stock of 300mg per suppository
[2018-06-05 00:10] LABS: pH ABG 7.31 (7.35-7.45)
[2018-06-05 00:11] LABS: Fractionated Inspired Oxygen 80; HCO3 ABG 32 mmol/L (22-26); Oxygen Saturation ABG 89 % (95-100); PO2 ABG 64 mmHg (80-100); TCO2 ABG 34 mmol/L (21-31)
[2018-06-05] MEDS: methylPREDNISolone 125 MG/2 ML VIAL IV (00:24)
[2018-06-05 00:48] LABS: B Type Natriuretic Peptide 252 (<100)
[2018-06-05 01:50] LABS: pH ABG 7.31 (7.35-7.45)
[2018-06-05 01:51] LABS: Fractionated Inspired Oxygen 90; HCO3 ABG 32 mmol/L (22-26); Oxygen Saturation ABG 90 % (95-100); PCO2 ABG 64.6 mmHg (35-45); PO2 ABG 67 mmHg (80-100); TCO2 ABG 34 mmol/L (21-31)
[2018-06-05] MEDS: FUROSEMIDE 100 MG/10 ML VIAL 60 MG IV (01:59)
--- NOTE | 2018-06-05 02:16 | RT ---
PT TRANSFERRED TO ICU WHILE ON BIPAP W/O ANY COMPLICATIONS.
[2018-06-05] MEDS: SODIUM CHLORIDE 0.9% 1,000 ML 125 ML IV (03:45)
[2018-06-05] MEDS: CEFTRIAXONE 1 GM/50 ML FROZ.PIGGY IV (03:54)
--- NOTE | 2018-06-05 04:10 | PC.ADMIT ---
Addendum entered by Katlin Guy R.N. 06/05/18 07:17: Overnight events and pt status discussed with Dr. Real at bedside. Original Note: Addendum entered by Katlin Guy R.N. 06/05/18 06:06: Pt on 100% Fi02 with Sp02 ranging from 90-93%. RR 24-30. Original Note: Addendum entered by Katlin Guy R.N. 06/05/18 04:27: PICC placement verified by PCXR. Original Note: Addendum entered by Katlin Guy R.N. 06/05/18 04:12: Precision at bedside for PICC line placement. Consent signed. Original Note: [id number] [facility] D Admission Note: The patient,Radha Hatch,43 y/o, was given written information regarding hospital policies, unit procedures and contact persons. Patient's smoking status: Former smoker. Vital Signs - 8 hr 06/04/18 22:20 06/04/18 22:40 06/04/18 23:13 Temperature Pulse Rate 148 H 137 H Respiratory Rate 40 H Blood Pressure 178/156 H Blood Pressure [Left Arm] 148/55 H Pulse Oximetry 90 L 94 06/04/18 23:45 06/05/18 00:00 06/05/18 01:15 Temperature Pulse Rate 130 H 112 H Respiratory Rate 23 27 H Blood Pressure 148/55 H Blood Pressure [Left Arm] 112/50 L 112/52 L Pulse Oximetry 95 91 06/05/18 01:37 06/05/18 01:45 06/05/18 02:32 Temperature 97.9 F Pulse Rate 118 H 63 114 H Respiratory Rate 29 H 26 H Blood Pressure 124/48 L 121/64 Blood Pressure [Left Arm] 124/48 L Pulse Oximetry 91 93 Pt arrived to ICU room 105 around 0215 via stretcher. 6 person assist to get over to the bed. Bipap continued Fi02 90%. Pt awake, A/O X 3 still in some mild distress. Sp02 90-93% with RR 25-30. WOB improved per pt report. Wounds to bilateral lower extremities and chary area documented and pictures taken.
--- NOTE | 2018-06-05 04:16 | DI.RAD.S_ITS ---
PROCEDURE: XR CHEST FOR PICC 1V INDICATIONS: PICC LINE VERIFICATION COMPARISON: None. FINDINGS: PICC was placed by the intravenous therapy team from the right side. Tip of the PICC projects over the lower SVC/cavoatrial junction. Cardiomediastinal contours are stable with prominence of the cardiac silhouette. No pneumothorax. Improved aeration of the bilateral hemithoraces with persistent patchy, ill-defined opacities of the bilateral hemithoraces, greater on the left. Bilateral pleural effusions are likely present, greater on the left. There appears to be loss of vascular distinctness. IMPRESSION: Tip of PICC lies within the distal SVC/cavoatrial junction. Slight interval improvement in lung aeration bilaterally with persistent patchy ill-defined bilateral opacities/airspace disease. Findings are again consistent with pulmonary edema; however, an infectious/inflammatory process or hemorrhage may have a similar appearance. Dictated by: Dennis Han M.D. on 06/05/2018 at 15:12 Approved by: Dennis Han M.D. on 06/05/2018 at 15:16
[2018-06-05] MEDS: FUROSEMIDE 40 MG/4 ML VIAL IV ×2 (07:10→16:46)
[2018-06-05 07:57] LABS: B Type Natriuretic Peptide 793 (<100)
[2018-06-05 08:17] LABS: Alanine Aminotransferase 39 IU/L (9-52); Albumin 3.3 g/dL (3.5-5.0); Alkaline Phosphatase 112 U/L (38-126); Aspartate Aminotransferase 22 IU/L (14-36); BUN Creatinine Ratio 27.1 (6-22); Bilirubin Total 0.7 mg/dL (0.2-1.3); Blood Urea Nitrogen 19 mg/dL (7-17); Calcium 8.6 mg/dL (8.4-10.2); Carbon Dioxide 31 mmol/L (22-32); Chloride 98 mmol/L (98-107); Estimated Glomerular Filt Rate > 60.0 mL/min (>60); Globulin 3.4 g/dL (1.7-4.1); Glucose 260 mg/dL (70-100); HEMOLYSIS < 15 (0-50); Potassium 5.3 mmol/L (3.4-5.1); Sodium 137 mmol/L (137-145); Total Protein 6.7 g/dL (6.3-8.2)
[2018-06-05 08:39] LABS: Troponin I 0.485 ng/mL (0.01-0.034)
[2018-06-05 08:43] LABS: Hematocrit 35.2 % (36-46); Hemoglobin 10.3 g/dL (12.0-16.0); Mean Corpuscular HGB Conc 29.2 % (30-36); Mean Corpuscular Volume 78.9 fL (80-100); Platelet Count 359 X10^3/uL (150-400); Red Blood Cell Count 4.46 X10^6/uL (4.0-5.2); Red Cell Distribution Width 20.3 % (11.6-14.8); White Blood Cell Count 29.8 X10^3/uL (4.5-11.0)
[2018-06-05 08:44] LABS: Add Manual Diff / Slide Review YES
--- NOTE | 2018-06-05 08:48 | DI.ECHO.S_ITS ---
[facility] +---------+ [facility] +---------+ : : [address] : : : : [id number] : : : : Phone: [phone] Echocardiogram Report + + :Name: SUMEET MILLER Study Date: 06/05/2018 Height: 66 in : :[facility] Weight: 410 lb: : Gender: Female BSA: 2.7 m2 : :: 1975 Age: 43 yrs : :Reason For Study: ELEVATED TROPONIN : :Ordering Physician: Taryn : :Hospitalist Performed By: Cullen Hebert : :Referring: DIVYA PERAZA : + + Interpretation Summary The study quality was technically difficult due too poor acoustic windows due to patient's body habitus and image quality was still poor after use of echo contrast. The right ventricular systolic pressure is estimated to be at least 60 mmHg based on an estimated right atrial pressure of 15 mm Hg. Overall the LV systolic function is grossly normal; The RV appears enlarged with elevated filling pressures. A direct comparison is difficult to the prior study due to limited quality; Overall the findings are similar. The RV size and function can not be compared due to difference in quality. Procedure: A two-dimensional transthoracic echocardiogram with color flow and Doppler was performed. The study quality was technically difficult. Comparison is made with the echocardiogram of 12/02/17. The patient was in normal sinus rhythm during the exam. The heart rate ranged between 97-99 bpm during the study. Left Ventricle: Left ventricular wall thickness is mildly increased. The left ventricle is grossly normal size. Left ventricular systolic function is probably normal. Flattened septum is consistent with RV pressure/volume overload. Diastolic parameters suggest a pseudonormalization pattern, consistent with probable elevated filling pressures. Right Ventricle: The right ventricle is moderately dilated. Right ventricular systolic function is moderate to severely reduced. Atria: The left atrium is not well visualized. Right atrium not well visualized. Mitral Valve: The mitral valve is not well visualized. There is no mitral regurgitation noted. Aortic Valve: The aortic valve is grossly normal. There is no aortic valve stenosis. No aortic regurgitation is present. Tricuspid Valve: The tricuspid valve is not well visualized. The right ventricular systolic pressure is estimated to be at least 60 mmHg based on an estimated right atrial pressure of 15 mm Hg. Pulmonic Valve: The pulmonic valve is not well visualized. Great Vessels: The aortic root is normal size. The ascending aorta is mildly enlarged. The pulmonary is not well visualized. The IVC is dilated (diameter is greater than 2.1 cm) and it collapses less than 50% with a sniff. This suggests a high right atrial pressure of 15 mm Hg. Pericardium/ Pleura There is no pleural effusion. MMode/2D Measurements & Calculations LVIDd: 5.4 cm Ao root diam: 3.3 cm LV lyon. diameter/BSA (cm/m^2): 2.0 asc Aorta Diam: 3.8 cm RA area: 21.3 cm2 IVC diam: 3.1 cm Doppler Measurements & Calculations MV E max bandar: 108.2 cm/sec TR max bandar: 335.4 cm/sec MV A max bandar: 85.8 cm/sec TR max P.2 mmHg MV E/A: 1.3 MV dec time: 0.16 sec Electronically signed by: Rafi Quiñones M.D. on Reading Physician:06/05/2018 01:28 PM
[2018-06-05] MEDS: INSULIN ASPART 100 UNIT/ML INSULN PEN SUBCUT ×4 (09:08→21:54)
[2018-06-05] MEDS: LISINOPRIL 10 MG TABLET PO (09:09)
[2018-06-05] MEDS: methylPREDNISolone 125 MG/2 ML VIAL 60 MG IV ×3 (09:09→19:42)
[2018-06-05] MEDS: METOPROLOL ER 50 MG TABLET 100 MG PO ×2 (09:09→21:53)
[2018-06-05] MEDS: METFORMIN HCL 500 MG TABLET 1000 MG PO ×2 (09:10→17:29)
--- NOTE | 2018-06-05 09:19 | PC.NURSE ---
pt sleepy, awakens easily. Bipap FiO2 at 95%. O2 sat 92%. desats quickly when mask off for pt to take meds. sats decrease to 74%.
[2018-06-05 09:42] LABS: Neutrophils Absolute Manual 28310 /uL (3000-5900); Nucleated Red Blood Cells 1 #/Diff; Total Cells Counted 100
[2018-06-05 09:43] LABS: Anisocytosis 2+; Hypochromasia 1+
[2018-06-05 09:44] LABS: Polychromasia 1+
[2018-06-05 10:07] LABS: Adenovirus Not Detected (Not Detect); Bordetella pertussis Not Detected (Not Detect); Chlamydophila pneumoniae Not Detected (Not Detect); Coronavirus 229E Not Detected (Not Detect); Coronavirus HKU1 Not Detected (Not Detect); Coronavirus NL 63 Not Detected (Not Detect); Coronavirus OC43 Not Detected (Not Detect); Human Metapneumovirus Not Detected (Not Detect); Human Rhinovirus/Enterovirus Not Detected (Not Detect); Influenza A Not Detected (Not Detect); Influenza B Not Detected (Not Detect); Mycoplasma pneumoniae Not Detected (Not Detect); Parainfluenza Virus 1 Not Detected (Not Detect); Parainfluenza Virus 2 Not Detected (Not Detect); Parainfluenza Virus 3 Not Detected (Not Detect); Parainfluenza Virus 4 Not Detected (Not Detect); Respiratory Syncytial Virus Not Detected (Not Detect)
--- NOTE | 2018-06-05 11:35 | RT ---
Spoke with MD Real regarding patient. Had dropped patient's settings on the BIPAP from an IPAP/EPAP of 18/10 to 10/5 as patient had tidal volumes of 1300+ on the former settings and was able to achieve tidal volumes of 700+ on the latter. FIO2 was able to be weaned from 100% to 80%. Patient had a RR of 20. Discussed the possibility of weaning patient off of BIPAP and replacing oxygen needs with a HHFNC. MD Real in agreement and gave verbal orders to wean patient off BIPAP and place her on a HHFNC as tolerated. Both this therapist and MD Real were in agreement that patient would need BIPAP at night as she wears a Trilogy at home at night which is currently not here. Will encourage patient to have mother bring in Trilogy.
[2018-06-05] MEDS: ALBUTEROL/IPRATROPIUM 3 ML AMPUL INH ×4 (11:46→22:18)
[2018-06-05 11:48] LABS: Creatine Kinase < 20 U/L (30-135)
--- NOTE | 2018-06-05 11:50 | RT ---
Patient taken off BIPAP at 1110 and placed on HHFNC at 55 liters with an FIO2 of 95%. Patient RR 18, sat 93%. Patient states her breathing is comfortable and no signs of respiratory distress noted.
[2018-06-05] MEDS: HYDROCODONE/ACET 5/325 TABLET 1 TAB PO (13:17)
--- NOTE | 2018-06-05 15:58 | P.HP_ITS ---
History of Present Illness Date Patient Seen: 06/05/18 Time Patient Seen: 15:54 Chief complaint: SOB Narrative: Chief complaint acute respiratory failure History of present illness: This 43-year-old female with underlying autoimmune disorder, SAPPHO, and chronic respiratory failure secondary to COPD, CHF and hypoventilation is brought to the emergency department via paramedics for acute shortness of breath. She was found to be in acute respiratory failure with suspicion for pneumonia and congestive heart failure exacerbation. She received IV Solu-Medrol, IV Lasix and was placed on BiPAP and had improvement of her symptoms. She was admitted for further treatment and evaluation. At the time my evaluation this morning initially at 7:00 a.m. she was feeling markedly better and was still on BiPAP. She was at very high tidal volumes and so was switched over to nasal cannula and oxygen is currently being weaned. She is feeling markedly better in terms of her overall condition. She was in her usual state of health yesterday when her home health nurse noted that her oxygen level was low early on the day prior to admission. She also had an episode where she slipped and almost fell but did not fall. She is on chronic oxygen 2-3 L during the day and 5 L at night with trilogy and 5 L of nasal cannula oxygen with exertion. Her mobility has been poor. But no worse than usual. He recently came off a burst of steroids approximately a week ago. She has had lower extremity edema but it is not worse than it has been previously. She has had postnasal drip more recently no actual cough. She felt chills on the night prior to admission. She intermittently has diarrhea and she did have diarrhea recently. She has not been seen by a primary care provider since November and she continues on Enbrel for her autoimmune disorder but has not followed with a office runner. 12 point review of systems is otherwise negative She denies chest pain or lightheadedness or dizziness or significant palpitations She denies any urinary symptoms She denies any change in her bowels, any bright red blood per rectum or black tarry stools She denies any anxiety or depression worsening Her skin has had more lesions lately Past medical history: 1. SAPPHO 2. COPD 3. CHF 4. RAD 5. Recurrent Pneumonia 6. DM-2 7. Morbid Obesity 8. Depression 9. Anxiety ALLergies: Infliximab PSH: 1. T and A 2. HRB: previous tobacco abuse, quit 2001 no alcohol or drugs Family Hisotry: no autoimmune disorders SHX: Patient lives with her mother in [place] Patient History Family & Social History Social History: household members family,children Prior Living Arrangements Apartment/Condo Safety & Behavioral: Feels Safe in Current Yes Environment Been Physically Hurt or No Threatened By a Person Suicidal Ideation Description None Tobacco & Substance use: Smoking Status Former smoker alcohol intake never Substance Use Type does not use Meds Home Medications Medication Instructions Recorded Confirmed Type lorazepam 1 - 2 mg PO Q8HP PRN #0 06/02/16 06/05/18 History Enbrel 50 mg SQ QWEEK #0 08/12/16 06/05/18 History hydrocodone-acetaminophen 1 tab PO Q4HP PRN #0 01/12/17 06/05/18 History metoprolol tartrate 100 mg PO BID #0 01/12/17 06/05/18 History ondansetron HCl [Zofran] 4 mg PO Q8HP PRN #0 01/12/17 06/05/18 History amlodipine 10 mg PO DAILY 09/16/17 06/05/18 History folic acid 400 mcg PO DAILY 09/16/17 06/05/18 History lisinopril 10 mg PO DAILY 09/16/17 06/05/18 History metformin 1,000 mg PO BID 09/16/17 06/05/18 History multivitamin with minerals 1 tab PO DAILY 09/16/17 06/05/18 History prednisone 10 mg PO AMCC 09/16/17 11/26/17 History spironolactone 06/05/18 History Allergies Allergy/AdvReac Type Severity Reaction Status Date / Time infliximab Allergy Unknown Verified 09/15/17 21:40 Review of Systems Review of Systems All systems reviewed & are unremarkable except as noted in HPI and below Exam Vital Signs (past 8 hours): - 06/05/18 08:23 06/05/18 10:30 06/05/18 12:00 Temperature 97.8 F Pulse Rate 95 H Respiratory Rate 25 H Blood Pressure 122/60 124/66 136/66 Pulse Oximetry 95 06/05/18 14:55 Temperature Pulse Rate 97 H Respiratory Rate 20 Blood Pressure Pulse Oximetry 91 Fraction of Inspired Oxygen 95 Oxygen Delivery Method Heated High Flow Oxygen Flow Rate 55 Narrative Exam Narrative: Morbidly obese female laying in hospital bed with initially BiPAP machine on and then nasal cannula. Stating she is feeling much better. She is alert and oriented x3 and in stable condition. HEENT: No mucosal lesions and mucous membranes moist and pink Neck: Supple without masses or thyromegaly and no obvious jugular venous distention Cor: Distant S1-S2. Regular rate and rhythm Chest: Decreased breath sounds bilateral bases some crackles No cough any. No rhonchi Abdomen: Positive bowel sounds, soft, nontender, nondistended, morbid obesity Extremities: Edema nonpitting difficult to assess due to obesity. Neurologic exam is nonfocal Skin shows diffuse lichenification and bowl I with erythema but no clear drainage. There are wounds with erythema and skin buildup in the creases posteriorly but no drainage no abscess Objective Labs Result Diagrams: 06/05/18 07:15 06/05/18 07:15 Labs: Laboratory Results - last 24 hr 06/04/18 06/04/18 06/04/18 22:43 22:43 22:43 WBC 27.1 H RBC 5.07 Hgb 11.8 L Hct 40.1 MCV 79.1 L MCH 23.4 L MCHC 29.5 L RDW 20.8 H Plt Count 446 H Neut % (Auto) 88.4 H Lymph % (Auto) 6.4 L Emanuel % (Auto) 3.6 Eos % (Auto) 0.8 L Baso % (Auto) 0.8 Neut # (Auto) 93733 H Lymph # (Auto) 1700 Emanuel # (Auto) 1000 H Eos # (Auto) 200 Baso # (Auto) 200 H Total Counted Seg Neutrophils % Band Neutrophils % Lymphocytes % (Manual) Atypical Lymphs % Monocytes % (Manual) Metamyelocytes % Neutrophils # (Manual) Nucleated RBCs Plt Morphology Comment RBC Morphology See below Polychromasia 2+ H Hypochromasia Anisocytosis 1+ H PT 12.7 INR 1.1 APTT 30 ABG pH ABG pCO2 ABG pO2 ABG HCO3 ABG Total CO2 ABG O2 Saturation ABG Base Excess FiO2 Sodium 140 Potassium 4.7 Chloride 96 L Carbon Dioxide 34 H BUN 17 Creatinine 0.70 Estimated GFR > 60.0 BUN/Creatinine Ratio 24.3 H Glucose 208 H Lactate Calcium 9.4 Total Bilirubin 0.7 AST 30 ALT 39 Alkaline Phosphatase 143 H D Total Creatine Kinase CK-MB (CK-2) CK-MB (CK-2) Rel Index Troponin I 0.094 H B-Natriuretic Peptide Total Protein 8.9 H Albumin 4.3 Globulin 4.6 H Albumin/Globulin Ratio 0.9 L Procalcitonin Chlamy pneumoniae PCR Adenovirus (PCR) B.parapertussis DNA PCR Coronavirus OC43 (PCR) Coronavirus HKU1 (PCR) Coronavirus 229E (PCR) Coronavirus NL63 (PCR) Human Metapneumovir PCR Influenza Type A (PCR) Influenza Type B (PCR) Influenza A & B (PCR) M. pneumoniae (PCR) Parainfluenza 1 (PCR) Parainfluenza 2 (PCR) Parainfluenza 3 (PCR) Parainfluenza 4 (PCR) RSV (PCR) Entero/Rhino (PCR) 06/04/18 06/04/18 06/04/18 22:43 22:43 22:43 WBC RBC Hgb Hct MCV MCH MCHC RDW Plt Count Neut % (Auto) Lymph % (Auto) Emanuel % (Auto) Eos % (Auto) Baso % (Auto) Neut # (Auto) Lymph # (Auto) Emanuel # (Auto) Eos # (Auto) Baso # (Auto) Total Counted Seg Neutrophils % Band Neutrophils % Lymphocytes % (Manual) Atypical Lymphs % Monocytes % (Manual) Metamyelocytes % Neutrophils # (Manual) Nucleated RBCs Plt Morphology Comment RBC Morphology Polychromasia Hypochromasia Anisocytosis PT INR APTT ABG pH ABG pCO2 ABG pO2 ABG HCO3 ABG Total CO2 ABG O2 Saturation ABG Base Excess FiO2 Sodium Potassium Chloride Carbon Dioxide BUN Creatinine Estimated GFR BUN/Creatinine Ratio Glucose Lactate 1.9 Calcium Total Bilirubin AST ALT Alkaline Phosphatase Total Creatine Kinase CK-MB (CK-2) CK-MB (CK-2) Rel Index Troponin I B-Natriuretic Peptide 252 H Total Protein Albumin Globulin Albumin/Globulin Ratio Procalcitonin 0.24 Chlamy pneumoniae PCR Adenovirus (PCR) B.parapertussis DNA PCR Coronavirus OC43 (PCR) Coronavirus HKU1 (PCR) Coronavirus 229E (PCR) Coronavirus NL63 (PCR) Human Metapneumovir PCR Influenza Type A (PCR) Influenza Type B (PCR) Influenza A & B (PCR) M. pneumoniae (PCR) Parainfluenza 1 (PCR) Parainfluenza 2 (PCR) Parainfluenza 3 (PCR) Parainfluenza 4 (PCR) RSV (PCR) Entero/Rhino (PCR) 06/04/18 06/05/18 06/05/18 23:46 01:31 07:15 WBC RBC Hgb Hct MCV MCH MCHC RDW Plt Count Neut % (Auto) Lymph % (Auto) Emanuel % (Auto) Eos % (Auto) Baso % (Auto) Neut # (Auto) Lymph # (Auto) Emanuel # (Auto) Eos # (Auto) Baso # (Auto) Total Counted Seg Neutrophils % Band Neutrophils % Lymphocytes % (Manual) Atypical Lymphs % Monocytes % (Manual) Metamyelocytes % Neutrophils # (Manual) Nucleated RBCs Plt Morphology Comment RBC Morphology Polychromasia Hypochromasia Anisocytosis PT INR APTT ABG pH 7.31 L 7.31 L ABG pCO2 64.0 H* 64.6 H* ABG pO2 64 L 67 L ABG HCO3 32 H 32 H ABG Total CO2 34 H 34 H ABG O2 Saturation 89 L 90 L ABG Base Excess 6.0 H 6.0 H FiO2 80 90 Sodium Potassium Chloride Carbon Dioxide BUN Creatinine Estimated GFR BUN/Creatinine Ratio Glucose Lactate Calcium Total Bilirubin AST ALT Alkaline Phosphatase Total Creatine Kinase < 20 L CK-MB (CK-2) TNP CK-MB (CK-2) Rel Index TNP Troponin I 0.485 H* B-Natriuretic Peptide Total Protein Albumin Globulin Albumin/Globulin Ratio Procalcitonin Chlamy pneumoniae PCR Adenovirus (PCR) B.parapertussis DNA PCR Coronavirus OC43 (PCR) Coronavirus HKU1 (PCR) Coronavirus 229E (PCR) Coronavirus NL63 (PCR) Human Metapneumovir PCR Influenza Type A (PCR) Influenza Type B (PCR) Influenza A & B (PCR) M. pneumoniae (PCR) Parainfluenza 1 (PCR) Parainfluenza 2 (PCR) Parainfluenza 3 (PCR) Parainfluenza 4 (PCR) RSV (PCR) Entero/Rhino (PCR) 06/05/18 06/05/18 06/05/18 07:15 07:15 07:15 WBC 29.8 H RBC 4.46 Hgb 10.3 L Hct 35.2 L MCV 78.9 L MCH 23.0 L MCHC 29.2 L RDW 20.3 H Plt Count 359 Neut % (Auto) Not Reportable Lymph % (Auto) Not Reportable Emanuel % (Auto) Not Reportable Eos % (Auto) Not Reportable Baso % (Auto) Not Reportable Neut # (Auto) Lymph # (Auto) Not Reportable Emanuel # (Auto) Not Reportable Eos # (Auto) Baso # (Auto) Not Reportable Total Counted 100 Seg Neutrophils % 70.0 Band Neutrophils % 25.0 H Lymphocytes % (Manual) 1.0 L Atypical Lymphs % 1.0 H Monocytes % (Manual) 2.0 Metamyelocytes % 1.0 H Neutrophils # (Manual) 16547 H Nucleated RBCs 1 H Plt Morphology Comment RBC Morphology See below Polychromasia 1+ H Hypochromasia 1+ H Anisocytosis 2+ H PT INR APTT ABG pH ABG pCO2 ABG pO2 ABG HCO3 ABG Total CO2 ABG O2 Saturation ABG Base Excess FiO2 Sodium 137 Potassium 5.3 H Chloride 98 Carbon Dioxide 31 BUN 19 H Creatinine 0.70 Estimated GFR > 60.0 BUN/Creatinine Ratio 27.1 H Glucose 260 H Lactate Calcium 8.6 Total Bilirubin 0.7 AST 22 ALT 39 Alkaline Phosphatase 112 Total Creatine Kinase CK-MB (CK-2) CK-MB (CK-2) Rel Index Troponin I B-Natriuretic Peptide 793 H Total Protein 6.7 Albumin 3.3 L Globulin 3.4 Albumin/Globulin Ratio 1.0 Procalcitonin Chlamy pneumoniae PCR Adenovirus (PCR) B.parapertussis DNA PCR Coronavirus OC43 (PCR) Coronavirus HKU1 (PCR) Coronavirus 229E (PCR) Coronavirus NL63 (PCR) Human Metapneumovir PCR Influenza Type A (PCR) Influenza Type B (PCR) Influenza A & B (PCR) M. pneumoniae (PCR) Parainfluenza 1 (PCR) Parainfluenza 2 (PCR) Parainfluenza 3 (PCR) Parainfluenza 4 (PCR) RSV (PCR) Entero/Rhino (PCR) 06/05/18 07:15 WBC RBC Hgb Hct MCV MCH MCHC RDW Plt Count Neut % (Auto) Lymph % (Auto) Emanuel % (Auto) Eos % (Auto) Baso % (Auto) Neut # (Auto) Lymph # (Auto) Emanuel # (Auto) Eos # (Auto) Baso # (Auto) Total Counted Seg Neutrophils % Band Neutrophils % Lymphocytes % (Manual) Atypical Lymphs % Monocytes % (Manual) Metamyelocytes % Neutrophils # (Manual) Nucleated RBCs Plt Morphology Comment RBC Morphology Polychromasia Hypochromasia Anisocytosis PT INR APTT ABG pH ABG pCO2 ABG pO2 ABG HCO3 ABG Total CO2 ABG O2 Saturation ABG Base Excess FiO2 Sodium Potassium Chloride Carbon Dioxide BUN Creatinine Estimated GFR BUN/Creatinine Ratio Glucose Lactate Calcium Total Bilirubin AST ALT Alkaline Phosphatase Total Creatine Kinase CK-MB (CK-2) CK-MB (CK-2) Rel Index Troponin I B-Natriuretic Peptide Total Protein Albumin Globulin Albumin/Globulin Ratio Procalcitonin Chlamy pneumoniae PCR Not detected Adenovirus (PCR) Not detected B.parapertussis DNA PCR Not detected Coronavirus OC43 (PCR) Not detected Coronavirus HKU1 (PCR) Not detected Coronavirus 229E (PCR) Not detected Coronavirus NL63 (PCR) Not detected Human Metapneumovir PCR Not detected Influenza Type A (PCR) Not detected Influenza Type B (PCR) Not detected Influenza A & B (PCR) Cancelled M. pneumoniae (PCR) Not detected Parainfluenza 1 (PCR) Not detected Parainfluenza 2 (PCR) Not detected Parainfluenza 3 (PCR) Not detected Parainfluenza 4 (PCR) Not detected RSV (PCR) Not detected Entero/Rhino (PCR) Not detected Assessment & Plan Assessment & Plan narrative: 43-year-old female with acute on chronic respiratory failure suspect multifactorial etiology including hypoventilation syndrome secondary to severe obesity, COPD with acute exacerbation and congestive heart failure with acute exacerbation. Markedly improved with Lasix, IV Solu-Medrol and IV antibiotics of ceftriaxone and Levaquin. Plan: We will continue the same. We will continue to wean oxygen as were able to. We will give additional dose of Lasix. We will do a CT angiogram to rule out PN if we are unable to obtain this then we will treat empirically for pulmonary embolus. We will reassess labs in the a.m. respiratory therapy has been consulted. We will do BiPAP at night as patient's mom will not bring in the trilogy that she uses to sleep. Blood cultures are pending. Echo was a difficult exam but there is concern for right ventricle failure and this is why we are proceeding with a CT angiogram. Assessment 2. Elevated troponin which could be related to congestive heart failure and acute respiratory failure. EKG is normal without acute changes or evidence of ischemia or evidence of acute TN. At this point we will continue beta-abdulaziz and ANDREW-inhibitor and Lovenox and will do serial CKs and troponins and get echo does not show evidence of acute infarct. Assessment 3. SAPPHO We will hold her routine and [place] tomorrow. We will continue with the steroids. We will have wound Care evaluate on Thursday recording her posterior wounds Assessment 4. Elevated potassium Plan: Will give Lasix and will recheck potassium Assessment 5. Anxiety and depression Plan: Will give lorazepam as needed Assessment 6. Type 2 diabetes with worsening blood sugars due to steroids Plan: Will continue metformin and sliding scale insulin. She will be on a a diabetic diet Assessment 7. Hypertension stable Plan: Will continue on the metoprolol and the lisinopril and will restar amlodipine when her condition is improving and blood pressure is maintaining. Code status is full code Quality VTE Deep Vein Thrombosis/Pulmonary Embolism Present on Admission: No
[2018-06-05] MEDS: LORazepam 2 MG/ML SYRINGE 1 MG IV (16:05)
[2018-06-05 16:11] LABS: Creatine Kinase < 20 U/L (30-135)
[2018-06-05 16:26] LABS: Troponin I 0.373 ng/mL (0.01-0.034)
[2018-06-05] MEDS: ENOXAPARIN 80 MG/0.8 ML SYRINGE 150 MG SUBCUT (16:46)
--- NOTE | 2018-06-05 17:43 | PC.NURSE ---
Addendum entered by Tara Hamilton R.N. 06/05/18 19:23: 1845 - Bariatric bed arrives. Pt reports inability to stand and pivot onto new bed. 5 staff member transfer pt to new bed via slider board. Pt very anxious and unable to tolerate lying flat. Sats decreased to 79% on flush non-rebreather during transfer. HOB increased, Pt set up for recovery. tech released bed to increase sides. Review use with staff and patients. Pt recovered, Decreased HOB to remove old linen. HOB elevated for recovery. Unable to fully adjust linen under patient r/t inability to tolerate HOB down and side lying position simultaneously. Unable to provided wound/skin care r/t the same. Finally, able to reduce HOB and move pt up in bed. Pt anxious and fearful throughout. HHF at 99% and flow at 60 for recovery. Original Note: 1600 - Pt off unit to CT scan, r/o PE. Pt anxious and tearful prior to scan. Premedicated with 1mg IV ativan. RT, Coordinator, RN and SCADA ENGINEER with pt in transport. Pt unable to tolerate laying flat for procedure. On flush Non-rebreather, pt sats decreased to 80%, Dr. Real aware. Return to room. Lasix given as ordered. Educated to lovenox administration. RT returned pt to HHF 99% with 50 flow rate, sats 96% at rest. BG 279, novolog sliding scale given as ordered. Call light in reach.
[2018-06-05 18:18] LABS: HEMOLYSIS < 15 (0-50); Potassium 5.2 mmol/L (3.4-5.1)
[2018-06-05] MEDS: SODIUM CHLORIDE 0.9% FLUSH 10 ML IV (19:44)
[2018-06-05 19:50] LABS: HEMOLYSIS < 15 (0-50); Potassium 4.8 mmol/L (3.4-5.1)
[2018-06-05] MEDS: NYSTATIN POWDER 30 GM 1 APPLIC TOP (21:53)
[2018-06-05] MEDS: ACETAMINOPHEN 325 MG TABLET 650 MG PO (23:36)
[2018-06-06] VITALS (18 sets, daily range): BP systolic 117–146; BP diastolic 77–91; PULSE 89–106; RESP 10–23; TEMP 36.1–36.7; O2SAT 88–96
[2018-06-06] MEDS: levoFLOXacin 750 MG/150 ML PIGGYBACK 100 MG IV (00:53)
[2018-06-06] MEDS: methylPREDNISolone 125 MG/2 ML VIAL 60 MG IV ×4 (00:55→19:39)
--- NOTE | 2018-06-06 01:09 | PC.NURSE ---
Addendum entered by Katlin Guy R.N. 06/06/18 06:36: Pt with very shallow breathing and increased lethargy. Sp02 desaturations down to 83% on HHFNC settings. RT at bedside. She is unable to take deep enough breathes to inhale her breathing treatment adequately. Placed on Bipap for the time being. Original Note: Pt Sp02 consistently 88-89% on current HHFNC settings of Fi02 87% (flow 45). RR 22-26 with normal WOB. Pt denies complaints and is at rest. RT at bedside to adjust flow. If pt continues with low saturations we will consider Bipap overnight being pt uses a trilogy at home.
[2018-06-06] MEDS: CEFTRIAXONE 1 GM/50 ML FROZ.PIGGY IV (04:25)
[2018-06-06 05:37] LABS: Add Manual Diff / Slide Review NO; Basophils Absolute Auto 200 /uL (0-100); Eosinophils Absolute Auto 0 /uL (0-450); Hematocrit 35.4 % (36-46); Hemoglobin 10.4 g/dL (12.0-16.0); Lymphocytes Absolute Auto 600 /uL (1100-4500); Lymphocytes Percent Auto 2.5 % (25-40); Mean Corpuscular HGB Conc 29.5 % (30-36); Mean Corpuscular Hemoglobin 23.1 PG (26-34); Mean Corpuscular Volume 78.4 fL (80-100); Monocytes Absolute Auto 700 /uL (0-900); Monocytes Percent Auto 2.9 % (3-14); Neutrophils Absolute Auto 23200 /uL (1500-7000); Neutrophils Percent Auto 93.6 % (50-75); Platelet Count 364 X10^3/uL (150-400); Red Blood Cell Count 4.51 X10^6/uL (4.0-5.2); Red Cell Distribution Width 20.5 % (11.6-14.8); White Blood Cell Count 24.8 X10^3/uL (4.5-11.0)
[2018-06-06 05:47] LABS: Alanine Aminotransferase 41 IU/L (9-52); Albumin 3.6 g/dL (3.5-5.0); Albumin Globulin Ratio 0.9 (1.0-2.8); Alkaline Phosphatase 113 U/L (38-126); Aspartate Aminotransferase 28 IU/L (14-36); BUN Creatinine Ratio 33.8 (6-22); Bilirubin Total 0.5 mg/dL (0.2-1.3); Blood Urea Nitrogen 27 mg/dL (7-17); Calcium 8.5 mg/dL (8.4-10.2); Carbon Dioxide 33 mmol/L (22-32); Chloride 95 mmol/L (98-107); Creatine Kinase < 20 U/L (30-135); Estimated Glomerular Filt Rate > 60.0 mL/min (>60); Glucose 274 mg/dL (70-100); HEMOLYSIS < 15 (0-50); Potassium 4.9 mmol/L (3.4-5.1); Sodium 138 mmol/L (137-145); Total Protein 7.6 g/dL (6.3-8.2)
[2018-06-06 05:58] LABS: Troponin I 0.259 ng/mL (0.01-0.034)
[2018-06-06 06:08] LABS: Anisocytosis 2+; Hypochromasia 1+; Polychromasia 1+
[2018-06-06] MEDS: ALBUTEROL/IPRATROPIUM 3 ML AMPUL INH ×5 (06:23→21:51)
[2018-06-06] MEDS: INSULIN ASPART 100 UNIT/ML INSULN PEN SUBCUT ×4 (07:40→20:59)
[2018-06-06] MEDS: METFORMIN HCL 500 MG TABLET 1000 MG PO ×2 (07:41→17:38)
--- NOTE | 2018-06-06 08:21 | PM.PN.1 ---
Subjective Date Patient Seen: 06/06/18 Time Patient Seen: 08:21 Interval history: Patient did well overnight on high-flow oxygen but became tired is currently now on BiPAP. She was to be on BiPAP through the night. Her mom refuses to bring in her trilogy machine that she uses at home at night. At home at night she is on 5 L of nasal cannula oxygen. She is very tired at the time exam in her but denies any chest pain denies any abdominal pain. She had good p.o. intake yesterday both orally with solids and fluids. Twelve point review of systems is negative other than above Patient is still on 85% oxygen Exam Vital Signs (past 8 hours): - 06/05/18 23:24 06/05/18 23:42 06/06/18 00:02 Temperature 99.2 F Pulse Rate 104 H 107 H Respiratory Rate 25 H Blood Pressure 138/83 Pulse Oximetry 91 94 06/06/18 01:13 06/06/18 04:24 06/06/18 05:27 Temperature 98.1 F Pulse Rate 95 H Respiratory Rate 20 Blood Pressure 132/86 Pulse Oximetry 90 L 90 L 93 06/06/18 06:23 06/06/18 06:32 06/06/18 06:56 Temperature Pulse Rate 96 H 89 Respiratory Rate 18 23 Blood Pressure 132/86 Pulse Oximetry 88 L 93 Fraction of Inspired Oxygen 75 Oxygen Delivery Method Heated High Flow Oxygen Flow Rate 50 Narrative Exam Narrative: Morbidly obese female who is sleeping in a hospital bed. She is in no apparent distress awakens to stimulation and denies any pain or current concerns other than fatigue HEENT: BiPAP in place. It was not removed. Neck: No masses Chest: No wheezes, rhonchi or crackles Cor: Regular rate and rhythm with distant S1 and S2 Abdomen: Positive bowel sounds, soft, nontender, nondistended Extremities: Unchanged from yesterday, nonpitting edema, bull eye in various stages with lichenification no significant erythema or purulent date drainage Objective Labs Result Diagrams: 06/06/18 05:15 06/06/18 05:15 Labs: Laboratory Results - last 24 hr 06/05/18 06/05/18 06/05/18 07:15 07:15 07:15 WBC 29.8 H RBC 4.46 Hgb 10.3 L Hct 35.2 L MCV 78.9 L MCH 23.0 L MCHC 29.2 L RDW 20.3 H Plt Count 359 Neut % (Auto) Not Reportable Lymph % (Auto) Not Reportable [place] % (Auto) Not Reportable Eos % (Auto) Not Reportable Baso % (Auto) Not Reportable Neut # (Auto) Lymph # (Auto) Not Reportable [place] # (Auto) Not Reportable Eos # (Auto) Baso # (Auto) Not Reportable Total Counted 100 Seg Neutrophils % 70.0 Band Neutrophils % 25.0 H Lymphocytes % (Manual) 1.0 L Atypical Lymphs % 1.0 H Monocytes % (Manual) 2.0 Metamyelocytes % 1.0 H Neutrophils # (Manual) 97518 H Nucleated RBCs 1 H Plt Morphology Comment RBC Morphology See below Polychromasia 1+ H Hypochromasia 1+ H Anisocytosis 2+ H Sodium 137 Potassium 5.3 H Chloride 98 Carbon Dioxide 31 BUN 19 H Creatinine 0.70 Estimated GFR > 60.0 BUN/Creatinine Ratio 27.1 H Glucose 260 H Calcium 8.6 Total Bilirubin 0.7 AST 22 ALT 39 Alkaline Phosphatase 112 Total Creatine Kinase < 20 L CK-MB (CK-2) TNP CK-MB (CK-2) Rel Index TNP Troponin I 0.485 H* B-Natriuretic Peptide Total Protein 6.7 Albumin 3.3 L Globulin 3.4 Albumin/Globulin Ratio 1.0 Nasal Screen MRSA (PCR) Chlamy pneumoniae PCR Adenovirus (PCR) B.parapertussis DNA PCR Coronavirus OC43 (PCR) Coronavirus HKU1 (PCR) Coronavirus 229E (PCR) Coronavirus NL63 (PCR) Human Metapneumovir PCR Influenza Type A (PCR) Influenza Type B (PCR) Influenza A & B (PCR) M. pneumoniae (PCR) Parainfluenza 1 (PCR) Parainfluenza 2 (PCR) Parainfluenza 3 (PCR) Parainfluenza 4 (PCR) RSV (PCR) Entero/Rhino (PCR) 06/05/18 06/05/18 06/05/18 07:15 07:15 09:15 WBC RBC Hgb Hct MCV MCH MCHC RDW Plt Count Neut % (Auto) Lymph % (Auto) [place] % (Auto) Eos % (Auto) Baso % (Auto) Neut # (Auto) Lymph # (Auto) [place] # (Auto) Eos # (Auto) Baso # (Auto) Total Counted Seg Neutrophils % Band Neutrophils % Lymphocytes % (Manual) Atypical Lymphs % Monocytes % (Manual) Metamyelocytes % Neutrophils # (Manual) Nucleated RBCs Plt Morphology Comment RBC Morphology Polychromasia Hypochromasia Anisocytosis Sodium Potassium Chloride Carbon Dioxide BUN Creatinine Estimated GFR BUN/Creatinine Ratio Glucose Calcium Total Bilirubin AST ALT Alkaline Phosphatase Total Creatine Kinase CK-MB (CK-2) CK-MB (CK-2) Rel Index Troponin I B-Natriuretic Peptide 793 H Total Protein Albumin Globulin Albumin/Globulin Ratio Nasal Screen MRSA (PCR) Negative for mrsa Chlamy pneumoniae PCR Not detected Adenovirus (PCR) Not detected B.parapertussis DNA PCR Not detected Coronavirus OC43 (PCR) Not detected Coronavirus HKU1 (PCR) Not detected Coronavirus 229E (PCR) Not detected Coronavirus NL63 (PCR) Not detected Human Metapneumovir PCR Not detected Influenza Type A (PCR) Not detected Influenza Type B (PCR) Not detected Influenza A & B (PCR) Cancelled M. pneumoniae (PCR) Not detected Parainfluenza 1 (PCR) Not detected Parainfluenza 2 (PCR) Not detected Parainfluenza 3 (PCR) Not detected Parainfluenza 4 (PCR) Not detected RSV (PCR) Not detected Entero/Rhino (PCR) Not detected 06/05/18 06/05/18 06/05/18 15:00 15:33 19:20 WBC RBC Hgb Hct MCV MCH MCHC RDW Plt Count Neut % (Auto) Lymph % (Auto) [place] % (Auto) Eos % (Auto) Baso % (Auto) Neut # (Auto) Lymph # (Auto) [place] # (Auto) Eos # (Auto) Baso # (Auto) Total Counted Seg Neutrophils % Band Neutrophils % Lymphocytes % (Manual) Atypical Lymphs % Monocytes % (Manual) Metamyelocytes % Neutrophils # (Manual) Nucleated RBCs Plt Morphology Comment RBC Morphology Polychromasia Hypochromasia Anisocytosis Sodium Potassium 5.2 H 4.8 Chloride Carbon Dioxide BUN Creatinine Estimated GFR BUN/Creatinine Ratio Glucose Calcium Total Bilirubin AST ALT Alkaline Phosphatase Total Creatine Kinase < 20 L CK-MB (CK-2) TNP CK-MB (CK-2) Rel Index TNP Troponin I 0.373 H* B-Natriuretic Peptide Total Protein Albumin Globulin Albumin/Globulin Ratio Nasal Screen MRSA (PCR) Chlamy pneumoniae PCR Adenovirus (PCR) B.parapertussis DNA PCR Coronavirus OC43 (PCR) Coronavirus HKU1 (PCR) Coronavirus 229E (PCR) Coronavirus NL63 (PCR) Human Metapneumovir PCR Influenza Type A (PCR) Influenza Type B (PCR) Influenza A & B (PCR) M. pneumoniae (PCR) Parainfluenza 1 (PCR) Parainfluenza 2 (PCR) Parainfluenza 3 (PCR) Parainfluenza 4 (PCR) RSV (PCR) Entero/Rhino (PCR) 06/06/18 06/06/18 05:15 05:15 WBC 24.8 H RBC 4.51 Hgb 10.4 L Hct 35.4 L MCV 78.4 L MCH 23.1 L MCHC 29.5 L RDW 20.5 H Plt Count 364 Neut % (Auto) 93.6 H Lymph % (Auto) 2.5 L [place] % (Auto) 2.9 L Eos % (Auto) 0.0 L Baso % (Auto) 1.0 Neut # (Auto) 68390 H Lymph # (Auto) 600 L [place] # (Auto) 700 Eos # (Auto) 0 Baso # (Auto) 200 H Total Counted Seg Neutrophils % Band Neutrophils % Lymphocytes % (Manual) Atypical Lymphs % Monocytes % (Manual) Metamyelocytes % Neutrophils # (Manual) Nucleated RBCs Plt Morphology Comment . RBC Morphology See below Polychromasia 1+ H Hypochromasia 1+ H Anisocytosis 2+ H Sodium 138 Potassium 4.9 Chloride 95 L Carbon Dioxide 33 H BUN 27 H Creatinine 0.80 Estimated GFR > 60.0 BUN/Creatinine Ratio 33.8 H Glucose 274 H Calcium 8.5 Total Bilirubin 0.5 AST 28 ALT 41 Alkaline Phosphatase 113 Total Creatine Kinase < 20 L CK-MB (CK-2) TNP CK-MB (CK-2) Rel Index TNP Troponin I 0.259 H* B-Natriuretic Peptide Total Protein 7.6 Albumin 3.6 Globulin 4.0 Albumin/Globulin Ratio 0.9 L Nasal Screen MRSA (PCR) Chlamy pneumoniae PCR Adenovirus (PCR) B.parapertussis DNA PCR Coronavirus OC43 (PCR) Coronavirus HKU1 (PCR) Coronavirus 229E (PCR) Coronavirus NL63 (PCR) Human Metapneumovir PCR Influenza Type A (PCR) Influenza Type B (PCR) Influenza A & B (PCR) M. pneumoniae (PCR) Parainfluenza 1 (PCR) Parainfluenza 2 (PCR) Parainfluenza 3 (PCR) Parainfluenza 4 (PCR) RSV (PCR) Entero/Rhino (PCR) Assessment & Plan Assessment & Plan narrative: 43-year-old female with autoimmune disorder Assessment 1. Acute on chronic respiratory failure with exacerbation secondary to steroid withdrawal with possible complication of acute pulmonary edema as well as possible pneumonia due to patient's history of recurrent pneumonia on immunosuppressant and higher risk for infection as well as patient's immobility. She was unable to have a CT scan yesterday due to desaturations. We elected to treat her empirically for pulmonary embolus. Plan: Continue on Lovenox 150 mg subcu q.12 hours. Continue on IV ceftriaxone and Levaquin. Cultures are negative thus far. Respiratory panel influenza negative. Continue on high dose steroids. Supportive care with respiratory therapy BiPAP. Will continue with IV Lasix and continue to monitor electrolytes Assessment 2.SAPPHO Plan: Continue with skin care with silver imbedded gauze. Continue to monitor. Continue on Enbrel. We will hold her dose today because of current infection. Assessment 3. Hypertension stable Plan: Continue lisinopril and metoprolol. Will add amlodipine once her condition improves. Assessment 4. Elevated troponins I suspect related to fluid overload and acute respiratory failure and troponins improving. Echo was poor quality did not show any significant wall motion abnormality. We will continue on Lovenox and metoprolol and lisinopril and continue to monitor. Assessment 5. Type 2 diabetes worsened with steroids Plan: Continue on metformin. Continue with sliding scale insulin Continue on proton pump inhibitor for GI prophylaxis Continue on lorazepam as needed for anxiety Quality VTE Deep Vein Thrombosis/Pulmonary Embolism Present on Admission: No
[2018-06-06] MEDS: FUROSEMIDE 40 MG/4 ML VIAL IV ×2 (08:36→12:12)
[2018-06-06] MEDS: LISINOPRIL 10 MG TABLET PO (08:37)
[2018-06-06] MEDS: METOPROLOL ER 50 MG TABLET 100 MG PO ×2 (08:37→20:56)
[2018-06-06] MEDS: NYSTATIN POWDER 30 GM 1 APPLIC TOP ×3 (08:37→20:56)
[2018-06-06] MEDS: PANTOPRAZOLE 40 MG VIAL IV (08:37)
[2018-06-06] MEDS: ENOXAPARIN 80 MG/0.8 ML SYRINGE 150 MG SUBCUT ×2 (08:38→20:55)
[2018-06-06] MEDS: SODIUM CHLORIDE 0.9% FLUSH 10 ML IV ×3 (08:40→20:58)
[2018-06-06] MEDS: HYDROCODONE/ACET 5/325 TABLET 1 TAB PO ×2 (11:14→20:55)
[2018-06-06] MEDS: LORazepam 2 MG/ML SYRINGE 1 MG IV (12:20)
--- NOTE | 2018-06-06 17:24 | CM.DANOTE ---
Discharge Planning/Care Management DCP: assessment: initiated: Case received, EMR reviewed and discussed in Team Rounds. Went to room this afternoon to met with pt and introduce self and role. Pt was found with and oxygen treatment in place as set up by RT. She did not rouse to voice. Pt is a 43 year old female who carries a dx of SAPPHO: autoimmune disorder and morbid obesity: 400= lbs. She admitted to care of Dr. Real yesterday morning. PCP: Dr. Chavez. Pt is under the [employer] program and per report her mother is her [employer] worker. Unclear at this point if there are other caregivers in the home. RT confirms that pt is on a Trilogy at home at night and has used this routinely since getting a different set up last year. P: DCP team to continue to follow as needs unfold. Recomend reaching out to pt's mother for futher information. RT also noted pt had difficult night and was exhausted today. She likely will be more alert tomorrow. Advanced directive, confirm from FAMILY Start: 06/05/18 02:41 Freq: Q24H Status: Active Protocol: Document 06/05/18 22:04 JJY (Rec: 06/05/18 22:05 [id number]) Advance Directive, confirm on record Time 22:04 Person contacted Patient Copy received No CM Discharge Assessment Start: 06/06/18 17:22 Freq: Status: Active Protocol: Document 06/06/18 17:22 ITV (Rec: 06/06/18 17:24 [id number]) Discharge Planning Assessment Advance Directives? Yes: Health Care directive/ DPOA my mom would know History Provided By Medical Record Prior Living Arrangements Apartment/Condo Household Members family children Comment lives with her mother and her 21 year old son. Discharge Plan Home with Home Health Whiteboard Updated in Patient Room with Yes name and ext. # of Medical Manager Review Status In Process Next Review Type Continued Stay Review
--- NOTE | 2018-06-06 21:36 | PC.NURSE ---
2030 - Pt reports need to have BM, Using jodie lift and sling, elevated above bed. Placed on bedpan. Pt able to have stool, guaiac negative. Linen change. Skin care, nystatin powder, Interdry in place. Catheter care. Pt appears to have started her menses, peripad in place. FIO2 increased to 90% with activity. Titrated down to 80% at rest. Following care pt requested vicodin for LE pain. Given with hs meds. Pt tolerated procedure well. Skin to left hip area noted to have more inflammation and erythema than prior assessment, tender to touch. Monitor.
[2018-06-07] VITALS (15 sets, daily range): BP systolic 130–147; BP diastolic 79–89; PULSE 76–97; RESP 10–25; TEMP 36.1–36.6; O2SAT 90–95
[2018-06-07] MEDS: levoFLOXacin 750 MG/150 ML PIGGYBACK 100 MG IV (01:18)
[2018-06-07] MEDS: methylPREDNISolone 125 MG/2 ML VIAL 60 MG IV ×4 (03:48→20:10)
[2018-06-07] MEDS: CEFTRIAXONE 1 GM/50 ML FROZ.PIGGY IV (04:24)
[2018-06-07 05:36] LABS: Add Manual Diff / Slide Review NO; Basophils Absolute Auto 100 /uL (0-100); Basophils Percent Auto 0.4 % (0-2); Eosinophils Absolute Auto 100 /uL (0-450); Eosinophils Percent Auto 0.3 % (2-4); Hematocrit 33.9 % (36-46); Hemoglobin 10.1 g/dL (12.0-16.0); Lymphocytes Absolute Auto 700 /uL (1100-4500); Lymphocytes Percent Auto 3.2 % (25-40); Mean Corpuscular HGB Conc 29.9 % (30-36); Mean Corpuscular Hemoglobin 23.3 PG (26-34); Mean Corpuscular Volume 77.9 fL (80-100); Monocytes Absolute Auto 700 /uL (0-900); Monocytes Percent Auto 3.3 % (3-14); Neutrophils Absolute Auto 19600 /uL (1500-7000); Neutrophils Percent Auto 92.8 % (50-75); Platelet Count 352 X10^3/uL (150-400); Red Blood Cell Count 4.35 X10^6/uL (4.0-5.2); Red Cell Distribution Width 20.6 % (11.6-14.8); White Blood Cell Count 21.1 X10^3/uL (4.5-11.0)
[2018-06-07 05:43] LABS: Alanine Aminotransferase 36 IU/L (9-52); Albumin 3.4 g/dL (3.5-5.0); Albumin Globulin Ratio 0.9 (1.0-2.8); Alkaline Phosphatase 105 U/L (38-126); Aspartate Aminotransferase 23 IU/L (14-36); BUN Creatinine Ratio 43.8 (6-22); Bilirubin Total 0.3 mg/dL (0.2-1.3); Blood Urea Nitrogen 35 mg/dL (7-17); Calcium 8.4 mg/dL (8.4-10.2); Carbon Dioxide 33 mmol/L (22-32); Chloride 95 mmol/L (98-107); Estimated Glomerular Filt Rate > 60.0 mL/min (>60); Globulin 3.9 g/dL (1.7-4.1); Glucose 312 mg/dL (70-100); HEMOLYSIS < 15 (0-50); Potassium 4.7 mmol/L (3.4-5.1); Sodium 136 mmol/L (137-145); Total Protein 7.3 g/dL (6.3-8.2)
[2018-06-07 06:03] LABS: Anisocytosis 2+; Hypochromasia 1+; Polychromasia 1+
[2018-06-07 06:10] LABS: B Type Natriuretic Peptide 323 (<100)
--- NOTE | 2018-06-07 06:40 | PC.NURSE ---
Noc Note Pt is A&O, reports that she is comfortable in the bariatric bed and that the bi-pap is comfortable as well, Pt has been sleeping most of the night. Pt reported mild generalized pain that is her baseline, PRN medication given at HS was helpful. HOB elevated, LS clear while on bi-pap, lower lobes difficult to ausculate due to size. Pt has generalized edema, Andrews cath patent with clear yellow urine. Left hip erythema persists. Minimal to no drainage noted from BLE wounds. IV ABX given as ordered.
[2018-06-07] MEDS: SODIUM CHLORIDE 0.9% FLUSH 10 ML IV ×3 (07:59→20:15)
[2018-06-07] MEDS: METFORMIN HCL 500 MG TABLET 1000 MG PO ×2 (08:00→16:26)
[2018-06-07] MEDS: PANTOPRAZOLE 40 MG VIAL IV (08:00)
[2018-06-07] MEDS: LISINOPRIL 10 MG TABLET PO (08:00)
[2018-06-07] MEDS: METOPROLOL ER 50 MG TABLET 100 MG PO ×2 (08:00→20:08)
[2018-06-07] MEDS: FUROSEMIDE 40 MG/4 ML VIAL IV (08:00)
[2018-06-07] MEDS: INSULIN ASPART 100 UNIT/ML INSULN PEN SUBCUT ×4 (08:01→20:21)
[2018-06-07] MEDS: ENOXAPARIN 80 MG/0.8 ML SYRINGE 150 MG SUBCUT ×2 (08:02→20:09)
--- NOTE | 2018-06-07 08:23 | PC.NURSE ---
Addendum entered by Joanna Lea R.N. 06/07/18 11:45: Patients sats 86% while sleeping, RT called to assess. Increased HHFNC to 75% FIO2 and 50L flow, sats up to 92-94%, RR18, pt denies pain. Original Note: Addendum entered by Joanna Lea R.N. 06/07/18 09:37: Pt placed on bedpan with use of sling and jodie, had small BM. Patient became hypoxic with repositioning in bed, sats dropped to 78%, on HHFNC 50L 70%FIO2. Requested ativan, 1mg given IVP. Once patient settled and sitting up in bed sats back up to 92-93%. Original Note: Pt taken off bipap for meal, RT placed patient on heated high flow cannula at 50L, 70% FIO2, sats 94% RR 16. Pt denies pain at this time.
[2018-06-07] MEDS: LORazepam 2 MG/ML SYRINGE 1 MG IV (09:26)
[2018-06-07] MEDS: NYSTATIN POWDER 30 GM 1 APPLIC TOP ×3 (09:26→20:16)
[2018-06-07] MEDS: ALBUTEROL/IPRATROPIUM 3 ML AMPUL INH (11:05)
--- NOTE | 2018-06-07 12:49 | CM.DPC ---
DCP Cont: Called and spoke to patient's mother, Tori. She is her primary caregiver. She stated that before she comes home, she needs to be able to use the walker to use her bedside commode. Stated that she had been working with [facility], had nursing and physical therapy, and completed service. She mentioned that she was non-compliant with doing the exercises as shown. Her 21 year old son also resides with them. She stated he is helpful. Her mother stated that she has been caring for this patient for years. She mentioned that when she went off of her Prednisone, she was having problems. She also stated that patient has come close to falling, and knows, that if she fell, she would not be able to get her up. Stated that she spends much of her time in bed. Mother also confirmed that she is DPOA. P: DCP to continue to follow closely. She will need some physical therapy before returning home, once she is medically stable. Home health will need to be ordered when she returns home. Other option would be short term skilled, for she does have Medicare as he primary. Lori Camp RN/Life Specialist
--- NOTE | 2018-06-07 14:37 | RT ---
Patient feels that the breathing treatments are not helped her feel any different with her breathing. She does not take breathing treatments at home per her and her chart. Talked about [id number] them prn and she can call when she feels she needs one and/or we in RT can suggest one if we feel she is in need. Will still assess every day and follow closely.
[2018-06-07] MEDS: HYDROCODONE/ACET 5/325 TABLET 1 TAB PO (16:25)
[2018-06-07] MEDS: INSULIN GLARGINE 100 UNIT/ML 3ML PEN 20 UNIT SUBCUT (20:22)
[2018-06-08] VITALS (19 sets, daily range): BP systolic 143–155; BP diastolic 93–109; PULSE 77–93; RESP 10–22; TEMP 36.1–36.4; O2SAT 82–95
[2018-06-08] MEDS: levoFLOXacin 750 MG/150 ML PIGGYBACK 100 MG IV (00:26)
[2018-06-08] MEDS: HYDROCODONE/ACET 5/325 TABLET 1 TAB PO ×3 (00:26→18:02)
[2018-06-08] MEDS: methylPREDNISolone 125 MG/2 ML VIAL 60 MG IV ×4 (00:32→20:47)
--- NOTE | 2018-06-08 01:21 | PC.NURSE ---
Addendum entered by Tara Hamilton R.N. 06/08/18 05:53: 0530 - Pt changed to [facility] for activity/care. Chux pad changed under LLE. Pt on menses, large amount of drainage with multiple small clots. Kalpana-care, catheter care, pad changed. Skin under panus cleaned, interdry with blood drainage r/t menses removed, nystatin powder and replaced with clean interdry. Pt anxious during care, however recovered quickly. Bi-pap replaced following care. Original Note: Addendum entered by Tara Hamilton R.N. 06/08/18 03:59: 0340 - Pt sats began to decrease into the low 80's. Pt appears to be soundly sleeping with bi-pap in place. Increased FIO2 from 70 to 80%. sats increased to 85%. RT notified. Adjusted pressures from 03/06 to 16. sats increased to 89%. Monitor. Original Note: 0030 - Pt discussing mobility. States that the jodie lift sling is painful to left hip. I think it just aggravates it. Pt discussing ability to stand. States that she was standing at home, however after a near fall she is concerned about LLE strength. Expressing concerns with bed height. Worried that she will not be able to get out of and back into bed at this time. Also expressing concerns with work of breathing and activity. Pt becomes tearful with discussion of mobility. Reassurance provided. Discussed possibility of [id number] or therapy consult to assist with mobility ideas. Pt c/o pain to left hip of . Erythema increased from 06/07. Vicodin given. Removed pt bi-pap for po med intake. Sats immediately decreased to 88%. Returned to 92% with replacement of mask following intake. Bi-pap FIO2 at 70%. Abx infusing. Call light in reach.
[2018-06-08] MEDS: CEFTRIAXONE 1 GM/50 ML FROZ.PIGGY IV (03:52)
[2018-06-08 05:13] LABS: Add Manual Diff / Slide Review NO; Basophils Absolute Auto 0 /uL (0-100); Basophils Percent Auto 0.4 % (0-2); Eosinophils Absolute Auto 0 /uL (0-450); Hematocrit 34.4 % (36-46); Hemoglobin 10.6 g/dL (12.0-16.0); Lymphocytes Absolute Auto 600 /uL (1100-4500); Lymphocytes Percent Auto 4.8 % (25-40); Mean Corpuscular HGB Conc 30.7 % (30-36); Mean Corpuscular Hemoglobin 23.6 PG (26-34); Monocytes Absolute Auto 400 /uL (0-900); Neutrophils Absolute Auto 12000 /uL (1500-7000); Neutrophils Percent Auto 91.8 % (50-75); Platelet Count 334 X10^3/uL (150-400); Red Blood Cell Count 4.47 X10^6/uL (4.0-5.2); Red Cell Distribution Width 20.4 % (11.6-14.8)
[2018-06-08 05:16] LABS: Alanine Aminotransferase 38 IU/L (9-52); Albumin 3.4 g/dL (3.5-5.0); Albumin Globulin Ratio 0.9 (1.0-2.8); Alkaline Phosphatase 104 U/L (38-126); Aspartate Aminotransferase 21 IU/L (14-36); Bilirubin Total 0.3 mg/dL (0.2-1.3); Blood Urea Nitrogen 40 mg/dL (7-17); Calcium 8.7 mg/dL (8.4-10.2); Carbon Dioxide 35 mmol/L (22-32); Chloride 95 mmol/L (98-107); Estimated Glomerular Filt Rate > 60.0 mL/min (>60); Globulin 3.9 g/dL (1.7-4.1); Glucose 355 mg/dL (70-100); HEMOLYSIS < 15 (0-50); Potassium 4.7 mmol/L (3.4-5.1); Sodium 136 mmol/L (137-145); Total Protein 7.3 g/dL (6.3-8.2)
[2018-06-08 05:33] LABS: Anisocytosis 2+; Hypochromasia 1+; Polychromasia 1+
[2018-06-08 05:37] LABS: B Type Natriuretic Peptide 567 (<100)
--- NOTE | 2018-06-08 08:45 | PM.PN.1 ---
Subjective Date Patient Seen: 06/07/18 Time Patient Seen: 08:19 Interval history: Patient admitted with dyspnea the fever white count [id number] skin manifestations of inflammation and suspicion of pneumonia versus possible pulmonary embolism. Patient admitted diuresed oxygen support initiated and antibiotics initiated and IV steroids as well. The patient is also diabetic and so that has been increased and is on sliding scale as well as Lantus and her continued oral medications. Patient feels better today white count is still in the 20 range but she is less short of breath and feels a little less weak. Oxygen saturations are in the low 90s but still requiring quite a bit of oxygen supplementation including some pressure slowed with BiPAP last night will do the same again tonight. Past medical history patient has history of diabetes, pulmonary edema with congestive heart failure I think secondary to restrictive disease, diabetes, no history of smoking and no particular chest pain at this point although she has had troponin mildly elevated. Family history is negative for connective tissue disorder or diabetes. 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 She lives with her mother and her aunt and the patient's son in a small 2 bedroom apartment where she is for Thalia to the living space with hospital bed immobility bedside commode and severe limitations on her get out of her house at all. Exam Vital Signs (past 8 hours): - 06/08/18 03:09 06/08/18 03:40 06/08/18 05:56 Temperature 97.5 F L Pulse Rate 88 Respiratory Rate 18 Blood Pressure 154/100 H Pulse Oximetry 91 82 L 95 06/08/18 06:09 06/08/18 07:39 Temperature 97 F L Pulse Rate 88 Respiratory Rate 21 Blood Pressure 154/100 H 151/93 H Pulse Oximetry 91 Fraction of Inspired Oxygen 70 Oxygen Delivery Method BiPAP Oxygen Flow Rate 70 Narrative Exam Narrative: Patient is in bed with oxygen mask on pumping some pressure the think it is her trilogy machine and answering questions comfortably and alert or oriented. PERRLA and EOMs intact Neck obese unable to see if there is a jugular venous distension Lungs with decreased breath sounds throughout Cardiovascular exam shows regular rate and rhythm without murmur significant diffuse peripheral edema which I think is related to her body weight. Abdomen is massively obese but is nontender no palpable mass at all. Back without significant tenderness although there is hip area redness on the skin on the left side which is tender in that area Skin with an inflamed area there do not see a breakdown in the skin seems more like a cellulitis. Is on broad-spectrum antibiotics to cover Extremities tremendous edema at least for 4+ Psych patient is as a depressive issue probably other components but stable on current medications. Objective Labs Result Diagrams: 06/08/18 04:55 06/08/18 04:55 Labs: Laboratory Results - last 24 hr 06/08/18 06/08/18 04:55 04:55 WBC 13.0 H RBC 4.47 Hgb 10.6 L Hct 34.4 L MCV 77.0 L MCH 23.6 L MCHC 30.7 RDW 20.4 H Plt Count 334 Neut % (Auto) 91.8 H Lymph % (Auto) 4.8 L [place] % (Auto) 3.0 Eos % (Auto) 0.0 L Baso % (Auto) 0.4 Neut # (Auto) 03384 H Lymph # (Auto) 600 L [place] # (Auto) 400 Eos # (Auto) 0 Baso # (Auto) 0 Plt Morphology Comment . 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 This definitely decreases her immune deficiency gains to infection. This is her chronic disabling disease which is significantly aggravated by inactivity and continued weight gain. This condition is incurable and permanent. Assessment 2. Probable pneumonia. Patient had infiltrates and that could be congestive and does have a elevated D[place]dim[place] [id number] and acutely worsening shortness of breath though I think there is probably a component of both. At risk for pneumonia because of her immune compromise diabetes and a real restrictive component to her ventilation secondary to her size Assessment 3. Morbid obesity tremendous risk factor for this patient gets an severe amount of edema within her extremities weighs almost 500 lb. Assessment 4. Hypertension is patient continues on her usual mix of blood pressure medications at this point will watch closely if we do not see improvement as she starts feeling better we can adjust and consider adding an additional blood pressure medicine will continue to watch pressure and labs closely Diabetes is frequently on steroids because of her skin and her respiratory function. This usually significantly exacerbates her blood sugars am anticipating that have been getting this time will probably increase her to a high algorithm sliding scale along with Lantus and her regular meds. Assessment 6 depression. This may be part of a more complex psychiatric issue certainly a lot of anxiety and involving this is well seems fairly stable at this point in fact probably feels less stressed being at the hospital than being at home. Will continue her regular medicines. Assessment 7 history of reactive airway disease possibly part of her inflammatory main underlying syndrome. Has had significant treatment with steroids in the past for that as well. Quality VTE Deep Vein Thrombosis/Pulmonary Embolism Present on Admission: No
--- NOTE | 2018-06-08 09:08 | P.PN_ITS ---
Subjective Date Patient Seen: 06/08/18 Time Patient Seen: 08:12 Interval history: Fair night much problem or complication. Was on BiPAP all night seems to rest fairly well with that. Still sleeping this morning. Arouses easily communicates clearly answers questions appropriately denies any major worsening pain. Feels like she is mildly improved less short of breath last week. Still has some soreness in her left hip area from her skin issues. Continue to diurese at this point with good urine output but not massive diuresis. Will look at BNP in the morning again and if she continues to be hard to maintain oxygen saturation in the 90s probably consider repeat chest x-ray. Patient's blood pressure continues to be mildly elevated I think part of that is steroid loads and fluid overload and is hypoxia. With white count significantly improved today gone down from admission of 17/12 down to 13,010 patient is on steroids at this point as well which could be affecting her white count now but she was not on them at the time of her admission. Left hip redness seems more consistent with a infectious process rather than skin breakdown but she is extremely immobile with lot of pressure on the area that she lays on it. Past medical history consists of herSAPHO syndrome, obesity, hypertension, diabetes, asthma, and depression anxiety Family history is negative for diabetes or heart disease is positive for depression and anxiety. No one else in her family has the autoimmune disorder history. Exam Vital Signs (past 8 hours): - 06/08/18 03:09 06/08/18 03:40 06/08/18 05:56 Temperature 97.5 F L Pulse Rate 88 Respiratory Rate 18 Blood Pressure 154/100 H Pulse Oximetry 91 82 L 95 06/08/18 06:09 06/08/18 07:39 Temperature 97 F L Pulse Rate 88 Respiratory Rate 21 Blood Pressure 154/100 H 151/93 H Pulse Oximetry 91 Fraction of Inspired Oxygen 70 Oxygen Delivery Method BiPAP Oxygen Flow Rate 70 Narrative Exam Narrative: Patient awakens easily does have BiPAP in place but answers questions comfortably in clearly no new additions of pain chest pain. As answering comfortably and quietly. PERRLA EOMs intact Speech clear Neck without mass Lungs decreased breath sounds throughout Cardiovascular exam shows regular rate and rhythm sinus mechanism on And has left hip area inflammation this is order present and see Trey but supple newly developed at. Will continue is Neuro has normal and intact Extremities with a large amount of chronic edema and quite obese Psychiatry shows the patient to be in fairly good spirits at this point it will. home monitor no murmur S3. Abdomen obese Angelina no abnormal exam other than Objective Labs Result Diagrams: 06/08/18 04:55 06/08/18 04:55 Labs: Laboratory Results - last 24 hr 06/08/18 06/08/18 04:55 04:55 WBC 13.0 H RBC 4.47 Hgb 10.6 L Hct 34.4 L MCV 77.0 L MCH 23.6 L MCHC 30.7 RDW 20.4 H Plt Count 334 Neut % (Auto) 91.8 H Lymph % (Auto) 4.8 L [place] % (Auto) 3.0 Eos % (Auto) 0.0 L Baso % (Auto) 0.4 Neut # (Auto) 62055 H Lymph # (Auto) 600 L [place] # (Auto) 400 Eos # (Auto) 0 Baso # (Auto) 0 Plt Morphology Comment . 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 On immune suppressant therapy with Enbrel. His course increases her susceptibility to other things. Will continue with current medication regimen probably not give her her immune modulator while she is battling infection. Assessment 2. Pneumonia patient treated with broad-spectrum antibiotic combination and white count is down to 13 high think we are seeing some improvement she feels a little better this morning than she did yesterday. Will continue her respiratory therapy treatment and IV antibiotics and steroids. Will diurese her a little more in case there is a component of of continuing congestive failure. Assessment 3. Congestive heart failure think this is systolic primarily been aggravated by her recent restrictive due components of her underlying illness. There is an acute superimposed over chronic component to this as well. Will continue with diuretics in fact increase her Lasix to 80 in the morning and even though her BNP had come down some will recheck that again in the morning. If we you find that we continue to have trouble or her sats drop below 90 on the high volume oxygen she is on will need to reimage. Assessment 4. Diabetes patient's sugar this morning 300 sure that this is in large part to be due to her acute infection issue along with her steroid therapy. Will increase insulins and continue her usual medications for this. Assessment 5. Hypertension with blood pressure in the 150 the systolic range if that gets any higher we will need to introduce some additional blood pressure medication. Have increased her Lasix already hopefully that will be some help. Assessment 6 for note depression and anxiety. I think that there is more cough complex psychiatric component to this than than just that but that certainly currently being managed will continue those meds for now. Assessment 7. Severe immobility secondary to overall body weight. Will get a physical therapy consult today and see if we can do Invanz to some bedside movements. Assessment 8. Right hip area inflammatory skin lesion. Does not seem like a skin breakdown continues or worsens will get wound care consult by think it could just be infectious and the antibiotics seem to be helping her overall. Quality VTE Deep Vein Thrombosis/Pulmonary Embolism Present on Admission: No
[2018-06-08] MEDS: ENOXAPARIN 80 MG/0.8 ML SYRINGE 150 MG SUBCUT ×2 (09:47→20:53)
[2018-06-08] MEDS: INSULIN ASPART 100 UNIT/ML INSULN PEN SUBCUT ×4 (09:48→20:58)
[2018-06-08] MEDS: LISINOPRIL 10 MG TABLET PO (09:49)
[2018-06-08] MEDS: METOPROLOL ER 50 MG TABLET 100 MG PO ×2 (09:50→20:45)
[2018-06-08] MEDS: METFORMIN HCL 500 MG TABLET 1000 MG PO ×2 (09:50→16:56)
[2018-06-08] MEDS: SODIUM CHLORIDE 0.9% FLUSH 10 ML IV ×2 (09:52→20:46)
[2018-06-08] MEDS: NYSTATIN POWDER 30 GM 1 APPLIC TOP ×2 (09:52→20:46)
[2018-06-08] MEDS: PANTOPRAZOLE 40 MG VIAL IV (09:52)
[2018-06-08] MEDS: FUROSEMIDE 100 MG/10 ML VIAL 80 MG IV (09:55)
[2018-06-08] MEDS: LORazepam 2 MG/ML SYRINGE 1 MG IV ×2 (10:49→18:04)
--- NOTE | 2018-06-08 11:00 | PT.IPTN ---
Current Diagnoses Type 2 diabetes mellitus with other specified complication (06/05/18) Morbid (severe) obesity due to excess calories (06/05/18) Obesity, unspecified (06/05/18) Physical Therapy Treatment Note Notes Pt is currently getting help with a bed bath from staff, will check back later for PT eval.
--- NOTE | 2018-06-08 16:06 | PT.IPTN ---
Current Diagnoses Type 2 diabetes mellitus with other specified complication (06/05/18) Morbid (severe) obesity due to excess calories (06/05/18) Obesity, unspecified (06/05/18) Physical Therapy Treatment Note M3 PT-IP Subjective Start: 06/08/18 10:32 Freq: NEEDED Status: Active Protocol: Document 06/08/18 16:06 AB (Rec: 06/08/18 16:48 AB [id number]) Subjective Physical Therapy Visit Type Type Patient Refusal Notes checked on pt for PT eval but pt refused. stated that her O2 sat still goes down low and it takes time and hard to recover from that. given pt option to even just sit on EOB but pt stated that she does not think it is a good idea since the bed is too high for her and will be hard to get back on. talked about sitting on chair and pt stated that the chair will be too narrow for her and that she has a L hip pain that is sensitive to touch and does not want anything against it. Agreed to do PT tomorrow. set up time at 11 am and pt stated that she will make sure she has pain meds prior to that.
[2018-06-08] MEDS: AMLODIPINE 5 MG TABLET 10 MG PO (20:45)
[2018-06-08] MEDS: INSULIN GLARGINE 100 UNIT/ML 3ML PEN 30 UNIT SUBCUT (20:58)
--- NOTE | 2018-06-08 21:06 | PC.NURSE ---
2049 - Dr. Real notified of continued hypertension and blood glucose 403. See new orders for amlodipine and increased lantus.
[2018-06-09] VITALS (18 sets, daily range): BP systolic 138–162; BP diastolic 89–96; PULSE 75–89; RESP 10–24; TEMP 36.1–37.1; O2SAT 91–95
[2018-06-09] MEDS: methylPREDNISolone 125 MG/2 ML VIAL 60 MG IV ×4 (00:42→20:28)
[2018-06-09] MEDS: levoFLOXacin 750 MG/150 ML PIGGYBACK 100 MG IV (00:42)
[2018-06-09] MEDS: CEFTRIAXONE 1 GM/50 ML FROZ.PIGGY IV (03:36)
[2018-06-09 06:12] LABS: Add Manual Diff / Slide Review NO; Basophils Absolute Auto 100 /uL (0-100); Basophils Percent Auto 0.7 % (0-2); Eosinophils Absolute Auto 0 /uL (0-450); Eosinophils Percent Auto 0.1 % (2-4); Hematocrit 36.1 % (36-46); Hemoglobin 11.1 g/dL (12.0-16.0); Lymphocytes Absolute Auto 600 /uL (1100-4500); Lymphocytes Percent Auto 7.5 % (25-40); Mean Corpuscular HGB Conc 30.8 % (30-36); Mean Corpuscular Hemoglobin 23.8 PG (26-34); Mean Corpuscular Volume 77.2 fL (80-100); Monocytes Absolute Auto 300 /uL (0-900); Monocytes Percent Auto 3.8 % (3-14); Neutrophils Absolute Auto 6900 /uL (1500-7000); Neutrophils Percent Auto 87.9 % (50-75); Platelet Count 339 X10^3/uL (150-400); Red Blood Cell Count 4.68 X10^6/uL (4.0-5.2); Red Cell Distribution Width 20.2 % (11.6-14.8); White Blood Cell Count 7.8 X10^3/uL (4.5-11.0)
[2018-06-09 06:14] LABS: Alanine Aminotransferase 37 IU/L (9-52); Albumin 3.6 g/dL (3.5-5.0); Albumin Globulin Ratio 0.9 (1.0-2.8); Alkaline Phosphatase 95 U/L (38-126); Aspartate Aminotransferase 21 IU/L (14-36); BUN Creatinine Ratio 71.7 (6-22); Bilirubin Total 0.4 mg/dL (0.2-1.3); Blood Urea Nitrogen 43 mg/dL (7-17); Calcium 8.7 mg/dL (8.4-10.2); Carbon Dioxide 36 mmol/L (22-32); Chloride 94 mmol/L (98-107); Estimated Glomerular Filt Rate > 60.0 mL/min (>60); Globulin 3.8 g/dL (1.7-4.1); Glucose 371 mg/dL (70-100); HEMOLYSIS < 15 (0-50); Potassium 4.6 mmol/L (3.4-5.1); Sodium 138 mmol/L (137-145); Total Protein 7.4 g/dL (6.3-8.2)
[2018-06-09 06:25] LABS: Troponin I 0.081 ng/mL (0.01-0.034)
[2018-06-09 06:30] LABS: Polychromasia 1+
[2018-06-09 06:31] LABS: Anisocytosis 2+
[2018-06-09 06:42] LABS: B Type Natriuretic Peptide 846 (<100)
[2018-06-09] MEDS: NYSTATIN POWDER 30 GM 1 APPLIC TOP ×3 (08:16→20:35)
[2018-06-09] MEDS: INSULIN ASPART 100 UNIT/ML INSULN PEN SUBCUT ×4 (08:16→20:45)
[2018-06-09] MEDS: ENOXAPARIN 80 MG/0.8 ML SYRINGE 150 MG SUBCUT ×2 (08:17→20:31)
[2018-06-09] MEDS: AMLODIPINE 5 MG TABLET 10 MG PO (08:17)
[2018-06-09] MEDS: METFORMIN HCL 500 MG TABLET 1000 MG PO ×2 (08:17→16:53)
[2018-06-09] MEDS: FUROSEMIDE 100 MG/10 ML VIAL 80 MG IV (08:18)
[2018-06-09] MEDS: PANTOPRAZOLE 40 MG VIAL IV (08:18)
[2018-06-09] MEDS: LISINOPRIL 10 MG TABLET PO (08:18)
[2018-06-09] MEDS: METOPROLOL ER 50 MG TABLET 100 MG PO ×2 (08:18→20:33)
[2018-06-09] MEDS: HYDROCODONE/ACET 5/325 TABLET 1 TAB PO ×2 (08:21→18:11)
[2018-06-09] MEDS: SODIUM CHLORIDE 0.9% FLUSH 10 ML IV ×2 (08:22→20:29)
[2018-06-09] MEDS: LORazepam 2 MG/ML SYRINGE 1 MG IV ×2 (08:22→18:12)
--- NOTE | 2018-06-09 11:12 | PT.IIE ---
Current Diagnoses Type 2 diabetes mellitus with other specified complication (06/05/18) Morbid (severe) obesity due to excess calories (06/05/18) Obesity, unspecified (06/05/18) Medical History (Last Reviewed 11/25/17 @ 19:17 by Jaquelin Armijo DO) Anxiety (Acute) Asthma (Acute) CHF (congestive heart failure) (Acute) COPD (chronic obstructive pulmonary disease) (Acute) Diabetes mellitus type 2 in obese (Acute) Morbid obesity (Acute) Pericardial effusion (Acute) Pleural effusion (Acute) Reactive airway disease (Acute) Recurrent pneumonia (Acute) Requires continuous at home supplemental oxygen (Acute) Physical Therapy Inpatient Evaluation/Re-Eval M1 PT/OT-IP Prior Functional Status Start: 06/08/18 10:32 Freq: NEEDED Status: Active Protocol: Document 06/09/18 11:12 AB (Rec: 06/09/18 13:48 AB [id number]) Medical Review Prior Functional Status Medical History Reviewed Yes Communication able to make needs known Mobility and Gait stated that she was slowly declining in mobility since february 2018 up to the point wherein a month or so, she was only able to transfer from her recliner and to her bedside commode and not able to ambulation. prior to that, pt was able to ambulate in the house without AD but occasionally uses a 4WW depending on how she feels Activities of Daily Living and IADL's stated that her mom assists her with dressing, hygiene care; has only been doing bed baths and her mom also helps her with that. Social History Household Members family children Living Arrangements Apartment/Condo Number of Floors (Floors) Two Floors Number of Stairs To Enter/Railing? pt has a small threshold to get in ~ 1inch high; pt stays on main level of the house Home Environment High Toilet Tub/Shower Home Equipment Four Wheel Walker Straight Cane Bedside Commode Grab Bars Near Toilet Additional Social History Comment has a rocker recliner that pt sleeps on M2 PT-IP Current Condition Start: 06/08/18 10:32 Freq: NEEDED Status: Active Protocol: Document 06/09/18 11:12 AB (Rec: 06/09/18 13:48 AB [id number]) Physical Therapy Current Condition Current Condition Evaluation Date 06/09/18 Treatment Diagnosis CHF; acute respiratory distress; generalized weakness Onset Date 06/05/18 Precautions Other Precautions O2 sat M3 PT-IP Subjective Start: 06/08/18 10:32 Freq: NEEDED Status: Active Protocol: Document 06/09/18 11:12 AB (Rec: 06/09/18 13:48 AB [id number]) Subjective Physical Therapy Visit Type Type Initial Evaluation Visit Start Time 11:12 Visit Stop Time 12:16 Total Visit Minutes 64 Number of SOCIAL WORKER PSYCHIATRIC Visits 0 Physical Therapy Visit Comments Patient Comments pt agreeable to do PT but refused to do standing stated that she is not ready for it Therapy Pain Assessment Pain When Pain Assessed During Mobility Pain Present Pain Present Pain Reported Location R hip Scale Used pain scale not stated Pain Management Techniques Timing of Activity with Medications M4 PT-IP Mobility and Gait Start: 06/08/18 10:32 Freq: NEEDED Status: Active Protocol: Document 06/09/18 11:12 AB (Rec: 06/09/18 13:48 AB [id number]) PT-Bed Mobility Assessment Supine to Sit Supine to Sit Maximum Assistance 2 Person Assistance Head of Bed Elevated Sit to Supine Sit to Supine Maximum Assistance 2 Person Assistance Scooting Scooting to Edge of Bed Maximum Assistance Dependent PT-Transfer Assessment Comments Mobility Comments pt completed supine to sit max A x 2 and max cues with HOB elevated. pt was able to sit on EOB SBA. required max A x2 for scooting to the EOB. pt with increase anxiety and required motivation and reassurance. attempted mechanical lift for get pt off the bed for nursing to be able to change bed sheet but pt was not able to tolerate sling. completed scooting backwards into the bed max A x 3 to dependent and position pt in bed. Pt on high flow O2; O2 sat prior to mobility 94%; decreases to ~ 78% but nurse stated that it can be not accurate. O2 increased by nurse and sat increased to 88% . Gait Assessment Comments Gait Comments unable at this time PT-Balance Assessment Sitting Balance and Reactions Static Sitting Balance Ability Good Dynamic Sitting Balance Ability Good M5 PT-IP Objective Assessments Start: 06/08/18 10:32 Freq: NEEDED Status: Active Protocol: Document 06/09/18 11:12 AB (Rec: 06/09/18 13:48 AB [id number]) Orientation Orientation/Cognition Level of Alertness Alert Orientation Name Age Birthday Month Date Year Day of Week Place Situation Gross Range of Motion Lower Extremity ROM Assessment Bilaterally Impaired Strength Lower Extremity Strength Assessment Bilaterally Impaired Hip 3-/5 Knee 3-/5 M6 PT-IP Treatment Start: 06/08/18 10:32 Freq: NEEDED Status: Active Protocol: Document 06/09/18 11:12 AB (Rec: 06/09/18 13:48 AB [id number]) Physical Therapy Treatment Education Education Provided Safety M7 PT-IP Assessment and Plan Start: 06/08/18 10:32 Freq: NEEDED Status: Active Protocol: Document 06/09/18 11:12 AB (Rec: 06/09/18 13:48 AB [id number]) PT Summary Assessment and Plan Potential Rehabilitation Potential Fair Status of Condition at Evaluation Evolving Summary Impairments Pain ROM Strength Balance Coordination Bed Mobility Transfers Gait Activity Tolerance Assessment Summary pt requiring max A x 3 to dependent assist with bed mobility. pt will need SNF rehab at this time. Goals Bed Mobility Goal Minimal Assistance Transfer Goal Minimal Assistance Front Wheeled Walker Gait Goal Minimal Assistance Front Wheel Walker Gait Distance 25 Days to Meet Goals 10 Frequency of Treatment Frequency Of Treatment Once a Day Treatment Plan Physical Therapy Treatment Plan Bed Mobility Training Transfer Training Gait Training Therapeutic Exercise Balance Retraining Discharge Planning Hot or Cold Pack Neuromuscular Re-ed Coordination Retraining Manual Therapy Recommendations To Nursing Amount of Assist Needed Total Assistance Mechanical Lift Discharge Recommendations PT Discharge Recommendations SNF Rehab
[2018-06-09] MEDS: INSULIN GLARGINE 100 UNIT/ML 3ML PEN 10 UNIT SUBCUT (14:15)
--- NOTE | 2018-06-09 17:54 | PM.PN.1 ---
Subjective Date Patient Seen: 06/09/18 Time Patient Seen: 17:54 Interval history: Patient is alert and awake lying comfortably in hospital bed watching people's Court. She feels her breathing is much better. She got up with physical therapy today and from a respiratory stand put felt good. She did require higher pressures on her BiPAP last night while sleeping. She is coughing less. She is tolerating p.o. without difficulty. Her blood sugars have remained high. She is put on the Hyalgan rhythm sliding scale last night and Lantus was increased from 20-30 and then she was given 10 more units today. Her blood pressure has been elevating it so she was restarted on her 10 mg of amlodipine which she takes on a regular basis at home. The inflammatory lesion on her hip is improving. She is still on the Lovenox 150 mg twice daily in. Clear to treat a pulmonary embolus and she is also on her bleeding but her hemoglobin has remained stable. Twelve 12 point review of systems is negative other than above Menses is typical for her. Bleeding is not heavier Patient currently denies depression or anxiety Denies headaches Exam Vital Signs (past 8 hours): - 06/09/18 11:02 06/09/18 12:12 06/09/18 13:28 Temperature 97.9 F Pulse Rate 88 Respiratory Rate 18 Blood Pressure 154/91 H Pulse Oximetry 92 95 93 06/09/18 17:06 Temperature 98.5 F Pulse Rate 88 Respiratory Rate 22 Blood Pressure 162/94 H Pulse Oximetry 91 Fraction of Inspired Oxygen 80 Oxygen Delivery Method Heated High Flow Oxygen Flow Rate 50 Narrative Exam Narrative: Afebrile, vital signs are stable, alert and oriented x3 Neck: Supple, obese, no masses, no jugular venous distention Chest: Very fine mild expiratory wheezes overall improved air exchange with continued decreased breath sounds in the base Cor: Regular rate and rhythm with distant S1 and S2 but no murmur rubs or gallops Abdomen: Obese, positive bowel sounds, soft Extremities: Unchanged bolus, fascicular rash right lateral leg and more extensively on the left leg and left hip. Erythema is reportedly decreased on the left hip than it was yesterday or the day prior Objective Labs Result Diagrams: 06/09/18 05:50 06/09/18 05:50 Labs: Laboratory Results - last 24 hr 06/05/18 06/09/18 06/09/18 07:15 05:50 05:50 WBC 7.8 RBC 4.68 Hgb 11.1 L Hct 36.1 MCV 77.2 L MCH 23.8 L MCHC 30.8 RDW 20.2 H Plt Count 339 Neut % (Auto) 87.9 H Lymph % (Auto) 7.5 L Alexander % (Auto) 3.8 Eos % (Auto) 0.1 L Baso % (Auto) 0.7 Neut # (Auto) 6900 Lymph # (Auto) 600 L Alexander # (Auto) 300 Eos # (Auto) 0 Baso # (Auto) 100 Plt Morphology Comment . RBC Morphology See below Polychromasia 1+ H Anisocytosis 2+ H Smear Path Review Sodium 138 Potassium 4.6 Chloride 94 L Carbon Dioxide 36 H BUN 43 H Creatinine 0.60 Estimated GFR > 60.0 BUN/Creatinine Ratio 71.7 H Glucose 371 H Calcium 8.7 Total Bilirubin 0.4 AST 21 ALT 37 Alkaline Phosphatase 95 Troponin I 0.081 H B-Natriuretic Peptide 846 H Total Protein 7.4 Albumin 3.6 Globulin 3.8 Albumin/Globulin Ratio 0.9 L Assessment & Plan Assessment & Plan narrative: 43-year-old female admitted for acute respiratory failure Assessment 1. Acute on chronic respiratory failure suspect multifactorial but improving with current treatment Plan: Continue with IV antibiotics of Levaquin and ceftriaxone. We are awaiting the blood culture. We do not have a sputum culture. Continue on the IV Solu-Medrol Continue with respiratory therapy, oxygen as needed and BiPAP at night She had excellent response to diuresis with Lasix this morning we will continue the same. Continue Lovenox 150 mg subcu twice daily for now. Will leave it up to Dr. Chavez is whether to discontinue treatment for a.m. for PE as she is markedly improving and did not have other features suggestive of acute pulmonary embolus such as cardiovascular compromise. Assessment 2. Acute on chronic systolic congestive heart failure with improvement with Lasix and excellent diuresis Plan: Continue same. Continue to monitor potassium and electrolytes and kidney function Assessment 3. Hypertension worsening Plan she is now back on her outpatient regimen of amlodipine 10, lisinopril and metoprolol. And spironolactone. She will continue the same Assessment 4. Type 2 diabetes with markedly worsening and sugars due to steroids Plan: Continue with the 40 a day of Lantus. Continue with the high algorithm sliding scale and consider adding NovoLog t.i.d. with meals. He continue metformin as well Assessment 5. SAPPHO syndrome Plan: Will continue management of current skin lesions. Assessment 6. Depression anxiety without acute exacerbation Plan: Continue to monitor Assessment 7. Morbid obesity with deconditioning Plan: Physical therapy to continue to work with patient Quality VTE Deep Vein Thrombosis/Pulmonary Embolism Present on Admission: No
[2018-06-09] MEDS: INSULIN GLARGINE 100 UNIT/ML 3ML PEN 40 UNIT SUBCUT (20:44)
--- NOTE | 2018-06-09 20:53 | PC.NURSE ---
181 - Pt reports feeling the need to use bed huitron. Requesting to be pre-medicated prior to care. Ativan and Vicodin given per pt request. 1844 - Pt jodie lifted on to bed huitron. Kalpana-care and linen changed. Barrier cream to macerated skin on buttock. Pt currently on menses, pad change. Pt returned to bed. Remains in semi-high fowlers r/t work of breathing. Pt tolerated well.
[2018-06-10] VITALS (18 sets, daily range): BP systolic 145–175; BP diastolic 87–100; PULSE 66–94; RESP 10–27; TEMP 35.8–36.6; O2SAT 87–95
[2018-06-10] MEDS: LORazepam 2 MG/ML SYRINGE 1 MG IV ×4 (00:04→23:35)
[2018-06-10] MEDS: SODIUM CHLORIDE 0.9% FLUSH 10 ML IV ×4 (00:05→23:36)
[2018-06-10] MEDS: levoFLOXacin 750 MG/150 ML PIGGYBACK 100 MG IV (01:16)
[2018-06-10] MEDS: methylPREDNISolone 125 MG/2 ML VIAL 60 MG IV ×3 (01:22→17:00)
[2018-06-10] MEDS: CEFTRIAXONE 1 GM/50 ML FROZ.PIGGY IV (04:28)
[2018-06-10 05:22] LABS: Add Manual Diff / Slide Review NO; Basophils Absolute Auto 0 /uL (0-100); Basophils Percent Auto 0.2 % (0-2); Eosinophils Absolute Auto 0 /uL (0-450); Hematocrit 35.7 % (36-46); Hemoglobin 10.9 g/dL (12.0-16.0); Lymphocytes Absolute Auto 500 /uL (1100-4500); Lymphocytes Percent Auto 7.8 % (25-40); Mean Corpuscular HGB Conc 30.5 % (30-36); Mean Corpuscular Hemoglobin 23.4 PG (26-34); Mean Corpuscular Volume 76.6 fL (80-100); Monocytes Absolute Auto 300 /uL (0-900); Monocytes Percent Auto 4.8 % (3-14); Neutrophils Absolute Auto 6000 /uL (1500-7000); Neutrophils Percent Auto 87.2 % (50-75); Platelet Count 311 X10^3/uL (150-400); Red Blood Cell Count 4.66 X10^6/uL (4.0-5.2); Red Cell Distribution Width 20.1 % (11.6-14.8); White Blood Cell Count 6.9 X10^3/uL (4.5-11.0)
[2018-06-10 05:27] LABS: BUN Creatinine Ratio 55.7 (6-22); Blood Urea Nitrogen 39 mg/dL (7-17); Calcium 8.6 mg/dL (8.4-10.2); Carbon Dioxide 38 mmol/L (22-32); Chloride 92 mmol/L (98-107); Creatine Kinase < 20 U/L (30-135); Estimated Glomerular Filt Rate > 60.0 mL/min (>60); Glucose 320 mg/dL (70-100); HEMOLYSIS < 15 (0-50); Potassium 4.3 mmol/L (3.4-5.1); Sodium 137 mmol/L (137-145)
[2018-06-10 05:38] LABS: B Type Natriuretic Peptide 588 (<100)
[2018-06-10 05:39] LABS: Troponin I 0.068 ng/mL (0.01-0.034)
[2018-06-10 05:41] LABS: Anisocytosis 2+; Hypochromasia 1+
[2018-06-10] MEDS: INSULIN ASPART 100 UNIT/ML INSULN PEN SUBCUT ×4 (07:39→21:22)
[2018-06-10] MEDS: PANTOPRAZOLE 40 MG VIAL IV (08:13)
[2018-06-10] MEDS: FUROSEMIDE 100 MG/10 ML VIAL 80 MG IV (08:13)
[2018-06-10] MEDS: ENOXAPARIN 80 MG/0.8 ML SYRINGE 150 MG SUBCUT ×2 (08:20→21:18)
[2018-06-10] MEDS: NYSTATIN POWDER 30 GM 1 APPLIC TOP ×2 (08:22→21:18)
[2018-06-10] MEDS: METFORMIN HCL 500 MG TABLET 1000 MG PO ×2 (08:22→17:00)
[2018-06-10] MEDS: LISINOPRIL 10 MG TABLET PO (08:22)
[2018-06-10] MEDS: METOPROLOL ER 50 MG TABLET 100 MG PO ×2 (08:22→21:17)
[2018-06-10] MEDS: AMLODIPINE 5 MG TABLET 10 MG PO (08:22)
[2018-06-10] MEDS: HYDROCODONE/ACET 5/325 TABLET 1 TAB PO ×2 (08:55→19:23)
--- NOTE | 2018-06-10 09:07 | P.PN_ITS ---
Subjective Date Patient Seen: 06/10/18 Time Patient Seen: 08:08 Interval history: Joanna Hatch is a 43-year-old patient admitted for respiratory failure. Patient has history of massive obesity weighing just under 500 lb. 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 Patient also has diabetes asthma hypertension. Was admitted with a severe hypoxia which has happened to her on a number of occasions after tapering off of steroids. [place] that she had a pneumonia which was treated white count on admission was 29,000. Technical difficulties with x-rays ultrasounds and CT scans made some diet with difficult to define her ongoing issues. Secondary to size patient has not had a CT scan. Treatment initiated with antibiotics and steroids and therapeutic levels of Lovenox even without the definition of DVT or pulmonary embolism and being able to be made. Patient has continued to improve over last few days now has a normal white count of 6000 breathing easier still uses her positive pressure medication control G which is primarily because of combination of restrictive disease and her underlying inflammatory conditions as well as asthma component. Patient's diabetes is been elevated number because of her combination of infection and steroid utilization. Better today after increasing her Lantus. Patient feels less pain from left flank skin inflammation breathing easier. Slept better last night. Not coughing dramatically. Has started her. And that is probably being aggravated by her anticoagulation will continue that through today. Her echo shows new suggested a right ventricular enlargement but hard to tell if that is chronic or not as opposed to acute enlargement secondary to blood clots. 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 Patient also believes has a significant psychiatric issues and be primarily anxiety which led to her weight gain isolation and all of its complications. Patient's family history has no history of autoimmune disorders diabetes. There the at some distant history and the family of coronary artery disease in smokers. New this patient has never been a smoker and is not exposed to smoke in her home Exam Vital Signs (past 8 hours): - 06/10/18 04:49 06/10/18 05:16 06/10/18 07:15 Temperature 96.7 F L Pulse Rate 69 Respiratory Rate 19 Blood Pressure 175/95 H 175/95 H Pulse Oximetry 87 L 93 06/10/18 07:43 06/10/18 08:08 06/10/18 08:45 Temperature 97.1 F L Pulse Rate 71 73 84 Respiratory Rate 18 21 Blood Pressure 145/87 H Pulse Oximetry 92 91 Fraction of Inspired Oxygen 80 Oxygen Delivery Method Heated High Flow Oxygen Flow Rate 50 Narrative Exam Narrative: Patient's color is good is not seeing short of breath. She does have the trilogy unit in place and that is giving her some positive pressure breathing answers comfortably with no gasping for breath PERRLA EOMs intact Speech clear no gasping during speaking Lungs with decreased breath sounds throughout secondary to size primarily Cardiovascular exam shows regular rate and rhythm no discernible murmur or S3. Abdomen is sigmoid significantly obese very difficult to appreciate but there is no tenderness. Back without lesions Neuro is symmetrical intact to sensory motor speech is clear Extremities S no sign of inflammation redness, patient has massive edema in lower extremities chronically. Patient's spirits seem to be good. Objective Labs Result Diagrams: 06/10/18 04:38 06/10/18 04:38 Labs: Laboratory Results - last 24 hr 06/05/18 06/10/18 06/10/18 07:15 04:38 04:38 WBC 6.9 RBC 4.66 Hgb 10.9 L Hct 35.7 L MCV 76.6 L MCH 23.4 L MCHC 30.5 RDW 20.1 H Plt Count 311 Neut % (Auto) 87.2 H Lymph % (Auto) 7.8 L [place] % (Auto) 4.8 Eos % (Auto) 0.0 L Baso % (Auto) 0.2 Neut # (Auto) 6000 Lymph # (Auto) 500 L [place] # (Auto) 300 Eos # (Auto) 0 Baso # (Auto) 0 RBC Morphology See below Hypochromasia 1+ H Anisocytosis 2+ H Smear Path Review Sodium 137 Potassium 4.3 Chloride 92 L Carbon Dioxide 38 H BUN 39 H Creatinine 0.70 Estimated GFR > 60.0 BUN/Creatinine Ratio 55.7 H Glucose 320 H Calcium 8.6 Total Creatine Kinase < 20 L CK-MB (CK-2) TNP CK-MB (CK-2) Rel Index TNP Troponin I 0.068 H B-Natriuretic Peptide 588 H Assessment & Plan Assessment & Plan narrative: Assessment 1. Acute on chronic respiratory failure. This issue is chronic bone with this patient aggravated by her body size which has increased her weight is up to 480 lb. Chronic history of asthma restrictive issues from her breathing and her chronically requiring oxygen and positive-pressure breathing. The trigger for this seemed to be infectious with her really elevated white count. Technical difficulties for echo chest x-ray and difficulty scheduling CT because of her size made it difficult for us to evaluate the cause for her worsening but it in the past it has happened recurrence leave when she is finally tapered her way off of steroids. Assessment 2. Pneumonia patient on broad-spectrum antibiotics slowly continue to improve will have her continue on that medication for now. Assessment 3. Patient's diabetes is worsened with Bacid sugars in the 300 range. I think this is worsened significantly because of her steroid and could acute infectious components. Have increased Lantus and increased her sliding scale program will monitor. Assessment 4. For profound hypoxia I think this seems most consistent with being secondary to failure pneumonia asthma and all superimposed. Difficult to examine her to define if she might have pulmonary embolism the local CT scanner is as a weight limit at 500 lb. She has enough with chronic inflammatory and immobility issues it was felt that her D-dimer would be less than reliable and size has limited the quality of the echocardiogram in terms of trying as evaluate for increased rate or pressures. Assessment 5. Hypertension patient's blood pressure better on her antihypertensive will continue to monitor again I think this is being aggravated by her respiratory illness and steroid utilization. Quality VTE Deep Vein Thrombosis/Pulmonary Embolism Present on Admission: No
--- NOTE | 2018-06-10 11:10 | PT.IPTN ---
Current Diagnoses Type 2 diabetes mellitus with other specified complication (06/05/18) Morbid (severe) obesity due to excess calories (06/05/18) Obesity, unspecified (06/05/18) Physical Therapy Treatment Note M2 PT-IP Current Condition Start: 06/08/18 10:32 Freq: NEEDED Status: Active Protocol: Document 06/09/18 11:12 AB (Rec: 06/09/18 13:48 AB [id number]) Physical Therapy Current Condition Current Condition Evaluation Date 06/09/18 Treatment Diagnosis CHF; acute respiratory distress; generalized weakness Onset Date 06/05/18 Precautions Other Precautions O2 sat M3 PT-IP Subjective Start: 06/08/18 10:32 Freq: NEEDED Status: Active Protocol: Document 06/10/18 11:10 AB (Rec: 06/10/18 12:26 AB [id number]) Subjective Physical Therapy Visit Type Type Treatment Note Visit Start Time 11:10 Visit Stop Time 12:10 Total Visit Minutes 60 Number of [place] Visits 0 Physical Therapy Visit Comments Patient Comments pt agreeable to do PT Therapy Pain Assessment Pain When Pain Assessed At Rest Pain Present Pain Present Pain Reported Location lover abdomen Scale Used pain scale not stated M4 PT-IP Mobility and Gait Start: 06/08/18 10:32 Freq: NEEDED Status: Active Protocol: Document 06/10/18 11:10 AB (Rec: 06/10/18 12:26 AB [id number]) PT-Bed Mobility Assessment Supine to Sit Supine to Sit Maximum Assistance 2 Person Assistance Head of Bed Elevated Sit to Supine Sit to Supine Maximum Assistance Total Assistance 2 Person Assistance Scooting Scooting to Edge of Bed Maximum Assistance Dependent Scooting Up and Down in Bed Dependent PT-Transfer Assessment Sit to and From Stand Sit to and from Stand Maximum Assistance 2 Person Assistance Use of Upper Extremities Comments Mobility Comments attempted sit to stand and pt unable to complete and be upright despite max A x 2 assist. pt completed seated push up from EOB x 8 reps. used platform step for sit to stand so pt can have BLE down to the floor. O2 sat decreased during mobility to 83% and nurse increase O2. pt was able to maintain O2 sat seating on EOB 88 to 94% PT-Balance Assessment Sitting Balance and Reactions Static Sitting Balance Ability Good Dynamic Sitting Balance Ability Good M5 PT-IP Objective Assessments Start: 06/08/18 10:32 Freq: NEEDED Status: Active Protocol: Document 06/09/18 11:12 AB (Rec: 06/09/18 13:48 AB [id number]) Orientation Orientation/Cognition Level of Alertness Alert Orientation Name Age Birthday Month Date Year Day of Week Place Situation Gross Range of Motion Lower Extremity ROM Assessment Bilaterally Impaired Strength Lower Extremity Strength Assessment Bilaterally Impaired Hip 3-/5 Knee 3-/5 M6 PT-IP Treatment Start: 06/08/18 10:32 Freq: NEEDED Status: Active Protocol: Document 06/09/18 11:12 AB (Rec: 06/09/18 13:48 AB [id number]) Physical Therapy Treatment Education Education Provided Safety M7 PT-IP Assessment and Plan Start: 06/08/18 10:32 Freq: NEEDED Status: Active Protocol: Document 06/10/18 11:10 AB (Rec: 06/10/18 12:26 AB [id number]) PT Summary Assessment and Plan Potential Rehabilitation Potential Fair Summary Impairments Pain ROM Strength Balance Sensation Tone Bed Mobility Transfers Gait Activity Tolerance Progress Towards Goals Slow Progress due to Medical Issues Slow Progress due to Activity Tolerance Assessment Summary pt requiring max A x 2 to total A x 2 with mobility and will need SNF rehab to improve strength and mobility. Goals Bed Mobility Goal Minimal Assistance Transfer Goal Minimal Assistance Front Wheeled Walker Gait Goal Minimal Assistance Front Wheel Walker Gait Distance 25 Days to Meet Goals 10 Frequency of Treatment Frequency Of Treatment Once a Day Treatment Plan Physical Therapy Treatment Plan Bed Mobility Training Transfer Training Gait Training Therapeutic Exercise Balance Retraining Discharge Planning Hot or Cold Pack Neuromuscular Re-ed Coordination Retraining Manual Therapy Recommendations To Nursing Amount of Assist Needed Total Assistance Mechanical Lift Discharge Recommendations PT Discharge Recommendations SNF Rehab
--- NOTE | 2018-06-10 15:42 | CM.DPC ---
DCP: continued: Case discussed in Team Rounds (pt's physician team not present.) RT notes concerns re pt's overall respiratory ability and her recommendation that pt be considered for a transfer to higher level of pulmonology care. She planned to followup with solar power installerstaff sonographer as well as RN coordinator. DCP team to continue to follow.
--- NOTE | 2018-06-10 16:54 | PC.NURSE ---
Addendum entered by Tara Hamilton R.N. 06/10/18 22:38: 2230 - Pt requesting boost in bed. 3 staff present. Pt assist with overhead trapeze. Humidification in HHF tubing, dripping. Pt reports increased SOB. HOB elevated. Pt tearful and anxious. Reports feeling more anxious today. Reassurance provided. FIO2 increased while recovering. Original Note: Addendum entered by Tara Hamilton R.N. 06/10/18 20:57: 1900 - Pt placed on jodie lift, able to use bedpan, Kalpana-care, linen and pads changed. Barrier cream to macerated skin. Pt did not tolerate procedure well, c/o discomfort across tailbone during lift use, tearful. Unable to reposition lift into a less uncomfortable place. Sats decreased to 85%, FIO2 increased to 90% during care. Returned to 80% when pt recovered. 1830 - Pt reports need to use bedpan. Requesting to be pre-medicated prior to care. Ativan and Vicodin given. Original Note: 1630 - Kalpana-care, barrier cream, pad changed. Pt c/o tenderness to posterior right thigh. small fissure noted, no drainage. Set up for meal. call light in reach.
[2018-06-10] MEDS: ACETAMINOPHEN 325 MG TABLET 650 MG PO (17:00)
[2018-06-10] MEDS: INSULIN GLARGINE 100 UNIT/ML 3ML PEN 40 UNIT SUBCUT (21:22)
[2018-06-11] VITALS (11 sets, daily range): BP systolic 143–181; BP diastolic 66–97; PULSE 71–92; RESP 10–27; TEMP 35.8–36.2; O2SAT 87–92
[2018-06-11] MEDS: levoFLOXacin 750 MG/150 ML PIGGYBACK 100 MG IV (00:53)
[2018-06-11] MEDS: methylPREDNISolone 125 MG/2 ML VIAL 60 MG IV ×4 (00:55→18:56)
[2018-06-11] MEDS: CEFTRIAXONE 1 GM/50 ML FROZ.PIGGY IV (03:43)
[2018-06-11 05:25] LABS: Alanine Aminotransferase 33 IU/L (9-52); Albumin 3.4 g/dL (3.5-5.0); Albumin Globulin Ratio 0.9 (1.0-2.8); Alkaline Phosphatase 82 U/L (38-126); Aspartate Aminotransferase 18 IU/L (14-36); BUN Creatinine Ratio 61.7 (6-22); Bilirubin Total 0.4 mg/dL (0.2-1.3); Blood Urea Nitrogen 37 mg/dL (7-17); Calcium 8.5 mg/dL (8.4-10.2); Chloride 89 mmol/L (98-107); Estimated Glomerular Filt Rate > 60.0 mL/min (>60); Globulin 3.7 g/dL (1.7-4.1); Glucose 294 mg/dL (70-100); HEMOLYSIS < 15 (0-50); Potassium 4.5 mmol/L (3.4-5.1); Sodium 138 mmol/L (137-145); Total Protein 7.1 g/dL (6.3-8.2)
[2018-06-11 05:49] LABS: Carbon Dioxide 40 mmol/L (22-32)
[2018-06-11 06:30] LABS: Basophils Absolute Auto 0 /uL (0-100); Eosinophils Absolute Auto 0 /uL (0-450); Hematocrit 38.4 % (36-46); Hemoglobin 11.7 g/dL (12.0-16.0); Mean Corpuscular HGB Conc 30.5 % (30-36); Red Blood Cell Count 4.99 X10^6/uL (4.0-5.2)
[2018-06-11 06:37] LABS: Add Manual Diff / Slide Review NO; Basophils Percent Auto 0.2 % (0-2); Lymphocytes Absolute Auto 500 /uL (1100-4500); Lymphocytes Percent Auto 5.5 % (25-40); Mean Corpuscular Hemoglobin 23.5 PG (26-34); Monocytes Absolute Auto 400 /uL (0-900); Monocytes Percent Auto 4.7 % (3-14); Neutrophils Absolute Auto 8400 /uL (1500-7000); Neutrophils Percent Auto 89.6 % (50-75); Platelet Count 354 X10^3/uL (150-400); Red Cell Distribution Width 19.9 % (11.6-14.8); White Blood Cell Count 9.4 X10^3/uL (4.5-11.0)
[2018-06-11] MEDS: INSULIN ASPART 100 UNIT/ML INSULN PEN SUBCUT ×4 (08:33→22:27)
[2018-06-11] MEDS: METFORMIN HCL 500 MG TABLET 1000 MG PO ×2 (08:33→17:23)
[2018-06-11] MEDS: LISINOPRIL 10 MG TABLET PO (08:34)
[2018-06-11] MEDS: AMLODIPINE 5 MG TABLET 10 MG PO (08:34)
[2018-06-11] MEDS: METOPROLOL ER 50 MG TABLET 100 MG PO ×2 (08:34→22:23)
[2018-06-11] MEDS: PANTOPRAZOLE 40 MG VIAL IV (08:35)
[2018-06-11] MEDS: ENOXAPARIN 80 MG/0.8 ML SYRINGE 150 MG SUBCUT ×2 (08:35→22:23)
[2018-06-11] MEDS: SODIUM CHLORIDE 0.9% FLUSH 10 ML IV ×3 (08:36→22:26)
[2018-06-11] MEDS: NYSTATIN POWDER 30 GM 1 APPLIC TOP ×3 (08:37→22:26)
--- NOTE | 2018-06-11 08:44 | DI.RAD.S_ITS ---
PROCEDURE: XR CHEST 1V INDICATIONS: increase CO2 TECHNIQUE: One view of the chest was acquired. COMPARISON: [facility], CR, XR CHEST FOR PICC 1V, 06/05/2018, 4:20. FINDINGS: Surgical changes and devices: Right PICC line with tip projecting in the lower SVC Lungs and pleura: Patchy bibasilar consolidations present in the right lung base as well as retrocardiac left lower lobe. No interval change.. No pleural effusions or pneumothorax. Mediastinum: Cardiac silhouette and mediastinal contours are stable. Bones and chest wall: No suspicious bony lesions. Overlying soft tissues appear unremarkable. IMPRESSION: Overall, stable examination since 06/05/18. No new focal consolidation Dictated by: Iván Cuba M.D. on 06/11/2018 at 9:20 Approved by: Iván Cuba M.D. on 06/11/2018 at 9:21
--- NOTE | 2018-06-11 08:58 | PM.PN.1 ---
Subjective Date Patient Seen: 06/11/18 Time Patient Seen: 08:58 Interval history: Patient has been continuing to diurese and treat infection. Worsening skin lesion left hip area. Some increased CO2 retention blood pressure is good with systolic 50s renal function electrolytes have been good as well. CC retention and use of BiPAP through the night and trilogy through the course of the day. Diuresis has continued. Will increase diuresis increased BiPAP pressure get chest x-ray and ABG and BNP and troponin. Continue with current antibiotic thinking and consider Exam Vital Signs (past 8 hours): - 06/11/18 04:53 06/11/18 04:56 06/11/18 08:00 Temperature 96.5 F L 97.1 F L Pulse Rate 78 75 Respiratory Rate 20 20 Blood Pressure 143/87 H 159/66 H Pulse Oximetry 92 90 L 88 L Fraction of Inspired Oxygen 80 Oxygen Delivery Method BiPAP Oxygen Flow Rate 80 Narrative Exam Narrative: Two teary-eyed and anxious this morning. Feels a little like it is a little harder to get up decent breath id [place] yesterday like her hip skin area was little bit better feels like it is is taking small steps backwards. PERRLA EOMs intact Head chest with decreased breath sounds Cardiovascular shows regular rate rhythm without murmur Abdomen obese Skin hip area with some maceration redness again wonder if this is just her immobility with position on that or if this could be a manifestation of her autoimmune skin disorder Neuro is intact and symmetrical Psych patient is emotional and very anxious over the last 24 hr and more so today. As Objective Labs Result Diagrams: 06/11/18 04:45 06/11/18 04:45 Labs: Laboratory Results - last 24 hr 06/11/18 06/11/18 04:45 04:45 WBC 9.4 RBC 4.99 Hgb 11.7 L Hct 38.4 MCV 77.0 L MCH 23.5 L MCHC 30.5 RDW 19.9 H Plt Count 354 Neut % (Auto) 89.6 H Lymph % (Auto) 5.5 L [place] % (Auto) 4.7 Eos % (Auto) 0.0 L Baso % (Auto) 0.2 Neut # (Auto) 8400 H Lymph # (Auto) 500 L [place] # (Auto) 400 Eos # (Auto) 0 Baso # (Auto) 0 Sodium 138 Potassium 4.5 Chloride 89 L Carbon Dioxide 40 H* BUN 37 H Creatinine 0.60 Estimated GFR > 60.0 BUN/Creatinine Ratio 61.7 H Glucose 294 H Calcium 8.5 Total Bilirubin 0.4 AST 18 ALT 33 Alkaline Phosphatase 82 Total Protein 7.1 Albumin 3.4 L Globulin 3.7 Albumin/Globulin Ratio 0.9 L Assessment & Plan Assessment & Plan narrative: 1. Acute superimposed over chronic respiratory failure. Patient is not at the point where she needs to have intubation but she is increasing CO2 retention if this worsens will get a hospitalist consult this morning will give extra diuretic and chest x-ray and ABG. Assessment 2. With pneumonia will get chest x-ray today. Continue IV antibiotics Assessment 3. Skin lesion left hip area this is some maceration redness continues his white count still in normal range. That had seemed to be improving per patient's awareness of it and will continue to watch closely and continue antibiotics Assessment 4. Diabetes with elevated glucose we will continue to titrate up on insulin management. Assessment 5. Patient is on anticoagulation full therapeutic anticoagulation for pulmonary embolism although we have been and able to do a procedure to define if she has embolism or not she was so hypoxic when she came in that in the inability to rule it out she was initiated on that treatment not having any overt bleeding except that is related to her. Still S at this point I believe would love to retry imaging for her with a CT scan to exclude pulmonary embolism but she was unable to tolerate being in the CT scanner to 2 days ago. Quality VTE Deep Vein Thrombosis/Pulmonary Embolism Present on Admission: No
[2018-06-11] MEDS: FUROSEMIDE 120 MG in SODIUM CHLORIDE 0.9% 50 ML 124 ML IV (09:03)
[2018-06-11] MEDS: HYDROCODONE/ACET 5/325 TABLET 1 TAB PO ×3 (09:38→18:56)
[2018-06-11] MEDS: LORazepam 2 MG/ML SYRINGE 1 MG IV ×3 (09:38→18:57)
[2018-06-11 10:14] LABS: pH ABG 7.39 (7.35-7.45)
[2018-06-11 10:15] LABS: HCO3 ABG 42 mmol/L (22-26); Oxygen Saturation ABG 90 % (95-100); PO2 ABG 63 mmHg (80-100); TCO2 ABG 44 mmol/L (21-31)
[2018-06-11 10:16] LABS: Fractionated Inspired Oxygen 80
--- NOTE | 2018-06-11 11:03 | PC.NURSE ---
Addendum entered by Umu Garcia R.N. 06/11/18 14:48: bed bath done, pt desats to 80% and RR 26 and labored. FiO2 increased to 85%. repositioned higher in bed. refuses turns, even slightly. declines pillows under legs. linen changed; blue chux saturated with weeping legs. Original Note: jodie lift used to get pt on bedpan. FiO2 increased to 90% during procedure. Desat to 82%. linen changed and chary care done. pt anxious despite Ativan 1mg IV prior to bedpan
--- NOTE | 2018-06-11 13:16 | CM.DPC ---
DCP: continued: case again discussed in Team Rounds with RT and RN coordinator Haylie Collins states that pt needs pulmonology specialist and the strong recommendation continue to be a transfer to an appropriate higher level of specialy care facility. His intention was to followup with Dr. Chavez and the SUPERVISOR HYDROCHLORIC AREAstaff cytotechnologist.
--- NOTE | 2018-06-11 15:49 | PT.IPTN ---
Current Diagnoses Type 2 diabetes mellitus with other specified complication (06/05/18) Morbid (severe) obesity due to excess calories (06/05/18) Obesity, unspecified (06/05/18) Physical Therapy Treatment Note M2 PT-IP Current Condition Start: 06/08/18 10:32 Freq: NEEDED Status: Active Protocol: Document 06/09/18 11:12 AB (Rec: 06/09/18 13:48 AB [id number]) Physical Therapy Current Condition Current Condition Evaluation Date 06/09/18 Treatment Diagnosis CHF; acute respiratory distress; generalized weakness Onset Date 06/05/18 Precautions Other Precautions O2 sat M3 PT-IP Subjective Start: 06/08/18 10:32 Freq: NEEDED Status: Active Protocol: Document 06/11/18 15:47 AB (Rec: 06/11/18 15:49 AB [id number]) Subjective Physical Therapy Visit Type Type Patient Refusal Notes checked on pt this morning for PT and stated that she wants it in the afternoon because she is waiting for her doctor to come in to talk to her and the doctor will be coming in 15 min. checked on pt this afternoon but refused therapy. stated that they gave her ativan and her body is not cooperating with her. Agreed to do therapy tomorrow.
[2018-06-11] MEDS: FUROSEMIDE 100 MG in SODIUM CHLORIDE 0.9% 50 ML 120 ML IV (16:06)
--- NOTE | 2018-06-11 16:47 | OT.IP.TRT ---
Current Diagnoses Type 2 diabetes mellitus with other specified complication (06/05/18) Morbid (severe) obesity due to excess calories (06/05/18) Obesity, unspecified (06/05/18) Occupational Therapy Treatment Note M3 OT- IP Subjective and Pain Start: 06/11/18 16:46 Freq: Status: Active Protocol: Document 06/11/18 15:50 [facility] (Rec: 06/11/18 16:47 [facility] [id number]) OT- Subjective Occupational Therapy Visit Type Type Patient Refusal Notes Pt states not feeling well and having trouble breathing, therefore not wanting to be seen for therapy today. Therefore attempt OT eval tomorrow.
[2018-06-11] MEDS: INSULIN ASPART 100 UNIT/ML INSULN PEN 10 UNIT SUBCUT (17:24)
--- NOTE | 2018-06-11 18:00 | PC.NURSE ---
Addendum entered by Tara Hamilton R.N. 06/11/18 19:11: 1900 - Dr. Chavez into see pt. Discussed plan of care. Pt tearful and anxious. Discussed increased, daytime use of Bi-pap. Pt agreeable, requesting pre-medication with ativan for anxiety and vicodin for discomfort. C/o a tension headache. Monitor. Original Note: 1630 - Pt report feeling like today, is an off day. Reports fatigue, discomfort and anxiety. States that she slept well, remains fatigued. FIO2 at 80% Flow 55, pt sats decrease into the mid 80's with conversation, 87-89% at rest. Increase in adventitious lung sounds today. Anterior fine crackles, posterior rhonci. Lasix given as ordered. Call light in reach.
[2018-06-11] MEDS: ACETAMINOPHEN 325 MG TABLET 650 MG PO (18:56)
[2018-06-11] MEDS: INSULIN GLARGINE 100 UNIT/ML 3ML PEN 40 UNIT SUBCUT (22:28)
[2018-06-12] VITALS (23 sets, daily range): BP systolic 75–161; BP diastolic 5–109; PULSE 75–98; RESP 10–35; TEMP 35.8–36.7; O2SAT 78–96
[2018-06-12] MEDS: levoFLOXacin 750 MG/150 ML PIGGYBACK 100 MG IV (00:50)
[2018-06-12] MEDS: methylPREDNISolone 125 MG/2 ML VIAL 60 MG IV ×3 (00:50→13:59)
[2018-06-12] MEDS: LORazepam 2 MG/ML SYRINGE 1 MG IV ×3 (01:07→14:36)
[2018-06-12] MEDS: CEFTRIAXONE 1 GM/50 ML FROZ.PIGGY IV (03:25)
[2018-06-12] MEDS: SODIUM CHLORIDE 0.9% FLUSH 10 ML IV ×4 (03:26→10:08)
[2018-06-12 05:15] LABS: Add Manual Diff / Slide Review NO; Basophils Absolute Auto 0 /uL (0-100); Basophils Percent Auto 0.3 % (0-2); Eosinophils Absolute Auto 0 /uL (0-450); Hematocrit 41.4 % (36-46); Hemoglobin 12.8 g/dL (12.0-16.0); Lymphocytes Absolute Auto 400 /uL (1100-4500); Lymphocytes Percent Auto 3.3 % (25-40); Mean Corpuscular HGB Conc 30.9 % (30-36); Mean Corpuscular Hemoglobin 23.5 PG (26-34); Mean Corpuscular Volume 76.2 fL (80-100); Monocytes Absolute Auto 500 /uL (0-900); Monocytes Percent Auto 4.2 % (3-14); Neutrophils Absolute Auto 11600 /uL (1500-7000); Neutrophils Percent Auto 92.2 % (50-75); Platelet Count 411 X10^3/uL (150-400); Red Blood Cell Count 5.44 X10^6/uL (4.0-5.2); Red Cell Distribution Width 19.8 % (11.6-14.8); White Blood Cell Count 12.6 X10^3/uL (4.5-11.0)
[2018-06-12 05:21] LABS: Alanine Aminotransferase 30 IU/L (9-52); Albumin 3.5 g/dL (3.5-5.0); Albumin Globulin Ratio 0.9 (1.0-2.8); Alkaline Phosphatase 86 U/L (38-126); Aspartate Aminotransferase 16 IU/L (14-36); BUN Creatinine Ratio 57.1 (6-22); Bilirubin Total 0.6 mg/dL (0.2-1.3); Blood Urea Nitrogen 40 mg/dL (7-17); Calcium 8.5 mg/dL (8.4-10.2); Chloride 82 mmol/L (98-107); Estimated Glomerular Filt Rate > 60.0 mL/min (>60); Globulin 3.8 g/dL (1.7-4.1); Glucose 270 mg/dL (70-100); HEMOLYSIS < 15 (0-50); Sodium 139 mmol/L (137-145); Total Protein 7.3 g/dL (6.3-8.2)
[2018-06-12 05:32] LABS: Carbon Dioxide 49 mmol/L (22-32)
[2018-06-12 05:33] LABS: Troponin I 0.106 ng/mL (0.01-0.034)
[2018-06-12 05:46] LABS: B Type Natriuretic Peptide 462 (<100)
[2018-06-12] MEDS: HYDROCODONE/ACET 5/325 TABLET 1 TAB PO (07:03)
[2018-06-12] MEDS: AMLODIPINE 5 MG TABLET 10 MG PO (10:03)
[2018-06-12] MEDS: METFORMIN HCL 500 MG TABLET 1000 MG PO (10:03)
[2018-06-12] MEDS: FUROSEMIDE 100 MG/10 ML VIAL 80 MG IV (10:04)
[2018-06-12] MEDS: ENOXAPARIN 80 MG/0.8 ML SYRINGE 150 MG SUBCUT (10:04)
[2018-06-12] MEDS: LISINOPRIL 10 MG TABLET PO (10:06)
[2018-06-12] MEDS: METOPROLOL ER 50 MG TABLET 100 MG PO (10:06)
[2018-06-12] MEDS: PANTOPRAZOLE 40 MG VIAL IV (10:06)
[2018-06-12] MEDS: NYSTATIN POWDER 30 GM 1 APPLIC TOP ×2 (10:07→13:59)
--- NOTE | 2018-06-12 10:07 | PM.DS.1 ---
History of Present Illness Chief complaint: SOB Discharge Providers Date of admission: 06/05/18 00:28 Discharge Date: 06/12/18 Primary care physician: Raman Chavez MD Consults: 06/05/18 00:18 Consult to Physician Routine Comment: Consulting Provider: Jen Real Reason for consultation: Admission Has provider been notified: Yes 06/05/18 01:52 Consult to PICC Line RN Stat Comment: 06/05/18 02:47 Consult to Dietitian, Adult Routine Comment: Reason For Exam: Bebo scale Protocol 06/05/18 07:10 Consult to Respiratory Therapy Evaluate & Treat Comment: Physician Instructions: Evaluate and treat 06/08/18 08:44 Consult to Physical Therapy Evaluate & Treat Comment: Physician Instructions: Evaluate and Treat 06/10/18 10:37 Consult to Occupational Therapy Evaluate & Treat Comment: Physician Instructions: Evaluate and treat 06/11/18 12:41 Consult to Physician Routine Comment: Consulting Provider: Miryam Sy Reason for consultation: O2 requirements Has provider been notified: Yes Discharge provider: Raman Chavez MD Summary Discharge Diagnosis: Acute superimposed on chronic respiratory failure Hospital Course: Patient admitted with increasing shortness of breath requiring high level of oxygen support. 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 Also has history of asthma and fluid management. She weighs 488lb on admission and this could it is to a significant restrictive component to her ventilation.was felt that she probably was presenting [place] a [place] [id number] and apparent infiltrates so patient was admitted placed on broad-spectrum IV antibiotics IV steroids given the autoimmune and asthma component and and diuresis with. An seemed to improve over the 1st 24 hr but since then has gradually been more more difficult to ventilate. Increasing CO2 pH stable I feared there is a metabolic component although renal function seems appropriate blood pressure is stable and heart rate has remained in normal ranges. Patient has in the last 2 days diuresed off about 15-20 L of fluid and has only continued to do worsen. 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 Unable to do testing for that because she is unable to lay with CT scan and has large body habitus that they were unable to get meaningful echo. Patient was placed by the admitting physician on therapeutic levels of Lovenox and treated for PE which has made no improvement in her respiratory function at this point. Status at Discharge Cognitive/behavioral status at discharge: oriented Functional status at discharge: bed bound Overall status at discharge: patient is not back to baseline Time Spent with Patient Greater than 30 minutes Exam Vital Signs (past 8 hours): - 06/12/18 03:12 06/12/18 03:51 06/12/18 04:02 Temperature 96.4 F L Pulse Rate 78 Respiratory Rate 25 H Blood Pressure 148/91 H Pulse Oximetry 88 L 94 94 06/12/18 06:06 06/12/18 07:42 Temperature 97 F L Pulse Rate 78 Respiratory Rate 24 Blood Pressure 148/95 H Pulse Oximetry 93 96 Fraction of Inspired Oxygen 100 Oxygen Delivery Method BiPAP Oxygen Flow Rate 80 Narrative Exam Narrative: Patient on BiPAP mask difficulty to speak to Jeet stewart cristhian KATHYRITA EOMs intact Significantly decreased breath sounds bilaterally but very difficult exam Cardiac exam shows regular rate and rhythm without murmur or arrhythmia Abdomen obese but no clear-cut mass or significant tenderness Skin issues show some redness inflammation and ulceration and legs due to immobility does not appear overtly to be worsening infection. Neuro is intact and symmetrical to motor sensation speech and cranial nerves intact Psychiatric patient is highly anxious with a component of depression I am sure her is and is essentially very close to bed-bound in a small apartment with her mother and her son for number of years secondary to her underlying conditions. Objective Labs Result Diagrams: 06/12/18 05:00 06/12/18 05:00 Labs: Laboratory Results - last 24 hr 06/11/18 06/12/18 06/12/18 09:24 05:00 05:00 WBC 12.6 H RBC 5.44 H Hgb 12.8 Hct 41.4 MCV 76.2 L MCH 23.5 L MCHC 30.9 RDW 19.8 H Plt Count 411 H Neut % (Auto) 92.2 H Lymph % (Auto) 3.3 L [place] % (Auto) 4.2 Eos % (Auto) 0.0 L Baso % (Auto) 0.3 Neut # (Auto) 98243 H Lymph # (Auto) 400 L [place] # (Auto) 500 Eos # (Auto) 0 Baso # (Auto) 0 ABG pH 7.39 ABG pCO2 68.7 H* ABG pO2 63 L ABG HCO3 42 H ABG Total CO2 44 H ABG O2 Saturation 90 L ABG Base Excess 17.0 H FiO2 80 Sodium 139 Potassium 4.0 Chloride 82 L Carbon Dioxide 49 H* BUN 40 H Creatinine 0.70 Estimated GFR > 60.0 BUN/Creatinine Ratio 57.1 H Glucose 270 H Calcium 8.5 Total Bilirubin 0.6 AST 16 ALT 30 Alkaline Phosphatase 86 Troponin I 0.106 H B-Natriuretic Peptide 462 H Total Protein 7.3 Albumin 3.5 Globulin 3.8 Albumin/Globulin Ratio 0.9 L Discharge Plan Discharge Plan Patient Disposition: [facility] Transfer to: [facility] Under care of provider: Todd Green Discharge comment: see d/c summary Discharge Med Rec/Prescriptions Prescriptions: Discontinued lorazepam 1 MG tablet 1 - 2 mg PO Q8HP PRN (Reason: Anxiety) Qty: 0 RF: 0 Enbrel 50 MG/1 ML syringe 50 mg SQ QWEEK Qty: 0 RF: 0 hydrocodone-acetaminophen 5 MG/325 MG tablet 1 tab PO Q4HP PRN (Reason: joint/back/leg pain) Qty: 0 RF: 0 ondansetron HCl [Zofran] 4 MG tablet 4 mg PO Q8HP PRN (Reason: Nausea) Qty: 0 RF: 0 metoprolol tartrate 50 MG tablet 100 mg PO BID Qty: 0 RF: 0 prednisone 20 MG tablet 10 mg PO AMCC RF: 0 amlodipine 10 mg tablet 10 mg PO DAILY RF: 0 folic acid 400 mcg tablet 400 mcg PO DAILY RF: 0 lisinopril 10 mg tablet 10 mg PO DAILY RF: 0 metformin 1,000 mg tablet 1,000 mg PO BID RF: 0 multivitamin with minerals 1 tab PO DAILY RF: 0 spironolactone 25 mg tablet 25 mg PO QAM RF: 0 Follow up/Referrals: Raman Chavez MD [Primary Care Provider] - Discharge Orders: Discharge (Order); Ordered 06/12/18 Ordered By: Raman Chavez Discharge Health Status Multidrug resistant organism: No MDRO MDRO Verified by culture: Yes Precautions: [employer] Provider Discharge Instructions Diet: Nothing by Mouth Diet comment: npo Oxygen: Ventilator Other treatments: Andrews Skin/Wound/Dressing Care Skin care: yes Discharge Data Primary Care Provider: Raman Chavez Attending Provider: Jen Real Admit Date/Time: 06/05/18 00:28 Discharges patient from system. Discharge Date/Time: 06/12/18 18:40 Quality VTE Deep Vein Thrombosis/Pulmonary Embolism Present on Admission: No
[2018-06-12] MEDS: INSULIN ASPART 100 UNIT/ML INSULN PEN 10 UNIT SUBCUT ×2 (10:14→11:59)
[2018-06-12] MEDS: INSULIN ASPART 100 UNIT/ML INSULN PEN SUBCUT ×2 (10:14→11:59)
--- NOTE | 2018-06-12 14:50 | PC.NURSE ---
Day Shift Note Pt on biPAP FiO2 80% all shift, briefly removed mask for pills this AM. Get very SOB with increased WOB and declining sats to 84% when attempted to place on heated HFNC. Oxygen sats 94% when on biPAP. Dr. Chavez at bedside this AM and order received to transfer pt to tertiary care center. Made aware of bed availability at [facility], Dr. Chavez notified and order received to intubate prior to transport. Dr. Castillo notified and awaiting arrival. Pt and pt's mother (Tori) updated. RT has vent in room.
--- NOTE | 2018-06-12 15:19 | DI.RAD.S_ITS ---
PROCEDURE: XR CHEST 1V INDICATIONS: intubated/check tube placement TECHNIQUE: One view of the chest was acquired. COMPARISON: [facility], CR, XR CHEST 1V, 06/11/2018, 8:50. FINDINGS: Surgical changes and devices: ET tube projects 2.9 cm superior to analy and could be pulled back approximately 1 cm. PICC line projects in the distal SVC via a right-sided approach. Lungs and pleura: Trace right-sided pleural effusion. Patchy airspace opacities in the lungs have worsened suspicious for worsening pneumonia. There is cephalization of pulmonary vasculature and diffuse lung opacification concerning for CHF. Mediastinum: Mediastinal contours appear normal. Heart size is normal. Bones and chest wall: No suspicious bony lesions. Overlying soft tissues appear unremarkable. IMPRESSION: ET tube is 2.9 cm superior to the analy. Dictated by: Debbie Morejon MD, PhD on 06/12/2018 at 15:49 Approved by: Debbie Morejon MD, PhD on 06/12/2018 at 15:51
[2018-06-12] MEDS: PROPOFOL 1,000 MG/100 ML VIAL 23.084 MG IV (15:25)
--- NOTE | 2018-06-12 15:26 | PM.PROC.1 ---
Procedures Date/Time Date of procedure: 06/12/18 Time of procedure: 15:20 Intubation Time out performed: Yes Sedative: other (propofol) Mg given: 200 Paralytic: succinylcholine Mg given: 140 Laryngoscope: Suzanne (3) ET tube size: 8 ET tube uncuffed: No Tube secured depth (cm): 23 Tube secured location: teeth Tube placement confirmation: visualized tube passing through cords, equal breath sounds bilaterally, no breath sounds over epigastrium and confirmation by capnometry Patient tolerated procedure: well and no complications Intubation complications: none
[2018-06-12] MEDS: PHENYLEPHRINE HCL IN 0.9% NACL 1 MG/10 ML SYRINGE 0.2 MG INJ ×4 (15:33→17:15)
[2018-06-12] MEDS: LORazepam 2 MG/ML SYRINGE IV (16:10)
[2018-06-12] MEDS: MIDAZOLAM 50 MG in DEXTROSE 5% IN WATER 250 ML 10 ML IV (16:22)
[2018-06-12] MEDS: SUCCINYLCHOLINE 100 MG/5 ML INJ 140 MG IV (16:27)
[2018-06-12] MEDS: PROPOFOL 200 MG/20 ML VIAL IV (16:27)
[2018-06-12] MEDS: PROPOFOL 1,000 MG/100 ML VIAL 34.626 MG IV (17:13)
[2018-06-12 17:42] LABS: pH ABG 7.63 (7.35-7.45)
[2018-06-12 17:43] LABS: HCO3 ABG 51 mmol/L (22-26); PCO2 ABG 48.9 mmHg (35-45); PO2 ABG 53 mmHg (80-100); TCO2 ABG > 50 mmol/L (21-31)
[2018-06-12 17:44] LABS: Fractionated Inspired Oxygen 100; Oxygen Saturation ABG 92 % (95-100)
--- NOTE | 2018-06-12 17:57 | PC.NURSE ---
1500 - Preparing pt for intubation, Caitlin RN, Aly RT, and Dr. Castillo for anesthesia in room. Consent signed. Dr. Castillo pushed own meds, 200 of propofol and 140 of succintylcholine given. HOB lowered. Intubated without difficulty. Propofol gtt intitiated. Vent settings per RT. 1530 - BP decreased to 75/40, Dr. Castillo at bedside. propofol gtt reduced to 20 mcg/kg/min. 1533 - Dr. Castillo pushed phenylephrine. Propofol titrated to off. 1543 - Dr. Castillo pushed phenylephrine. BP 77/39 MAP 53. RT titrated peep down to 2. 1551 - BP 88/40 MAP 61, Dr. Castillo administered an additional dose of phenylephrine. Verbal PRN order obtained. 1610 - Dr. Chavez notified of low BP with propofol and anxiety and distress with low sedation. Request additional sedation medications. Now order for ativan and Versed gtt order obtained. 2mg of ativan given while awaiting gtt from pharmacy. Transport arrived. Report given. Awaiting sedation effect prior to mobilizing. transfer to [facility]. Pt sats decreased to the 70's. Manual bag by RTAly. Recurrent hypotension. Sedation stopped by patient transportation driver. Repositioned. Changed to transport monitors. Phenylephrine given per PRN order. Sats increased to 86%. Transport resumed care with propofol and versed. Placed on transport ventilator. 1720 - Out the door with transport. Report called to Delia at [facility].
[2018-06-30 16:35] LABS: PCO2 ABG 68.7 mmHg (35-45)
== END 2018-06-12 18:40 | disposition short-term general hospital (02) | DRG 208 ==
LOC: ED 23:32 → ICU 06-05 08:40
PROVIDERS: Legal Medicine; Admitting Provider Family Medicine; Emergency Provider Emergency Medicine; Family Provider Family Medicine; PCP Family Medicine; Visit Provider Family Medicine
DX: J96.20 Acute and chronic respiratory failure, unspecified whether with hypoxia or hypercapnia (principal); I50.23 Acute on chronic systolic (congestive) heart failure; J18.9 Pneumonia, unspecified organism; J44.1 Chronic obstructive pulmonary disease with (acute) exacerbation; Z68.45 Body mass index [BMI] 70 or greater, adult; I24.8 Other forms of acute ischemic heart disease; I11.0 Hypertensive heart disease with heart failure; E66.01 Morbid (severe) obesity due to excess calories; E87.5 Hyperkalemia; F41.9 Anxiety disorder, unspecified; F32.9 Major depressive disorder, single episode, unspecified; E11.9 Type 2 diabetes mellitus without complications; Z79.84 Long term (current) use of oral hypoglycemic drugs; D89.89 Other specified disorders involving the immune mechanism, not elsewhere classified
CPT/HCPCS: 36415; 36592; 36600; 71045; 80048; 80053; 82550; 82805; 82962; 83605; 83880; 84132; 84145; 84484; 85025; 85610; 85730; 87040; 87086; 87633; 87797; 93005; 93010; 93306; 94002; 94640; 94660; 94760; 94762; 94770; 94799; 97162; 97530; 99283; C9113; J0330; J1642; J1650; J1940; J1956; J2060; J2250; J2704; J2930; Q9957